=== PATIENT | female | born 1950 | race Caucasian/White ===

== ENCOUNTER 2021-02-01 15:56 | Emergency (ER) | payer BC, OTHER, MEDICARE ==
[~2021-02-01 15:56] MED LIST: ADVA1AER2 IN; ARTISOL10 OP; BACL1TAB9; BACL1TAB9 OR; BISA10SU2 PO; CALC500T49 OR; CALCCHW12; CHROMIUM; COMBI; COMBVENT; ESTRACE; FERR325T; FLECTOR1.3; FLON0.05; FLUC10TA; FLUC10TA AD; FURO80TA2 OR; HYDR25TA7 OR; HYDR25TA8 OR; HYDROXYZINE; HYPROMELLOSE OU; KADIAN; KEFL500C; KEFL500C OR; KEPPRA; KEPPRA PO; KLOR10TA OR; LASI80TA; LEVO112T3; LORTAB; MULTIVIT; Magnesium Oxide PO; OXCA1TAB OR; OXYC10TA12 OR; OXYC10TA12 PO; PEPC20TA2; PEPC20TA2 OR; POTA20TA2 OR; POTA20TA2 PO; PROP80CA OR; SIMV20TA2; SIMV20TA2 OR; SING10TA31; SING10TA31 OR; SLOWTAB OR; SLOWTAB PO; SONATA; SPIR100T OR; SPIR50TA2; SYNT112T OR; SYNT75TA; VITA100T; VITA25003 SL; VITAMIN B COMPLE1; VITAMIN B COMPLE1 OR; VITAMIN D50000 UNT; XOPE0.632 IN; ZANA2CAP OR; ZOLO100T; ZOLO100T OR; ZYVO100T; [UNRECOGNIZED DRUG - OTHER]; [UNRECOGNIZED DRUG - OTHER] OU; [UNRECOGNIZED DRUG - OTHER] PO; [UNRECOGNIZED DRUG - OTHER] PO; combivent PO; estrace PO; kadian PO; ocean spray; zertec PO
--- NOTE | 2021-02-01 18:41 | REP ---
INDICATION: PAIN IN LEFT HIP COMPARISON: 09/18/2010. TECHNIQUE: AP and lateral left femur. FINDINGS: There is no acute fracture or dislocation. There is total left knee arthroplasty. Metallic clips are seen in the distal thigh soft tissues. The majority of the fibula is surgically absent, with a smooth surgical margin seen proximally. There is moderate to severe central narrowing of the hip joint. IMPRESSION: No fracture or dislocation. Postsurgical changes left knee. Degenerative changes left hip. <Electronically signed by Kamlesh Chamorro > 02/01/21 3020
[2021-02-01] MEDS ORDERED: HYDR-3713 PO (20:49)
[2021-02-01] MEDS ORDERED: CYCLOBENZAPRINE 10MG TABLET PO ONE (20:50)
[2021-02-01] MEDS ORDERED: NORCO, ANEXSIA 5/325MG TABLET (HYDROcodone/ACETAMINOPHEN) PO ONE (20:50)
[2021-02-01] MEDS ORDERED: methocarbamoL 750 MG TAB PO ONE (20:50)
[2021-02-01] MEDS ORDERED: METH-1165 PO (20:53)
[2021-02-01] MEDS ORDERED: CYCL-707 PO (20:53)
[2021-02-01 21:37] VITALS: BP 145/62
== END 2021-02-01 21:39 | disposition home or self-care (01) ==
LOC: M ED 15:56
DX: S80.12XA Contusion of left lower leg, initial encounter (principal); X50.0XXA Overexertion from strenuous movement or load, initial encounter; Y92.9 Unspecified place or not applicable; Y93.9 Activity, unspecified; Y99.8 Other external cause status; Z96.652 Presence of left artificial knee joint; E66.9 Obesity, unspecified; G43.909 Migraine, unspecified, not intractable, without status migrainosus; J45.909 Unspecified asthma, uncomplicated; R56.9 Unspecified convulsions; E03.9 Hypothyroidism, unspecified; G89.29 Other chronic pain; Z88.0 Allergy status to penicillin; Z88.1 Allergy status to other antibiotic agents; Z88.6 Allergy status to analgesic agent; Z88.8 Allergy status to other drugs, medicaments and biological substances; Z79.899 Other long term (current) drug therapy; Z79.890 Hormone replacement therapy

== ENCOUNTER → 2021-02-09 | Outpatient (REF) | payer MEDICARE, BC, OTHER ==
[~2021-02-09] MED LIST changes: +CYCL-707 PO; +HYDR-3713 PO; +METH-1165 PO
== END ==
LOC: M LAB REF 20:06
PROVIDERS: ATTEND Physician Assistant
DX: R30.0 Dysuria (principal)

== ENCOUNTER 2021-04-11 14:50 | Emergency (ER) | payer MEDICARE, BC, OTHER ==
[~2021-04-11] VITALS: Ht 165.1 cm; Wt 124.5 kg
[2021-04-11] MEDS ORDERED: ADV500INH INH (15:55)
[2021-04-11] MEDS ORDERED: PROP120C PO (15:55)
[2021-04-11] MEDS ORDERED: KEPP1TAB2 PO (15:55)
[2021-04-11] MEDS ORDERED: oxyCODONE 5MG TAB PO ONE (17:10)
[2021-04-11 17:15] VITALS: BP 156/68
--- NOTE | 2021-04-12 05:00 | ECGEPIP ---
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
== END 2021-04-11 18:14 | disposition home or self-care (01) ==
LOC: M ED 14:50
DX: G89.29 Other chronic pain (principal); M25.552 Pain in left hip; R42 Dizziness and giddiness; E66.9 Obesity, unspecified; G43.909 Migraine, unspecified, not intractable, without status migrainosus; E03.9 Hypothyroidism, unspecified; Z88.1 Allergy status to other antibiotic agents; Z88.2 Allergy status to sulfonamides; Z88.6 Allergy status to analgesic agent; Z88.8 Allergy status to other drugs, medicaments and biological substances; Z79.899 Other long term (current) drug therapy; Z79.890 Hormone replacement therapy

== ENCOUNTER 2021-04-14 18:31 | Inpatient (IN) | payer MEDICARE, BC ==
[~2021-04-14] VITALS: Ht 165.1 cm; Wt 119.2 kg
[~2021-04-14 18:31] MED LIST changes: +ADV500INH INH; +KEPP1TAB2 PO; +PROP120C PO
[2021-04-14] MEDS ORDERED: HYDR12.55 PO (18:58)
[2021-04-14] MEDS ORDERED: ALPR0.5T3 PO (18:58)
[2021-04-14] MEDS ORDERED: KEPP1TAB2 PO ×2 (18:58)
[2021-04-14] MEDS ORDERED: ZYRTTAB8 PO (18:58)
[2021-04-14] MEDS ORDERED: HYDR200T3 PO (18:58)
[2021-04-14] MEDS ORDERED: ESZO1TAB6 PO (18:58)
[2021-04-14] MEDS ORDERED: LISI10TA22 PO (18:58)
[2021-04-14] MEDS ORDERED: VIMP200T PO (18:58)
[2021-04-14] MEDS ORDERED: LIPI20TA PO (18:58)
[2021-04-14] MEDS ORDERED: ADV500INH INH (18:58)
--- NOTE | 2021-04-14 20:08 | REP ---
INDICATION: Altered Mental Status. COMPARISON: 02/01/2021 TECHNIQUE: AP and frog-lateral with AP pelvis FINDINGS: Once again, there are advanced left hip degenerative changes with asymmetric hip joint space narrowing and prominent marginal osteophytosis. Subchondral sclerosis is also evident. 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 Significant by less severe degenerative changes are seen involving the right hip. There is asymmetric hip joint space narrowing and prominent femoral head marginal osteophytosis. No definite acute fracture is seen on either side. IMPRESSION: Advanced chronic changes as described above. 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 Consider CT for further evaluation. <Electronically signed by Jax Jeffery > 04/14/212004
--- NOTE | 2021-04-14 20:09 | REP ---
INDICATION: Altered Mental Status. COMPARISON: 08/05/2010 the latest prior also portable FINDINGS: The technique utilized in obtaining the radiograph has magnified the cardiac silhouette and accentuated the interstitial markings. There is cardiomegaly accentuated by technique. There is diffuse increase in the interstitial markings. There are no patchy opacities or pleural effusions. The osseous structures are within normal limits. IMPRESSION: Mild cardiomegaly and evidence of mild interstitial edema. <Electronically signed by Jax Jeffery > 04/14/212005
--- NOTE | 2021-04-14 20:11 | REPVR ---
PROCEDURE INFORMATION: Exam: CT Head Without Contrast Exam date and time: 04/14/2021 7:42 PM Age: 71 years old Clinical indication: Altered mental status/memory loss; Confusion or disorientation TECHNIQUE: Imaging protocol: Computed tomography of the head without contrast. Radiation optimization: All CT scans at this facility use at least one of these dose optimization techniques: automated exposure control; mA and/or kV adjustment per patient size (includes targeted exams where dose is matched to clinical indication); or iterative reconstruction. COMPARISON: No relevant prior studies available. FINDINGS: Brain: Mild parenchymal atrophy. No significant white matter disease. Mild cerebellar atrophy. Cerebral ventricles: No ventriculomegaly. Paranasal sinuses: Inflammatory changes left maxillary sinus. Left maxillary antrostomy. Mastoid air cells: Visualized mastoid air cells are well aerated. Bones/joints: Unremarkable. No acute fracture. Soft tissues: Unremarkable. IMPRESSION: 1. Mild parenchymal atrophy. No significant white matter disease. 2. Mild cerebellar atrophy. 3. No acute intracranial findings. Electronically signed by: James Reardon On 04/14/2021 20:11:26 PM
--- NOTE | 2021-04-14 21:36 | REPVR ---
PROCEDURE INFORMATION: Exam: CT Left Lower Extremity Without Contrast, Hip Exam date and time: 04/14/2021 9:17 PM Age: 71 years old Clinical indication: Pain; Hip; Left; Additional info: Pain, left hip TECHNIQUE: Imaging protocol: CT of the Left lower extremity without contrast was performed. Exam focused on the hip. Radiation optimization: All CT scans at this facility use at least one of these dose optimization techniques: automated exposure control; mA and/or kV adjustment per patient size (includes targeted exams where dose is matched to clinical indication); or iterative reconstruction. COMPARISON: CR Hip,AP,LAT to include Pelvis 04/14/2021 7:33 PM FINDINGS: Bones/joints: Severe degenerative arthropathy with narrowing of the superolateral joint compartment and subchondral cyst formation in the left hip. There is a vague oblique lucency demonstrated coursing through the anterior margin of the left femoral neck visualized on axial views only. Finding likely represents a vascular groove although the possibility of an incomplete fracture not absolutely excluded. Left hip joint effusion. Soft tissues: Normal. IMPRESSION: 1. Severe degenerative arthropathy with narrowing of the superolateral joint compartment and subchondral cyst formation in the left hip. 2. There is a vague oblique lucency demonstrated coursing through the anterior margin of the left femoral neck visualized on axial views only. Finding likely represents a vascular groove although the possibility of an incomplete fracture not absolutely excluded. 3. Left hip joint effusion. Electronically signed by: James Reardon On 04/14/2021 21:35:40 PM
--- NOTE | 2021-04-14 21:49 | ECGEPIP ---
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
[2021-04-14 22:52] LABS: BASO % 0.2 % (0.0-1.0); EOS # 0.2 10^3/uL (0.0-0.5); EOS % 3.9 % (0.0-3.0); HEMATOCRIT 31.4 % (36.0-47.0); HEMOGLOBIN 10.7 g/dl (12.0-15.5); LYMPH # 0.9 10^3/uL (1.5-5.0); LYMPH % 21.2 % (24.0-44.0); MEAN CORPUSCULAR HEMOGLOBIN 29.9 pg (27.0-33.0); MEAN CORPUSCULAR HGB CONC 34.1 g/dl (32.0-36.5); MEAN CORPUSCULAR VOLUME 87.7 fl (80.0-96.0); MONO # 0.5 10^3/uL (0.0-0.8); MONO % 11.8 % (2.0-8.0); NEUTROPHILS # 2.7 10^3/uL (1.5-8.5); NEUTROPHILS % 62.7 % (36.0-66.0); PLATELET COUNT, AUTOMATED 303 10^3/uL (150-450); RED BLOOD COUNT 3.58 10^6/uL (4.00-5.40); WHITE BLOOD COUNT 4.3 10^3/uL (4.0-10.0)
[2021-04-14 23:18] LABS: AMPHETAMINES LEVEL URINE NEGATIVE (NEGATIVE); BARBITURATES URINE NEGATIVE (NEGATIVE); BENZODIAZEPINES URINE POSITIVE (NEGATIVE); CANNABINOIDS URINE NEGATIVE (NEGATIVE); COCAINE METABOLITE URINE NEGATIVE (NEGATIVE); METHADONE URINE NEGATIVE (NEGATIVE); OPIATES URINE POSITIVE (NEGATIVE); PHENCYCLIDINE URINE NEGATIVE (NEGATIVE)
[2021-04-14] MEDS ORDERED: ACETAMINOPHEN TAB 650MG DOSE (2X325MG) PO PRN (23:35)
[2021-04-14 23:53] LABS: ALT/SGPT 22 U/L (12-78); BLOOD UREA NITROGEN 17 MG/DL (7-18); CALCIUM LEVEL 8.7 MG/DL (8.8-10.2); CARBON DIOXIDE LEVEL 25 MEQ/L (21-32); CHLORIDE LEVEL 101 MEQ/L (98-107); CREATININE FOR GFR 0.78 MG/DL (0.55-1.30); GLOMERULAR FILTRATION RATE > 60.0 (>45); GLUCOSE, FASTING 94 MG/DL (70-100); POTASSIUM SERUM 4.8 MEQ/L (3.5-5.1); SODIUM LEVEL 133 MEQ/L (136-145)
[2021-04-14 23:54] LABS: ALBUMIN 3.5 GM/DL (3.2-5.2); BILIRUBIN,DIRECT < 0.1 MG/DL (0.0-0.2); BILIRUBIN,TOTAL 0.3 MG/DL (0.2-1.0); ETHYL ALCOHOL (ETHANOL) < 0.003 % (0.000-0.010); TOTAL PROTEIN 6.7 GM/DL (6.4-8.2)
[2021-04-15 00:02] LABS: RSV AMPLIFICATION NEGATIVE (NEGATIVE)
[2021-04-15] MEDS ORDERED: HYDR-4517 PO (01:58)
[2021-04-15] MEDS ORDERED: EUTH112T PO (01:58)
[2021-04-15] MEDS ORDERED: NARC1SPR (01:58)
[2021-04-15] MEDS ORDERED: FAMO1TAB11 PO (01:58)
[2021-04-15] MEDS ORDERED: CYAN2500 SL (01:58)
[2021-04-15] MEDS ORDERED: FLON1SPR NARES (01:58)
[2021-04-15] MEDS ORDERED: METH-1165 PO (01:58)
[2021-04-15] MEDS ORDERED: COMBAER6 INH (01:58)
[2021-04-15] MEDS ORDERED: SUPETAB44 PO (01:58)
[2021-04-15] MEDS ORDERED: LEVA0.636 INH (01:58)
[2021-04-15] MEDS ORDERED: ZOLO100T PO (01:58)
[2021-04-15] MEDS ORDERED: MONT10TA10 PO (01:58)
[2021-04-15] MEDS ORDERED: HYDR-3363 PO (01:58)
[2021-04-15] MEDS ORDERED: ERGO500029 PO (01:58)
[2021-04-15] MEDS ORDERED: CETI10TA4 PO (01:58)
[2021-04-15] MEDS ORDERED: HOME MED LIST COMPLETE! XX SCH (02:00)
[2021-04-15] MEDS ORDERED: LEVALBUTEROL 1.25 MG/0.5 ML CONCENTRATE NEB INH PRN (02:30)
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
[2021-04-15] MEDS: ONDANSETRON 4MG/2ML VIAL IV PRN ×4 (04:20→20:27)
[2021-04-15] MEDS: MORPHINE 2 MG/ML 1ML VIAL (J2270) IV PRN ×4 (04:21→20:29)
[2021-04-15 06:05] VITALS: BP 186/83
[2021-04-15] MEDS: LEVOTHYROXINE 112MCG TABLET (0.112MG) PO SCH (07:03)
[2021-04-15 07:15] LABS: HEMATOCRIT 30.6 % (36.0-47.0); HEMOGLOBIN 10.6 g/dl (12.0-15.5); MEAN CORPUSCULAR HGB CONC 34.6 g/dl (32.0-36.5); MEAN CORPUSCULAR VOLUME 86.7 fl (80.0-96.0); PLATELET COUNT, AUTOMATED 296 10^3/uL (150-450); RED BLOOD COUNT 3.53 10^6/uL (4.00-5.40); WHITE BLOOD COUNT 3.9 10^3/uL (4.0-10.0)
[2021-04-15 07:31] LABS: INR 1.03; PROTHROMBIN TIME 13.9 SECONDS (12.7-14.5)
[2021-04-15 07:44] LABS: BLOOD UREA NITROGEN 14 MG/DL (7-18); CARBON DIOXIDE LEVEL 24 MEQ/L (21-32); CHLORIDE LEVEL 104 MEQ/L (98-107); CREATININE FOR GFR 0.77 MG/DL (0.55-1.30); GLOMERULAR FILTRATION RATE > 60.0 (>45); GLUCOSE, FASTING 108 MG/DL (70-100); POTASSIUM SERUM 4.7 MEQ/L (3.5-5.1); SODIUM LEVEL 135 MEQ/L (136-145)
[2021-04-15 07:45] LABS: CALCIUM LEVEL 9.2 MG/DL (8.8-10.2)
[2021-04-15] MEDS: FAMOTIDINE 20 MG TAB PO SCH ×2 (08:40→20:26)
[2021-04-15] MEDS: ALPRAZolam 0.5 MG TAB PO SCH (08:40)
[2021-04-15] MEDS: LACOSAMIDE 50 MG TAB (VIMPAT) PO SCH ×2 (08:40→20:26)
[2021-04-15] MEDS: levETIRAcetam 250MG TABLET (KEPPRA) PO SCH ×2 (08:41→20:27)
[2021-04-15] MEDS: SERTRALINE 100 MG TAB PO SCH ×2 (08:41→20:26)
[2021-04-15] MEDS: methocarbamoL 750 MG TAB PO SCH ×3 (08:41→20:26)
[2021-04-15] MEDS: ADVAIR HFA 230/21MCG INHALER INH SCH ×2 (09:01→20:08)
[2021-04-15 14:00] VITALS: BP 156/70
[2021-04-15] MEDS: hydroCHLOROthiazide 12.5 MG CAPSULE PO SCH (16:38)
[2021-04-15] MEDS: HYDROXYCHLOROQUINE 200 MG TAB PO SCH (16:38)
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
[2021-04-15] MEDS: COMBIVENT RESPIMAT 100-20MCG INHALER 4GM INH PRN (20:09)
[2021-04-15] MEDS ORDERED: diazePAM 2 MG TAB PO ONE (20:15)
[2021-04-15 20:25] LABS: C REACTIVE PROTEIN QUANTITATIV 0.86 MG/DL (0.00-0.30)
[2021-04-15] MEDS: ATORVASTATIN 20 MG TAB PO SCH (20:26)
[2021-04-15] MEDS: PROPRANOLOL 60 MG LA CAP PO SCH (20:26)
[2021-04-15] MEDS: MONTELUKAST 10 MG TAB PO SCH (20:26)
[2021-04-15] MEDS: CETIRIZINE (ZyrTEC) 10 MG TAB PO SCH (20:26)
[2021-04-15 20:46] LABS: ERYTHROCYTE SEDIMENTATION RATE 50 mm/hr (0-30)
[2021-04-15] MEDS: FLUTICASONE PROP 0.05% NASAL SPRAY 16 GM (FLONASE) NARES SCH (21:00)
[2021-04-15 22:00] VITALS: BP 150/70
[2021-04-16] MEDS: MORPHINE 2 MG/ML 1ML VIAL (J2270) IV PRN ×4 (00:08→16:20)
[2021-04-16] MEDS: RAMELTEON 8 MG TAB (ROZEREM) PO PRN ×2 (03:17→21:09)
[2021-04-16] MEDS: ANEXSIA, NORCO 7.5MG/325MG TABLET(HYDROCODONE/APAP) PO PRN ×3 (03:18→21:11)
--- NOTE | 2021-04-16 03:27 | REPVR ---
PROCEDURE INFORMATION: Exam: MR Pelvis Without Contrast, Musculoskeletal MR Left Lower Extremity Joint Without Contrast; Hip Exam date and time: 04/16/2021 1:30 AM Age: 71 years old Clinical indication: Pain; Hip; Left; Patient HX: Fall back in January; Additional info: Eval fracture TECHNIQUE: Imaging protocol: Magnetic resonance images of the pelvis without intravenous contrast. Exam focused on the musculoskeletal system. MR of the Left lower extremity joint without contrast. Exam focused on the hip. COMPARISON: CT-Hip WITHOUT CONTRAST 04/14/2021 8:49 PM Pelvic radiographs April 14, 2021. FINDINGS: PELVIS No free fluid is seen within the visualized pelvis. The uterus is not visualized. No dominant cystic adnexal mass is seen. Iliac chain lymph nodes are noted but nonspecific in appearance. No thickening of the urinary bladder is seen. No perirectal inflammatory changes are seen. SOFT TISSUES There is mild fluid sensitive signal hyperintensity within the proximal left gluteal muscles which could be secondary to mild sprain, myositis or acute denervation. There is mild fluid sensitive signal hyperintensity within visualized anterior compartment musculature of the left thigh extending below the level of imaging, with a similar differential. The hamstring tendon origins are unremarkable. The sciatic nerve is not edematous bilaterally. Ileofemoral arterial flow voids are maintained. No iliacus or iliopsoas bursitis is seen. Mild greater trochanteric bursitis bilaterally. OSSEOUS Degenerative change at the lumbosacral junction is noted but incompletely assessed. No edema is seen at the sacroiliac joints. The sacroiliac joints are symmetric. The pubic symphysis is anatomically aligned. RIGHT HIP The right hip is not subluxed or dislocated. Mild subchondral cystic changes consistent with mild osteoarthritis noted at the right hip joint. There is a small right hip joint effusion. Mild areas of cartilage loss are noted over the right femoral head. The right acetabular labrum is intact anteriorly and superiorly. Posteriorly there are cystic changes which are incompletely assessed on this exam, however these may represent paralabral cysts and could be related to nondisplaced posterior right labral tear. This could be correlated with any right-sided symptoms. LEFT HIP The left hip is not subluxed or dislocated. There is a moderately large left hip joint effusion containing some particulate debris. This debris may represent tiny cartilaginous particles. There is fluid sensitive signal hyperintensity within the left acetabulum, and patchy heterogeneous fluid sensitive signal hyperintensity within the left femoral head and neck minimally extending into the proximal left femoral shaft. A few subchondral cysts are noted. No fracture line is seen. There is severe left hip joint space loss with irregular areas of full-thickness cartilage loss. Mild marginal osteophyte formation noted around the femoral head. Appearance of the left hip joint may be secondary to recent injury with bone contusions superimposed upon advanced osteoarthritic change, however with this appearance, septic involvement of the left hip joint and osteomyelitis of adjacent bony structures cannot be excluded. Aspiration and culture is advised. Differential may also include rapidly progressive/destructive osteoarthritis of the hip, or early neuropathic hip. Less likely differential would include transient osteoporosis superimposed upon reactive changes from advanced osteoarthritis. No displaced tear of the left acetabular labrum is seen. IMPRESSION: There is asymmetric left hip joint space loss with a complex moderately large joint effusion and subchondral marrow edema on both sides of the joint. Septic involvement of the left hip joint and osteomyelitis to be excluded. Differential would include rapidly progressive osteoarthritis of the left hip, early neuropathic joint or transient osteoporosis. Posttraumatic bone contusions may have this appearance, however other conditions must be excluded. No fracture line is seen. Signal hyperintensity within the left gluteal musculature and left anterior thigh musculature extending below the level of imaging with differential discussed above. Electronically signed by: Mio Ramsey On 04/16/2021 03:26:27 AM
--- NOTE | 2021-04-16 03:47 | REPVR ---
PROCEDURE INFORMATION: Exam: MR Lumbar Spine Without Contrast Exam date and time: 04/16/2021 2:03 AM Age: 71 years old Clinical indication: Low back pain; Additional info: Lower back pain, urinary frequency/urgency TECHNIQUE: Imaging protocol: Multiplanar magnetic resonance images of the lumbar spine without intravenous contrast. COMPARISON: None Study limitations: Diagnostic evaluation is slightly compromised by motion artifact on some sequences. FINDINGS: OSSEOUS Lumbar vertebral body heights and posterior lumbar alignment are maintained. Lumbar lordosis is slightly accentuated. The facet joints do not appear subluxed or dislocated. There may be a unilateral right L5 spondylolysis with sclerosis. MARROW There is heterogeneous appearance of bone marrow but no discrete suspicious bone lesions seen. Hyperintense T1/T2 small lesions noted within the L4, L5 , S1 and S2 vertebral bodies, most likely represent hemangiomas. Subchondral endplate marrow changes noted at T12 and L3 are consistent with degenerative change. No evidence of an acute/occult fracture is seen. There is loss of anticipated yellow marrow signal throughout visualized osseous structures which may be secondary to red marrow reconversion and could be correlated with an underlying anemia, however may also be seen with obesity and smoking. SOFT TISSUES The visualized abdominal aorta is not aneurysmal. There is mild but symmetric fatty replacement of paraspinal muscles bilaterally. Appearance is suggestive of chronic denervation superimposed upon disuse. There is mild fluid sensitive signal hyperintensity within the lower lumbar paraspinal muscles which may be secondary to mild sprain or myositis. No edema to suggest acute injury within the anterior or posterior longitudinal ligaments or inter spinous ligaments. Incompletely imaged 2.8 cm right renal lesion noted consistent with a cyst. CORD The spinal cord terminates at the L1 level with an unremarkable appearance. Signal and caliber of the cord is maintained. No cord edema or syrinx is seen. Nerve roots within the cauda equina do not appear thickened or clumped to suggest arachnoiditis. No epidural fluid collection or hematoma is seen. DISCS Mild posterior disc displacements are noted at the lower thoracic levels, difficult to further characterize on this exam as these areas are not fully included. There is focal signal hyperintensity within the posterior annulus paracentral towards the left at the T11/T12 level suggesting a small annular tear. T12/L1: There is mild disc space loss. There is disc desiccation. There is mild concentric disc bulge slightly effacing the anterior thecal sac. There is mild facet arthropathy and moderate ligamentum flavum hypertrophy. Collectively no significant appearing central canal compromise or neural foraminal compromise is seen. L1/L2: There is mild disc space loss. There is disc desiccation. There is mild concentric disc bulging slightly effacing the anterior thecal sac. There is a punctate signal hyperintensity along the outer annulus at approximately the 7 o'clock position which may be a small annular tear. No protrusion is seen. There is mild facet arthropathy and moderate ligamentum flavum hypertrophy left slightly worse than right. This slightly effaces the thecal sac but no significant appearing central canal compromise. Mild neural foraminal narrowing is seen bilaterally. L2/L3: There is moderate disc space loss. There is disc desiccation. Moderate concentric disc bulging noted slightly greater paracentral towards the left extending into the foraminal zone. This slightly effaces the anterior thecal sac. There is mild facet arthropathy and mild ligamentum flavum hypertrophy. Collectively mild left subarticular zone narrowing is seen without obvious nerve root compression. [id number] neural foraminal narrowing bilaterally, left slightly worse than right. Concentric disc displacement appears to contact the extraforaminal left L2 nerve root L3/L4: There is mild disc space loss and disc desiccation. There is mild concentric disc bulge slightly effacing the anterior thecal sac. There is mild facet arthropathy. There is tiny right facet joint effusion. There is moderate ligamentum flavum hypertrophy slightly effacing the thecal sac. No significant appearing central canal compromise. Mild bilateral neural foraminal narrowing is seen. L4/L5: There is severe disc space loss and disc desiccation. There may be partial fusion across the disc space. There is fluid signal within the posterior half of the disc space. This is nonspecific but early discitis could have this appearance. No endplate bony destructive changes are seen. Clinical correlation is advised. No posterior disc displacement is seen. There is mild facet arthropathy and ligamentum flavum hypertrophy. No significant appearing central canal or neural foraminal compromise is seen. L5/S1: There is severe disc space loss. There is fluid signal throughout the disc space. This is nonspecific but early discitis cannot be excluded. No endplate bony destructive changes are seen. There is mild facet arthropathy and mild ligamentum flavum hypertrophy. No significant central canal or neural foraminal compromise is seen. IMPRESSION: There are degenerative changes throughout the spine, discussed above in detail. No severe appearing compromise to the central canal or neural foramina is seen. There is fluid within the L5/S1 disc space and partially the L4/L5 disc space. No endplate destruction is seen, however early discitis cannot be excluded with this appearance. Clinical correlation is advised. Other incidental findings discussed above. Electronically signed by: Mio Ramsey On 04/16/2021 03:47:16 AM
[2021-04-16 06:00] VITALS: BP 133/56
[2021-04-16] MEDS: LEVOTHYROXINE 112MCG TABLET (0.112MG) PO SCH (06:02)
--- NOTE | 2021-04-16 07:10 | REPVR ---
PROCEDURE INFORMATION: Exam: XR Left Knee Exam date and time: 04/16/2021 2:43 AM Age: 71 years old Clinical indication: Other: Left deacon pain prior tka; Additional info: Left knee pain, prior tka TECHNIQUE: Imaging protocol: XR Left knee. Views: 4 or more views. COMPARISON: Radiographs left femur February 01, 2021. FINDINGS: The knee joint itself is not well evaluated secondary to positioning and technique. Femorotibial spacing, patellofemoral alignment and the proximal tibiofibular joint are not well assessed on the views provided. The patient is status post a below the knee amputation of the left leg. There is a left knee replacement with cemented long-stemmed femoral and tibial components and patellar resurfacing. No evidence of component loosening is seen the bones appear demineralized. Clinical follow-up for osteoporosis. No acute displaced fracture or obvious articular malalignment seen. Vascular calcifications are seen throughout the visualized left leg. Multiple isa are seen overlying the soft tissues. If there is suspicion for infection in this patient, consider white blood cell scan. IMPRESSION: Findings and recommendations discussed above. Electronically signed by: Mio Ramsey On 04/16/2021 07:10:14 AM
[2021-04-16 07:18] LABS: BASO % 0.7 % (0.0-1.0); EOS # 0.1 10^3/uL (0.0-0.5); EOS % 1.9 % (0.0-3.0); HEMATOCRIT 30.5 % (36.0-47.0); HEMOGLOBIN 10.3 g/dl (12.0-15.5); LYMPH # 1.1 10^3/uL (1.5-5.0); LYMPH % 25.8 % (24.0-44.0); MEAN CORPUSCULAR HEMOGLOBIN 30.2 pg (27.0-33.0); MEAN CORPUSCULAR HGB CONC 33.8 g/dl (32.0-36.5); MEAN CORPUSCULAR VOLUME 89.4 fl (80.0-96.0); MONO # 0.7 10^3/uL (0.0-0.8); NEUTROPHILS # 2.4 10^3/uL (1.5-8.5); NEUTROPHILS % 55.1 % (36.0-66.0); PLATELET COUNT, AUTOMATED 279 10^3/uL (150-450); RED BLOOD COUNT 3.41 10^6/uL (4.00-5.40); WHITE BLOOD COUNT 4.3 10^3/uL (4.0-10.0)
[2021-04-16] MEDS: ADVAIR HFA 230/21MCG INHALER INH SCH ×2 (07:37→19:51)
[2021-04-16 07:42] LABS: CALCIUM LEVEL 8.8 MG/DL (8.8-10.2); CREATININE FOR GFR 1.21 MG/DL (0.55-1.30); POTASSIUM SERUM 4.3 MEQ/L (3.5-5.1)
[2021-04-16] MEDS: FAMOTIDINE 20 MG TAB PO SCH ×2 (08:35→21:10)
[2021-04-16] MEDS: LACOSAMIDE 50 MG TAB (VIMPAT) PO SCH ×2 (08:35→21:10)
[2021-04-16] MEDS: SERTRALINE 100 MG TAB PO SCH ×2 (08:36→21:10)
[2021-04-16] MEDS: ALPRAZolam 0.5 MG TAB PO SCH ×2 (08:36→21:10)
[2021-04-16] MEDS: ONDANSETRON 4MG/2ML VIAL IV PRN ×2 (08:36→16:17)
[2021-04-16] MEDS: methocarbamoL 750 MG TAB PO SCH ×3 (08:36→21:10)
[2021-04-16] MEDS: levETIRAcetam 250MG TABLET (KEPPRA) PO SCH ×2 (08:36→21:10)
[2021-04-16 08:40] LABS: C REACTIVE PROTEIN QUANTITATIV 0.73 MG/DL (0.00-0.30)
[2021-04-16] MEDS ORDERED: PREVNAR 13 VACCINE SYRINGE IM ONE (09:00)
[2021-04-16 09:52] LABS: ERYTHROCYTE SEDIMENTATION RATE 44 mm/hr (0-30)
--- NOTE | 2021-04-16 10:01 | IPNPDOC ---
Text Note Date of Service The patient was seen on 04/16/21. NOTE Subjective: Patient seen and examined at bedside. No acute overnight events reported. Patient voices no new medical complaints this morning. Objective: Vital Signs: reviewed General: NAD, lying comfortably in bed HEENT: NC/AT, EOMI Neck: supple, no masses Chest: lungs CTA B/L Heart: +S1S2, RRR Abd: soft, NT, ND, +BS Ext: left BKA, extremities warm to touch Skin: no rashes Neuro: no gross focal deficits Psych: AAOx3 A/P: 71F presents to ED with CC of progressively worsening left hip pain. Patient is noted to have a left BKA from complications from her knee replacements back in 2014 in [place], [place]. In the ER imaging shows findings suspicious for possible occult fracture, ortho recommending admission for MRI and further evaluation. #left hip pain - discussed with ortho - no concerns with MRI imaging findings - no left hip fracture - MRI completed - concern for left knee however - plan for arthrocentesis today #dysuria/polyuria - recently treated for UTI - will start abx after knee arthrocentesis #Chronic dependent edema continue home meds with spironolactone and Lasix #Chronic iron deficiency anemia Likely due to B12 deficiency status post gastric bypass continue home medications #Secondary hyperparathyroidism and hypothyroidism continue with home meds # asthma - continue home meds #History of partial seizures continue with home meds. vimpat and keppra #Fibromyalgia - continue with home meds # neuropathy - continue home meds DVT ppx: TEDS SCDs VS,Fishbone, I+O VS, Fishbone, I+O Laboratory Tests 04/16/21 06:04 Vital Signs Date Time Temp Pulse Resp B/P (MAP) Pulse Ox O2 Delivery O2 Flow Rate FiO2 04/16/21 08:37 18 130/57 04/16/21 06:00 96.9 70 97 Room Air I&O- Last 24 Hours up to 6 AM 04/16/21 06:00 Intake Total 60 ml Output Total 225 ml Balance -165 ml JANETTE ROSALES MD Apr 16, 2021 10:01
[2021-04-16 14:00] VITALS: BP 136/56
[2021-04-16] MEDS: hydroCHLOROthiazide 12.5 MG CAPSULE PO SCH (16:17)
[2021-04-16] MEDS: HYDROXYCHLOROQUINE 200 MG TAB PO SCH (16:17)
--- NOTE | 2021-04-16 17:13 | IPNPDOC ---
Text Note Date of Service The patient was seen on 04/16/21. NOTE Ortho Progress Note UPDATE: XR of left knee and MRI of left hip performed. No fracture line on left hip. The hip looks typical of severe OA. No fractures around the knee imp lants. ESR and CRP only slightly elevated. Recommend left knee aspiration to r/o infection. S: patient pain doing better today, no other complaints. O: left knee still slightly warm but not as bad as yesterday. Otherwise no change in exam. A: 71 yo F with left knee and hip pain. Low concern for occult hip fracture. Given the slightly elevated labs and left knee pain, which has been present since January, I discussed with the patient my concern for possible PJI. I discussed with the local arthroplasty surgeons as well and we all agree that left knee aspiration would be prudent to r/o infection. Plan: - left knee aspirated at bedside under sterile conditions (universal protocol fo llorafi, consent obtained, site marked and time out performed) - Low yield of fluid: 2.5 cc bloody tap - Fluid sent for cell count, GS, and culture - Left hip: most consistent with OA flare, no plan for stabilization at this time - Will follow up results of aspiration. Given small amount of fluid and it being bloody, I have lower suspicion of infection. Sheila Moura VS,Stefany, I+O VS, Stefany, I+O Laboratory Tests 04/16/21 06:04 Vital Signs Date Time Temp Pulse Resp B/P (MAP) Pulse Ox O2 Delivery O2 Flow Rate FiO2 04/16/21 16:20 62 18 144/60 04/16/21 14:00 97.9 98 Room Air I&O- Last 24 Hours up to 6 AM0 04/16/21 06:00 Intake Total 60 ml Output Total 225 ml Balance -165 ml MICHELLE MOURA MD Apr 16, 2021 17:13
[2021-04-16 18:11] LABS: SOURCE, BODY FLUID LFT KNEE; SYNOVIAL FLUID COLOR QNS (COLORLESS)
[2021-04-16] MEDS: COMBIVENT RESPIMAT 100-20MCG INHALER 4GM INH PRN (20:03)
[2021-04-16] MEDS: FLUTICASONE PROP 0.05% NASAL SPRAY 16 GM (FLONASE) NARES SCH (21:00)
[2021-04-16] MEDS: PHENAZOPYRIDINE 100 MG TAB PO SCH (21:08)
[2021-04-16] MEDS: MONTELUKAST 10 MG TAB PO SCH (21:08)
[2021-04-16] MEDS: ATORVASTATIN 20 MG TAB PO SCH (21:08)
[2021-04-16] MEDS: PROPRANOLOL 60 MG LA CAP PO SCH (21:09)
[2021-04-16] MEDS: CETIRIZINE (ZyrTEC) 10 MG TAB PO SCH (21:10)
[2021-04-16 21:20] VITALS: BP 147/59
[2021-04-17] MEDS: MORPHINE 2 MG/ML 1ML VIAL (J2270) IV PRN ×3 (00:13→14:08)
[2021-04-17] MEDS: ONDANSETRON 4MG/2ML VIAL IV PRN ×3 (00:13→14:04)
[2021-04-17] MEDS: ANEXSIA, NORCO 7.5MG/325MG TABLET(HYDROCODONE/APAP) PO PRN ×3 (03:38→21:17)
[2021-04-17] MEDS: LEVOTHYROXINE 112MCG TABLET (0.112MG) PO SCH (05:53)
[2021-04-17 06:00] VITALS: BP 114/58
[2021-04-17 06:18] LABS: BASO % 0.4 % (0.0-1.0); EOS # 0.1 10^3/uL (0.0-0.5); EOS % 2.5 % (0.0-3.0); HEMATOCRIT 29.8 % (36.0-47.0); HEMOGLOBIN 9.8 g/dl (12.0-15.5); LYMPH # 1.2 10^3/uL (1.5-5.0); LYMPH % 20.8 % (24.0-44.0); MEAN CORPUSCULAR HEMOGLOBIN 30.1 pg (27.0-33.0); MEAN CORPUSCULAR HGB CONC 32.9 g/dl (32.0-36.5); MEAN CORPUSCULAR VOLUME 91.4 fl (80.0-96.0); MONO # 0.8 10^3/uL (0.0-0.8); MONO % 13.8 % (2.0-8.0); NEUTROPHILS # 3.5 10^3/uL (1.5-8.5); PLATELET COUNT, AUTOMATED 249 10^3/uL (150-450); RED BLOOD COUNT 3.26 10^6/uL (4.00-5.40); WHITE BLOOD COUNT 5.6 10^3/uL (4.0-10.0)
[2021-04-17 06:33] LABS: INR 1.02; PROTHROMBIN TIME 13.8 SECONDS (12.7-14.5)
[2021-04-17 06:36] LABS: C REACTIVE PROTEIN QUANTITATIV 0.67 MG/DL (0.00-0.30); CREATININE FOR GFR 1.92 MG/DL (0.55-1.30); GLOMERULAR FILTRATION RATE 27.6 (>45); POTASSIUM SERUM 4.5 MEQ/L (3.5-5.1)
[2021-04-17 07:00] LABS: ERYTHROCYTE SEDIMENTATION RATE 48 mm/hr (0-30)
[2021-04-17] MEDS: ADVAIR HFA 230/21MCG INHALER INH SCH ×2 (07:39→21:03)
[2021-04-17] MEDS: NS 1,000 ML IV SCH ×2 (08:55→21:16)
[2021-04-17] MEDS: LACOSAMIDE 50 MG TAB (VIMPAT) PO SCH ×2 (08:56→21:13)
[2021-04-17] MEDS: CEPHALEXIN 500 MG CAP PO SCH ×3 (09:00→21:14)
[2021-04-17] MEDS: levETIRAcetam 250MG TABLET (KEPPRA) PO SCH ×2 (09:00→21:14)
[2021-04-17] MEDS: methocarbamoL 750 MG TAB PO SCH ×3 (09:01→21:14)
[2021-04-17] MEDS: SERTRALINE 100 MG TAB PO SCH ×2 (09:01→21:13)
[2021-04-17] MEDS: ALPRAZolam 0.5 MG TAB PO SCH ×2 (09:01→21:14)
[2021-04-17] MEDS: PHENAZOPYRIDINE 100 MG TAB PO SCH ×2 (09:01→21:14)
[2021-04-17] MEDS: FAMOTIDINE 20 MG TAB PO SCH ×2 (09:01→21:14)
--- NOTE | 2021-04-17 09:54 | REP ---
INDICATION: emily. Prior left nephrectomy. COMPARISON: Comparison sonography January 03, 2011. TECHNIQUE: Urinary tract sonography. FINDINGS: The urinary bladder is empty at the time of scanning. The left kidney is surgically absent. Renal cortical echogenicity pattern in the right kidney is somewhat increased consistent with chronic medical renal disease. There is no evidence of hydronephrosis. Right kidney measures 13.7 x 7.1 by 6.6 cm. There is a 2.8 cm cyst in the upper pole right kidney. In addition in the upper pole, there is a 1.4 cm cyst. Left upper quadrant scanning shows unremarkable spleen. No mass lesion is seen. IMPRESSION: Post left nephrectomy. Two small cysts upper pole right kidney. Increased renal cortical echogenicity pattern right kidney consistent with chronic disease. No hydronephrosis. <Electronically signed by Quinn Curtis > 04/17/21 0956
--- NOTE | 2021-04-17 10:41 | IPNPDOC ---
Text Note Date of Service The patient was seen on 04/17/21. NOTE Subjective: Patient seen and examined at bedside. No acute overnight events reported. Patient voices no new medical complaints this morning, states she is feeling better today. Still notes polyuria and dysuria, also somewhat improved as per patient. Objective: Vital Signs: reviewed General: NAD, lying comfortably in bed HEENT: NC/AT, EOMI Neck: supple, no masses Chest: lungs CTA B/L Heart: +S1S2, RRR Abd: soft, NT, ND, +BS Ext: left BKA, extremities warm to touch Skin: no rashes Neuro: no gross focal deficits Psych: AAOx3 A/P: 71F presents to ED with CC of progressively worsening left hip pain. 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 In the ER imaging shows findings suspicious for possible occult fracture, ortho recommending admission for MRI and further evaluation. #left hip pain - discussed with ortho - no concerns with MRI imaging findings - no left hip fracture - MRI completed - concern for left knee however - s/p arthrocentesis, fluid analysis pending - f/u with ortho #dysuria/polyuria - recently treated for UTI - will start abx after knee arthrocentesis - patient states she tolerates keflex - UCx from 04/14 however show no growth #CHASTITY - renal us unrevealing - as above, recent UCx unrevealing - hold ACEI and HCTZ - IV fluids - nephrology c/s #Hx renal cell carcinoma? - s/p left nephrectomy #Chronic dependent edema - continue home meds with spironolactone and Lasix #Chronic iron deficiency anemia Likely due to B12 deficiency status post gastric bypass continue home medications #Secondary hyperparathyroidism and hypothyroidism continue with home meds # asthma - continue home meds #History of partial seizures continue with home meds. vimpat and keppra #Fibromyalgia - continue with home meds # neuropathy - continue home meds DVT ppx: TEDS SCDs VS,Fishbone, I+O VS, Fishbone, I+O Laboratory Tests 04/17/21 05:13 Vital Signs Date Time Temp Pulse Resp B/P (MAP) Pulse Ox O2 Delivery O2 Flow Rate FiO2 04/17/21 06:04 16 Room Air 04/17/21 06:00 97.5 56 114/58 (69) 95 I&O- Last 24 Hours up to 6 AM 04/17/21 06:00 Intake Total 910 ml Output Total 475 ml Balance 435 ml JANETTE ROSALES MD Apr 17, 2021 10:41
[2021-04-17] MEDS: COMBIVENT RESPIMAT 100-20MCG INHALER 4GM INH PRN ×2 (11:05→21:03)
--- NOTE | 2021-04-17 13:25 | IPNPDOC ---
Text Note Date of Service The patient was seen on 04/17/21. NOTE Ortho Progress Note UPDATE 04/16/21: XR of left knee and MRI of left hip performed. No fracture line on left hip. The hip looks typical of severe OA. No fractures around the knee implants. ESR and CRP only slightly elevated. Recommend left knee aspiration to r/o infection. UPDATE 04/17/21: patient pain doing better today, no other complaints. Being treated for concurrent UTI, which may be source of elevated ESR/CRP. Minimal fl uid obtained from arthrocentesis yesterday, for lab it was insufficient quantity for cell count. Micro shows no growth to date and neg GS. O: No change in exam. Labs WBC: 5.6 ESR: 48(44(50 CRP: 0.67(0.73(0.86 Synovial Fluid - Cell count: QNS - GS: few WBC, no org - Culture: NGTD A: 71 yo F with left knee and hip pain. Low concern for occult hip fracture. Low concern for left hip fx or PJI of left knee Plan: - Pain seems to be improving. Recommend patient be protected WB to left side but able to progress as tolerated. She would like to continue with her current follow up plan to get the left hip evaluated for NATHANIEL. She had something scheduled for a week from now in [place], but would like to stay local if possible. I will follow up with one of our local arthroplasty surgeons to see if we can facilitate this. Sheila Moura VS,Blancobone, I+O VS, Fishbone, I+O Laboratory Tests 04/17/21 05:13 Vital Signs Date Time Temp Pulse Resp B/P (MAP) Pulse Ox O2 Delivery O2 Flow Rate FiO2 04/17/21 11:45 16 04/17/21 11:15 60 131/59 04/17/21 06:04 Room Air 04/17/21 06:00 97.5 95 I&O- Last 24 Hours up to 6 AM 04/17/21 06:00 Intake Total 910 ml Output Total 475 ml Balance 435 ml MICHELLE MOURA MD Apr 17, 2021 13:25
[2021-04-17 14:00] VITALS: BP 110/40
[2021-04-17 17:07] LABS: GLUCOSE, URINE (UA) MANUAL NEGATIVE (NEGATIVE); KETONE, URINE MANUAL NEGATIVE (NEGATIVE); UROBILINOGEN, URINE MANUAL OBSCURED mg/dl (NORMAL)
[2021-04-17 17:09] LABS: BILIRUBIN, URINE MANUAL OBSCURED (NEGATIVE)
[2021-04-17 17:10] LABS: BACTERIA, URINE SMALL AMOUNT; SQUAMOUS EPITHELIAL CELL URINE MOD AMOUNT /hpf (SMALL AMT)
[2021-04-17] MEDS: HYDROXYCHLOROQUINE 200 MG TAB PO SCH (18:04)
--- NOTE | 2021-04-17 20:24 | CR ---
NEPHROLOGY CONSULTATION DATE: 04/17/2021 REQUESTING PHYSICIAN: Brian So M.D. CONSULTING PHYSICIAN: Bunny Bro M.D. REASON FOR CONSULTATION: Acute kidney injury. HISTORY OF PRESENT ILLNESS: Mrs. Swanson is a 71-year-old female who was admitted so [facility] on April 14 due to left hip pain. She has a prior history of left leg below the knee amputation and also has chronic left hip problems. There is a question of septic arthritis in her hip or effusion. She did have an MRI. The patient has also a prior history of nephrectomy on the left side due to malignancy, however her kidney function has been stable prior to this admission. She has now developed acute kidney injury due to which a nephrology consultation was requested. The patient is seen at her bedside this morning. PAST MEDICAL AND SURGICAL HISTORY: The patient's past medical and surgical history is significant for: 1. History of left leg cellulitis in the past. 2. Migraine headaches. 3. History of TIA. 4. History of generalized seizures. 5. Hypertension. 6. Left flank hernia. 7. Polyneuropathy. 8. Asthma. 9. History of degenerative joint disease. 10. History of chronic back pain. 11. History of TMJ. 12. History of hypothyroidism. 13. History of renal cell carcinoma, status post left nephrectomy. PAST SURGICAL HISTORY: The patient's past surgical history is significant for: 1. Left below the knee amputation. 2. Left sided nephrectomy. 3. History of gastroplasty. 4. D&C. 5. Bilateral breast reduction. 6. Cholecystectomy. 7. Hysterectomy. 8. Knee surgery. 9. Shoulder surgery. 10. Bilateral carpal tunnel surgery. 11. Gastric bypass surgery. 12. Hernia repair causing mesh infection with the hernia mesh removal. 13. Right knee replacement. 14. Left ulnar nerve decompression. 15. Right ulnar nerve decompression. 16. Trigger finger release. 17. Abdominoplasty. FAMILY HISTORY: The patient's family history is not relevant for this admission. She does have family history for melanoma, diabetes, hypertension and multiple myeloma. PERSONAL AND SOCIAL HISTORY: The patient denies any smoking, alcohol or drug use. She lives with her daughter and her . MEDICATIONS: Her home medications include: 1. Alprazolam 0.5 mg twice daily. 2. Atorvastatin 20 mg daily. 3. Cetrizine 10 mg at bedtime. 4. Vitamin B-12 5,000 mcg daily. 5. Vitamin D 50,000 once a week. 6. Famotidine 20 mg twice daily. 7. Flonase Nasal [place] at bedtime. 8. Multivitamin with Folic Acid one tablet daily. 9. Hydrochlorothiazide 12.5 mg daily. 10. Hydrocodone with Acetaminophen 10/325 mg every 6 hours as needed for pain. 11. Hydroxychloroquine 200 mg at bedtime. 12. Keppra 750 mg in the morning. 13. Lacosamide 200 mg twice daily. 14. Keppra 1,500 mg at bedtime. 15. Levothyroxine 112 mcg daily. 16. Lisinopril 10 mg daily. 17. Propanolol 120 mg at bedtime. 18. Advair Diskus 500/50 twice daily. 19. Sertraline 100 mg twice daily. 20. Eszopiclone 3 mg at bedtime. 21. She also uses her Combivent and Albuterol nebulizers. ALLERGIES: She has multiple allergies with a long list in her records. REVIEW OF SYSTEMS: Constitutional: The patient denies any fevers or chills at present. She has severe pain in her left hip. Ears, Nose and Throat: Unremarkable. Cardiovascular System: Negative for dyspnea or chest pain. Respiratory System: Significant for a history of asthma, but denies any acute problems at present. Gastrointestinal System: Negative for vomiting or diarrhea. Genitourinary System: Negative for dysuria or hematuria. She has a remote history of left sided nephrectomy. She was recently treated for a urinary tract infection. Musculoskeletal: Significant for left hip pain. She has a prior left below the knee amputation. Endocrine System: Significant for hypothyroidism. Hematological System: Significant for B-12 deficiency anemia. PHYSICAL EXAMINATION: GENERAL APPEARANCE: Elderly female laying in the bed without any acute distress. VITAL SIGNS: Temperature 97 degrees Fahrenheit, heart rate 70 per minute, and respiratory rate 18 per minute, blood pressure 112/49 mm of mercury and oxygen saturation is 95% on room air. HEENT: Head is atraumatic. There is oral thrush or ulcers. Pupils equal and reactive to light and sclerae is anicteric. NECK: Supple and JVD not abnormally elevated. HEART: Sounds are regular. LUNGS: Clear to auscultation. ABDOMEN: Obese, soft and nontender and bowel sounds are present. EXTREMITIES: Without any cyanosis or clubbing. She has a left below the knee amputation and stump is healed. There is no edema on her right leg. NEUROLOGICAL: She is awake, alert and oriented x3. LABORATORY DATA: Today's labs show a WBC count of 5.6, hemoglobin 9.8 and hematocrit 29.8. Sodium 134, potassium 4.5, CO2 23, BUN 28 and creatinine 1.92, glucose 96 and calcium 8.0. C-reactive protein is 0.67. His BNP level is 517. Her urinalysis did show nitrites positive today and too numerous to count WBCs. Her initial urinalysis showed only 3 WBCs. Important to note that yesterday her BUN was 16 and creatinine 1.2 while on April 15 BUN was 14 and creatinine 0.77. IMAGING DATA: The patient had a renal ultrasound done today which showed right kidney 13.7 into 7 into 6.6 cm in size with a 2.8 cm cyst. No hydronephrosis. Left kidney is surgically absent. Hip MRI showed fluid and debris in her left hip with significant degenerative changes. PROBLEMS: 1. Acute kidney injury - The patient has a known history of left nephrectomy several years ago, however kidney function has been stable with serum creatinine 0.7 at baseline. Now acute kidney injury is most likely related to left hip infection. Her Lisinopril has already been stopped. She is being treated with Cephalexin which is non nephrotoxic. She has not received any NSAIDs. I agree with IV fluids as the patient reports that she had very little oral intake for 3 days. It is quite possible that she could be dehydrated. She is morbidly obese and has no peripheral edema at all. Renal profile will be checked again tomorrow. 2. Hyponatremia her sodium level is only minimally low at 134 which will not need any interventions. I would recommend to use normal saline for IV fluids. 3. Left hip pain she has effusion and her hip pain which is probably chronic. She does not seem to have septic arthritis as her C-reactive protein is only 0.67 today, and she does not have any leukocytosis on her CBC. 4. Anemia she does have anemia of probably chronic disease. She has a B-12 deficiency history. At present anemia is stable and there is no need for any urgent intervention. Thank you for involving me in the care of Mrs. Swanson. I will follow her along with you.
[2021-04-17] MEDS: FLUTICASONE PROP 0.05% NASAL SPRAY 16 GM (FLONASE) NARES SCH (21:00)
[2021-04-17] MEDS: ATORVASTATIN 20 MG TAB PO SCH (21:13)
[2021-04-17] MEDS: CETIRIZINE (ZyrTEC) 10 MG TAB PO SCH (21:14)
[2021-04-17] MEDS: RAMELTEON 8 MG TAB (ROZEREM) PO PRN (21:14)
[2021-04-17] MEDS: MONTELUKAST 10 MG TAB PO SCH (21:14)
[2021-04-17] MEDS: PROPRANOLOL 60 MG LA CAP PO SCH (21:15)
[2021-04-17 22:00] VITALS: BP 152/60
[2021-04-18] MEDS: ONDANSETRON 4MG/2ML VIAL IV PRN ×4 (01:32→22:54)
[2021-04-18] MEDS: MORPHINE 2 MG/ML 1ML VIAL (J2270) IV PRN ×5 (01:32→23:00)
[2021-04-18] MEDS: ANEXSIA, NORCO 7.5MG/325MG TABLET(HYDROCODONE/APAP) PO PRN ×3 (03:39→20:41)
[2021-04-18] MEDS: CEPHALEXIN 500 MG CAP PO SCH ×3 (05:19→22:54)
[2021-04-18] MEDS: LEVOTHYROXINE 112MCG TABLET (0.112MG) PO SCH (05:19)
[2021-04-18 06:00] VITALS: BP 137/63
[2021-04-18 06:14] LABS: BASO % 0.6 % (0.0-1.0); EOS # 0.1 10^3/uL (0.0-0.5); EOS % 2.9 % (0.0-3.0); HEMATOCRIT 30.3 % (36.0-47.0); HEMOGLOBIN 10.1 g/dl (12.0-15.5); LYMPH # 1.2 10^3/uL (1.5-5.0); LYMPH % 25.7 % (24.0-44.0); MEAN CORPUSCULAR HEMOGLOBIN 30.1 pg (27.0-33.0); MEAN CORPUSCULAR HGB CONC 33.3 g/dl (32.0-36.5); MEAN CORPUSCULAR VOLUME 90.2 fl (80.0-96.0); MONO # 0.4 10^3/uL (0.0-0.8); MONO % 8.6 % (2.0-8.0); NEUTROPHILS # 2.9 10^3/uL (1.5-8.5); NEUTROPHILS % 61.6 % (36.0-66.0); PLATELET COUNT, AUTOMATED 249 10^3/uL (150-450); RED BLOOD COUNT 3.36 10^6/uL (4.00-5.40); WHITE BLOOD COUNT 4.8 10^3/uL (4.0-10.0)
[2021-04-18 06:32] LABS: CALCIUM LEVEL 8.1 MG/DL (8.8-10.2); CREATININE FOR GFR 1.44 MG/DL (0.55-1.30); GLOMERULAR FILTRATION RATE 38.4 (>45); POTASSIUM SERUM 4.4 MEQ/L (3.5-5.1)
[2021-04-18] MEDS: ADVAIR HFA 230/21MCG INHALER INH SCH ×2 (07:42→20:00)
[2021-04-18] MEDS: COMBIVENT RESPIMAT 100-20MCG INHALER 4GM INH PRN (07:43)
[2021-04-18] MEDS: FAMOTIDINE 20 MG TAB PO SCH ×2 (08:50→20:44)
[2021-04-18] MEDS: SERTRALINE 100 MG TAB PO SCH ×2 (08:51→20:45)
[2021-04-18] MEDS: ALPRAZolam 0.5 MG TAB PO SCH ×2 (08:51→20:45)
[2021-04-18] MEDS: levETIRAcetam 250MG TABLET (KEPPRA) PO SCH ×2 (08:51→20:43)
[2021-04-18] MEDS: methocarbamoL 750 MG TAB PO SCH ×3 (08:51→20:44)
[2021-04-18] MEDS: PHENAZOPYRIDINE 100 MG TAB PO SCH ×2 (08:51→20:42)
[2021-04-18] MEDS: LACOSAMIDE 50 MG TAB (VIMPAT) PO SCH ×2 (08:51→20:44)
[2021-04-18] MEDS: NS 1,000 ML IV SCH ×2 (08:52→18:27)
--- NOTE | 2021-04-18 10:22 | IPNPDOC ---
Text Note Date of Service The patient was seen on 04/18/21. NOTE Subjective: Patient seen and examined at bedside. No acute overnight events reported. Patient voices no new medical complaints this morning. Many questions this morning regarding her care. All questions answered at bedside. Objective: Vital Signs: reviewed General: NAD, lying comfortably in bed HEENT: NC/AT, EOMI Neck: supple, no masses Chest: lungs CTA B/L Heart: +S1S2, RRR Abd: soft, NT, ND, +BS, obese Ext: left BKA, extremities warm to touch Skin: no rashes Neuro: no gross focal deficits Psych: AAOx3 A/P: 71F presents to ED with CC of progressively worsening left hip pain. 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 In the ER imaging shows findings suspicious for possible occult fracture, ortho recommending admission for MRI and further evaluation. #left hip pain - discussed with ortho - no concerns with MRI imaging findings - no left hip fracture - MRI completed - concern for left knee however - s/p arthrocentesis, fluid cultures pending - f/u with ortho - possible left hip arthroplasty - to be determined #dysuria/polyuria - recently treated for UTI - continue keflex for now, repeat UCx pending #CHASTITY - improving - renal us unrevealing - hold ACEI and HCTZ - IV fluids - nephrology c/s appreciated #Hx renal cell carcinoma? - s/p left nephrectomy #Chronic dependent edema - continue home meds with spironolactone and Lasix #Chronic iron deficiency anemia Likely due to B12 deficiency status post gastric bypass continue home medications #Secondary hyperparathyroidism and hypothyroidism continue with home meds # asthma - continue home meds #History of partial seizures continue with home meds. vimpat and keppra #Fibromyalgia - continue with home meds # neuropathy - continue home meds DVT ppx: TEDS SCDs Dispo: picc line today - poor venous access; continue IV fluids, monitor renal function; nephrology f/u; ortho f/u - possible left hip arthroplasty VS,Fishbone, I+O VS, Fishbone, I+O Laboratory Tests 04/18/21 05:52 Vital Signs Date Time Temp Pulse Resp B/P (MAP) Pulse Ox O2 Delivery O2 Flow Rate FiO2 04/18/21 08:52 20 04/18/21 06:00 97.4 56 137/63 (87) 99 Room Air I&O- Last 24 Hours up to 6 AM 04/18/21 06:00 Intake Total 1980 ml Output Total 2050 ml Balance -70 ml JANETTE ROSALES MD Apr 18, 2021 10:22
[2021-04-18 14:00] VITALS: BP 137/63
[2021-04-18] MEDS: HYDROXYCHLOROQUINE 200 MG TAB PO SCH (16:48)
[2021-04-18 20:30] VITALS: BP 160/72
--- NOTE | 2021-04-18 20:30 | IPN ---
PROGRESS NOTE DATE: 04/18/2021 SUBJECTIVE: Mrs. Swanson is seen this morning on her bedside. She is feeling about the same. Her left hip pain is not any different. She denies any nausea, vomiting, dyspnea or chest pain. She continues to receive I.V. fluids. PHYSICAL EXAMINATION: VITALS: Temperature 96.5 degrees Fahrenheit, heart rate 64 per minute, respiratory rate 16 per minute, blood pressure 136/63 mmHg and oxygen saturation 98% on room air. HEENT: Head is atraumatic. Neck is supple and JVD still not elevated. HEART: Heart sounds are regular. LUNGS: Slightly diminished breath sounds at bases. ABDOMEN: Soft and nontender, and bowel sounds are normal. EXTREMITIES: Without any cyanosis or clubbing. She has left leg below the knee amputation. NEUROLOGIC: She is at her baseline mentation without a focal deficit. LABORATORY DATA: Today's labs show WBC 4.8, hemoglobin 10.1, hematocrit 30.3. Sodium 131, potassium 4.4, CO2 25, BUN 24, creatinine 1.44, glucose 90 and calcium 8.1. PROBLEMS: 1. Acute kidney injury: Kidney function is improved compared to yesterday, is still not back to her baseline. She has only one kidney and did not have any hydronephrosis on the ultrasound. She does have too numerous to count wbc in her urine, which is suggestive of a UTI. She had decreased oral intake which most likely contributed to her acute kidney injury in addition to ongoing diuretic use. I think that continued I.V. fluid with normal saline for the next 24 hours is appropriate. 2. Hyponatremia: She has developed hyponatremia probably related to pain and only fluid should be used is normal saline. Electrolytes should be checked again tomorrow. 3. UTI: Patient has history of recurrent UTI and was recently treated with Keflex. Urine culture is likely to show multiple organisms because of the chronic nature. She is currently being treated with Keflex. It is quite likely that she has multiple organisms, which are not likely to respond to Keflex only. It remains to be seen how her urine clears. 4. Left hip pain: She has chronic issues with significant effusion and necrosis in her hip. Ortho has not decided about any intervention as yet. She does not seem to have septic arthritis as her C-reactive protein is less than 1.
[2021-04-18] MEDS: PROPRANOLOL 60 MG LA CAP PO SCH (20:42)
[2021-04-18] MEDS: ATORVASTATIN 20 MG TAB PO SCH (20:45)
[2021-04-18] MEDS: CETIRIZINE (ZyrTEC) 10 MG TAB PO SCH (20:45)
[2021-04-18] MEDS: MONTELUKAST 10 MG TAB PO SCH (20:45)
[2021-04-18] MEDS: FLUTICASONE PROP 0.05% NASAL SPRAY 16 GM (FLONASE) NARES SCH (20:49)
[2021-04-18] MEDS ORDERED: MIRALAX *UNIT DOSE* 17GM PACKET PO PRN (22:40)
[2021-04-18] MEDS ORDERED: DOCUSATE SODIUM 100MG CAPSULE PO PRN (22:40)
[2021-04-18] MEDS ORDERED: MOM 30ML SUSPENSION UDC PO PRN (22:40)
[2021-04-18] MEDS: RAMELTEON 8 MG TAB (ROZEREM) PO PRN (22:54)
[2021-04-19] MEDS: MORPHINE 2 MG/ML 1ML VIAL (J2270) IV PRN ×5 (02:08→20:59)
[2021-04-19 06:00] VITALS: BP 176/73
[2021-04-19] MEDS: CEPHALEXIN 500 MG CAP PO SCH ×3 (06:08→21:45)
[2021-04-19] MEDS: LEVOTHYROXINE 112MCG TABLET (0.112MG) PO SCH (06:08)
[2021-04-19] MEDS: BISACODYL 5 MG TAB PO PRN (06:08)
[2021-04-19] MEDS: ANEXSIA, NORCO 7.5MG/325MG TABLET(HYDROCODONE/APAP) PO PRN ×2 (06:09→17:21)
[2021-04-19] MEDS: NS 1,000 ML IV SCH ×2 (06:10→15:20)
[2021-04-19] MEDS: ADVAIR HFA 230/21MCG INHALER INH SCH ×2 (07:35→21:47)
[2021-04-19 07:56] VITALS: BP 144/60
[2021-04-19] MEDS: FAMOTIDINE 20 MG TAB PO SCH ×2 (08:40→21:44)
[2021-04-19] MEDS: ALPRAZolam 0.5 MG TAB PO SCH ×2 (08:40→21:44)
[2021-04-19] MEDS: methocarbamoL 750 MG TAB PO SCH ×3 (08:40→21:48)
[2021-04-19] MEDS: ONDANSETRON 4MG/2ML VIAL IV PRN ×3 (08:40→20:59)
[2021-04-19] MEDS: LACOSAMIDE 50 MG TAB (VIMPAT) PO SCH ×2 (08:40→21:52)
[2021-04-19] MEDS: PHENAZOPYRIDINE 100 MG TAB PO SCH ×2 (08:40→21:44)
[2021-04-19] MEDS: levETIRAcetam 250MG TABLET (KEPPRA) PO SCH ×2 (08:41→21:44)
[2021-04-19] MEDS: SERTRALINE 100 MG TAB PO SCH ×2 (08:41→21:47)
[2021-04-19 11:35] LABS: CALCIUM LEVEL 8.4 MG/DL (8.8-10.2); GLOMERULAR FILTRATION RATE 58.5 (>45); PHOSPHORUS LEVEL 3.8 MG/DL (2.5-4.9); POTASSIUM SERUM 4.6 MEQ/L (3.5-5.1)
--- NOTE | 2021-04-19 13:02 | IPN ---
PROGRESS NOTE DATE: 04/19/2021 SUBJECTIVE: Mrs. Swanson is seen this morning on her bedside. She is sitting on the edge of the bed eating her breakfast. She reports that her left hip pain remains between 8 and 10. She denies any dyspnea or chest pain and continues with IV fluid. OBJECTIVE: VITAL SIGNS: Temperature is 97 degrees Fahrenheit, heart rate is 64 per minute and respiratory rate is 16 per minute. Blood pressure is 144/60 mmHg and oxygen saturation is 97% on room air. HEENT: Head is atraumatic. NECK: Supple without JVD or thyroid enlargement. HEART: Heart sounds are regular. LUNGS: Clear to auscultation. ABDOMEN: Soft and nontender. Bowel sounds are present. EXTREMITIES: Without any cyanosis or clubbing. LABORATORY DATA: Today's labs shows BUN down to 17 and creatinine 1.0, sodium is 135, and potassium is 4.1. PROBLEMS: 1. Acute renal failure superimposed on chronic kidney disease. Patient has a solitary functioning kidney and developed acute renal failure due to dehydration. Kidney function has now improved with IV fluid hydration. 2. Hyponatremia, sodium level has also improved up to 135 today. She has been on IV Normal Saline. I think that if her oral intake is adequate then her IV fluid can probably be stopped due to history of congestive heart failure. 3. UTI. This is a chronic issue and the patient tells me that she is going to get a PICC line placed for IV antibiotics. 4. Left hip pain. She has a significant effusion and degenerative problems. She is waiting to be seen by orthopedic surgery as to what kind of intervention she is going to have. From a renal standpoint, the patient is doing well and kidney function has improved. I am signing off her case. Please do not hesitate to call me should you need any further assistance.
[2021-04-19 14:00] VITALS: BP 163/69
[2021-04-19] MEDS ORDERED: LIDOCAINE 1% MDV 20ML VIAL As Ordered ONE (14:53)
[2021-04-19] MEDS: HYDROXYCHLOROQUINE 200 MG TAB PO SCH (16:26)
--- NOTE | 2021-04-19 16:34 | REP ---
PROCEDURE NAME: PICC LINE INSERTION W/SITERITE CLINICAL INFORMATION: POOR IV ACCESS. COMPARISON: None. PROCEDURE DESCRIPTION: The procedure was performed by ALLISON Morfin, under the direct supervision of Dr. Curtis. The risks and benefits of the procedure were explained to the patient and an informed consent was obtained both verbally and written. Directly prior to the start of the procedure a formal time-out was completed in the procedure room. The right lateral brachial vein was localized using ultrasound guidance. The skin was prepped and draped in sterile fashion. Four mL of 1% lidocaine 10 mg/mL was used as a local anesthetic. Using ultrasound guidance the right lateral brachial vein was cannulated, and a 0.018 guidewire was inserted and advanced to the mid subclavian vein using fluoroscopic guidance. Multiple attempts were made to advance the guidewire to the SVC but there is a strong likelihood of an occlusion. Due to the patient's lengthy list of allergies, it was decided not to inject contrast, and to just place the PICC line in the mid subclavian vein. The needle was removed and a 5.5 Palauan dilator and peel-away sheath was inserted over the guidewire. A 5.5 [place]au[place] dual lumen catheter was cut to a length of 32 cm. The dilator was removed and the catheter was inserted over the guidewire with the tip ending at the level of the mid subclavian vein. The peel-away sheath was removed and the catheter was flushed with heparinized saline as per hospital protocol. The catheter was affixed to the skin and a sterile dressing was applied. The patient tolerated the procedure well and there were no immediate complications. CONCLUSION: PICC line insertion into the right lateral brachial vein. 3.5 minutes of fluoroscopy time was utilized for this procedure. Some fluoroscopic images are performed with last image hold technology. These images require no additional radiation. <Electronically signed by Rhonda Cox > 04/19/21 [id number] <Electronically signed by Quinn Curtis > 04/19/21 [id number]
[2021-04-19] MEDS: SODIUM CHLORIDE 0.9% INJ 10 ML SYR IV SCH (18:19)
[2021-04-19] MEDS ORDERED: **hydrALAZINE HCL** 25 MG TAB PO PRN (20:40)
--- NOTE | 2021-04-19 20:40 | IPNPDOC ---
Subjective Date Seen The patient was seen on 04/19/21. Subjective Chief Complaint/HPI Mrs. Swanson is a 71 year old female with hypothyroidism, hypertension, and left BKA who is here for left hip pain and CHASTITY. This morning, patient still has persistent left hip pain. She tells me orthopedic surgery was supposed to come back to see her to discuss plan moving forward. Otherwise she denies any chest pain or dyspnea. Objective Physical Examination General Exam: Positive: Alert, Cooperative Eye Exam: Negative: Sclera icteric ENT Exam: Positive: Atraumatic Neck Exam: Positive: Supple Chest Exam: Positive: Clear to auscultation Heart Exam: Positive: Rate Normal, Regular Rhythm Abdomen Exam: Positive: Normal bowel sounds, Soft; Negative: Tenderness Extremity Exam: Positive: Other (Left BKA) Psych Exam: Positive: Mental status NL, Mood NL Assessment /Plan Assessment Mrs. Swanson is a 71 year old female with hypothyroidism, hypertension, and left BKA who is here for left hip pain and CHATSITY. Orthopedic surgery was consulted. Possible left hip arthroplasty. Otherwise patient had CHASTITY that now has resolved. Patient's UA was suggestive of infection. Urine culture demonstrated no growth of clinical significance, 2 or more organisms. Patient continues on Keflex as she has allergies to many antibiotics. Plan/VTE VTE Prophylaxis Ordered?: Yes Plan 1. Severe left hip osteoarthritis Orthopedic surgery consulted, recommendations appreciated Pending decision on left hip arthroplasty 2. CHASTITY During hospitalization, creatinine increased to 1.92 Nephrology was consulted Probably suspect CHASTITY secondary to infection Lisinopril was held Patient is on Keflex for UTI 3. UTI No leukocytosis or fever UA suggestive of infection but urine culture grew no growth of clinical significance, 2 or more organisms Continue Keflex day 2 4. History of renal cell carcinoma Status post left nephrectomy 5. Hypertension HCTZ and lisinopril held due to CHASTITY Added as needed hydralazine 6. Hypothyroidism Continue levothyroxine 7. Asthma Continue Combivent Respimat and Singulair Continue fluticasone/salmeterol 8. History of partial seizures Continue Vimpat and Keppra 9. DVT prophylaxis SCDs and teds Disposition: Pending orthopedic recommendations VS, I&O, 24H, Fishbone Vital Signs/I&O Vital Signs Date Time Temp Pulse Resp B/P (MAP) Pulse Ox O2 Delivery O2 Flow Rate FiO2 04/19/21 18:09 18 04/19/21 14:15 98.0 64 98 Room Air 04/19/21 14:00 163/69 (100) I&O- Last 24 Hours up to 6 AM 04/19/21 06:00 Intake Total 4460 ml Output Total 3825 ml Balance 635 ml Laboratory Data 24H LABS Laboratory Tests 2 04/19/21 10:52: Anion Gap 6L, Glomerular Filtration Rate 58.5, Calcium Level 8.4L, Phosphorus Level 3.8, Albumin 3.0L CBC/BMP Laboratory Tests 04/19/21 10:52 Microbiology Microbiology 04/17/21 Urine Culture - Final, Complete 04/16/21 Gram Stain - Final, Complete 04/16/21 Body Fluid Culture - Final, Complete 04/16/21 Anaerobic Culture - Final, Complete 04/14/21 Urine Culture - Final, Complete MARGARET GLASGOW DO Apr 19, 2021 20:40
[2021-04-19] MEDS: RAMELTEON 8 MG TAB (ROZEREM) PO PRN (21:44)
[2021-04-19] MEDS: MONTELUKAST 10 MG TAB PO SCH (21:44)
[2021-04-19] MEDS: PROPRANOLOL 60 MG LA CAP PO SCH (21:45)
[2021-04-19] MEDS: CETIRIZINE (ZyrTEC) 10 MG TAB PO SCH (21:45)
[2021-04-19] MEDS: ATORVASTATIN 20 MG TAB PO SCH (21:45)
[2021-04-19] MEDS: FLUTICASONE PROP 0.05% NASAL SPRAY 16 GM (FLONASE) NARES SCH (21:52)
[2021-04-19 22:00] VITALS: BP 182/77
[2021-04-20] MEDS: ANEXSIA, NORCO 7.5MG/325MG TABLET(HYDROCODONE/APAP) PO PRN ×4 (00:31→20:02)
[2021-04-20] MEDS: MORPHINE 2 MG/ML 1ML VIAL (J2270) IV PRN ×4 (02:29→22:43)
[2021-04-20] MEDS: NS 1,000 ML IV SCH (04:05)
[2021-04-20 06:00] VITALS: BP 144/60
[2021-04-20] MEDS: CEPHALEXIN 500 MG CAP PO SCH ×3 (06:40→22:43)
[2021-04-20] MEDS: LEVOTHYROXINE 112MCG TABLET (0.112MG) PO SCH (06:41)
[2021-04-20] MEDS: SODIUM CHLORIDE 0.9% INJ 10 ML SYR IV SCH ×2 (06:41→16:45)
[2021-04-20] MEDS: ADVAIR HFA 230/21MCG INHALER INH SCH ×2 (07:15→20:00)
[2021-04-20 08:36] LABS: HEMATOCRIT 27.7 % (36.0-47.0); HEMOGLOBIN 9.2 g/dl (12.0-15.5); MEAN CORPUSCULAR HEMOGLOBIN 30.2 pg (27.0-33.0); MEAN CORPUSCULAR HGB CONC 33.2 g/dl (32.0-36.5); MEAN CORPUSCULAR VOLUME 90.8 fl (80.0-96.0); PLATELET COUNT, AUTOMATED 241 10^3/uL (150-450); RED BLOOD COUNT 3.05 10^6/uL (4.00-5.40); WHITE BLOOD COUNT 6.2 10^3/uL (4.0-10.0)
[2021-04-20 08:56] LABS: BLOOD UREA NITROGEN 13 MG/DL (7-18); CALCIUM LEVEL 8.4 MG/DL (8.8-10.2); CARBON DIOXIDE LEVEL 24 MEQ/L (21-32); CHLORIDE LEVEL 106 MEQ/L (98-107); CREATININE FOR GFR 0.83 MG/DL (0.55-1.30); GLOMERULAR FILTRATION RATE > 60.0 (>45); GLUCOSE, FASTING 104 MG/DL (70-100); POTASSIUM SERUM 4.8 MEQ/L (3.5-5.1); SODIUM LEVEL 135 MEQ/L (136-145)
[2021-04-20] MEDS: ALPRAZolam 0.5 MG TAB PO SCH ×2 (09:30→20:01)
[2021-04-20] MEDS: LACOSAMIDE 50 MG TAB (VIMPAT) PO SCH ×2 (09:30→20:01)
[2021-04-20] MEDS: PHENAZOPYRIDINE 100 MG TAB PO SCH ×2 (09:30→20:02)
[2021-04-20] MEDS: levETIRAcetam 250MG TABLET (KEPPRA) PO SCH ×2 (09:30→20:00)
[2021-04-20] MEDS: methocarbamoL 750 MG TAB PO SCH ×3 (09:30→20:01)
[2021-04-20] MEDS: SODIUM CHLORIDE 0.9% INJ 10 ML SYR IV PRN (09:31)
[2021-04-20] MEDS: FAMOTIDINE 20 MG TAB PO SCH ×2 (09:31→20:01)
[2021-04-20] MEDS: SERTRALINE 100 MG TAB PO SCH ×2 (09:31→20:01)
[2021-04-20] MEDS: BISACODYL 5 MG TAB PO PRN (09:40)
[2021-04-20] MEDS: SENNA 8.6 MG TAB (SENOKOT) PO SCH ×2 (09:46→20:00)
[2021-04-20] MEDS: DOCUSATE SODIUM 100MG CAPSULE PO SCH ×2 (09:46→20:00)
[2021-04-20 14:00] VITALS: BP 126/53
[2021-04-20] MEDS: HYDROXYCHLOROQUINE 200 MG TAB PO SCH (16:45)
[2021-04-20] MEDS: ONDANSETRON 4MG/2ML VIAL IV PRN ×2 (16:50→22:43)
--- NOTE | 2021-04-20 17:12 | IPNPDOC ---
Text Note Date of Service The patient was seen on 04/20/21. NOTE Ortho Progress Note UPDATE 04/16/21: XR of left knee and MRI of left hip performed. No fracture line on left hip. The hip looks typical of severe OA. No fractures around the knee implants. ESR and CRP only slightly elevated. Recommend left knee aspiration to r/o infection. UPDATE 04/17/21: patient pain doing better today, no other complaints. Being treated for concurrent UTI, which may be source of elevated ESR/CRP. Minimal fluid obtained from arthrocentesis yesterday, for lab it was insufficient quantity for cell count. Micro shows no growth to date and neg GS. UPDATE 04/20/21: no new events. Patients sitting in chair and feeling better. Per Dr. Dumont UTI is under control and patient okay for discharge from medical perspective. Patient's pain is still there, but not much change. O: No change in exam. Labs WBC: 6.2(5.6 ESR: (48(44(50 CRP: (0.67(0.73(0.86 Synovial Fluid - Cell count: QNS - GS: few WBC, no org - Culture: complete, no growth A: 71 yo F with left knee and hip pain. Low concern for occult hip fracture. Low concern for left hip fx or PJI of left knee Plan: - Recommend patient be protected WB to left side but able to progress as tolerated. I discussed her case with one of the local arthroplasty surgeons who believes her case is quite complex and recommends she follow up with the art hroplasty surgeons in [place]. She is willing to do this. Ortho to sign off at this point. Please call with any questions or concerns. Sheila Moura VS,Stefany, I+O VS, Stefany, I+O Laboratory Tests 04/20/21 07:46 Vital Signs Date Time Temp Pulse Resp B/P (MAP) Pulse Ox O2 Delivery O2 Flow Rate FiO2 04/20/21 16:54 20 04/20/21 14:00 98.2 64 126/53 (77) 96 Room Air I&O- Last 24 Hours up to 6 AM 04/20/21 06:00 Intake Total 2160 ml Output Total 5525 ml Balance -3365 ml MICHELLE MOURA MD Apr 20, 2021 17:12
--- NOTE | 2021-04-20 17:39 | IPNPDOC ---
Subjective Date Seen The patient was seen on 04/20/21. Subjective Chief Complaint/HPI Mrs. Swanson is a 71 year old female with hypothyroidism, hypertension, and left BKA who is here for left hip pain and CHASTITY. Patient was seen in the morning. She denies any chest pain or dyspnea. We returned to orthopedic surgery, who recommended that she should follow-up with her surgeon in [place] to discuss her hip due to the complexity of the case. Objective Physical Examination General Exam: Positive: Alert, Cooperative Eye Exam: Negative: Sclera icteric ENT Exam: Positive: Atraumatic Neck Exam: Positive: Supple Chest Exam: Positive: Clear to auscultation Heart Exam: Positive: Rate Normal, Regular Rhythm Abdomen Exam: Positive: Normal bowel sounds, Soft; Negative: Tenderness Extremity Exam: Positive: Other (Left BKA) Psych Exam: Positive: Mental status NL, Mood NL Assessment /Plan Assessment Mrs. Swanson is a 71 year old female with hypothyroidism, hypertension, and left BKA who is here for left hip pain and CHASTITY. Orthopedic surgery was consulted. Patient to have left hip arthroplasty by her surgeon in [place] due to complexity of the case. Otherwise patient had CHASTITY suspected to be secondary to UTI. UTI was treated and CHASTITY improved. Plan/VTE VTE Prophylaxis Ordered?: Yes Plan 1. Severe left hip osteoarthritis Orthopedic surgery consulted, recommendations appreciated Left hip arthroplasty to be done by patient's orthopedic surgeon in [place] due to complexity of the case Continue PT OT 2. CHASTITY During hospitalization, creatinine increased to 1.92 Nephrology was consulted Probably suspect CHASTITY secondary to infection Lisinopril was held Patient is on Keflex for UTI CHASTITY resolved and nephrology signed off 3. UTI No leukocytosis or fever UA suggestive of infection but urine culture grew no growth of clinical significance, 2 or more organisms Continue Keflex day 3 4. History of renal cell carcinoma Status post left nephrectomy 5. Hypertension HCTZ and lisinopril held due to CHASTITY Added as needed hydralazine 6. Hypothyroidism Continue levothyroxine 7. Asthma Continue Combivent Respimat and Singulair Continue fluticasone/salmeterol 8. History of partial seizures Continue Vimpat and Keppra 9. DVT prophylaxis SCDs and teds Disposition: We will have PT and OT work with patient tomorrow. She does well, patient will be discharged so she may follow-up with her orthopedic surgeon [place] to discuss left hip arthroplasty. We will consider giving her a single dose of fosfomycin before discharge. VS, I&O, 24H, Fishbone Vital Signs/I&O Vital Signs Date Time Temp Pulse Resp B/P (MAP) Pulse Ox O2 Delivery O2 Flow Rate FiO2 04/20/21 16:54 20 04/20/21 14:00 98.2 64 126/53 (77) 96 Room Air I&O- Last 24 Hours up to 6 AM 04/20/21 06:00 Intake Total 2160 ml Output Total 5525 ml Balance -3365 ml Laboratory Data 24H LABS Laboratory Tests 2 04/20/21 07:46: Nucleated Red Blood Cells % (auto) 0.0, Anion Gap 5L, Glomerular Filtration Rate > 60.0, Calcium Level 8.4L CBC/BMP Laboratory Tests 04/20/21 07:46 Microbiology Microbiology 04/17/21 Urine Culture - Final, Complete 04/16/21 Gram Stain - Final, Complete 04/16/21 Body Fluid Culture - Final, Complete 04/16/21 Anaerobic Culture - Final, Complete 04/14/21 Urine Culture - Final, Complete MARGARET GLASGOW DO Apr 20, 2021 17:39
[2021-04-20] MEDS: MONTELUKAST 10 MG TAB PO SCH (20:01)
[2021-04-20] MEDS: ATORVASTATIN 20 MG TAB PO SCH (20:01)
[2021-04-20] MEDS: CETIRIZINE (ZyrTEC) 10 MG TAB PO SCH (20:01)
[2021-04-20] MEDS: PROPRANOLOL 60 MG LA CAP PO SCH (20:02)
[2021-04-20] MEDS: FLUTICASONE PROP 0.05% NASAL SPRAY 16 GM (FLONASE) NARES SCH (20:03)
[2021-04-20 21:00] VITALS: BP 128/53
[2021-04-20] MEDS: RAMELTEON 8 MG TAB (ROZEREM) PO PRN (22:43)
[2021-04-21] MEDS: MORPHINE 2 MG/ML 1ML VIAL (J2270) IV PRN ×3 (03:54→20:29)
[2021-04-21] MEDS: SODIUM CHLORIDE 0.9% INJ 10 ML SYR IV PRN ×3 (03:54→09:38)
[2021-04-21] MEDS: LEVOTHYROXINE 112MCG TABLET (0.112MG) PO SCH (05:37)
[2021-04-21] MEDS: CEPHALEXIN 500 MG CAP PO SCH ×3 (05:37→21:56)
[2021-04-21] MEDS: SODIUM CHLORIDE 0.9% INJ 10 ML SYR IV SCH ×2 (05:38→17:39)
[2021-04-21] MEDS: ANEXSIA, NORCO 7.5MG/325MG TABLET(HYDROCODONE/APAP) PO PRN ×3 (05:38→21:57)
[2021-04-21 07:08] LABS: HEMOGLOBIN 8.8 g/dl (12.0-15.5); MEAN CORPUSCULAR HEMOGLOBIN 29.5 pg (27.0-33.0); MEAN CORPUSCULAR HGB CONC 32.6 g/dl (32.0-36.5); MEAN CORPUSCULAR VOLUME 90.6 fl (80.0-96.0); PLATELET COUNT, AUTOMATED 231 10^3/uL (150-450); RED BLOOD COUNT 2.98 10^6/uL (4.00-5.40); WHITE BLOOD COUNT 4.2 10^3/uL (4.0-10.0)
[2021-04-21 07:39] LABS: BLOOD UREA NITROGEN 12 MG/DL (7-18); CALCIUM LEVEL 8.4 MG/DL (8.8-10.2); CARBON DIOXIDE LEVEL 24 MEQ/L (21-32); CHLORIDE LEVEL 107 MEQ/L (98-107); CREATININE FOR GFR 0.82 MG/DL (0.55-1.30); GLOMERULAR FILTRATION RATE > 60.0 (>45); GLUCOSE, FASTING 97 MG/DL (70-100); POTASSIUM SERUM 4.7 MEQ/L (3.5-5.1); SODIUM LEVEL 136 MEQ/L (136-145)
[2021-04-21] MEDS: ADVAIR HFA 230/21MCG INHALER INH SCH ×2 (08:10→20:04)
[2021-04-21] MEDS: levETIRAcetam 250MG TABLET (KEPPRA) PO SCH ×2 (09:36→21:56)
[2021-04-21] MEDS: LACOSAMIDE 50 MG TAB (VIMPAT) PO SCH ×2 (09:36→21:55)
[2021-04-21] MEDS: PHENAZOPYRIDINE 100 MG TAB PO SCH ×2 (09:37→21:56)
[2021-04-21] MEDS: SERTRALINE 100 MG TAB PO SCH ×2 (09:37→21:56)
[2021-04-21] MEDS: FAMOTIDINE 20 MG TAB PO SCH ×2 (09:37→21:56)
[2021-04-21] MEDS: ALPRAZolam 0.5 MG TAB PO SCH ×2 (09:37→21:55)
[2021-04-21] MEDS: SENNA 8.6 MG TAB (SENOKOT) PO SCH ×2 (09:37→21:55)
[2021-04-21] MEDS: methocarbamoL 750 MG TAB PO SCH ×3 (09:37→21:56)
[2021-04-21] MEDS: DOCUSATE SODIUM 100MG CAPSULE PO SCH ×2 (09:38→21:56)
[2021-04-21] MEDS ORDERED: ALPRAZolam 0.5 MG TAB PO PRN (09:50)
[2021-04-21 14:00] VITALS: BP 160/90
--- NOTE | 2021-04-21 16:03 | IPNPDOC ---
Subjective Date Seen The patient was seen on 04/21/21. Subjective Chief Complaint/HPI Mrs. Swanson is a 71 year old female with hypothyroidism, hypertension, and left BKA who is here for left hip pain and CHASTITY. Patient was seen in the morning, and she denies any chest pain or dyspnea. We discussed orthopedic surgeons recommendations. Patient to follow-up with [place] orthopedic surgery outpatient. Objective Physical Examination General Exam: Positive: Alert, Cooperative Eye Exam: Negative: Sclera icteric ENT Exam: Positive: Atraumatic Neck Exam: Positive: Supple Chest Exam: Positive: Clear to auscultation Heart Exam: Positive: Rate Normal, Regular Rhythm Abdomen Exam: Positive: Normal bowel sounds, Soft; Negative: Tenderness Extremity Exam: Positive: Other (Left BKA) Psych Exam: Positive: Mental status NL, Mood NL Assessment /Plan Assessment Mrs. Swanson is a 71 year old female with hypothyroidism, hypertension, and left BKA who is here for left hip pain and CHASTITY. Orthopedic surgery was consulted. Patient to have left hip arthroplasty by her surgeon in [place] due to complexity of the case. Otherwise patient had CHASTITY suspected to be secondary to UTI. UTI was treated and CHASTITY resolved. On 04/21/2021, patient will complete 5 days (15 doses) of Keflex around 2200 hrs. We will give a dose of fosfomycin tomorrow morning, and then she will be done with her antibiotics. Plan/VTE VTE Prophylaxis Ordered?: Yes Plan 1. Severe left hip osteoarthritis Orthopedic surgery consulted, recommendations appreciated Left hip arthroplasty to be done by patient's orthopedic surgeon in [place] due to complexity of the case Continue PT OT 2. CHASTITY During hospitalization, creatinine increased to 1.92 Nephrology was consulted Probably suspect CHASTITY secondary to infection Lisinopril was held Patient is on Keflex for UTI CHASTITY resolved and nephrology signed off 3. UTI No leukocytosis or fever UA suggestive of infection but urine culture grew no growth of clinical significance, 2 or more organisms Patient will complete 15 doses of Keflex on 04/21/2021 around 2000 hrs. We will switch to single dose fosfomycin tomorrow morning and she will be done with her antibiotics. 4. History of renal cell carcinoma Status post left nephrectomy 5. Hypertension HCTZ and lisinopril held due to CHASTITY Added as needed hydralazine 6. Hypothyroidism Continue levothyroxine 7. Asthma Continue Combivent Respimat and Singulair Continue fluticasone/salmeterol 8. History of partial seizures Continue Vimpat and Keppra 9. DVT prophylaxis SCDs and teds Disposition: Patient will complete antibiotics tomorrow morning with a single dose of fosfomycin. Rehab versus home with home services. VS, I&O, 24H, Fishbone Vital Signs/I&O Vital Signs Date Time Temp Pulse Resp B/P (MAP) Pulse Ox O2 Delivery O2 Flow Rate FiO2 04/21/21 15:45 20 160/90 04/21/21 09:38 63 04/21/21 06:00 97.5 95 Room Air I&O- Last 24 Hours up to 6 AM 04/21/21 06:00 Intake Total 1438 ml Output Total 3600 ml Balance -2162 ml Laboratory Data 24H LABS Laboratory Tests 2 04/21/21 06:40: Nucleated Red Blood Cells % (auto) 0.0, Anion Gap 5L, Glomerular Filtration Rate > 60.0, Calcium Level 8.4L CBC/BMP Laboratory Tests 04/21/21 06:40 Microbiology Microbiology 04/17/21 Urine Culture - Final, Complete 04/16/21 Gram Stain - Final, Complete 04/16/21 Body Fluid Culture - Final, Complete 04/16/21 Anaerobic Culture - Final, Complete 04/14/21 Urine Culture - Final, Complete MARGARET GLASGOW DO Apr 21, 2021 16:03
[2021-04-21] MEDS: HYDROXYCHLOROQUINE 200 MG TAB PO SCH (17:39)
[2021-04-21] MEDS: ONDANSETRON 4MG/2ML VIAL IV PRN (20:29)
[2021-04-21] MEDS: FLUTICASONE PROP 0.05% NASAL SPRAY 16 GM (FLONASE) NARES SCH (21:00)
[2021-04-21] MEDS: ATORVASTATIN 20 MG TAB PO SCH (21:55)
[2021-04-21] MEDS: CETIRIZINE (ZyrTEC) 10 MG TAB PO SCH (21:55)
[2021-04-21] MEDS: MONTELUKAST 10 MG TAB PO SCH (21:56)
[2021-04-21] MEDS: PROPRANOLOL 60 MG LA CAP PO SCH (21:56)
[2021-04-21 22:00] VITALS: BP 164/81
[2021-04-22] MEDS: MORPHINE 2 MG/ML 1ML VIAL (J2270) IV PRN ×3 (02:32→20:43)
[2021-04-22] MEDS: ONDANSETRON 4MG/2ML VIAL IV PRN (02:32)
[2021-04-22] MEDS: LEVOTHYROXINE 112MCG TABLET (0.112MG) PO SCH (06:22)
[2021-04-22] MEDS: SODIUM CHLORIDE 0.9% INJ 10 ML SYR IV SCH ×2 (06:22→18:00)
[2021-04-22 06:50] LABS: HEMATOCRIT 26.7 % (36.0-47.0); HEMOGLOBIN 8.8 g/dl (12.0-15.5); MEAN CORPUSCULAR HEMOGLOBIN 30.2 pg (27.0-33.0); MEAN CORPUSCULAR VOLUME 91.8 fl (80.0-96.0); PLATELET COUNT, AUTOMATED 257 10^3/uL (150-450); RED BLOOD COUNT 2.91 10^6/uL (4.00-5.40); WHITE BLOOD COUNT 4.5 10^3/uL (4.0-10.0)
[2021-04-22 07:32] LABS: BLOOD UREA NITROGEN 11 MG/DL (7-18); CALCIUM LEVEL 8.6 MG/DL (8.8-10.2); CARBON DIOXIDE LEVEL 24 MEQ/L (21-32); CHLORIDE LEVEL 107 MEQ/L (98-107); CREATININE FOR GFR 0.84 MG/DL (0.55-1.30); GLOMERULAR FILTRATION RATE > 60.0 (>45); GLUCOSE, FASTING 95 MG/DL (70-100); POTASSIUM SERUM 4.7 MEQ/L (3.5-5.1); SODIUM LEVEL 137 MEQ/L (136-145)
[2021-04-22] MEDS: ADVAIR HFA 230/21MCG INHALER INH SCH ×2 (08:05→18:34)
[2021-04-22] MEDS ORDERED: FOSFOMYCIN TROMETHAMINE 3 GM POWDER PACKET (MONUROL) PO ONE (09:00)
[2021-04-22] MEDS: methocarbamoL 750 MG TAB PO SCH ×3 (10:01→20:41)
[2021-04-22] MEDS: PHENAZOPYRIDINE 100 MG TAB PO SCH ×2 (10:01→20:41)
[2021-04-22] MEDS: ALPRAZolam 0.5 MG TAB PO SCH ×2 (10:01→20:41)
[2021-04-22] MEDS: SENNA 8.6 MG TAB (SENOKOT) PO SCH ×2 (10:01→20:41)
[2021-04-22] MEDS: LACOSAMIDE 50 MG TAB (VIMPAT) PO SCH ×2 (10:01→20:54)
[2021-04-22] MEDS: SERTRALINE 100 MG TAB PO SCH ×2 (10:02→20:42)
[2021-04-22] MEDS: levETIRAcetam 250MG TABLET (KEPPRA) PO SCH ×2 (10:02→20:40)
[2021-04-22] MEDS: FAMOTIDINE 20 MG TAB PO SCH ×2 (10:02→20:41)
[2021-04-22] MEDS: DOCUSATE SODIUM 100MG CAPSULE PO SCH ×2 (10:02→20:39)
[2021-04-22] MEDS: ANEXSIA, NORCO 7.5MG/325MG TABLET(HYDROCODONE/APAP) PO PRN ×3 (10:06→23:32)
[2021-04-22] MEDS: SODIUM CHLORIDE 0.9% INJ 10 ML SYR IV PRN ×2 (13:35→20:42)
[2021-04-22 14:00] VITALS: BP 165/79
--- NOTE | 2021-04-22 14:54 | IPNPDOC ---
Subjective Date Seen The patient was seen on 04/22/21. Subjective Chief Complaint/HPI Mrs. Swanson is a 71 year old female with hypothyroidism, hypertension, and left BKA who is here for left hip pain and CHASTITY. Patient was seen this morning. We had a long discussion about disposition. Patient has an appointment with orthopedic surgery in [place] on Sunday. Patient is hoping to have daughter take her on Sunday to the appointment. The problem is that she is inpatient. I spoke with the daughter, and she tells me she is not physically able to care for her mother or manage her medications. Patient will need placement. Otherwise, patient started on a new antibiotic this morning, fosfomycin. Will monitor her to see if she has any adverse reactions. Objective Physical Examination General Exam: Positive: Alert, Cooperative Eye Exam: Negative: Sclera icteric ENT Exam: Positive: Atraumatic Neck Exam: Positive: Supple Chest Exam: Positive: Clear to auscultation Heart Exam: Positive: Rate Normal, Regular Rhythm Abdomen Exam: Positive: Normal bowel sounds, Soft; Negative: Tenderness Extremity Exam: Positive: Other (Left BKA) Psych Exam: Positive: Mental status NL, Mood NL Assessment /Plan Assessment Mrs. Swanson is a 71 year old female with hypothyroidism, hypertension, and left BKA who is here for left hip pain and CHASTITY. Orthopedic surgery was cons ulted. Patient to have left hip arthroplasty by her surgeon in [place] due to complexity of the case. Otherwise patient had CHASTITY suspected to be secondary to UTI. UTI was treated and CHASTITY resolved. On 04/21/2021, patient completed 5 days (15 doses) of Keflex around 2200 hrs. Patient was given a dose of fosfomycin today. Due to her multiple allergies with antibiotics, will monitor her for adverse reactions. Plan/VTE VTE Prophylaxis Ordered?: Yes Plan 1. Severe left hip osteoarthritis Orthopedic surgery consulted, recommendations appreciated Left hip arthroplasty to be done by patient's orthopedic surgeon in [place] due to complexity of the case Continue PT OT 2. CHASTITY During hospitalization, creatinine increased to 1.92 Nephrology was consulted Probably suspect CHASTITY secondary to infection Lisinopril was held Patient is on Keflex for UTI CHASTITY resolved and nephrology signed off 3. UTI No leukocytosis or fever UA suggestive of infection but urine culture grew no growth of clinical significance, 2 or more organisms Patient will complete 15 doses of Keflex on 04/21/2021 around 2000 hrs. patient received single dose fosfomycin on 04/22/2021. Will monitor for adverse reactions. 4. History of renal cell carcinoma Status post left nephrectomy 5. Hypertension HCTZ and lisinopril held due to CHASTITY Added as needed hydralazine 6. Hypothyroidism Continue levothyroxine 7. Asthma Continue Combivent Respimat and Singulair Continue fluticasone/salmeterol 8. History of partial seizures Continue Vimpat and Keppra 9. DVT prophylaxis SCDs and teds Disposition: Monitor patient for adverse reactions to fosfomycin. Tomorrow can start to consider reintroducing lisinopril. Patient unable to go home, she will need placement. VS, I&O, 24H, Fishbone Vital Signs/I&O Vital Signs Date Time Temp Pulse Resp B/P (MAP) Pulse Ox O2 Delivery O2 Flow Rate FiO2 04/22/21 13:35 74 18 149/61 04/21/21 22:00 97.9 96 Room Air I&O- Last 24 Hours up to 6 AM 04/22/21 05:59 Intake Total 2338 ml Output Total 4425 ml Balance -2087 ml Laboratory Data 24H LABS Laboratory Tests 2 04/22/21 06:21: Nucleated Red Blood Cells % (auto) 0.0, Anion Gap 6L, Glomerular Filtration Rate > 60.0, Calcium Level 8.6L CBC/BMP Laboratory Tests 04/22/21 06:21 Microbiology Microbiology 04/17/21 Urine Culture - Final, Complete 04/16/21 Gram Stain - Final, Complete 04/16/21 Body Fluid Culture - Final, Complete 04/16/21 Anaerobic Culture - Final, Complete 04/14/21 Urine Culture - Final, Complete MARGARET GLASGOW DO Apr 22, 2021 14:54
[2021-04-22] MEDS: HYDROXYCHLOROQUINE 200 MG TAB PO SCH (16:56)
[2021-04-22 20:29] VITALS: BP 148/66
[2021-04-22] MEDS: PROPRANOLOL 60 MG LA CAP PO SCH (20:40)
[2021-04-22] MEDS: CETIRIZINE (ZyrTEC) 10 MG TAB PO SCH (20:41)
[2021-04-22] MEDS: ATORVASTATIN 20 MG TAB PO SCH (20:41)
[2021-04-22] MEDS: MONTELUKAST 10 MG TAB PO SCH (20:41)
[2021-04-22] MEDS: FLUTICASONE PROP 0.05% NASAL SPRAY 16 GM (FLONASE) NARES SCH (20:42)
[2021-04-22] MEDS: RAMELTEON 8 MG TAB (ROZEREM) PO PRN (23:31)
[2021-04-23] MEDS: MORPHINE 2 MG/ML 1ML VIAL (J2270) IV PRN ×4 (03:41→17:32)
[2021-04-23] MEDS: SODIUM CHLORIDE 0.9% INJ 10 ML SYR IV PRN ×2 (03:41→06:31)
[2021-04-23 06:00] VITALS: BP 127/52
[2021-04-23] MEDS: SODIUM CHLORIDE 0.9% INJ 10 ML SYR IV SCH ×2 (06:31→17:32)
[2021-04-23] MEDS: LEVOTHYROXINE 112MCG TABLET (0.112MG) PO SCH (06:31)
[2021-04-23 07:08] LABS: HEMATOCRIT 25.5 % (36.0-47.0); HEMOGLOBIN 8.3 g/dl (12.0-15.5); MEAN CORPUSCULAR HEMOGLOBIN 29.4 pg (27.0-33.0); MEAN CORPUSCULAR HGB CONC 32.5 g/dl (32.0-36.5); MEAN CORPUSCULAR VOLUME 90.4 fl (80.0-96.0); PLATELET COUNT, AUTOMATED 274 10^3/uL (150-450); RED BLOOD COUNT 2.82 10^6/uL (4.00-5.40); WHITE BLOOD COUNT 3.6 10^3/uL (4.0-10.0)
[2021-04-23 07:31] LABS: BLOOD UREA NITROGEN 12 MG/DL (7-18); CALCIUM LEVEL 8.3 MG/DL (8.8-10.2); CARBON DIOXIDE LEVEL 24 MEQ/L (21-32); CHLORIDE LEVEL 105 MEQ/L (98-107); CREATININE FOR GFR 0.79 MG/DL (0.55-1.30); GLOMERULAR FILTRATION RATE > 60.0 (>45); GLUCOSE, FASTING 91 MG/DL (70-100); POTASSIUM SERUM 4.7 MEQ/L (3.5-5.1); SODIUM LEVEL 135 MEQ/L (136-145)
[2021-04-23] MEDS: ADVAIR HFA 230/21MCG INHALER INH SCH ×2 (08:51→20:17)
[2021-04-23] MEDS: methocarbamoL 750 MG TAB PO SCH ×3 (09:37→22:06)
[2021-04-23] MEDS: SENNA 8.6 MG TAB (SENOKOT) PO SCH ×2 (09:37→22:07)
[2021-04-23] MEDS: FAMOTIDINE 20 MG TAB PO SCH ×2 (09:37→22:06)
[2021-04-23] MEDS: LACOSAMIDE 50 MG TAB (VIMPAT) PO SCH ×2 (09:37→22:07)
[2021-04-23] MEDS: ONDANSETRON 4MG/2ML VIAL IV PRN ×2 (09:37→17:31)
[2021-04-23] MEDS: SERTRALINE 100 MG TAB PO SCH ×2 (09:38→22:07)
[2021-04-23] MEDS: DOCUSATE SODIUM 100MG CAPSULE PO SCH ×2 (09:38→22:05)
[2021-04-23] MEDS: levETIRAcetam 250MG TABLET (KEPPRA) PO SCH ×2 (09:38→22:05)
[2021-04-23] MEDS: ALPRAZolam 0.5 MG TAB PO SCH ×2 (09:38→22:07)
[2021-04-23] MEDS: PHENAZOPYRIDINE 100 MG TAB PO SCH ×2 (09:38→22:06)
[2021-04-23] MEDS: ANEXSIA, NORCO 7.5MG/325MG TABLET(HYDROCODONE/APAP) PO PRN ×2 (13:06→22:11)
[2021-04-23 14:00] VITALS: BP 137/62
--- NOTE | 2021-04-23 17:14 | IPNPDOC ---
Subjective Date Seen The patient was seen on 04/23/21. Subjective Chief Complaint/HPI Mrs. Swanson is a 71 year old female with hypothyroidism, hypertension, and left BKA who is here for left hip pain and CHASTITY. Yesterday, patient worked hard with physical therapy and worn herself out. Today she is having a lot of hip pain. Denies chest pain or dyspnea. Objective Physical Examination General Exam: Positive: Alert, Cooperative Eye Exam: Negative: Sclera icteric ENT Exam: Positive: Atraumatic Neck Exam: Positive: Supple Chest Exam: Positive: Clear to auscultation Heart Exam: Positive: Rate Normal, Regular Rhythm Abdomen Exam: Positive: Normal bowel sounds, Soft; Negative: Tenderness Extremity Exam: Positive: Other (Left BKA) Psych Exam: Positive: Mental status NL, Mood NL Assessment /Plan Assessment Mrs. Swanson is a 71 year old female with hypothyroidism, hypertension, and left BKA who is here for left hip pain and CHASTITY. Orthopedic surgery was consulted. Patient to have left hip arthroplasty by her surgeon in [place] due to complexity of the case. Otherwise patient had CHASTITY suspected to be secondary to UTI. UTI was treated and CHASTITY resolved. On 04/21/2021, patient completed 5 days (15 doses) of Keflex around 2200 hrs. Patient was given a dose of fosfomycin today. Due to her multiple allergies with antibiotics, will monitor her for adverse reactions. Plan/VTE VTE Prophylaxis Ordered?: Yes Plan 1. Severe left hip osteoarthritis Orthopedic surgery consulted, recommendations appreciated Left hip arthroplasty to be done by patient's orthopedic surgeon in [place] due to complexity of the case Continue PT OT 2. CHASTITY During hospitalization, creatinine increased to 1.92 Nephrology was consulted Probably suspect CHASTITY secondary to infection Lisinopril was held Patient is on Keflex for UTI CHASTITY resolved and nephrology signed off 3. UTI No leukocytosis or fever UA suggestive of infection but urine culture grew no growth of clinical significance, 2 or more organisms Patient will complete 15 doses of Keflex on 04/21/2021 around 2000 hrs. Patient received single dose fosfomycin on 04/22/2021. Will monitor for adverse reactions. 4. History of renal cell carcinoma Status post left nephrectomy 5. Hypertension HCTZ and lisinopril held due to CHASTITY Added as needed hydralazine. Blood pressure is under control and has not needed hydralazine or antihypertensives 6. Hypothyroidism Continue levothyroxine 7. Asthma Continue Combivent Respimat and Singulair Continue fluticasone/salmeterol 8. History of partial seizures Continue Vimpat and Keppra 9. DVT prophylaxis SCDs and teds Disposition: Patient unable to go home, she will need placement. VS, I&O, 24H, Fishbone Vital Signs/I&O Vital Signs Date Time Temp Pulse Resp B/P (MAP) Pulse Ox O2 Delivery O2 Flow Rate FiO2 04/23/21 15:34 20 04/23/21 14:00 96.6 61 93 Room Air 04/23/21 06:00 127/52 (77) I&O- Last 24 Hours up to 6 AM 04/23/21 06:00 Intake Total 1860 ml Output Total 4250 ml Balance -2390 ml Laboratory Data 24H LABS Laboratory Tests 2 04/23/21 06:07: Nucleated Red Blood Cells % (auto) 0.0, Anion Gap 6L, Glomerular Filtration Rate > 60.0, Calcium Level 8.3L CBC/BMP Laboratory Tests 04/23/21 06:07 Microbiology Microbiology 04/17/21 Urine Culture - Final, Complete 04/16/21 Gram Stain - Final, Complete 04/16/21 Body Fluid Culture - Final, Complete 04/16/21 Anaerobic Culture - Final, Complete 04/14/21 Urine Culture - Final, Complete MARGARET GLASGOW DO Apr 23, 2021 17:14
[2021-04-23] MEDS: HYDROXYCHLOROQUINE 200 MG TAB PO SCH (17:32)
[2021-04-23 22:00] VITALS: BP 138/61
[2021-04-23] MEDS: PROPRANOLOL 60 MG LA CAP PO SCH (22:05)
[2021-04-23] MEDS: ATORVASTATIN 20 MG TAB PO SCH (22:06)
[2021-04-23] MEDS: RAMELTEON 8 MG TAB (ROZEREM) PO PRN (22:07)
[2021-04-23] MEDS: MONTELUKAST 10 MG TAB PO SCH (22:07)
[2021-04-23] MEDS: BISACODYL 5 MG TAB PO PRN (22:07)
[2021-04-23] MEDS: CETIRIZINE (ZyrTEC) 10 MG TAB PO SCH (22:07)
[2021-04-23] MEDS: FLUTICASONE PROP 0.05% NASAL SPRAY 16 GM (FLONASE) NARES SCH (22:08)
[2021-04-24] MEDS: SODIUM CHLORIDE 0.9% INJ 10 ML SYR IV PRN ×5 (01:25→20:14)
[2021-04-24] MEDS: MORPHINE 2 MG/ML 1ML VIAL (J2270) IV PRN ×5 (01:26→20:14)
[2021-04-24] MEDS: ONDANSETRON 4MG/2ML VIAL IV PRN ×4 (01:49→20:13)
[2021-04-24] MEDS: LEVOTHYROXINE 112MCG TABLET (0.112MG) PO SCH (05:07)
[2021-04-24] MEDS: SODIUM CHLORIDE 0.9% INJ 10 ML SYR IV SCH ×2 (05:07→17:32)
[2021-04-24] MEDS: ANEXSIA, NORCO 7.5MG/325MG TABLET(HYDROCODONE/APAP) PO PRN ×2 (05:08→16:08)
[2021-04-24 06:00] VITALS: BP 127/66
[2021-04-24 06:24] LABS: HEMOGLOBIN 8.5 g/dl (12.0-15.5); MEAN CORPUSCULAR HGB CONC 32.7 g/dl (32.0-36.5); MEAN CORPUSCULAR VOLUME 91.9 fl (80.0-96.0); PLATELET COUNT, AUTOMATED 301 10^3/uL (150-450); RED BLOOD COUNT 2.83 10^6/uL (4.00-5.40)
[2021-04-24 06:54] LABS: BLOOD UREA NITROGEN 10 MG/DL (7-18); CALCIUM LEVEL 8.1 MG/DL (8.8-10.2); CARBON DIOXIDE LEVEL 23 MEQ/L (21-32); CHLORIDE LEVEL 105 MEQ/L (98-107); CREATININE FOR GFR 0.84 MG/DL (0.55-1.30); GLOMERULAR FILTRATION RATE > 60.0 (>45); GLUCOSE, FASTING 96 MG/DL (70-100); POTASSIUM SERUM 4.7 MEQ/L (3.5-5.1); SODIUM LEVEL 135 MEQ/L (136-145)
[2021-04-24] MEDS: ADVAIR HFA 230/21MCG INHALER INH SCH ×2 (07:53→19:54)
[2021-04-24] MEDS: ALPRAZolam 0.5 MG TAB PO SCH ×2 (09:10→20:12)
[2021-04-24] MEDS: LACOSAMIDE 50 MG TAB (VIMPAT) PO SCH ×2 (09:10→20:12)
[2021-04-24] MEDS: levETIRAcetam 250MG TABLET (KEPPRA) PO SCH ×2 (09:10→20:12)
[2021-04-24] MEDS: BISACODYL 5 MG TAB PO PRN (09:10)
[2021-04-24] MEDS: DOCUSATE SODIUM 100MG CAPSULE PO SCH ×2 (09:10→20:12)
[2021-04-24] MEDS: FAMOTIDINE 20 MG TAB PO SCH ×2 (09:10→20:12)
[2021-04-24] MEDS: SENNA 8.6 MG TAB (SENOKOT) PO SCH ×2 (09:10→20:13)
[2021-04-24] MEDS: PHENAZOPYRIDINE 100 MG TAB PO SCH ×2 (09:10→20:12)
[2021-04-24] MEDS: methocarbamoL 750 MG TAB PO SCH ×3 (09:10→20:12)
[2021-04-24] MEDS: SERTRALINE 100 MG TAB PO SCH ×2 (09:11→20:12)
[2021-04-24 14:00] VITALS: BP 152/70
--- NOTE | 2021-04-24 16:41 | IPNPDOC ---
Subjective Date Seen The patient was seen on 04/24/21. Subjective Chief Complaint/HPI Mrs. Swanson is a 71 year old female with hypothyroidism, hypertension, and left BKA who is here for left hip pain and CHASTITY. Today, she still feels very achy from worked hard with physical therapy a few days back. Denied chest pain or dyspnea. Objective Physical Examination General Exam: Positive: Alert, Cooperative Eye Exam: Negative: Sclera icteric ENT Exam: Positive: Atraumatic Neck Exam: Positive: Supple Chest Exam: Positive: Clear to auscultation Heart Exam: Positive: Rate Normal, Regular Rhythm Abdomen Exam: Positive: Normal bowel sounds, Soft; Negative: Tenderness Extremity Exam: Positive: Other (Left BKA) Psych Exam: Positive: Mental status NL, Mood NL Assessment /Plan Assessment Mrs. Swanson is a 71 year old female with hypothyroidism, hypertension, and left BKA who is here for left hip pain and CHASTITY. Orthopedic surgery was consulted. Patient to have left hip arthroplasty by her surgeon in [place] due to complexity of the case. Otherwise patient had CHASTITY suspected to be secondary to UTI. UTI was treated and CHASTITY resolved. On 04/21/2021, patient completed 5 days (15 doses) of Keflex around 2200 hrs. Patient was given a dose of fosfomycin today. She has not had a reaction to fosfomycin. Plan/VTE VTE Prophylaxis Ordered?: Yes Plan 1. Severe left hip osteoarthritis Orthopedic surgery consulted, recommendations appreciated Left hip arthroplasty to be done by patient's orthopedic surgeon in [place] due to complexity of the case Continue PT OT 2. CHASTITY During hospitalization, creatinine increased to 1.92 Nephrology was consulted Probably suspect CHASTITY secondary to infection Lisinopril was held CHASTITY resolved and nephrology signed off 3. UTI No leukocytosis or fever UA suggestive of infection but urine culture grew no growth of clinical significance, 2 or more organisms Patient will complete 15 doses of Keflex on 04/21/2021 around 2000 hrs. Patient received single dose fosfomycin on 04/22/2021. No adverse reaction to fosfomycin 4. History of renal cell carcinoma Status post left nephrectomy 5. Hypertension HCTZ and lisinopril held due to CHASTITY Added as needed hydralazine. Blood pressure is under control and has not needed hydralazine or other antihypertensives 6. Hypothyroidism Continue levothyroxine 7. Asthma Continue Combivent Respimat and Singulair Continue fluticasone/salmeterol 8. History of partial seizures Continue Vimpat and Keppra 9. DVT prophylaxis SCDs and teds Disposition: Patient unable to go home, she will need placement. VS, I&O, 24H, Fishbone Vital Signs/I&O Vital Signs Date Time Temp Pulse Resp B/P (MAP) Pulse Ox O2 Delivery O2 Flow Rate FiO2 04/24/21 16:09 20 04/24/21 14:00 98.0 60 152/70 (97) 94 Room Air I&O- Last 24 Hours up to 6 AM 04/24/21 06:00 Intake Total 1055 ml Output Total 3750 ml Balance -2695 ml Laboratory Data 24H LABS Laboratory Tests 2 04/24/21 06:02: Nucleated Red Blood Cells % (auto) 0.0, Anion Gap 7L, Glomerular Filtration Rate > 60.0, Calcium Level 8.1L CBC/BMP Laboratory Tests 04/24/21 06:02 Microbiology Microbiology 04/17/21 Urine Culture - Final, Complete 04/16/21 Gram Stain - Final, Complete 04/16/21 Body Fluid Culture - Final, Complete 04/16/21 Anaerobic Culture - Final, Complete 04/14/21 Urine Culture - Final, Complete MARGARET GLASGOW DO Apr 24, 2021 16:41
[2021-04-24] MEDS: HYDROXYCHLOROQUINE 200 MG TAB PO SCH (17:31)
[2021-04-24 20:00] VITALS: BP 147/58
[2021-04-24] MEDS: ATORVASTATIN 20 MG TAB PO SCH (20:11)
[2021-04-24] MEDS: MONTELUKAST 10 MG TAB PO SCH (20:12)
[2021-04-24] MEDS: CETIRIZINE (ZyrTEC) 10 MG TAB PO SCH (20:12)
[2021-04-24] MEDS: PROPRANOLOL 60 MG LA CAP PO SCH (20:13)
[2021-04-24] MEDS: FLUTICASONE PROP 0.05% NASAL SPRAY 16 GM (FLONASE) NARES SCH (20:14)
[2021-04-25] MEDS: RAMELTEON 8 MG TAB (ROZEREM) PO PRN (02:10)
[2021-04-25] MEDS: ANEXSIA, NORCO 7.5MG/325MG TABLET(HYDROCODONE/APAP) PO PRN ×3 (02:11→17:17)
[2021-04-25 05:31] VITALS: BP 154/60
[2021-04-25] MEDS: SODIUM CHLORIDE 0.9% INJ 10 ML SYR IV SCH ×2 (05:34→17:17)
[2021-04-25] MEDS: LEVOTHYROXINE 112MCG TABLET (0.112MG) PO SCH (05:34)
[2021-04-25] MEDS: SODIUM CHLORIDE 0.9% INJ 10 ML SYR IV PRN ×3 (05:35→21:18)
[2021-04-25] MEDS: ONDANSETRON 4MG/2ML VIAL IV PRN ×3 (07:46→21:01)
[2021-04-25] MEDS: MORPHINE 2 MG/ML 1ML VIAL (J2270) IV PRN ×4 (07:46→21:04)
[2021-04-25 08:04] LABS: HEMATOCRIT 27.4 % (36.0-47.0); HEMOGLOBIN 8.9 g/dl (12.0-15.5); MEAN CORPUSCULAR HEMOGLOBIN 30.4 pg (27.0-33.0); MEAN CORPUSCULAR HGB CONC 32.5 g/dl (32.0-36.5); MEAN CORPUSCULAR VOLUME 93.5 fl (80.0-96.0); PLATELET COUNT, AUTOMATED 350 10^3/uL (150-450); RED BLOOD COUNT 2.93 10^6/uL (4.00-5.40); WHITE BLOOD COUNT 4.4 10^3/uL (4.0-10.0)
[2021-04-25] MEDS: levETIRAcetam 250MG TABLET (KEPPRA) PO SCH ×2 (08:12→20:59)
[2021-04-25] MEDS: DOCUSATE SODIUM 100MG CAPSULE PO SCH ×2 (08:12→21:00)
[2021-04-25] MEDS: ALPRAZolam 0.5 MG TAB PO SCH ×2 (08:12→20:59)
[2021-04-25] MEDS: FAMOTIDINE 20 MG TAB PO SCH ×2 (08:12→20:59)
[2021-04-25] MEDS: LACOSAMIDE 50 MG TAB (VIMPAT) PO SCH ×2 (08:12→20:59)
[2021-04-25] MEDS: SENNA 8.6 MG TAB (SENOKOT) PO SCH ×2 (08:12→21:00)
[2021-04-25] MEDS: methocarbamoL 750 MG TAB PO SCH ×3 (08:12→20:59)
[2021-04-25] MEDS: SERTRALINE 100 MG TAB PO SCH ×2 (08:12→21:00)
[2021-04-25] MEDS: PHENAZOPYRIDINE 100 MG TAB PO SCH ×2 (08:12→20:59)
[2021-04-25 08:37] LABS: BLOOD UREA NITROGEN 11 MG/DL (7-18); CALCIUM LEVEL 8.5 MG/DL (8.8-10.2); CARBON DIOXIDE LEVEL 23 MEQ/L (21-32); CHLORIDE LEVEL 105 MEQ/L (98-107); CREATININE FOR GFR 0.88 MG/DL (0.55-1.30); GLOMERULAR FILTRATION RATE > 60.0 (>45); GLUCOSE, FASTING 91 MG/DL (70-100); POTASSIUM SERUM 4.8 MEQ/L (3.5-5.1); SODIUM LEVEL 136 MEQ/L (136-145)
[2021-04-25] MEDS: ADVAIR HFA 230/21MCG INHALER INH SCH ×2 (08:54→19:51)
[2021-04-25] MEDS: COMBIVENT RESPIMAT 100-20MCG INHALER 4GM INH PRN (09:43)
--- NOTE | 2021-04-25 11:25 | REP ---
INDICATION: Dyspnea COMPARISON: 04/14/2021 TECHNIQUE: Portable AP view of the chest FINDINGS: The mediastinum and cardiac silhouette are stable and within normal limits for portable technique. The lung red are clear without acute consolidation, effusion, or pneumothorax. Skeletal structures are intact. A right-sided PICC line is identified which terminates in the subclavian vein just below the mid clavicle. IMPRESSION: No acute cardiopulmonary process appreciated. Right-sided PICC line as described above. <Electronically signed by Jaylen Orellana > 04/25/21 1120
[2021-04-25 14:00] VITALS: BP 123/50
[2021-04-25] MEDS: HYDROXYCHLOROQUINE 200 MG TAB PO SCH (17:17)
--- NOTE | 2021-04-25 18:22 | IPNPDOC ---
Subjective Date Seen The patient was seen on 04/25/21. Subjective Chief Complaint/HPI Mrs. Swanson is a 71 year old female with hypothyroidism, hypertension, and left BKA who is here for left hip pain and CHASTITY. This morning, she complained of some dyspnea and cough. Chest x-ray was obtained and it was negative for any acute process. Objective Physical Examination General Exam: Positive: Alert, Cooperative Eye Exam: Negative: Sclera icteric ENT Exam: Positive: Atraumatic Neck Exam: Positive: Supple Chest Exam: Positive: Clear to auscultation Heart Exam: Positive: Rate Normal, Regular Rhythm Abdomen Exam: Positive: Normal bowel sounds, Soft; Negative: Tenderness Extremity Exam: Positive: Other (Left BKA) Psych Exam: Positive: Mental status NL, Mood NL Assessment /Plan Assessment Mrs. Swanson is a 71 year old female with hypothyroidism, hypertension, and l eft BKA who is here for left hip pain and CHASTITY. Orthopedic surgery was consulted. Patient to have left hip arthroplasty by her surgeon in [place] due to complexity of the case. Otherwise patient had CHASTITY suspected to be secondary to UTI. UTI was treated and CHASTITY resolved. On 04/21/2021, patient completed 5 days (15 doses) of Keflex around 2200 hrs. Patient was given a dose of fosfomycin today. She has not had a reaction to fosfomycin. Plan/VTE VTE Prophylaxis Ordered?: Yes Plan 1. Severe left hip osteoarthritis Orthopedic surgery consulted, recommendations appreciated Left hip arthroplasty to be done by patient's orthopedic surgeon in [place] due to complexity of the case Continue PT and OT 2. CHASTITY During hospitalization, creatinine increased to 1.92 Nephrology was consulted Probably suspect CHASTITY secondary to infection Lisinopril was held CHASTITY resolved and nephrology signed off 3. UTI No leukocytosis or fever UA suggestive of infection but urine culture grew no growth of clinical significance, 2 or more organisms Patient will complete 15 doses of Keflex on 04/21/2021 around 2000 hrs. Patient received single dose fosfomycin on 04/22/2021. No adverse reaction to fosfomycin 4. History of renal cell carcinoma Status post left nephrectomy 5. Hypertension HCTZ and lisinopril held due to CHASTITY Added as needed hydralazine. Blood pressure is under control and has not needed hydralazine or other antihypertensives 6. Hypothyroidism Continue levothyroxine 7. Asthma Continue Combivent Respimat and Singulair Continue fluticasone/salmeterol 8. History of partial seizures Continue Vimpat and Keppra 9. DVT prophylaxis SCDs and teds Disposition: Patient unable to go home, she will need placement VS, I&O, 24H, Fishbone Vital Signs/I&O Vital Signs Date Time Temp Pulse Resp B/P (MAP) Pulse Ox O2 Delivery O2 Flow Rate FiO2 04/25/21 17:53 17 04/25/21 14:00 97.4 56 123/50 (74) 100 Room Air I&O- Last 24 Hours up to 6 AM 04/25/21 06:00 Intake Total 2230 ml Output Total 2450 ml Balance -220 ml Laboratory Data 24H LABS Laboratory Tests 2 04/25/21 06:13: Nucleated Red Blood Cells % (auto) 0.0, Anion Gap 8, Glomerular Filtration Rate > 60.0, Calcium Level 8.5L CBC/BMP Laboratory Tests 04/25/21 06:13 Microbiology Microbiology 04/17/21 Urine Culture - Final, Complete 04/16/21 Gram Stain - Final, Complete 04/16/21 Body Fluid Culture - Final, Complete 04/16/21 Anaerobic Culture - Final, Complete MARGARET GLASGOW DO Apr 25, 2021 18:22
[2021-04-25 20:39] VITALS: BP 166/80
[2021-04-25] MEDS: PROPRANOLOL 60 MG LA CAP PO SCH (20:58)
[2021-04-25] MEDS: MONTELUKAST 10 MG TAB PO SCH (20:59)
[2021-04-25] MEDS: ATORVASTATIN 20 MG TAB PO SCH (20:59)
[2021-04-25] MEDS: CETIRIZINE (ZyrTEC) 10 MG TAB PO SCH (21:00)
[2021-04-25] MEDS: FLUTICASONE PROP 0.05% NASAL SPRAY 16 GM (FLONASE) NARES SCH (21:00)
[2021-04-26] MEDS: RAMELTEON 8 MG TAB (ROZEREM) PO PRN (01:26)
[2021-04-26] MEDS: ANEXSIA, NORCO 7.5MG/325MG TABLET(HYDROCODONE/APAP) PO PRN ×2 (01:27→09:08)
[2021-04-26] MEDS: SODIUM CHLORIDE 0.9% INJ 10 ML SYR IV PRN (04:35)
[2021-04-26] MEDS: ONDANSETRON 4MG/2ML VIAL IV PRN (04:35)
[2021-04-26] MEDS: SODIUM CHLORIDE 0.9% INJ 10 ML SYR IV SCH ×2 (04:35→17:44)
[2021-04-26] MEDS: MORPHINE 2 MG/ML 1ML VIAL (J2270) IV PRN (04:36)
[2021-04-26] MEDS: LEVOTHYROXINE 112MCG TABLET (0.112MG) PO SCH (05:35)
[2021-04-26 06:00] VITALS: BP 124/47
[2021-04-26] MEDS: ADVAIR HFA 230/21MCG INHALER INH SCH ×2 (07:55→19:42)
[2021-04-26] MEDS: ALPRAZolam 0.5 MG TAB PO SCH ×2 (09:07→21:06)
[2021-04-26] MEDS: methocarbamoL 750 MG TAB PO SCH ×3 (09:07→21:04)
[2021-04-26] MEDS: PHENAZOPYRIDINE 100 MG TAB PO SCH ×2 (09:07→21:05)
[2021-04-26] MEDS: SENNA 8.6 MG TAB (SENOKOT) PO SCH ×2 (09:07→21:05)
[2021-04-26] MEDS: DOCUSATE SODIUM 100MG CAPSULE PO SCH ×2 (09:07→21:04)
[2021-04-26] MEDS: LACOSAMIDE 50 MG TAB (VIMPAT) PO SCH ×2 (09:07→21:04)
[2021-04-26] MEDS: FAMOTIDINE 20 MG TAB PO SCH ×2 (09:08→21:06)
[2021-04-26] MEDS: levETIRAcetam 250MG TABLET (KEPPRA) PO SCH ×2 (09:08→21:05)
[2021-04-26] MEDS: SERTRALINE 100 MG TAB PO SCH ×2 (09:08→21:05)
[2021-04-26] MEDS ORDERED: NALOXONE INJ 0.4MG/1ML VIAL (J2310 PER 1MG) IV PRN (09:40)
[2021-04-26] MEDS: ACETAMINOPHEN 500 MG TAB PO SCH ×3 (10:00→21:06)
[2021-04-26] MEDS: MORPHINE 15 MG SA TAB PO SCH ×2 (10:00→21:05)
[2021-04-26] MEDS ORDERED: MORP15TASA PO (11:12)
[2021-04-26] MEDS ORDERED: MSIR30TA PO (11:12)
[2021-04-26 12:10] LABS: HEMATOCRIT 28.7 % (36.0-47.0); HEMOGLOBIN 9.2 g/dl (12.0-15.5); MEAN CORPUSCULAR HEMOGLOBIN 30.1 pg (27.0-33.0); MEAN CORPUSCULAR HGB CONC 32.1 g/dl (32.0-36.5); MEAN CORPUSCULAR VOLUME 93.8 fl (80.0-96.0); PLATELET COUNT, AUTOMATED 344 10^3/uL (150-450); RED BLOOD COUNT 3.06 10^6/uL (4.00-5.40); WHITE BLOOD COUNT 6.2 10^3/uL (4.0-10.0)
[2021-04-26 12:58] LABS: CALCIUM LEVEL 8.7 MG/DL (8.8-10.2); GLOMERULAR FILTRATION RATE 58.5 (>45); POTASSIUM SERUM 4.9 MEQ/L (3.5-5.1)
[2021-04-26 14:00] VITALS: BP 160/68
[2021-04-26] MEDS: MORPHINE 30 MG TAB **MSIR PO PRN (14:47)
--- NOTE | 2021-04-26 16:41 | IPN ---
PROGRESS NOTE DATE: 04/26/2021 SUBJECTIVE: The patient complains of 10/10 pain decreasing down to 7 or 8/10 with pain medications, no fever, chills, dysuria, urgency, frequency, abdominal pain or back pain. OBJECTIVE: Vitals: Temperature 97.2, pulse 57, respiratory rate 18, blood pressure 124/47, 93% on room air. General: The patient is awake, alert and oriented to person, place and time, answering questions appropriately. No JVD, thyromegaly, moist mucous membranes. Lungs: Clear to auscultation, no wheezing, rales or rhonchi. Heart: S1, S2, sinus rhythm. Abdomen: Obese, soft, nontender, nondistended. Positive bowel sounds. Extremities: Left lower extremity BKA, left hip tenderness. Right lower extremity has no pitting edema. Laboratory data, imaging studies, microbiology have been reviewed. ASSESSMENT AND PLAN: This is a 71-year-old female with past BKA, complained of left hip pain with history of hypothyroidism, hypertension, found to have acute kidney injury. The patient was seen by orthopedic surgery but recommended referral to orthopedic surgeon in [place] due to complexity of the case. The patient was found to have a urinary tract infection, acute kidney injury, both of which have resolved. The patient was treated with Keflex and fosfomycin. IMPRESSION: 1. Severe left hip osteoarthritis. 2. Acute kidney injury, resolved. 3. Urinary tract infection. 4. History of renal cell carcinoma. 5. Hypertension. 6. Hypothyroidism. 7. Asthma. 8. History of partial seizures. 9. Obesity, BMI of 43.7. 10. Poor IV access, status post PICC line placement. PLAN: Patient's pain is now controlled on current dose of hydrocodone. Therefore, she will be switched to morphine controlled release and immediate release, Narcan as needed if patient develops altered mental status, respiratory distress, or respiratory acidosis. The patient received one dose of fosfomycin on 04/22 and completed 15 doses of Keflex for her UTI. Her kidney function is back to baseline, a prior history of left renal cell CA, status post left nephrectomy. Her hydrochlorothiazide and lisinopril were held due to her kidney injury. She is currently on Isosorbide and blood pressure is stable at 124/47 and creatinine is back to baseline of 1.0 from peak of 1.92. The patient is medically stable for hospital discharge on 04/27/2021. [facility]
[2021-04-26] MEDS: HYDROXYCHLOROQUINE 200 MG TAB PO SCH (17:43)
[2021-04-26] MEDS: MONTELUKAST 10 MG TAB PO SCH (21:04)
[2021-04-26] MEDS: CETIRIZINE (ZyrTEC) 10 MG TAB PO SCH (21:06)
[2021-04-26] MEDS: ATORVASTATIN 20 MG TAB PO SCH (21:06)
[2021-04-26] MEDS: FLUTICASONE PROP 0.05% NASAL SPRAY 16 GM (FLONASE) NARES SCH (21:07)
[2021-04-26 21:30] VITALS: BP 131/57
[2021-04-26] MEDS: PROPRANOLOL 60 MG LA CAP PO SCH (21:30)
[2021-04-26 22:00] VITALS: BP 131/57
[2021-04-27] MEDS: RAMELTEON 8 MG TAB (ROZEREM) PO PRN (00:18)
[2021-04-27] MEDS: MORPHINE 30 MG TAB **MSIR PO PRN (02:43)
[2021-04-27 06:00] VITALS: BP 146/67
[2021-04-27] MEDS: ADVAIR HFA 230/21MCG INHALER INH SCH (06:22)
[2021-04-27 06:31] LABS: HEMATOCRIT 28.5 % (36.0-47.0); HEMOGLOBIN 9.2 g/dl (12.0-15.5); MEAN CORPUSCULAR HEMOGLOBIN 30.5 pg (27.0-33.0); MEAN CORPUSCULAR HGB CONC 32.3 g/dl (32.0-36.5); MEAN CORPUSCULAR VOLUME 94.4 fl (80.0-96.0); PLATELET COUNT, AUTOMATED 333 10^3/uL (150-450); RED BLOOD COUNT 3.02 10^6/uL (4.00-5.40); WHITE BLOOD COUNT 5.5 10^3/uL (4.0-10.0)
[2021-04-27 06:53] LABS: BLOOD UREA NITROGEN 12 MG/DL (7-18); CALCIUM LEVEL 8.4 MG/DL (8.8-10.2); CARBON DIOXIDE LEVEL 26 MEQ/L (21-32); CHLORIDE LEVEL 103 MEQ/L (98-107); CREATININE FOR GFR 0.89 MG/DL (0.55-1.30); GLOMERULAR FILTRATION RATE > 60.0 (>45); GLUCOSE, FASTING 99 MG/DL (70-100); POTASSIUM SERUM 5.1 MEQ/L (3.5-5.1); SODIUM LEVEL 136 MEQ/L (136-145)
[2021-04-27] MEDS: LEVOTHYROXINE 112MCG TABLET (0.112MG) PO SCH (07:10)
[2021-04-27] MEDS: SODIUM CHLORIDE 0.9% INJ 10 ML SYR IV SCH (07:11)
[2021-04-27] MEDS: methocarbamoL 750 MG TAB PO SCH (09:26)
[2021-04-27] MEDS: SENNA 8.6 MG TAB (SENOKOT) PO SCH (09:26)
[2021-04-27] MEDS: PHENAZOPYRIDINE 100 MG TAB PO SCH (09:26)
[2021-04-27] MEDS: DOCUSATE SODIUM 100MG CAPSULE PO SCH (09:26)
[2021-04-27] MEDS: ALPRAZolam 0.5 MG TAB PO SCH (09:27)
[2021-04-27] MEDS: FAMOTIDINE 20 MG TAB PO SCH (09:27)
[2021-04-27] MEDS: ACETAMINOPHEN 500 MG TAB PO SCH (09:27)
[2021-04-27] MEDS: levETIRAcetam 250MG TABLET (KEPPRA) PO SCH (09:27)
[2021-04-27] MEDS: LACOSAMIDE 50 MG TAB (VIMPAT) PO SCH (09:28)
[2021-04-27] MEDS: SERTRALINE 100 MG TAB PO SCH (09:28)
[2021-04-27] MEDS: MORPHINE 15 MG SA TAB PO SCH (09:28)
--- NOTE | 2021-04-27 12:12 | DSES ---
DISCHARGE SUMMARY DATE OF ADMISSION: 04/15/2021 DATE OF DISCHARGE: 04/27/2021 CONSULTING PHYSICIAN: 1. Orthopedic Surgeon, Dr. Davin Monte. 2. Economics Analyst, Dr. Bunny Bro PRIMARY DISCHARGE DIAGNOSIS: 1. Severe left hip osteoarthritis. 2. Acute kidney injury. 3. Urinary tract infection. 4. Renal cell carcinoma history. 5. Chronic kidney disease Stage III. 6. Hypertension. 7. Hypothyroidism. 8. Asthma. 9. History of partial seizures. DISCHARGE MEDICATIONS: 1. Morphine Sulfate 15 p.o. q. 4 as needed for pain. 2. Morphine Sulfate controlled release 15 mg b.i.d. 3. Alprazolam 0.5 mg b.i.d. 4. Cetirizine 10 q.h.s. 5. Atorvastatin 20 daily. 6. Vitamin B12 5000 mcg sublingually daily. 7. Vitamin D 50,000 units weekly. 8. Eszopiclone 3 mg q.h.s. 9. Famotidine 20 mg b.i.d. 10.Flonase two sprays q.h.s. 11.Folic acid one tablet daily. 12.Hydrochlorothiazide 12.5 daily. 13.Hydroxychloroquine 200 daily. 14.Hydroxyzine 25 q.i.d. as needed. 15.Combivent two puffs q.i.d. 16.Vimpat 200 b.i.d. 17.Xopenex 0.63 b.i.d. as needed. 18.Keppra 750 q.a.m., 1500 mg q.h.s. 19.Synthroid 112 mcg daily. 20.Lisinopril 10 daily. 21.Methocarbamol 750 t.i.d. 22.Montelukast 10 daily. 23.Narcan 4 mg as needed. 24.Propanolol 120 q.h.s. 25.Advair Discus 500-50 one puff b.i.d. 26.Sertraline 100 b.i.d. DISCHARGE INSTRUCTIONS: Patient is to follow-up with Orthopedic Surgery in [place] for hip replacement due to complicated case. Follow-up with primary care within five days of discharge. HOSPITAL COURSE: This is a 71-year-old female admitted on 04/15/21 with complaints of hip pain on the left. Patient was due to see a specialist for orthopedic surgery in [place] but presented to the Emergency Room and missed her appointment. CT shows severe arthropathy of the left hip with subchondral cyst formation likely vascular groove or incomplete fracture with left hip joint effusion. Patient was seen by Orthopedic Surgeon, Dr. Monte, who ordered a hip MRI showing asymmetric left hip joint space loss with moderately large joint effusion and marrow edema with rapidly progressive osteoarthritis of the left hip and early neuropathic joint or transient osteoporosis with posttraumatic bone contusions. Dr. Monte recommended the patient to be protected with weightbearing to the left side but able to progress as tolerated. Patient's case is quite complex, recommend she follow-up with arthroplasty surgeons in [place], patient was willing to do this and orthopedic surgery has signed off. On admission, the patient also developed acute kidney injury with known history of left nephrectomy years ago, baseline creatinine 0.7 due to infection in the urine. The patient may have developed this acute kidney injury. Her Lisinopril has been stopped and NSAIDs have been discontinued. Patient has been given IV fluids, the patient reports decreased oral intake for the past three days. Her hyponatremia has improved with IV fluid hydration and kidney function returned back to her baseline on discharge of 0.89. Patient continued to have pain despite pain medication. She was transitioned to Morphine Sulfate with better control. She is discharged to rehab with outpatient follow-up with Orthopedic Surgery in [place]. PHYSICAL EXAMINATION ON DISCHARGE: VITAL SIGNS: Temperature 97.2, pulse 54, respiratory rate 18, blood pressure 146/67, 97% on room air. GENERAL: Awake, alert and oriented to person, place and time answering questions appropriately. LUNGS: Clear to auscultation. No wheezing, rales or rhonchi. HEART: S1 and S2, sinus rhythm. ABDOMEN: Obese, soft, nontender and nondistended. EXTREMITIES: Left BKA tenderness over the left hip. LABORATORY DATA/IMAGING STUDIES/MICROBIOLOGY: Please see the chart. TIME SPENT ON DISCHARGE: 30 minutes MTDD
== END 2021-04-27 10:06 | DRG 554 ==
LOC: EDBD 18:31 → M ED 18:31 → M ED INP 04-15 01:31 → ENRESERV 04-15 04:42 → M MSPAV 04-15 06:13
PROVIDERS: ADMIT Family Medicine; ATTEND General Practice
PROC: 0S9D3ZX Drainage of Left Knee Joint, Percutaneous Approach, Diagnostic (ICD-10-PCS; principal; 2021-04-16)
PROC: 02HV33Z Insertion of Infusion Device into Superior Vena Cava, Percutaneous Approach (ICD-10-PCS; 2021-04-19)
DX: M16.12 Unilateral primary osteoarthritis, left hip (principal); Z68.41 Body mass index [BMI] 40.0-44.9, adult; N17.9 Acute kidney failure, unspecified; N39.0 Urinary tract infection, site not specified; E87.1 Hypo-osmolality and hyponatremia; M24.7 Protrusio acetabuli; M25.552 Pain in left hip; E21.1 Secondary hyperparathyroidism, not elsewhere classified; M79.7 Fibromyalgia; G40.909 Epilepsy, unspecified, not intractable, without status epilepticus; G62.9 Polyneuropathy, unspecified; E66.01 Morbid (severe) obesity due to excess calories; J45.909 Unspecified asthma, uncomplicated; I10 Essential (primary) hypertension; E03.9 Hypothyroidism, unspecified; Z89.512 Acquired absence of left leg below knee; Z96.651 Presence of right artificial knee joint; Z79.899 Other long term (current) drug therapy; Z88.0 Allergy status to penicillin; Z88.2 Allergy status to sulfonamides; Z88.6 Allergy status to analgesic agent; Z88.8 Allergy status to other drugs, medicaments and biological substances; Z85.828 Personal history of other malignant neoplasm of skin; E53.8 Deficiency of other specified B group vitamins

== ENCOUNTER 2021-07-13 12:47 | Emergency (ER) | payer MEDICARE, BC, OTHER ==
[~2021-07-13] VITALS: Ht 162.6 cm; Wt 118.2 kg
[~2021-07-13 12:47] MED LIST changes: +ALPR0.5T3 PO; +CETI10TA4 PO; +COMBAER6 INH; +CYAN2500 SL; +ERGO500029 PO; +ESZO1TAB6 PO; +EUTH112T PO; +FAMO1TAB11 PO; +FLON1SPR NARES; +HYDR-3363 PO; +HYDR-4517 PO; +HYDR12.55 PO; +HYDR200T3 PO; +LEVA0.636 INH; +LIPI20TA PO; +LISI10TA22 PO; +MONT10TA10 PO; +MORP15TASA PO; +MSIR30TA PO; +NARC1SPR; +SUPETAB44 PO; +VIMP200T PO; +ZOLO100T PO; +ZYRTTAB8 PO
[2021-07-13] MEDS ORDERED: HYDR-3713 PO (13:04)
[2021-07-13] MEDS ORDERED: CEPHALEXIN 500 MG CAP PO ONE (18:45)
[2021-07-13] MEDS ORDERED: COMBIVENT RESPIMAT 100-20MCG INHALER 4GM INH ONE (19:15)
[2021-07-13] MEDS ORDERED: ANEXSIA, NORCO 7.5MG/325MG TABLET(HYDROCODONE/APAP) PO ONE (19:15)
--- NOTE | 2021-07-13 19:19 | REP ---
INDICATION: increased hip pain. COMPARISON: 04/14/2021. TECHNIQUE: AP pelvis, AP and frogleg left hip. FINDINGS: There is again severe left hip joint space narrowing with subchondral sclerosis and cystic change. There is no radiographic evidence of acute fracture or dislocation. Mild degenerative changes are seen at the right hip joint. Vascular calcifications and phleboliths are seen in the pelvis. Surgical clips are seen in the left lower quadrant. IMPRESSION: Severe degenerative joint disease left hip again noted. No radiographic evidence of acute fracture or dislocation. <Electronically signed by Kamlesh Chamorro > 07/13/211914
[2021-07-13] MEDS ORDERED: COMBAER6 INH (19:37)
[2021-07-13] MEDS ORDERED: CEPH500T PO (19:37)
[2021-07-13] MEDS ORDERED: HYDR-3715 PO (19:37)
[2021-07-13 20:03] VITALS: BP 140/65
== END 2021-07-13 20:06 | disposition home or self-care (01) ==
LOC: M ED 12:47
DX: N39.0 Urinary tract infection, site not specified (principal); M16.12 Unilateral primary osteoarthritis, left hip; I10 Essential (primary) hypertension; E78.5 Hyperlipidemia, unspecified; K21.9 Gastro-esophageal reflux disease without esophagitis; J44.9 Chronic obstructive pulmonary disease, unspecified; Z88.0 Allergy status to penicillin; Z88.1 Allergy status to other antibiotic agents; Z88.2 Allergy status to sulfonamides; Z88.6 Allergy status to analgesic agent; Z88.8 Allergy status to other drugs, medicaments and biological substances

== ENCOUNTER → 2021-07-18 | Outpatient (REF) | payer MEDICARE, OTHER, BC ==
[~2021-07-18] MED LIST changes: +CEPH500T PO; +HYDR-3715 PO
[2021-07-18 17:58] LABS: FERRITIN 160 NG/ML (8-252); IRON (FE) 35 UG/DL (50-170); PERCENT SATURATION 10.3 % (13.2-45.0); TOTAL IRON BINDING CAPACITY 339 UG/DL (250-450)
[2021-07-18 18:28] LABS: VITAMIN B12 LEVEL > 2000 PG/ML (247-911)
== END ==
LOC: M LAB REF 16:23
PROVIDERS: ATTEND Internal Medicine
DX: G40.89 Other seizures (principal); D64.9 Anemia, unspecified

== ENCOUNTER → 2021-07-20 | Outpatient (REF) | payer MEDICARE, OTHER, BC ==
[2021-07-20 19:02] LABS: BACTERIA, URINE AUTO NEGATIVE (NEGATIVE); MUCUS, URINE SMALL (NEGATIVE); RBC, URINE AUTO 18 /HPF (0-3); SQUAMOUS EPITHELIAL CELL UR AU 10 /HPF (0-6); WBC, URINE AUTO TNTC /HPF (0-3)
== END ==
LOC: M LAB REF 17:00
PROVIDERS: ATTEND Internal Medicine
DX: N39.0 Urinary tract infection, site not specified (principal)

== ENCOUNTER 2021-08-06 12:10 | Inpatient (IN) | payer MEDICARE, OTHER, BC ==
[~2021-08-06] VITALS: Ht 165.1 cm; Wt 109.2 kg
[~2021-08-06 12:10] MED LIST changes: -MONT10TA10 PO; +MONT10TA97 PO
[2021-08-06 13:03] LABS: BASO % 0.1 % (0.0-1.0); HEMATOCRIT 31.4 % (36.0-47.0); HEMOGLOBIN 10.1 g/dl (12.0-15.5); LYMPH # 1.1 10^3/uL (1.5-5.0); LYMPH % 15.4 % (24.0-44.0); MEAN CORPUSCULAR HEMOGLOBIN 28.6 pg (27.0-33.0); MEAN CORPUSCULAR HGB CONC 32.2 g/dl (32.0-36.5); MONO # 0.8 10^3/uL (0.0-0.8); MONO % 11.7 % (2.0-8.0); NEUTROPHILS % 72.4 % (36.0-66.0); PLATELET COUNT, AUTOMATED 262 10^3/uL (150-450); RED BLOOD COUNT 3.53 10^6/uL (4.00-5.40); WHITE BLOOD COUNT 6.9 10^3/uL (4.0-10.0)
[2021-08-06 13:28] LABS: ERYTHROCYTE SEDIMENTATION RATE 65 mm/hr (0-30)
[2021-08-06 13:31] LABS: CK-MB VALUE MASS < 1.0 NG/ML (<3.6); CPK CREATINE PHOSPHOKINASE 26 U/L (26-192); MB/CK RELATIVE INDEX 3.85 (< OR =4)
[2021-08-06 13:40] LABS: ALBUMIN 3.2 GM/DL (3.2-5.2); ALT/SGPT 15 U/L (12-78); BILIRUBIN,TOTAL 0.3 MG/DL (0.2-1.0); BLOOD UREA NITROGEN 15 MG/DL (7-18); C REACTIVE PROTEIN QUANTITATIV 5.53 MG/DL (0.00-0.30); CALCIUM LEVEL 8.3 MG/DL (8.8-10.2); CARBON DIOXIDE LEVEL 18 MEQ/L (21-32); CHLORIDE LEVEL 110 MEQ/L (98-107); FREE T4 1.63 NG/DL (0.76-1.46); GLOMERULAR FILTRATION RATE > 60.0 (>45); GLUCOSE, FASTING 91 MG/DL (70-100); POTASSIUM SERUM 4.3 MEQ/L (3.5-5.1); SODIUM LEVEL 136 MEQ/L (136-145); THYROID STIMULATING HORMONE 0.692 uIU/ML (0.358-3.740); TOTAL PROTEIN 6.6 GM/DL (6.4-8.2)
[2021-08-06] MEDS ORDERED: ENOXAPARIN 30MG/0.3ML SYRINGE (J1650 PER 10MG) SC ONE (14:45)
[2021-08-06] MEDS ORDERED: FOSFOMYCIN TROMETHAMINE 3 GM POWDER PACKET (MONUROL) PO ONE (14:45)
[2021-08-06] MEDS ORDERED: MELA1TAB9 PO (15:11)
[2021-08-06] MEDS ORDERED: COMBAER6 INH (15:11)
[2021-08-06] MEDS ORDERED: HYDR-3713 PO (15:11)
[2021-08-06] MEDS ORDERED: BENZ-18 PO (15:11)
[2021-08-06] MEDS ORDERED: ATOR40TA75 PO (15:11)
[2021-08-06] MEDS ORDERED: HOME MED LIST COMPLETE! XX SCH (15:15)
[2021-08-06 15:16] LABS: INR 0.97; PARTIAL THROMBOPLASTIN TIME 33.7 SECONDS (25.9-37.0); PROTHROMBIN TIME 13.3 SECONDS (12.7-14.5)
[2021-08-06 15:19] LABS: D-DIMER QUANT 1112.58 ng/ml (<500)
[2021-08-06 15:34] LABS: FERRITIN 146 NG/ML (8-252); LDH LACTATE DEHYDROGENASE 79 U/L (84-246)
[2021-08-06 16:17] VITALS: BP 171/72
[2021-08-06] MEDS ORDERED: COMBIVENT RESPIMAT 100-20MCG INHALER 4GM INH PRN (16:55)
[2021-08-06] MEDS: dexameTHASONE 20MG/5ML VIAL (J1100 PER 1MG) IV SCH (17:41)
[2021-08-06] MEDS: BARICITINIB 2MG TABLET (OLUMIANT) FOR EUA PO SCH (17:41)
[2021-08-06] MEDS: hydroCHLOROthiazide 12.5 MG CAPSULE PO SCH (17:42)
[2021-08-06] MEDS ORDERED: REMDESIVIR 200 MG in NS 250 ML IV ONE (18:00)
[2021-08-06] MEDS ORDERED: NORCO, ANEXSIA 5/325MG TABLET (HYDROcodone/ACETAMINOPHEN) PO ONE (19:15)
[2021-08-06] MEDS ORDERED: PROPRANOLOL 60 MG LA CAP PO ONE (19:30)
[2021-08-06] MEDS: levETIRAcetam 250MG TABLET (KEPPRA) PO SCH (19:57)
[2021-08-06] MEDS: SERTRALINE 100 MG TAB PO SCH (19:57)
[2021-08-06] MEDS: FAMOTIDINE 20 MG TAB PO SCH (19:59)
[2021-08-06] MEDS: MONTELUKAST 10 MG TAB PO SCH (19:59)
[2021-08-06] MEDS: ATORVASTATIN 20 MG TAB PO SCH (19:59)
[2021-08-06 20:00] VITALS: BP 160/72
[2021-08-06] MEDS: CETIRIZINE (ZyrTEC) 10 MG TAB PO SCH (20:00)
[2021-08-06] MEDS ORDERED: SODIUM CHLORIDE 0.9% INJ 10 ML SYR IV ONE (20:00)
[2021-08-06] MEDS: FLUTICASONE PROP 0.05% NASAL SPRAY 16 GM (FLONASE) NARES SCH (20:00)
[2021-08-06] MEDS: LACOSAMIDE 50 MG TAB (VIMPAT) PO PRN (20:10)
[2021-08-06] MEDS: ALPRAZolam 0.5 MG TAB PO PRN (20:12)
[2021-08-07] MEDS: NORCO, ANEXSIA 5/325MG TABLET (HYDROcodone/ACETAMINOPHEN) PO PRN ×3 (03:22→17:07)
[2021-08-07 04:00] VITALS: BP 140/65
[2021-08-07] MEDS: LEVOTHYROXINE 112MCG TABLET (0.112MG) PO SCH (05:31)
[2021-08-07] MEDS: BENZONATATE 100MG CAPSULE PO PRN (05:32)
[2021-08-07] MEDS: LACOSAMIDE 50 MG TAB (VIMPAT) PO PRN ×2 (08:23→21:04)
[2021-08-07] MEDS: ENOXAPARIN 30MG/0.3ML SYRINGE (J1650 PER 10MG) SC SCH (08:24)
[2021-08-07] MEDS: BARICITINIB 2MG TABLET (OLUMIANT) FOR EUA PO SCH (08:24)
[2021-08-07] MEDS: levETIRAcetam 250MG TABLET (KEPPRA) PO SCH ×2 (08:24→21:02)
[2021-08-07] MEDS: FAMOTIDINE 20 MG TAB PO SCH ×2 (08:25→21:02)
[2021-08-07] MEDS: SERTRALINE 100 MG TAB PO SCH ×2 (08:25→21:02)
[2021-08-07] MEDS: dexameTHASONE 20MG/5ML VIAL (J1100 PER 1MG) IV SCH (08:25)
[2021-08-07] MEDS ORDERED: ASPIRIN 81MG ENTERIC TABLET PO SCH (09:00)
[2021-08-07 14:00] VITALS: BP 169/72
[2021-08-07] MEDS: methocarbamoL 750 MG TAB PO PRN ×2 (15:19→21:03)
[2021-08-07] MEDS: hydroCHLOROthiazide 12.5 MG CAPSULE PO SCH (17:06)
[2021-08-07] MEDS: REMDESIVIR 100 MG in NS 250 ML IV SCH (17:06)
[2021-08-07] MEDS: SODIUM CHLORIDE 0.9% INJ 10 ML SYR IV SCH (19:47)
[2021-08-07] MEDS: MONTELUKAST 10 MG TAB PO SCH (21:02)
[2021-08-07] MEDS: CETIRIZINE (ZyrTEC) 10 MG TAB PO SCH (21:02)
[2021-08-07] MEDS: PROPRANOLOL 60 MG LA CAP PO SCH (21:02)
[2021-08-07] MEDS: ATORVASTATIN 20 MG TAB PO SCH (21:02)
[2021-08-07] MEDS: ALPRAZolam 0.5 MG TAB PO PRN (21:04)
[2021-08-07] MEDS: FLUTICASONE PROP 0.05% NASAL SPRAY 16 GM (FLONASE) NARES SCH (21:04)
[2021-08-08] MEDS: NORCO, ANEXSIA 5/325MG TABLET (HYDROcodone/ACETAMINOPHEN) PO PRN ×3 (00:14→17:57)
[2021-08-08] MEDS: BENZONATATE 100MG CAPSULE PO PRN (02:31)
[2021-08-08 05:08] VITALS: BP 163/71
[2021-08-08] MEDS: LEVOTHYROXINE 112MCG TABLET (0.112MG) PO SCH (05:40)
[2021-08-08 06:51] LABS: HEMATOCRIT 30.1 % (36.0-47.0); HEMOGLOBIN 9.8 g/dl (12.0-15.5); MEAN CORPUSCULAR HEMOGLOBIN 28.4 pg (27.0-33.0); MEAN CORPUSCULAR HGB CONC 32.6 g/dl (32.0-36.5); MEAN CORPUSCULAR VOLUME 87.2 fl (80.0-96.0); PLATELET COUNT, AUTOMATED 291 10^3/uL (150-450); RED BLOOD COUNT 3.45 10^6/uL (4.00-5.40); WHITE BLOOD COUNT 3.1 10^3/uL (4.0-10.0)
[2021-08-08 07:13] LABS: CREATININE FOR GFR 0.98 MG/DL (0.55-1.30); GLOMERULAR FILTRATION RATE 59.9 (>45); MAGNESIUM LEVEL 1.7 MG/DL (1.8-2.4); POTASSIUM SERUM 4.1 MEQ/L (3.5-5.1)
[2021-08-08] MEDS: FAMOTIDINE 20 MG TAB PO SCH ×2 (08:27→20:30)
[2021-08-08] MEDS: levETIRAcetam 250MG TABLET (KEPPRA) PO SCH ×2 (08:28→20:30)
[2021-08-08] MEDS: ENOXAPARIN 30MG/0.3ML SYRINGE (J1650 PER 10MG) SC SCH (08:28)
[2021-08-08] MEDS: ALPRAZolam 0.5 MG TAB PO PRN ×2 (08:28→20:29)
[2021-08-08] MEDS: BARICITINIB 2MG TABLET (OLUMIANT) FOR EUA PO SCH (08:28)
[2021-08-08] MEDS: SERTRALINE 100 MG TAB PO SCH ×2 (08:28→20:31)
[2021-08-08] MEDS: dexameTHASONE 20MG/5ML VIAL (J1100 PER 1MG) IV SCH (08:29)
[2021-08-08] MEDS: ADVAIR HFA 230/21MCG INHALER INH SCH ×2 (10:52→19:27)
[2021-08-08 14:00] VITALS: BP 165/72
[2021-08-08] MEDS: hydroCHLOROthiazide 12.5 MG CAPSULE PO SCH (17:55)
[2021-08-08] MEDS: REMDESIVIR 100 MG in NS 250 ML IV SCH (17:55)
[2021-08-08] MEDS: SODIUM CHLORIDE 0.9% INJ 10 ML SYR IV SCH (17:57)
[2021-08-08 20:00] VITALS: BP 156/77
[2021-08-08] MEDS: methocarbamoL 750 MG TAB PO PRN (20:29)
[2021-08-08] MEDS: CETIRIZINE (ZyrTEC) 10 MG TAB PO SCH (20:30)
[2021-08-08] MEDS: MONTELUKAST 10 MG TAB PO SCH (20:30)
[2021-08-08] MEDS: PROPRANOLOL 60 MG LA CAP PO SCH (20:33)
[2021-08-08] MEDS: ATORVASTATIN 20 MG TAB PO SCH (20:34)
[2021-08-08] MEDS: FLUTICASONE PROP 0.05% NASAL SPRAY 16 GM (FLONASE) NARES SCH (20:35)
[2021-08-09 04:00] VITALS: BP 180/78
[2021-08-09] MEDS: NORCO, ANEXSIA 5/325MG TABLET (HYDROcodone/ACETAMINOPHEN) PO PRN ×3 (05:15→21:43)
[2021-08-09] MEDS: **hydrALAZINE HCL** 25 MG TAB PO SCH ×3 (05:55→21:44)
[2021-08-09] MEDS: LEVOTHYROXINE 112MCG TABLET (0.112MG) PO SCH (05:55)
[2021-08-09 06:22] LABS: HEMATOCRIT 32.4 % (36.0-47.0); HEMOGLOBIN 10.4 g/dl (12.0-15.5); MEAN CORPUSCULAR HEMOGLOBIN 28.1 pg (27.0-33.0); MEAN CORPUSCULAR HGB CONC 32.1 g/dl (32.0-36.5); MEAN CORPUSCULAR VOLUME 87.6 fl (80.0-96.0); PLATELET COUNT, AUTOMATED 318 10^3/uL (150-450); WHITE BLOOD COUNT 2.3 10^3/uL (4.0-10.0)
[2021-08-09 06:35] LABS: CREATININE FOR GFR 0.99 MG/DL (0.55-1.30); GLOMERULAR FILTRATION RATE 59.2 (>45); MAGNESIUM LEVEL 1.7 MG/DL (1.8-2.4); POTASSIUM SERUM 4.9 MEQ/L (3.5-5.1)
[2021-08-09] MEDS: ADVAIR HFA 230/21MCG INHALER INH SCH (07:58)
[2021-08-09] MEDS ORDERED: atenoloL 25 MG TAB PO SCH (09:00)
[2021-08-09] MEDS: BARICITINIB 2MG TABLET (OLUMIANT) FOR EUA PO SCH (09:06)
[2021-08-09] MEDS: ENOXAPARIN 30MG/0.3ML SYRINGE (J1650 PER 10MG) SC SCH (09:07)
[2021-08-09] MEDS: FAMOTIDINE 20 MG TAB PO SCH ×2 (09:08→21:45)
[2021-08-09] MEDS: SERTRALINE 100 MG TAB PO SCH ×2 (09:08→21:44)
[2021-08-09] MEDS: levETIRAcetam 250MG TABLET (KEPPRA) PO SCH ×2 (09:08→21:54)
[2021-08-09] MEDS: dexameTHASONE 20MG/5ML VIAL (J1100 PER 1MG) IV SCH (09:10)
[2021-08-09] MEDS: amLODIPine 5 MG TAB PO SCH (09:10)
[2021-08-09] MEDS: LACOSAMIDE 50 MG TAB (VIMPAT) PO PRN (09:12)
[2021-08-09] MEDS: ALPRAZolam 0.5 MG TAB PO PRN ×2 (09:13→21:43)
[2021-08-09] MEDS: hydroCHLOROthiazide 12.5 MG CAPSULE PO SCH (17:51)
[2021-08-09] MEDS: PROPRANOLOL 60 MG LA CAP PO SCH (21:42)
[2021-08-09] MEDS: ATORVASTATIN 20 MG TAB PO SCH (21:42)
[2021-08-09] MEDS: methocarbamoL 750 MG TAB PO PRN (21:43)
[2021-08-09] MEDS: MONTELUKAST 10 MG TAB PO SCH (21:44)
[2021-08-09] MEDS: CETIRIZINE (ZyrTEC) 10 MG TAB PO SCH (21:45)
[2021-08-09] MEDS: FLUTICASONE PROP 0.05% NASAL SPRAY 16 GM (FLONASE) NARES SCH (21:46)
[2021-08-10 04:00] VITALS: BP 167/74
[2021-08-10] MEDS: NORCO, ANEXSIA 5/325MG TABLET (HYDROcodone/ACETAMINOPHEN) PO PRN ×3 (04:37→20:35)
[2021-08-10 06:15] LABS: HEMATOCRIT 30.6 % (36.0-47.0); MEAN CORPUSCULAR HEMOGLOBIN 28.6 pg (27.0-33.0); MEAN CORPUSCULAR HGB CONC 32.7 g/dl (32.0-36.5); MEAN CORPUSCULAR VOLUME 87.4 fl (80.0-96.0); PLATELET COUNT, AUTOMATED 319 10^3/uL (150-450); WHITE BLOOD COUNT 4.7 10^3/uL (4.0-10.0)
[2021-08-10] MEDS: LEVOTHYROXINE 112MCG TABLET (0.112MG) PO SCH (06:20)
[2021-08-10] MEDS: **hydrALAZINE HCL** 25 MG TAB PO SCH ×3 (06:21→20:20)
[2021-08-10 06:49] LABS: CALCIUM LEVEL 8.4 MG/DL (8.8-10.2); CREATININE FOR GFR 1.03 MG/DL (0.55-1.30); GLOMERULAR FILTRATION RATE 56.6 (>45); MAGNESIUM LEVEL 1.8 MG/DL (1.8-2.4); POTASSIUM SERUM 4.1 MEQ/L (3.5-5.1)
[2021-08-10] MEDS: ADVAIR HFA 230/21MCG INHALER INH SCH ×2 (07:21→20:14)
[2021-08-10] MEDS: SERTRALINE 100 MG TAB PO SCH ×2 (09:25→20:20)
[2021-08-10] MEDS: ENOXAPARIN 30MG/0.3ML SYRINGE (J1650 PER 10MG) SC SCH (09:25)
[2021-08-10] MEDS: levETIRAcetam 250MG TABLET (KEPPRA) PO SCH ×2 (09:25→20:15)
[2021-08-10] MEDS: ALPRAZolam 0.5 MG TAB PO PRN ×2 (09:25→20:34)
[2021-08-10] MEDS: FAMOTIDINE 20 MG TAB PO SCH ×2 (09:25→20:20)
[2021-08-10] MEDS: LACOSAMIDE 50 MG TAB (VIMPAT) PO PRN (09:26)
[2021-08-10] MEDS: amLODIPine 5 MG TAB PO SCH (09:26)
[2021-08-10] MEDS: methocarbamoL 750 MG TAB PO PRN (16:23)
[2021-08-10] MEDS: hydroCHLOROthiazide 12.5 MG CAPSULE PO SCH (16:23)
[2021-08-10] MEDS: MONTELUKAST 10 MG TAB PO SCH (20:14)
[2021-08-10] MEDS: ATORVASTATIN 20 MG TAB PO SCH (20:15)
[2021-08-10] MEDS: CETIRIZINE (ZyrTEC) 10 MG TAB PO SCH (20:19)
[2021-08-10] MEDS: PROPRANOLOL 60 MG LA CAP PO SCH (20:19)
[2021-08-10] MEDS: FLUTICASONE PROP 0.05% NASAL SPRAY 16 GM (FLONASE) NARES SCH (20:20)
[2021-08-11] MEDS: methocarbamoL 750 MG TAB PO PRN ×2 (04:09→12:45)
[2021-08-11] MEDS: NORCO, ANEXSIA 5/325MG TABLET (HYDROcodone/ACETAMINOPHEN) PO PRN ×3 (04:10→21:33)
[2021-08-11] MEDS: LEVOTHYROXINE 112MCG TABLET (0.112MG) PO SCH (05:57)
[2021-08-11] MEDS: **hydrALAZINE HCL** 25 MG TAB PO SCH ×4 (05:57→21:32)
[2021-08-11] MEDS: ADVAIR HFA 230/21MCG INHALER INH SCH ×2 (07:34→17:21)
[2021-08-11 07:41] LABS: HEMATOCRIT 32.8 % (36.0-47.0); HEMOGLOBIN 10.6 g/dl (12.0-15.5); MEAN CORPUSCULAR HEMOGLOBIN 28.3 pg (27.0-33.0); MEAN CORPUSCULAR HGB CONC 32.3 g/dl (32.0-36.5); MEAN CORPUSCULAR VOLUME 87.5 fl (80.0-96.0); PLATELET COUNT, AUTOMATED 331 10^3/uL (150-450); RED BLOOD COUNT 3.75 10^6/uL (4.00-5.40); WHITE BLOOD COUNT 4.6 10^3/uL (4.0-10.0)
[2021-08-11 08:01] LABS: CALCIUM LEVEL 8.5 MG/DL (8.8-10.2); CREATININE FOR GFR 1.24 MG/DL (0.55-1.30); GLOMERULAR FILTRATION RATE 45.7 (>45); MAGNESIUM LEVEL 1.9 MG/DL (1.8-2.4); POTASSIUM SERUM 4.4 MEQ/L (3.5-5.1)
[2021-08-11] MEDS: ENOXAPARIN 30MG/0.3ML SYRINGE (J1650 PER 10MG) SC SCH (08:10)
[2021-08-11] MEDS: levETIRAcetam 250MG TABLET (KEPPRA) PO SCH ×2 (08:11→21:45)
[2021-08-11] MEDS: amLODIPine 5 MG TAB PO SCH (08:11)
[2021-08-11] MEDS: FAMOTIDINE 20 MG TAB PO SCH ×2 (08:11→21:32)
[2021-08-11] MEDS: SERTRALINE 100 MG TAB PO SCH ×2 (08:12→21:34)
[2021-08-11] MEDS: LACOSAMIDE 50 MG TAB (VIMPAT) PO PRN ×2 (08:18→21:46)
[2021-08-11] MEDS: ALPRAZolam 0.5 MG TAB PO PRN ×2 (08:18→21:45)
[2021-08-11] MEDS: hydroCHLOROthiazide 12.5 MG CAPSULE PO SCH (16:34)
[2021-08-11 20:00] VITALS: BP 122/56
[2021-08-11] MEDS: MONTELUKAST 10 MG TAB PO SCH (21:31)
[2021-08-11] MEDS: ATORVASTATIN 20 MG TAB PO SCH (21:32)
[2021-08-11] MEDS: PROPRANOLOL 60 MG LA CAP PO SCH (21:33)
[2021-08-11] MEDS: CETIRIZINE (ZyrTEC) 10 MG TAB PO SCH (21:34)
[2021-08-11] MEDS: FLUTICASONE PROP 0.05% NASAL SPRAY 16 GM (FLONASE) NARES SCH (21:35)
[2021-08-12] MEDS: NORCO, ANEXSIA 5/325MG TABLET (HYDROcodone/ACETAMINOPHEN) PO PRN ×3 (04:15→21:58)
[2021-08-12 04:16] VITALS: BP 133/62
[2021-08-12] MEDS: LEVOTHYROXINE 112MCG TABLET (0.112MG) PO SCH (05:25)
[2021-08-12] MEDS: **hydrALAZINE HCL** 25 MG TAB PO SCH ×3 (05:26→21:56)
[2021-08-12] MEDS: ADVAIR HFA 230/21MCG INHALER INH SCH ×2 (07:54→17:08)
[2021-08-12 08:07] LABS: HEMATOCRIT 30.2 % (36.0-47.0); HEMOGLOBIN 9.9 g/dl (12.0-15.5); MEAN CORPUSCULAR HEMOGLOBIN 28.4 pg (27.0-33.0); MEAN CORPUSCULAR HGB CONC 32.8 g/dl (32.0-36.5); MEAN CORPUSCULAR VOLUME 86.5 fl (80.0-96.0); PLATELET COUNT, AUTOMATED 310 10^3/uL (150-450); RED BLOOD COUNT 3.49 10^6/uL (4.00-5.40); WHITE BLOOD COUNT 4.5 10^3/uL (4.0-10.0)
[2021-08-12] MEDS: ENOXAPARIN 30MG/0.3ML SYRINGE (J1650 PER 10MG) SC SCH (08:20)
[2021-08-12] MEDS: LACOSAMIDE 50 MG TAB (VIMPAT) PO PRN ×2 (08:20→21:52)
[2021-08-12] MEDS: FAMOTIDINE 20 MG TAB PO SCH ×2 (08:21→21:53)
[2021-08-12] MEDS: levETIRAcetam 250MG TABLET (KEPPRA) PO SCH ×2 (08:21→21:53)
[2021-08-12] MEDS: amLODIPine 5 MG TAB PO SCH (08:22)
[2021-08-12] MEDS: SERTRALINE 100 MG TAB PO SCH ×2 (08:22→21:53)
[2021-08-12] MEDS: ALPRAZolam 0.5 MG TAB PO PRN ×2 (08:22→21:53)
[2021-08-12 08:52] LABS: CALCIUM LEVEL 8.4 MG/DL (8.8-10.2); CREATININE FOR GFR 1.04 MG/DL (0.55-1.30); GLOMERULAR FILTRATION RATE 55.9 (>45); MAGNESIUM LEVEL 1.9 MG/DL (1.8-2.4); POTASSIUM SERUM 4.3 MEQ/L (3.5-5.1)
[2021-08-12] MEDS: hydroCHLOROthiazide 12.5 MG CAPSULE PO SCH (16:28)
[2021-08-12] MEDS: methocarbamoL 750 MG TAB PO PRN (16:44)
[2021-08-12] MEDS: FLUTICASONE PROP 0.05% NASAL SPRAY 16 GM (FLONASE) NARES SCH (21:00)
[2021-08-12] MEDS: ATORVASTATIN 20 MG TAB PO SCH (21:57)
[2021-08-12] MEDS: MONTELUKAST 10 MG TAB PO SCH (21:59)
[2021-08-12] MEDS: CETIRIZINE (ZyrTEC) 10 MG TAB PO SCH (21:59)
[2021-08-12] MEDS: PROPRANOLOL 60 MG LA CAP PO SCH (21:59)
[2021-08-13] MEDS: methocarbamoL 750 MG TAB PO PRN ×2 (02:58→22:16)
[2021-08-13] MEDS: NORCO, ANEXSIA 5/325MG TABLET (HYDROcodone/ACETAMINOPHEN) PO PRN ×3 (04:33→18:59)
[2021-08-13 04:36] VITALS: BP 153/68
[2021-08-13] MEDS: **hydrALAZINE HCL** 25 MG TAB PO SCH ×3 (05:35→22:13)
[2021-08-13] MEDS: LEVOTHYROXINE 112MCG TABLET (0.112MG) PO SCH (05:35)
[2021-08-13 06:55] LABS: HEMATOCRIT 30.2 % (36.0-47.0); HEMOGLOBIN 9.9 g/dl (12.0-15.5); MEAN CORPUSCULAR HEMOGLOBIN 28.5 pg (27.0-33.0); MEAN CORPUSCULAR HGB CONC 32.8 g/dl (32.0-36.5); PLATELET COUNT, AUTOMATED 310 10^3/uL (150-450); RED BLOOD COUNT 3.47 10^6/uL (4.00-5.40); WHITE BLOOD COUNT 5.2 10^3/uL (4.0-10.0)
[2021-08-13 07:12] LABS: BLOOD UREA NITROGEN 28 MG/DL (7-18); CALCIUM LEVEL 8.4 MG/DL (8.8-10.2); CARBON DIOXIDE LEVEL 24 MEQ/L (21-32); CHLORIDE LEVEL 103 MEQ/L (98-107); CREATININE FOR GFR 0.89 MG/DL (0.55-1.30); GLOMERULAR FILTRATION RATE > 60.0 (>45); GLUCOSE, FASTING 95 MG/DL (70-100); POTASSIUM SERUM 4.2 MEQ/L (3.5-5.1); SODIUM LEVEL 132 MEQ/L (136-145)
[2021-08-13] MEDS: ADVAIR HFA 230/21MCG INHALER INH SCH ×2 (07:50→20:13)
[2021-08-13] MEDS: ENOXAPARIN 30MG/0.3ML SYRINGE (J1650 PER 10MG) SC SCH (09:47)
[2021-08-13] MEDS: FAMOTIDINE 20 MG TAB PO SCH ×2 (09:49→22:09)
[2021-08-13] MEDS: levETIRAcetam 250MG TABLET (KEPPRA) PO SCH ×2 (09:49→22:06)
[2021-08-13] MEDS: LACOSAMIDE 50 MG TAB (VIMPAT) PO PRN ×2 (09:50→22:22)
[2021-08-13] MEDS: ALPRAZolam 0.5 MG TAB PO PRN ×2 (09:50→22:17)
[2021-08-13] MEDS: SERTRALINE 100 MG TAB PO SCH ×2 (09:50→22:09)
[2021-08-13] MEDS: amLODIPine 5 MG TAB PO SCH (09:53)
[2021-08-13] MEDS: hydroCHLOROthiazide 12.5 MG CAPSULE PO SCH (17:31)
[2021-08-13 20:00] VITALS: BP 109/50
[2021-08-13] MEDS: ATORVASTATIN 20 MG TAB PO SCH (22:09)
[2021-08-13] MEDS: MONTELUKAST 10 MG TAB PO SCH (22:09)
[2021-08-13 22:12] VITALS: BP 137/64
[2021-08-13] MEDS: CETIRIZINE (ZyrTEC) 10 MG TAB PO SCH (22:13)
[2021-08-13] MEDS: FLUTICASONE PROP 0.05% NASAL SPRAY 16 GM (FLONASE) NARES SCH (22:14)
[2021-08-13] MEDS: PROPRANOLOL 60 MG LA CAP PO SCH (22:14)
[2021-08-14] MEDS: NORCO, ANEXSIA 5/325MG TABLET (HYDROcodone/ACETAMINOPHEN) PO PRN ×4 (02:00→22:42)
[2021-08-14 04:34] VITALS: BP 134/62
[2021-08-14] MEDS: **hydrALAZINE HCL** 25 MG TAB PO SCH ×3 (06:53→22:42)
[2021-08-14] MEDS: LEVOTHYROXINE 112MCG TABLET (0.112MG) PO SCH (06:53)
[2021-08-14] MEDS: ADVAIR HFA 230/21MCG INHALER INH SCH ×2 (07:54→18:06)
[2021-08-14 08:00] LABS: HEMATOCRIT 30.4 % (36.0-47.0); HEMOGLOBIN 9.9 g/dl (12.0-15.5); MEAN CORPUSCULAR HEMOGLOBIN 28.5 pg (27.0-33.0); MEAN CORPUSCULAR HGB CONC 32.6 g/dl (32.0-36.5); MEAN CORPUSCULAR VOLUME 87.6 fl (80.0-96.0); PLATELET COUNT, AUTOMATED 324 10^3/uL (150-450); RED BLOOD COUNT 3.47 10^6/uL (4.00-5.40); WHITE BLOOD COUNT 4.3 10^3/uL (4.0-10.0)
[2021-08-14 08:18] LABS: BLOOD UREA NITROGEN 25 MG/DL (7-18); CALCIUM LEVEL 8.5 MG/DL (8.8-10.2); CARBON DIOXIDE LEVEL 26 MEQ/L (21-32); CHLORIDE LEVEL 101 MEQ/L (98-107); GLOMERULAR FILTRATION RATE > 60.0 (>45); GLUCOSE, FASTING 95 MG/DL (70-100); POTASSIUM SERUM 4.2 MEQ/L (3.5-5.1); SODIUM LEVEL 133 MEQ/L (136-145)
[2021-08-14] MEDS: ENOXAPARIN 30MG/0.3ML SYRINGE (J1650 PER 10MG) SC SCH (08:37)
[2021-08-14] MEDS: ALPRAZolam 0.5 MG TAB PO PRN ×2 (08:37→20:18)
[2021-08-14] MEDS: levETIRAcetam 250MG TABLET (KEPPRA) PO SCH ×2 (08:37→20:19)
[2021-08-14] MEDS: LACOSAMIDE 50 MG TAB (VIMPAT) PO PRN ×2 (08:37→20:21)
[2021-08-14] MEDS: FAMOTIDINE 20 MG TAB PO SCH ×2 (08:38→20:20)
[2021-08-14] MEDS: SERTRALINE 100 MG TAB PO SCH ×2 (08:38→20:19)
[2021-08-14] MEDS: amLODIPine 5 MG TAB PO SCH (08:40)
[2021-08-14] MEDS: hydroCHLOROthiazide 12.5 MG CAPSULE PO SCH (16:35)
[2021-08-14] MEDS: methocarbamoL 750 MG TAB PO PRN (20:18)
[2021-08-14] MEDS: ATORVASTATIN 20 MG TAB PO SCH (20:19)
[2021-08-14 20:21] VITALS: BP 130/63
[2021-08-14] MEDS: CETIRIZINE (ZyrTEC) 10 MG TAB PO SCH (20:21)
[2021-08-14] MEDS: PROPRANOLOL 60 MG LA CAP PO SCH (20:21)
[2021-08-14] MEDS: MONTELUKAST 10 MG TAB PO SCH (20:21)
[2021-08-14] MEDS: FLUTICASONE PROP 0.05% NASAL SPRAY 16 GM (FLONASE) NARES SCH (20:23)
[2021-08-15 04:00] VITALS: BP 131/60
[2021-08-15] MEDS: LEVOTHYROXINE 112MCG TABLET (0.112MG) PO SCH (05:46)
[2021-08-15] MEDS: NORCO, ANEXSIA 5/325MG TABLET (HYDROcodone/ACETAMINOPHEN) PO PRN ×3 (05:47→23:26)
[2021-08-15] MEDS: **hydrALAZINE HCL** 25 MG TAB PO SCH ×3 (05:51→21:32)
[2021-08-15] MEDS: ADVAIR HFA 230/21MCG INHALER INH SCH ×2 (08:21→19:19)
[2021-08-15] MEDS: amLODIPine 5 MG TAB PO SCH (08:40)
[2021-08-15] MEDS: ALPRAZolam 0.5 MG TAB PO PRN ×2 (08:40→21:31)
[2021-08-15] MEDS: FAMOTIDINE 20 MG TAB PO SCH ×2 (08:40→21:30)
[2021-08-15] MEDS: ENOXAPARIN 30MG/0.3ML SYRINGE (J1650 PER 10MG) SC SCH (08:40)
[2021-08-15] MEDS: levETIRAcetam 250MG TABLET (KEPPRA) PO SCH ×2 (08:40→21:30)
[2021-08-15] MEDS: SERTRALINE 100 MG TAB PO SCH ×2 (08:40→21:31)
[2021-08-15] MEDS: LACOSAMIDE 50 MG TAB (VIMPAT) PO PRN ×2 (08:41→21:31)
[2021-08-15 09:22] LABS: HEMATOCRIT 29.2 % (36.0-47.0); HEMOGLOBIN 9.6 g/dl (12.0-15.5); MEAN CORPUSCULAR HEMOGLOBIN 29.2 pg (27.0-33.0); MEAN CORPUSCULAR HGB CONC 32.9 g/dl (32.0-36.5); MEAN CORPUSCULAR VOLUME 88.8 fl (80.0-96.0); PLATELET COUNT, AUTOMATED 329 10^3/uL (150-450); RED BLOOD COUNT 3.29 10^6/uL (4.00-5.40); WHITE BLOOD COUNT 3.8 10^3/uL (4.0-10.0)
[2021-08-15 09:52] LABS: BLOOD UREA NITROGEN 23 MG/DL (7-18); CARBON DIOXIDE LEVEL 25 MEQ/L (21-32); CHLORIDE LEVEL 100 MEQ/L (98-107); CREATININE FOR GFR 0.86 MG/DL (0.55-1.30); GLOMERULAR FILTRATION RATE > 60.0 (>45); GLUCOSE, FASTING 93 MG/DL (70-100); POTASSIUM SERUM 4.2 MEQ/L (3.5-5.1); SODIUM LEVEL 133 MEQ/L (136-145)
[2021-08-15] MEDS: hydrOXYzine 25 MG TAB PO PRN (14:17)
[2021-08-15] MEDS: hydroCHLOROthiazide 12.5 MG CAPSULE PO SCH (16:28)
[2021-08-15 20:00] VITALS: BP 124/56
[2021-08-15] MEDS: PROPRANOLOL 60 MG LA CAP PO SCH (21:29)
[2021-08-15] MEDS: ATORVASTATIN 20 MG TAB PO SCH (21:30)
[2021-08-15] MEDS: MONTELUKAST 10 MG TAB PO SCH (21:30)
[2021-08-15] MEDS: CETIRIZINE (ZyrTEC) 10 MG TAB PO SCH (21:31)
[2021-08-15] MEDS: FLUTICASONE PROP 0.05% NASAL SPRAY 16 GM (FLONASE) NARES SCH (21:31)
[2021-08-15] MEDS: methocarbamoL 750 MG TAB PO PRN (21:31)
[2021-08-16 04:33] VITALS: BP 140/64
[2021-08-16 06:45] VITALS: BP 136/63
[2021-08-16] MEDS: LEVOTHYROXINE 112MCG TABLET (0.112MG) PO SCH (06:49)
[2021-08-16] MEDS: **hydrALAZINE HCL** 25 MG TAB PO SCH ×3 (06:49→21:30)
[2021-08-16] MEDS: NORCO, ANEXSIA 5/325MG TABLET (HYDROcodone/ACETAMINOPHEN) PO PRN ×3 (06:53→17:59)
[2021-08-16 08:11] LABS: HEMATOCRIT 28.4 % (36.0-47.0); HEMOGLOBIN 9.2 g/dl (12.0-15.5); MEAN CORPUSCULAR HEMOGLOBIN 28.2 pg (27.0-33.0); MEAN CORPUSCULAR HGB CONC 32.4 g/dl (32.0-36.5); MEAN CORPUSCULAR VOLUME 87.1 fl (80.0-96.0); PLATELET COUNT, AUTOMATED 310 10^3/uL (150-450); RED BLOOD COUNT 3.26 10^6/uL (4.00-5.40); WHITE BLOOD COUNT 3.3 10^3/uL (4.0-10.0)
[2021-08-16] MEDS: ADVAIR HFA 230/21MCG INHALER INH SCH ×2 (08:12→19:51)
[2021-08-16 08:31] LABS: BLOOD UREA NITROGEN 19 MG/DL (7-18); CALCIUM LEVEL 8.6 MG/DL (8.8-10.2); CARBON DIOXIDE LEVEL 24 MEQ/L (21-32); CHLORIDE LEVEL 99 MEQ/L (98-107); CREATININE FOR GFR 0.82 MG/DL (0.55-1.30); GLOMERULAR FILTRATION RATE > 60.0 (>45); GLUCOSE, FASTING 96 MG/DL (70-100); POTASSIUM SERUM 4.2 MEQ/L (3.5-5.1); SODIUM LEVEL 130 MEQ/L (136-145)
[2021-08-16] MEDS: ALPRAZolam 0.5 MG TAB PO PRN ×2 (10:12→21:30)
[2021-08-16] MEDS: methocarbamoL 750 MG TAB PO PRN ×2 (10:12→21:29)
[2021-08-16] MEDS: ENOXAPARIN 30MG/0.3ML SYRINGE (J1650 PER 10MG) SC SCH (10:13)
[2021-08-16] MEDS: levETIRAcetam 250MG TABLET (KEPPRA) PO SCH ×2 (10:13→21:31)
[2021-08-16] MEDS: amLODIPine 5 MG TAB PO SCH (10:13)
[2021-08-16] MEDS: LACOSAMIDE 50 MG TAB (VIMPAT) PO PRN ×2 (10:14→21:30)
[2021-08-16] MEDS: FAMOTIDINE 20 MG TAB PO SCH ×2 (10:14→21:30)
[2021-08-16] MEDS: SERTRALINE 100 MG TAB PO SCH ×2 (10:14→21:31)
[2021-08-16 12:55] VITALS: BP 150/70
[2021-08-16 17:57] VITALS: BP 165/72
[2021-08-16] MEDS: hydroCHLOROthiazide 12.5 MG CAPSULE PO SCH (17:58)
[2021-08-16 21:27] VITALS: BP 125/61
[2021-08-16] MEDS: ATORVASTATIN 20 MG TAB PO SCH (21:29)
[2021-08-16] MEDS: FLUTICASONE PROP 0.05% NASAL SPRAY 16 GM (FLONASE) NARES SCH (21:29)
[2021-08-16] MEDS: PROPRANOLOL 60 MG LA CAP PO SCH (21:30)
[2021-08-16] MEDS: MONTELUKAST 10 MG TAB PO SCH (21:30)
[2021-08-16] MEDS: CETIRIZINE (ZyrTEC) 10 MG TAB PO SCH (21:31)
[2021-08-17] MEDS: NORCO, ANEXSIA 5/325MG TABLET (HYDROcodone/ACETAMINOPHEN) PO PRN ×3 (03:09→21:35)
[2021-08-17] MEDS: LEVOTHYROXINE 112MCG TABLET (0.112MG) PO SCH (05:36)
[2021-08-17] MEDS: **hydrALAZINE HCL** 25 MG TAB PO SCH ×3 (05:36→21:35)
[2021-08-17 06:00] VITALS: BP 157/70
[2021-08-17 06:17] LABS: HEMATOCRIT 28.6 % (36.0-47.0); HEMOGLOBIN 9.5 g/dl (12.0-15.5); MEAN CORPUSCULAR HGB CONC 33.2 g/dl (32.0-36.5); MEAN CORPUSCULAR VOLUME 87.2 fl (80.0-96.0); PLATELET COUNT, AUTOMATED 327 10^3/uL (150-450); RED BLOOD COUNT 3.28 10^6/uL (4.00-5.40); WHITE BLOOD COUNT 3.4 10^3/uL (4.0-10.0)
[2021-08-17 06:47] LABS: BLOOD UREA NITROGEN 18 MG/DL (7-18); CALCIUM LEVEL 8.6 MG/DL (8.8-10.2); CARBON DIOXIDE LEVEL 25 MEQ/L (21-32); CHLORIDE LEVEL 98 MEQ/L (98-107); CREATININE FOR GFR 0.82 MG/DL (0.55-1.30); GLOMERULAR FILTRATION RATE > 60.0 (>45); GLUCOSE, FASTING 91 MG/DL (70-100); POTASSIUM SERUM 4.1 MEQ/L (3.5-5.1); SODIUM LEVEL 128 MEQ/L (136-145)
[2021-08-17] MEDS: ADVAIR HFA 230/21MCG INHALER INH SCH ×2 (07:51→20:23)
[2021-08-17] MEDS: ENOXAPARIN 30MG/0.3ML SYRINGE (J1650 PER 10MG) SC SCH (08:46)
[2021-08-17] MEDS: LACOSAMIDE 50 MG TAB (VIMPAT) PO PRN ×2 (08:46→21:34)
[2021-08-17] MEDS: SERTRALINE 100 MG TAB PO SCH ×2 (08:46→21:35)
[2021-08-17] MEDS: ALPRAZolam 0.5 MG TAB PO PRN ×2 (08:46→21:34)
[2021-08-17] MEDS: levETIRAcetam 250MG TABLET (KEPPRA) PO SCH ×2 (08:47→21:33)
[2021-08-17] MEDS: FAMOTIDINE 20 MG TAB PO SCH ×2 (08:47→21:34)
[2021-08-17] MEDS: amLODIPine 5 MG TAB PO SCH (08:49)
[2021-08-17] MEDS: methocarbamoL 750 MG TAB PO PRN ×2 (14:40→21:33)
[2021-08-17] MEDS: hydroCHLOROthiazide 12.5 MG CAPSULE PO SCH (17:47)
[2021-08-17 20:00] VITALS: BP 141/64
[2021-08-17] MEDS: FLUTICASONE PROP 0.05% NASAL SPRAY 16 GM (FLONASE) NARES SCH (21:33)
[2021-08-17] MEDS: ATORVASTATIN 20 MG TAB PO SCH (21:33)
[2021-08-17] MEDS: CETIRIZINE (ZyrTEC) 10 MG TAB PO SCH (21:34)
[2021-08-17] MEDS: PROPRANOLOL 60 MG LA CAP PO SCH (21:34)
[2021-08-17] MEDS: MONTELUKAST 10 MG TAB PO SCH (21:35)
[2021-08-18 04:00] VITALS: BP 126/64
[2021-08-18] MEDS: **hydrALAZINE HCL** 25 MG TAB PO SCH ×3 (05:03→20:53)
[2021-08-18] MEDS: LEVOTHYROXINE 112MCG TABLET (0.112MG) PO SCH (05:03)
[2021-08-18] MEDS: NORCO, ANEXSIA 5/325MG TABLET (HYDROcodone/ACETAMINOPHEN) PO PRN ×3 (05:04→20:53)
[2021-08-18 07:28] LABS: HEMATOCRIT 27.8 % (36.0-47.0); HEMOGLOBIN 9.1 g/dl (12.0-15.5); MEAN CORPUSCULAR HEMOGLOBIN 28.7 pg (27.0-33.0); MEAN CORPUSCULAR HGB CONC 32.7 g/dl (32.0-36.5); MEAN CORPUSCULAR VOLUME 87.7 fl (80.0-96.0); PLATELET COUNT, AUTOMATED 316 10^3/uL (150-450); RED BLOOD COUNT 3.17 10^6/uL (4.00-5.40); WHITE BLOOD COUNT 2.9 10^3/uL (4.0-10.0)
[2021-08-18 07:46] LABS: BLOOD UREA NITROGEN 17 MG/DL (7-18); CALCIUM LEVEL 8.4 MG/DL (8.8-10.2); CARBON DIOXIDE LEVEL 24 MEQ/L (21-32); CHLORIDE LEVEL 99 MEQ/L (98-107); CREATININE FOR GFR 0.78 MG/DL (0.55-1.30); GLOMERULAR FILTRATION RATE > 60.0 (>45); GLUCOSE, FASTING 94 MG/DL (70-100); SODIUM LEVEL 130 MEQ/L (136-145)
[2021-08-18] MEDS: ADVAIR HFA 230/21MCG INHALER INH SCH ×2 (08:16→20:00)
[2021-08-18] MEDS: ALPRAZolam 0.5 MG TAB PO PRN (09:12)
[2021-08-18] MEDS: FAMOTIDINE 20 MG TAB PO SCH ×2 (09:12→20:52)
[2021-08-18] MEDS: methocarbamoL 750 MG TAB PO PRN (09:12)
[2021-08-18] MEDS: SERTRALINE 100 MG TAB PO SCH ×2 (09:13→20:52)
[2021-08-18] MEDS: levETIRAcetam 250MG TABLET (KEPPRA) PO SCH ×2 (09:13→20:52)
[2021-08-18] MEDS: LACOSAMIDE 50 MG TAB (VIMPAT) PO PRN (09:13)
[2021-08-18] MEDS: amLODIPine 5 MG TAB PO SCH (09:13)
[2021-08-18] MEDS: ENOXAPARIN 30MG/0.3ML SYRINGE (J1650 PER 10MG) SC SCH (09:14)
[2021-08-18] MEDS: hydroCHLOROthiazide 12.5 MG CAPSULE PO SCH (16:49)
[2021-08-18] MEDS: methocarbamoL 750 MG TAB PO SCH ×2 (16:49→20:52)
[2021-08-18] MEDS: LACOSAMIDE 50 MG TAB (VIMPAT) PO SCH (20:50)
[2021-08-18] MEDS: PROPRANOLOL 60 MG LA CAP PO SCH (20:51)
[2021-08-18] MEDS: ALPRAZolam 0.5 MG TAB PO SCH (20:52)
[2021-08-18] MEDS: ATORVASTATIN 20 MG TAB PO SCH (20:53)
[2021-08-18] MEDS: MONTELUKAST 10 MG TAB PO SCH (20:53)
[2021-08-18] MEDS: CETIRIZINE (ZyrTEC) 10 MG TAB PO SCH (20:53)
[2021-08-18] MEDS: FLUTICASONE PROP 0.05% NASAL SPRAY 16 GM (FLONASE) NARES SCH (20:54)
[2021-08-19] MEDS: NORCO, ANEXSIA 5/325MG TABLET (HYDROcodone/ACETAMINOPHEN) PO PRN ×3 (03:11→16:31)
[2021-08-19 05:24] VITALS: BP 135/63
[2021-08-19] MEDS: LEVOTHYROXINE 112MCG TABLET (0.112MG) PO SCH (05:25)
[2021-08-19] MEDS: **hydrALAZINE HCL** 25 MG TAB PO SCH ×3 (05:25→20:59)
[2021-08-19] MEDS: ADVAIR HFA 230/21MCG INHALER INH SCH ×2 (08:28→19:57)
[2021-08-19 10:00] VITALS: BP 144/65
[2021-08-19] MEDS: methocarbamoL 750 MG TAB PO SCH ×3 (10:20→20:59)
[2021-08-19] MEDS: LACOSAMIDE 50 MG TAB (VIMPAT) PO SCH ×2 (10:20→20:59)
[2021-08-19] MEDS: FAMOTIDINE 20 MG TAB PO SCH ×2 (10:20→20:59)
[2021-08-19] MEDS: ALPRAZolam 0.5 MG TAB PO SCH ×2 (10:20→20:59)
[2021-08-19] MEDS: SERTRALINE 100 MG TAB PO SCH ×2 (10:22→20:59)
[2021-08-19] MEDS: levETIRAcetam 250MG TABLET (KEPPRA) PO SCH ×2 (10:22→20:56)
[2021-08-19] MEDS: amLODIPine 5 MG TAB PO SCH (10:22)
[2021-08-19] MEDS: ENOXAPARIN 30MG/0.3ML SYRINGE (J1650 PER 10MG) SC SCH (10:23)
[2021-08-19 13:44] VITALS: BP 119/57
[2021-08-19 16:29] VITALS: BP 133/60
[2021-08-19] MEDS: hydroCHLOROthiazide 12.5 MG CAPSULE PO SCH (16:30)
[2021-08-19] MEDS: LEVALBUTEROL 1.25 MG/0.5 ML CONCENTRATE NEB INH PRN (19:56)
[2021-08-19] MEDS: CETIRIZINE (ZyrTEC) 10 MG TAB PO SCH (20:57)
[2021-08-19] MEDS: MONTELUKAST 10 MG TAB PO SCH (20:57)
[2021-08-19] MEDS: PROPRANOLOL 60 MG LA CAP PO SCH (20:58)
[2021-08-19] MEDS: ATORVASTATIN 20 MG TAB PO SCH (20:59)
[2021-08-19] MEDS: hydrOXYzine 25 MG TAB PO PRN (20:59)
[2021-08-19] MEDS: FLUTICASONE PROP 0.05% NASAL SPRAY 16 GM (FLONASE) NARES SCH (21:00)
[2021-08-20] MEDS: NORCO, ANEXSIA 5/325MG TABLET (HYDROcodone/ACETAMINOPHEN) PO PRN ×3 (03:55→20:47)
[2021-08-20 04:30] VITALS: BP 139/65
[2021-08-20] MEDS: LEVOTHYROXINE 112MCG TABLET (0.112MG) PO SCH (06:16)
[2021-08-20] MEDS: **hydrALAZINE HCL** 25 MG TAB PO SCH ×3 (06:17→22:00)
[2021-08-20] MEDS: ADVAIR HFA 230/21MCG INHALER INH SCH ×2 (07:13→20:46)
[2021-08-20] MEDS: ALPRAZolam 0.5 MG TAB PO SCH ×2 (08:47→20:47)
[2021-08-20] MEDS: levETIRAcetam 250MG TABLET (KEPPRA) PO SCH ×2 (08:47→22:32)
[2021-08-20] MEDS: LACOSAMIDE 50 MG TAB (VIMPAT) PO SCH ×2 (08:47→20:47)
[2021-08-20] MEDS: ENOXAPARIN 30MG/0.3ML SYRINGE (J1650 PER 10MG) SC SCH (08:47)
[2021-08-20] MEDS: FAMOTIDINE 20 MG TAB PO SCH ×2 (08:47→20:47)
[2021-08-20] MEDS: methocarbamoL 750 MG TAB PO SCH ×3 (08:48→20:46)
[2021-08-20] MEDS: amLODIPine 5 MG TAB PO SCH (08:48)
[2021-08-20] MEDS: SERTRALINE 100 MG TAB PO SCH ×2 (08:48→20:48)
[2021-08-20 14:00] VITALS: BP 140/54
[2021-08-20] MEDS: hydroCHLOROthiazide 12.5 MG CAPSULE PO SCH (17:06)
[2021-08-20] MEDS: MONTELUKAST 10 MG TAB PO SCH (20:46)
[2021-08-20] MEDS: CETIRIZINE (ZyrTEC) 10 MG TAB PO SCH (20:46)
[2021-08-20] MEDS: ATORVASTATIN 20 MG TAB PO SCH (20:46)
[2021-08-20] MEDS: FLUTICASONE PROP 0.05% NASAL SPRAY 16 GM (FLONASE) NARES SCH (21:00)
[2021-08-20] MEDS: PROPRANOLOL 60 MG LA CAP PO SCH (22:33)
[2021-08-21] MEDS: NORCO, ANEXSIA 5/325MG TABLET (HYDROcodone/ACETAMINOPHEN) PO PRN ×3 (02:48→15:50)
[2021-08-21] MEDS: LEVOTHYROXINE 112MCG TABLET (0.112MG) PO SCH (05:21)
[2021-08-21] MEDS: **hydrALAZINE HCL** 25 MG TAB PO SCH ×3 (05:25→21:33)
[2021-08-21 06:00] VITALS: BP 127/52
[2021-08-21] MEDS: ADVAIR HFA 230/21MCG INHALER INH SCH ×2 (07:17→21:13)
[2021-08-21] MEDS: LEVALBUTEROL 1.25 MG/0.5 ML CONCENTRATE NEB INH PRN (08:15)
[2021-08-21] MEDS: levETIRAcetam 250MG TABLET (KEPPRA) PO SCH ×2 (09:06→21:32)
[2021-08-21] MEDS: ENOXAPARIN 30MG/0.3ML SYRINGE (J1650 PER 10MG) SC SCH (09:06)
[2021-08-21] MEDS: LACOSAMIDE 50 MG TAB (VIMPAT) PO SCH ×2 (09:06→21:31)
[2021-08-21] MEDS: SERTRALINE 100 MG TAB PO SCH ×2 (09:07→21:32)
[2021-08-21] MEDS: FAMOTIDINE 20 MG TAB PO SCH ×2 (09:08→21:34)
[2021-08-21] MEDS: ALPRAZolam 0.5 MG TAB PO SCH ×2 (09:08→21:33)
[2021-08-21] MEDS: methocarbamoL 750 MG TAB PO SCH ×3 (09:08→21:33)
[2021-08-21] MEDS: amLODIPine 5 MG TAB PO SCH (09:08)
[2021-08-21] MEDS: hydroCHLOROthiazide 12.5 MG CAPSULE PO SCH (15:51)
[2021-08-21] MEDS: FLUTICASONE PROP 0.05% NASAL SPRAY 16 GM (FLONASE) NARES SCH (21:00)
[2021-08-21] MEDS: ATORVASTATIN 20 MG TAB PO SCH (21:32)
[2021-08-21] MEDS: MONTELUKAST 10 MG TAB PO SCH (21:33)
[2021-08-21] MEDS: PROPRANOLOL 60 MG LA CAP PO SCH (21:34)
[2021-08-21] MEDS: CETIRIZINE (ZyrTEC) 10 MG TAB PO SCH (21:34)
[2021-08-22] MEDS: NORCO, ANEXSIA 5/325MG TABLET (HYDROcodone/ACETAMINOPHEN) PO PRN ×4 (02:54→21:02)
[2021-08-22 06:00] VITALS: BP 151/64
[2021-08-22] MEDS: LEVOTHYROXINE 112MCG TABLET (0.112MG) PO SCH (06:53)
[2021-08-22] MEDS: **hydrALAZINE HCL** 25 MG TAB PO SCH ×3 (06:53→22:50)
[2021-08-22] MEDS: ADVAIR HFA 230/21MCG INHALER INH SCH ×2 (07:28→20:46)
[2021-08-22] MEDS: amLODIPine 5 MG TAB PO SCH (08:56)
[2021-08-22] MEDS: levETIRAcetam 250MG TABLET (KEPPRA) PO SCH ×2 (08:57→20:42)
[2021-08-22] MEDS: methocarbamoL 750 MG TAB PO SCH ×3 (08:57→20:43)
[2021-08-22] MEDS: ALPRAZolam 0.5 MG TAB PO SCH ×2 (08:57→20:43)
[2021-08-22] MEDS: SERTRALINE 100 MG TAB PO SCH ×2 (08:57→20:43)
[2021-08-22] MEDS: FAMOTIDINE 20 MG TAB PO SCH ×2 (08:57→20:43)
[2021-08-22] MEDS: ENOXAPARIN 30MG/0.3ML SYRINGE (J1650 PER 10MG) SC SCH (08:58)
[2021-08-22] MEDS: LACOSAMIDE 50 MG TAB (VIMPAT) PO SCH ×2 (09:06→20:42)
[2021-08-22] MEDS ORDERED: NORCO, ANEXSIA 5/325MG TABLET (HYDROcodone/ACETAMINOPHEN) PO ONE (09:30)
[2021-08-22] MEDS: hydroCHLOROthiazide 12.5 MG CAPSULE PO SCH (17:18)
[2021-08-22] MEDS: CETIRIZINE (ZyrTEC) 10 MG TAB PO SCH (20:43)
[2021-08-22] MEDS: PROPRANOLOL 60 MG LA CAP PO SCH (20:43)
[2021-08-22] MEDS: MONTELUKAST 10 MG TAB PO SCH (20:43)
[2021-08-22] MEDS: ATORVASTATIN 20 MG TAB PO SCH (20:43)
[2021-08-22] MEDS: FLUTICASONE PROP 0.05% NASAL SPRAY 16 GM (FLONASE) NARES SCH ×2 (20:44→21:02)
[2021-08-23] MEDS: NORCO, ANEXSIA 5/325MG TABLET (HYDROcodone/ACETAMINOPHEN) PO PRN ×3 (03:07→16:07)
[2021-08-23] MEDS: **hydrALAZINE HCL** 25 MG TAB PO SCH ×3 (05:37→21:34)
[2021-08-23] MEDS: LEVOTHYROXINE 112MCG TABLET (0.112MG) PO SCH (05:37)
[2021-08-23 06:00] VITALS: BP 128/59
[2021-08-23] MEDS: ADVAIR HFA 230/21MCG INHALER INH SCH ×2 (07:42→23:00)
[2021-08-23] MEDS: ENOXAPARIN 30MG/0.3ML SYRINGE (J1650 PER 10MG) SC SCH (09:21)
[2021-08-23] MEDS: FAMOTIDINE 20 MG TAB PO SCH ×2 (09:22→21:29)
[2021-08-23] MEDS: LACOSAMIDE 50 MG TAB (VIMPAT) PO SCH ×2 (09:22→21:28)
[2021-08-23] MEDS: methocarbamoL 750 MG TAB PO SCH ×3 (09:22→21:34)
[2021-08-23] MEDS: SERTRALINE 100 MG TAB PO SCH ×2 (09:22→21:34)
[2021-08-23] MEDS: amLODIPine 5 MG TAB PO SCH (09:22)
[2021-08-23] MEDS: ALPRAZolam 0.5 MG TAB PO SCH ×2 (09:22→21:29)
[2021-08-23] MEDS: levETIRAcetam 250MG TABLET (KEPPRA) PO SCH ×2 (09:23→21:28)
[2021-08-23] MEDS: hydroCHLOROthiazide 12.5 MG CAPSULE PO SCH (16:08)
[2021-08-23] MEDS: ATORVASTATIN 20 MG TAB PO SCH (21:29)
[2021-08-23] MEDS: MONTELUKAST 10 MG TAB PO SCH (21:29)
[2021-08-23] MEDS: CETIRIZINE (ZyrTEC) 10 MG TAB PO SCH (21:29)
[2021-08-23] MEDS: PROPRANOLOL 60 MG LA CAP PO SCH (21:34)
[2021-08-23] MEDS: FLUTICASONE PROP 0.05% NASAL SPRAY 16 GM (FLONASE) NARES SCH (21:35)
[2021-08-24] MEDS: NORCO, ANEXSIA 5/325MG TABLET (HYDROcodone/ACETAMINOPHEN) PO PRN ×3 (00:07→17:39)
[2021-08-24] MEDS ORDERED: MORPHINE 2 MG/ML 1ML VIAL (J2270) IV ONE (03:00)
[2021-08-24] MEDS ORDERED: NORCO, ANEXSIA 5/325MG TABLET (HYDROcodone/ACETAMINOPHEN) PO ONE (04:00)
[2021-08-24 06:00] VITALS: BP 130/70
[2021-08-24] MEDS: LEVOTHYROXINE 112MCG TABLET (0.112MG) PO SCH (06:50)
[2021-08-24] MEDS: **hydrALAZINE HCL** 25 MG TAB PO SCH ×3 (06:50→20:40)
[2021-08-24] MEDS: ADVAIR HFA 230/21MCG INHALER INH SCH ×2 (07:06→17:58)
[2021-08-24] MEDS: ENOXAPARIN 30MG/0.3ML SYRINGE (J1650 PER 10MG) SC SCH (09:54)
[2021-08-24] MEDS: levETIRAcetam 250MG TABLET (KEPPRA) PO SCH ×2 (09:55→20:41)
[2021-08-24] MEDS: SERTRALINE 100 MG TAB PO SCH ×2 (09:55→20:40)
[2021-08-24] MEDS: methocarbamoL 750 MG TAB PO SCH ×3 (09:55→20:40)
[2021-08-24] MEDS: ALPRAZolam 0.5 MG TAB PO SCH ×2 (09:55→20:45)
[2021-08-24] MEDS: FAMOTIDINE 20 MG TAB PO SCH ×2 (09:55→20:40)
[2021-08-24] MEDS: amLODIPine 5 MG TAB PO SCH (09:56)
[2021-08-24] MEDS: LACOSAMIDE 50 MG TAB (VIMPAT) PO SCH ×2 (11:48→20:41)
[2021-08-24] MEDS: hydroCHLOROthiazide 12.5 MG CAPSULE PO SCH (17:38)
[2021-08-24] MEDS: hydrOXYzine 25 MG TAB PO PRN ×2 (20:37→20:41)
[2021-08-24] MEDS: MONTELUKAST 10 MG TAB PO SCH (20:40)
[2021-08-24] MEDS: CETIRIZINE (ZyrTEC) 10 MG TAB PO SCH (20:40)
[2021-08-24] MEDS: ATORVASTATIN 20 MG TAB PO SCH (20:41)
[2021-08-24] MEDS: PROPRANOLOL 60 MG LA CAP PO SCH (20:46)
[2021-08-24] MEDS: FLUTICASONE PROP 0.05% NASAL SPRAY 16 GM (FLONASE) NARES SCH (20:50)
[2021-08-24 21:00] VITALS: BP 152/78
[2021-08-25] MEDS: NORCO, ANEXSIA 5/325MG TABLET (HYDROcodone/ACETAMINOPHEN) PO PRN ×4 (00:54→21:31)
[2021-08-25] MEDS: LEVOTHYROXINE 112MCG TABLET (0.112MG) PO SCH (05:53)
[2021-08-25] MEDS: **hydrALAZINE HCL** 25 MG TAB PO SCH ×3 (05:57→21:32)
[2021-08-25 05:58] VITALS: BP 158/74
[2021-08-25] MEDS: ADVAIR HFA 230/21MCG INHALER INH SCH ×2 (08:38→17:28)
[2021-08-25] MEDS: levETIRAcetam 250MG TABLET (KEPPRA) PO SCH ×2 (08:39→21:31)
[2021-08-25] MEDS: amLODIPine 5 MG TAB PO SCH (08:39)
[2021-08-25] MEDS: SERTRALINE 100 MG TAB PO SCH ×2 (08:39→21:32)
[2021-08-25] MEDS: ENOXAPARIN 30MG/0.3ML SYRINGE (J1650 PER 10MG) SC SCH (08:39)
[2021-08-25] MEDS: methocarbamoL 750 MG TAB PO SCH ×3 (08:40→21:31)
[2021-08-25] MEDS: ALPRAZolam 0.5 MG TAB PO SCH ×2 (08:40→21:31)
[2021-08-25] MEDS: FAMOTIDINE 20 MG TAB PO SCH ×2 (08:40→21:32)
[2021-08-25] MEDS: LACOSAMIDE 50 MG TAB (VIMPAT) PO SCH ×2 (08:40→21:32)
[2021-08-25] MEDS: hydroCHLOROthiazide 12.5 MG CAPSULE PO SCH (16:16)
[2021-08-25] MEDS: FLUTICASONE PROP 0.05% NASAL SPRAY 16 GM (FLONASE) NARES SCH (21:30)
[2021-08-25] MEDS: ATORVASTATIN 20 MG TAB PO SCH (21:31)
[2021-08-25] MEDS: hydrOXYzine 25 MG TAB PO PRN (21:31)
[2021-08-25] MEDS: MONTELUKAST 10 MG TAB PO SCH (21:32)
[2021-08-25] MEDS: CETIRIZINE (ZyrTEC) 10 MG TAB PO SCH (21:32)
[2021-08-25] MEDS: PROPRANOLOL 60 MG LA CAP PO SCH (21:33)
[2021-08-26 04:44] VITALS: BP 172/83
[2021-08-26 04:47] VITALS: BP 168/84
[2021-08-26] MEDS: NORCO, ANEXSIA 5/325MG TABLET (HYDROcodone/ACETAMINOPHEN) PO PRN ×3 (04:51→16:32)
[2021-08-26] MEDS: hydrOXYzine 25 MG TAB PO PRN ×2 (04:51→20:56)
[2021-08-26] MEDS: LEVOTHYROXINE 112MCG TABLET (0.112MG) PO SCH (04:51)
[2021-08-26] MEDS: **hydrALAZINE HCL** 25 MG TAB PO SCH ×3 (04:51→21:00)
[2021-08-26] MEDS: ADVAIR HFA 230/21MCG INHALER INH SCH ×2 (08:00→19:39)
[2021-08-26] MEDS: ALPRAZolam 0.5 MG TAB PO SCH ×2 (10:25→20:57)
[2021-08-26] MEDS: SERTRALINE 100 MG TAB PO SCH ×2 (10:25→20:57)
[2021-08-26] MEDS: levETIRAcetam 250MG TABLET (KEPPRA) PO SCH ×2 (10:26→20:56)
[2021-08-26] MEDS: amLODIPine 5 MG TAB PO SCH (10:26)
[2021-08-26] MEDS: FAMOTIDINE 20 MG TAB PO SCH ×2 (10:26→20:57)
[2021-08-26] MEDS: LACOSAMIDE 50 MG TAB (VIMPAT) PO SCH ×2 (10:27→20:56)
[2021-08-26] MEDS: ENOXAPARIN 30MG/0.3ML SYRINGE (J1650 PER 10MG) SC SCH (10:27)
[2021-08-26] MEDS: methocarbamoL 750 MG TAB PO SCH ×3 (10:27→20:57)
[2021-08-26] MEDS: hydroCHLOROthiazide 12.5 MG CAPSULE PO SCH (16:31)
[2021-08-26] MEDS: BENZONATATE 100MG CAPSULE PO PRN (20:56)
[2021-08-26] MEDS: CETIRIZINE (ZyrTEC) 10 MG TAB PO SCH (20:56)
[2021-08-26] MEDS: MONTELUKAST 10 MG TAB PO SCH (20:56)
[2021-08-26] MEDS: ATORVASTATIN 20 MG TAB PO SCH (20:57)
[2021-08-26] MEDS: PROPRANOLOL 60 MG LA CAP PO SCH (20:57)
[2021-08-26] MEDS: FLUTICASONE PROP 0.05% NASAL SPRAY 16 GM (FLONASE) NARES SCH (20:58)
[2021-08-27] MEDS: NORCO, ANEXSIA 5/325MG TABLET (HYDROcodone/ACETAMINOPHEN) PO PRN ×4 (01:12→22:56)
[2021-08-27 05:07] VITALS: BP 154/82
[2021-08-27] MEDS: **hydrALAZINE HCL** 25 MG TAB PO SCH ×3 (05:07→22:07)
[2021-08-27] MEDS: LEVOTHYROXINE 112MCG TABLET (0.112MG) PO SCH (05:07)
[2021-08-27] MEDS: ADVAIR HFA 230/21MCG INHALER INH SCH ×2 (07:39→20:16)
[2021-08-27] MEDS: levETIRAcetam 250MG TABLET (KEPPRA) PO SCH ×2 (10:19→22:06)
[2021-08-27] MEDS: SERTRALINE 100 MG TAB PO SCH ×2 (10:19→22:05)
[2021-08-27] MEDS: ALPRAZolam 0.5 MG TAB PO SCH ×2 (10:20→22:06)
[2021-08-27] MEDS: amLODIPine 5 MG TAB PO SCH (10:20)
[2021-08-27] MEDS: FAMOTIDINE 20 MG TAB PO SCH ×2 (10:20→22:06)
[2021-08-27] MEDS: methocarbamoL 750 MG TAB PO SCH ×3 (10:20→22:06)
[2021-08-27] MEDS: LACOSAMIDE 50 MG TAB (VIMPAT) PO SCH ×2 (10:20→22:06)
[2021-08-27] MEDS: ENOXAPARIN 30MG/0.3ML SYRINGE (J1650 PER 10MG) SC SCH (10:21)
[2021-08-27 15:23] VITALS: BP 158/70
[2021-08-27] MEDS: hydroCHLOROthiazide 12.5 MG CAPSULE PO SCH (16:44)
[2021-08-27] MEDS: ATORVASTATIN 20 MG TAB PO SCH (22:05)
[2021-08-27] MEDS: MONTELUKAST 10 MG TAB PO SCH (22:05)
[2021-08-27] MEDS: CETIRIZINE (ZyrTEC) 10 MG TAB PO SCH (22:06)
[2021-08-27] MEDS: FLUTICASONE PROP 0.05% NASAL SPRAY 16 GM (FLONASE) NARES SCH (22:07)
[2021-08-27] MEDS: PROPRANOLOL 60 MG LA CAP PO SCH (22:07)
[2021-08-27 22:57] VITALS: BP 145/70
[2021-08-28] MEDS: **hydrALAZINE HCL** 25 MG TAB PO SCH ×3 (05:20→22:15)
[2021-08-28] MEDS: LEVOTHYROXINE 112MCG TABLET (0.112MG) PO SCH (05:20)
[2021-08-28] MEDS: NORCO, ANEXSIA 5/325MG TABLET (HYDROcodone/ACETAMINOPHEN) PO PRN ×3 (05:22→22:16)
[2021-08-28 06:00] VITALS: BP 163/71
[2021-08-28] MEDS: ADVAIR HFA 230/21MCG INHALER INH SCH ×2 (08:13→20:26)
[2021-08-28] MEDS: levETIRAcetam 250MG TABLET (KEPPRA) PO SCH ×2 (10:00→22:14)
[2021-08-28] MEDS: LACOSAMIDE 50 MG TAB (VIMPAT) PO SCH ×2 (10:00→22:13)
[2021-08-28] MEDS: ALPRAZolam 0.5 MG TAB PO SCH ×2 (10:00→22:13)
[2021-08-28] MEDS: FAMOTIDINE 20 MG TAB PO SCH ×2 (10:00→22:13)
[2021-08-28] MEDS: ENOXAPARIN 30MG/0.3ML SYRINGE (J1650 PER 10MG) SC SCH (10:00)
[2021-08-28] MEDS: SERTRALINE 100 MG TAB PO SCH ×2 (10:00→22:13)
[2021-08-28] MEDS: amLODIPine 5 MG TAB PO SCH (10:00)
[2021-08-28] MEDS: methocarbamoL 750 MG TAB PO SCH ×3 (10:03→22:13)
[2021-08-28] MEDS: hydrOXYzine 25 MG TAB PO PRN (12:58)
[2021-08-28] MEDS: BENZONATATE 100MG CAPSULE PO PRN (15:13)
[2021-08-28] MEDS: hydroCHLOROthiazide 12.5 MG CAPSULE PO SCH (16:55)
[2021-08-28 22:00] VITALS: BP 125/58
[2021-08-28] MEDS: CETIRIZINE (ZyrTEC) 10 MG TAB PO SCH (22:13)
[2021-08-28] MEDS: ATORVASTATIN 20 MG TAB PO SCH (22:13)
[2021-08-28] MEDS: MONTELUKAST 10 MG TAB PO SCH (22:13)
[2021-08-28] MEDS: PROPRANOLOL 60 MG LA CAP PO SCH (22:14)
[2021-08-28] MEDS: FLUTICASONE PROP 0.05% NASAL SPRAY 16 GM (FLONASE) NARES SCH (22:18)
[2021-08-29] MEDS ORDERED: MORPHINE 4 MG/ML 1ML VIAL/SYRINGE (J2270) IV ONE (01:00)
[2021-08-29] MEDS: NORCO, ANEXSIA 5/325MG TABLET (HYDROcodone/ACETAMINOPHEN) PO PRN ×3 (05:58→21:02)
[2021-08-29] MEDS: LEVOTHYROXINE 112MCG TABLET (0.112MG) PO SCH (05:58)
[2021-08-29] MEDS: **hydrALAZINE HCL** 25 MG TAB PO SCH ×3 (05:59→21:11)
[2021-08-29 06:00] VITALS: BP 159/74
[2021-08-29] MEDS: ADVAIR HFA 230/21MCG INHALER INH SCH ×2 (07:51→20:00)
[2021-08-29] MEDS: amLODIPine 5 MG TAB PO SCH (09:42)
[2021-08-29] MEDS: levETIRAcetam 250MG TABLET (KEPPRA) PO SCH ×2 (09:42→20:57)
[2021-08-29] MEDS: FAMOTIDINE 20 MG TAB PO SCH ×2 (09:42→21:00)
[2021-08-29] MEDS: methocarbamoL 750 MG TAB PO SCH ×3 (09:43→21:00)
[2021-08-29] MEDS: SERTRALINE 100 MG TAB PO SCH ×2 (09:43→20:59)
[2021-08-29] MEDS: ENOXAPARIN 30MG/0.3ML SYRINGE (J1650 PER 10MG) SC SCH (09:43)
[2021-08-29] MEDS: ALPRAZolam 0.5 MG TAB PO SCH ×2 (09:43→21:02)
[2021-08-29] MEDS: LACOSAMIDE 50 MG TAB (VIMPAT) PO SCH ×2 (09:43→20:57)
[2021-08-29 16:37] VITALS: BP 157/64
[2021-08-29] MEDS: hydroCHLOROthiazide 12.5 MG CAPSULE PO SCH (16:37)
[2021-08-29] MEDS: MONTELUKAST 10 MG TAB PO SCH (20:59)
[2021-08-29] MEDS: ATORVASTATIN 20 MG TAB PO SCH (21:00)
[2021-08-29] MEDS: PROPRANOLOL 60 MG LA CAP PO SCH (21:00)
[2021-08-29] MEDS: CETIRIZINE (ZyrTEC) 10 MG TAB PO SCH (21:01)
[2021-08-29] MEDS: FLUTICASONE PROP 0.05% NASAL SPRAY 16 GM (FLONASE) NARES SCH (21:05)
[2021-08-30 05:45] VITALS: BP 185/77
[2021-08-30] MEDS: LEVOTHYROXINE 112MCG TABLET (0.112MG) PO SCH (05:45)
[2021-08-30] MEDS: **hydrALAZINE HCL** 25 MG TAB PO SCH ×3 (05:45→21:35)
[2021-08-30] MEDS: NORCO, ANEXSIA 5/325MG TABLET (HYDROcodone/ACETAMINOPHEN) PO PRN ×3 (05:45→21:35)
[2021-08-30] MEDS: ALPRAZolam 0.5 MG TAB PO SCH ×2 (08:00→21:34)
[2021-08-30] MEDS: methocarbamoL 750 MG TAB PO SCH ×3 (08:00→21:34)
[2021-08-30] MEDS: levETIRAcetam 250MG TABLET (KEPPRA) PO SCH ×2 (08:00→21:33)
[2021-08-30] MEDS: ENOXAPARIN 30MG/0.3ML SYRINGE (J1650 PER 10MG) SC SCH (08:00)
[2021-08-30] MEDS: LACOSAMIDE 50 MG TAB (VIMPAT) PO SCH ×2 (08:01→21:33)
[2021-08-30] MEDS: SERTRALINE 100 MG TAB PO SCH ×2 (08:01→21:34)
[2021-08-30] MEDS: amLODIPine 5 MG TAB PO SCH (08:01)
[2021-08-30] MEDS: FAMOTIDINE 20 MG TAB PO SCH ×2 (08:01→21:34)
[2021-08-30] MEDS: ADVAIR HFA 230/21MCG INHALER INH SCH ×2 (08:56→20:00)
[2021-08-30] MEDS: BENZONATATE 100MG CAPSULE PO PRN (13:03)
[2021-08-30] MEDS: hydroCHLOROthiazide 12.5 MG CAPSULE PO SCH (16:27)
[2021-08-30] MEDS: FLUTICASONE PROP 0.05% NASAL SPRAY 16 GM (FLONASE) NARES SCH (21:33)
[2021-08-30] MEDS: ATORVASTATIN 20 MG TAB PO SCH (21:34)
[2021-08-30] MEDS: MONTELUKAST 10 MG TAB PO SCH (21:34)
[2021-08-30] MEDS: PROPRANOLOL 60 MG LA CAP PO SCH (21:34)
[2021-08-30] MEDS: CETIRIZINE (ZyrTEC) 10 MG TAB PO SCH (21:34)
[2021-08-30] MEDS: hydrOXYzine 25 MG TAB PO PRN (21:35)
[2021-08-31] MEDS: NORCO, ANEXSIA 5/325MG TABLET (HYDROcodone/ACETAMINOPHEN) PO PRN ×4 (03:54→22:04)
[2021-08-31 06:00] VITALS: BP 158/70
[2021-08-31] MEDS: LEVOTHYROXINE 112MCG TABLET (0.112MG) PO SCH (06:39)
[2021-08-31] MEDS: hydrOXYzine 25 MG TAB PO PRN (06:39)
[2021-08-31] MEDS: **hydrALAZINE HCL** 25 MG TAB PO SCH ×3 (06:39→21:54)
[2021-08-31] MEDS: ADVAIR HFA 230/21MCG INHALER INH SCH ×2 (08:10→20:43)
[2021-08-31] MEDS: methocarbamoL 750 MG TAB PO SCH ×3 (08:56→20:46)
[2021-08-31] MEDS: FAMOTIDINE 20 MG TAB PO SCH ×2 (08:56→20:46)
[2021-08-31] MEDS: levETIRAcetam 250MG TABLET (KEPPRA) PO SCH ×2 (08:56→20:46)
[2021-08-31] MEDS: ENOXAPARIN 30MG/0.3ML SYRINGE (J1650 PER 10MG) SC SCH (08:56)
[2021-08-31] MEDS: LACOSAMIDE 50 MG TAB (VIMPAT) PO SCH ×2 (08:57→20:47)
[2021-08-31] MEDS: SERTRALINE 100 MG TAB PO SCH ×2 (08:57→20:46)
[2021-08-31] MEDS: amLODIPine 5 MG TAB PO SCH (08:57)
[2021-08-31] MEDS: ALPRAZolam 0.5 MG TAB PO SCH ×2 (08:57→20:46)
[2021-08-31] MEDS ORDERED: MIRALAX *UNIT DOSE* 17GM PACKET PO PRN (11:30)
[2021-08-31] MEDS ORDERED: SENOKOT S TAB PO PRN (11:30)
[2021-08-31] MEDS: hydroCHLOROthiazide 12.5 MG CAPSULE PO SCH (16:04)
[2021-08-31] MEDS: ATORVASTATIN 20 MG TAB PO SCH (20:46)
[2021-08-31] MEDS: MONTELUKAST 10 MG TAB PO SCH (20:46)
[2021-08-31] MEDS: FLUTICASONE PROP 0.05% NASAL SPRAY 16 GM (FLONASE) NARES SCH (20:47)
[2021-08-31] MEDS: CETIRIZINE (ZyrTEC) 10 MG TAB PO SCH (20:47)
[2021-08-31] MEDS: PROPRANOLOL 60 MG LA CAP PO SCH (20:48)
[2021-09-01] MEDS: BENZONATATE 100MG CAPSULE PO PRN (01:29)
[2021-09-01] MEDS: NORCO, ANEXSIA 5/325MG TABLET (HYDROcodone/ACETAMINOPHEN) PO PRN ×4 (04:02→22:46)
[2021-09-01 06:00] VITALS: BP 146/88
[2021-09-01] MEDS: LEVOTHYROXINE 112MCG TABLET (0.112MG) PO SCH (06:05)
[2021-09-01] MEDS: **hydrALAZINE HCL** 25 MG TAB PO SCH ×3 (06:07→20:31)
[2021-09-01] MEDS: ADVAIR HFA 230/21MCG INHALER INH SCH ×2 (07:50→20:31)
[2021-09-01] MEDS: ENOXAPARIN 30MG/0.3ML SYRINGE (J1650 PER 10MG) SC SCH (08:17)
[2021-09-01] MEDS: SERTRALINE 100 MG TAB PO SCH ×2 (08:18→20:29)
[2021-09-01] MEDS: ALPRAZolam 0.5 MG TAB PO SCH ×2 (08:18→20:28)
[2021-09-01] MEDS: LACOSAMIDE 50 MG TAB (VIMPAT) PO SCH ×2 (08:18→20:29)
[2021-09-01] MEDS: levETIRAcetam 250MG TABLET (KEPPRA) PO SCH ×2 (08:18→20:29)
[2021-09-01] MEDS: amLODIPine 5 MG TAB PO SCH (08:18)
[2021-09-01] MEDS: FAMOTIDINE 20 MG TAB PO SCH ×2 (08:18→20:30)
[2021-09-01] MEDS: methocarbamoL 750 MG TAB PO SCH ×3 (08:18→20:29)
[2021-09-01] MEDS: hydroCHLOROthiazide 12.5 MG CAPSULE PO SCH (16:43)
[2021-09-01] MEDS: FLUTICASONE PROP 0.05% NASAL SPRAY 16 GM (FLONASE) NARES SCH (20:28)
[2021-09-01] MEDS: ATORVASTATIN 20 MG TAB PO SCH (20:29)
[2021-09-01] MEDS: CETIRIZINE (ZyrTEC) 10 MG TAB PO SCH (20:30)
[2021-09-01] MEDS: PROPRANOLOL 60 MG LA CAP PO SCH (20:30)
[2021-09-01] MEDS: MONTELUKAST 10 MG TAB PO SCH (20:30)
[2021-09-02] MEDS: NORCO, ANEXSIA 5/325MG TABLET (HYDROcodone/ACETAMINOPHEN) PO PRN ×3 (05:16→17:39)
[2021-09-02] MEDS: LEVOTHYROXINE 112MCG TABLET (0.112MG) PO SCH (05:16)
[2021-09-02 05:19] VITALS: BP 161/70
[2021-09-02] MEDS: **hydrALAZINE HCL** 25 MG TAB PO SCH ×3 (05:19→21:44)
[2021-09-02] MEDS: ADVAIR HFA 230/21MCG INHALER INH SCH ×2 (07:44→20:47)
[2021-09-02] MEDS: SERTRALINE 100 MG TAB PO SCH ×2 (09:24→21:43)
[2021-09-02] MEDS: ALPRAZolam 0.5 MG TAB PO SCH ×2 (09:24→21:42)
[2021-09-02] MEDS: methocarbamoL 750 MG TAB PO SCH ×3 (09:24→21:43)
[2021-09-02] MEDS: FAMOTIDINE 20 MG TAB PO SCH ×2 (09:26→21:42)
[2021-09-02] MEDS: levETIRAcetam 250MG TABLET (KEPPRA) PO SCH ×2 (09:26→21:43)
[2021-09-02] MEDS: amLODIPine 5 MG TAB PO SCH (09:27)
[2021-09-02] MEDS: LACOSAMIDE 50 MG TAB (VIMPAT) PO SCH ×2 (09:28→21:42)
[2021-09-02] MEDS: ENOXAPARIN 30MG/0.3ML SYRINGE (J1650 PER 10MG) SC SCH (09:28)
[2021-09-02 09:57] LABS: BASO % 0.3 % (0.0-1.0); EOS # 0.1 10^3/uL (0.0-0.5); EOS % 1.8 % (0.0-3.0); HEMATOCRIT 28.6 % (36.0-47.0); HEMOGLOBIN 9.6 g/dl (12.0-15.5); MEAN CORPUSCULAR HEMOGLOBIN 29.2 pg (27.0-33.0); MEAN CORPUSCULAR HGB CONC 33.6 g/dl (32.0-36.5); MEAN CORPUSCULAR VOLUME 86.9 fl (80.0-96.0); MONO # 0.3 10^3/uL (0.0-0.8); MONO % 9.2 % (2.0-8.0); NEUTROPHILS % 59.4 % (36.0-66.0); PLATELET COUNT, AUTOMATED 249 10^3/uL (150-450); RED BLOOD COUNT 3.29 10^6/uL (4.00-5.40); WHITE BLOOD COUNT 3.4 10^3/uL (4.0-10.0)
[2021-09-02 10:27] LABS: BLOOD UREA NITROGEN 12 MG/DL (7-18); CALCIUM LEVEL 8.6 MG/DL (8.8-10.2); CARBON DIOXIDE LEVEL 24 MEQ/L (21-32); CHLORIDE LEVEL 91 MEQ/L (98-107); CREATININE FOR GFR 0.87 MG/DL (0.55-1.30); GLOMERULAR FILTRATION RATE > 60.0 (>45); GLUCOSE, FASTING 122 MG/DL (70-100); MAGNESIUM LEVEL 1.5 MG/DL (1.8-2.4); POTASSIUM SERUM 4.1 MEQ/L (3.5-5.1); SODIUM LEVEL 125 MEQ/L (136-145)
[2021-09-02] MEDS ORDERED: AMLO1TAB24 PO (10:38)
[2021-09-02] MEDS ORDERED: HYDR25TA PO (10:38)
[2021-09-02] MEDS ORDERED: NS 500 ML IV ONE (10:40)
[2021-09-02] MEDS ORDERED: MAGNESIUM OXIDE 400MG TAB (MAG-OX) PO ONE (11:00)
[2021-09-02] MEDS: SODIUM CHLORIDE 1 GM TAB PO SCH ×2 (16:12→21:43)
[2021-09-02] MEDS: ATORVASTATIN 20 MG TAB PO SCH (21:42)
[2021-09-02] MEDS: MONTELUKAST 10 MG TAB PO SCH (21:42)
[2021-09-02] MEDS: CETIRIZINE (ZyrTEC) 10 MG TAB PO SCH (21:43)
[2021-09-02] MEDS: PROPRANOLOL 60 MG LA CAP PO SCH (21:43)
[2021-09-02] MEDS: FLUTICASONE PROP 0.05% NASAL SPRAY 16 GM (FLONASE) NARES SCH (21:44)
[2021-09-03] MEDS: NORCO, ANEXSIA 5/325MG TABLET (HYDROcodone/ACETAMINOPHEN) PO PRN ×4 (00:07→20:33)
[2021-09-03 06:00] VITALS: BP 136/65
[2021-09-03] MEDS: LEVOTHYROXINE 112MCG TABLET (0.112MG) PO SCH (06:12)
[2021-09-03] MEDS: **hydrALAZINE HCL** 25 MG TAB PO SCH ×3 (06:13→20:33)
[2021-09-03] MEDS: ADVAIR HFA 230/21MCG INHALER INH SCH ×2 (06:34→20:07)
[2021-09-03 08:23] LABS: BLOOD UREA NITROGEN 15 MG/DL (7-18); CALCIUM LEVEL 8.6 MG/DL (8.8-10.2); CARBON DIOXIDE LEVEL 26 MEQ/L (21-32); CHLORIDE LEVEL 96 MEQ/L (98-107); CREATININE FOR GFR 0.76 MG/DL (0.55-1.30); GLOMERULAR FILTRATION RATE > 60.0 (>45); GLUCOSE, FASTING 89 MG/DL (70-100); POTASSIUM SERUM 4.2 MEQ/L (3.5-5.1); SODIUM LEVEL 129 MEQ/L (136-145)
[2021-09-03] MEDS: ENOXAPARIN 30MG/0.3ML SYRINGE (J1650 PER 10MG) SC SCH (08:40)
[2021-09-03] MEDS: LACOSAMIDE 50 MG TAB (VIMPAT) PO SCH ×2 (08:40→20:31)
[2021-09-03] MEDS: methocarbamoL 750 MG TAB PO SCH ×3 (08:40→20:33)
[2021-09-03] MEDS: SODIUM CHLORIDE 1 GM TAB PO SCH ×3 (08:40→20:35)
[2021-09-03] MEDS: ALPRAZolam 0.5 MG TAB PO SCH ×2 (08:40→20:31)
[2021-09-03] MEDS: SERTRALINE 100 MG TAB PO SCH ×2 (08:41→20:32)
[2021-09-03] MEDS: levETIRAcetam 250MG TABLET (KEPPRA) PO SCH ×2 (08:41→20:31)
[2021-09-03] MEDS: FAMOTIDINE 20 MG TAB PO SCH ×2 (08:41→20:33)
[2021-09-03] MEDS: amLODIPine 5 MG TAB PO SCH (08:43)
[2021-09-03] MEDS ORDERED: FOSFOMYCIN TROMETHAMINE 3 GM POWDER PACKET (MONUROL) PO ONE (18:55)
[2021-09-03] MEDS: FLUTICASONE PROP 0.05% NASAL SPRAY 16 GM (FLONASE) NARES SCH (20:31)
[2021-09-03] MEDS: PROPRANOLOL 60 MG LA CAP PO SCH (20:32)
[2021-09-03] MEDS: ATORVASTATIN 20 MG TAB PO SCH (20:32)
[2021-09-03] MEDS: MONTELUKAST 10 MG TAB PO SCH (20:32)
[2021-09-03] MEDS: CETIRIZINE (ZyrTEC) 10 MG TAB PO SCH (20:33)
[2021-09-04] MEDS: **hydrALAZINE HCL** 25 MG TAB PO SCH ×3 (04:43→22:58)
[2021-09-04] MEDS: LEVOTHYROXINE 112MCG TABLET (0.112MG) PO SCH (04:44)
[2021-09-04] MEDS: NORCO, ANEXSIA 5/325MG TABLET (HYDROcodone/ACETAMINOPHEN) PO PRN ×3 (04:44→23:04)
[2021-09-04 06:00] VITALS: BP 187/78
[2021-09-04 06:27] LABS: BLOOD UREA NITROGEN 13 MG/DL (7-18); CALCIUM LEVEL 8.4 MG/DL (8.8-10.2); CARBON DIOXIDE LEVEL 24 MEQ/L (21-32); CHLORIDE LEVEL 99 MEQ/L (98-107); GLOMERULAR FILTRATION RATE > 60.0 (>45); GLUCOSE, FASTING 91 MG/DL (70-100); POTASSIUM SERUM 4.5 MEQ/L (3.5-5.1); SODIUM LEVEL 132 MEQ/L (136-145)
[2021-09-04] MEDS: ADVAIR HFA 230/21MCG INHALER INH SCH ×2 (07:59→19:35)
[2021-09-04] MEDS: FAMOTIDINE 20 MG TAB PO SCH ×2 (09:45→19:55)
[2021-09-04] MEDS: methocarbamoL 750 MG TAB PO SCH ×3 (09:45→19:56)
[2021-09-04] MEDS: levETIRAcetam 250MG TABLET (KEPPRA) PO SCH ×2 (09:45→19:54)
[2021-09-04] MEDS: ALPRAZolam 0.5 MG TAB PO SCH ×2 (09:46→19:55)
[2021-09-04] MEDS: SERTRALINE 100 MG TAB PO SCH ×2 (09:46→19:56)
[2021-09-04] MEDS: SODIUM CHLORIDE 1 GM TAB PO SCH ×2 (09:46→19:53)
[2021-09-04] MEDS: LACOSAMIDE 50 MG TAB (VIMPAT) PO SCH ×2 (09:46→19:55)
[2021-09-04] MEDS: ENOXAPARIN 30MG/0.3ML SYRINGE (J1650 PER 10MG) SC SCH (09:46)
[2021-09-04] MEDS: amLODIPine 5 MG TAB PO SCH (09:48)
[2021-09-04 13:39] LABS: MAGNESIUM LEVEL 1.5 MG/DL (1.8-2.4)
[2021-09-04] MEDS ORDERED: MAGN400C2 PO (16:15)
[2021-09-04] MEDS ORDERED: MAGNESIUM OXIDE 400MG TAB (MAG-OX) PO ONE (17:00)
[2021-09-04] MEDS ORDERED: FIORICET TAB PO ONE (19:00)
[2021-09-04] MEDS: ATORVASTATIN 20 MG TAB PO SCH (19:54)
[2021-09-04] MEDS: PROPRANOLOL 60 MG LA CAP PO SCH (19:55)
[2021-09-04] MEDS: CETIRIZINE (ZyrTEC) 10 MG TAB PO SCH (19:55)
[2021-09-04] MEDS: MONTELUKAST 10 MG TAB PO SCH (19:56)
[2021-09-04] MEDS: FLUTICASONE PROP 0.05% NASAL SPRAY 16 GM (FLONASE) NARES SCH (19:56)
[2021-09-04] MEDS ORDERED: MAG SULF 1GM/100ML (MAG RUN) 1 GM in IV 1 EA IV ONE (20:00)
[2021-09-04 20:02] VITALS: BP 180/76
[2021-09-04 23:00] VITALS: BP 144/80
[2021-09-05 05:48] VITALS: BP 177/88
[2021-09-05 06:02] VITALS: BP 177/88
[2021-09-05] MEDS: **hydrALAZINE HCL** 25 MG TAB PO SCH (06:02)
[2021-09-05] MEDS: LEVOTHYROXINE 112MCG TABLET (0.112MG) PO SCH (06:02)
[2021-09-05] MEDS: NORCO, ANEXSIA 5/325MG TABLET (HYDROcodone/ACETAMINOPHEN) PO PRN (06:03)
[2021-09-05] MEDS: ADVAIR HFA 230/21MCG INHALER INH SCH (07:25)
[2021-09-05] MEDS ORDERED: AMLO1TAB24 PO (09:11)
[2021-09-05] MEDS ORDERED: HYDR25TA PO (09:11)
[2021-09-05 10:38] LABS: BLOOD UREA NITROGEN 11 MG/DL (7-18); CALCIUM LEVEL 8.6 MG/DL (8.8-10.2); CARBON DIOXIDE LEVEL 23 MEQ/L (21-32); CHLORIDE LEVEL 99 MEQ/L (98-107); CREATININE FOR GFR 0.91 MG/DL (0.55-1.30); GLOMERULAR FILTRATION RATE > 60.0 (>45); GLUCOSE, FASTING 166 MG/DL (70-100); MAGNESIUM LEVEL 1.7 MG/DL (1.8-2.4); POTASSIUM SERUM 4.4 MEQ/L (3.5-5.1); SODIUM LEVEL 130 MEQ/L (136-145)
[2021-09-05] MEDS: LACOSAMIDE 50 MG TAB (VIMPAT) PO SCH (10:40)
[2021-09-05] MEDS: methocarbamoL 750 MG TAB PO SCH (10:40)
[2021-09-05] MEDS: levETIRAcetam 250MG TABLET (KEPPRA) PO SCH (10:40)
[2021-09-05] MEDS: ALPRAZolam 0.5 MG TAB PO SCH (10:40)
[2021-09-05] MEDS: SODIUM CHLORIDE 1 GM TAB PO SCH (10:40)
[2021-09-05] MEDS: SERTRALINE 100 MG TAB PO SCH (10:40)
[2021-09-05] MEDS: FAMOTIDINE 20 MG TAB PO SCH (10:41)
[2021-09-05] MEDS: ENOXAPARIN 30MG/0.3ML SYRINGE (J1650 PER 10MG) SC SCH (10:41)
[2021-09-05] MEDS ORDERED: MAGNESIUM OXIDE 400MG TAB (MAG-OX) PO ONE (11:00)
== END 2021-09-05 12:50 | DRG 178 ==
LOC: M ED 12:10 → EDBD 12:10 → M ED INP 14:32 → ENRESERV 16:00 → M 4MAIN 16:28 → M MS5PR 08-20 10:20
PROVIDERS: ADMIT General Practice; ATTEND Family Medicine
DX: U07.1 COVID-19 (principal); N39.0 Urinary tract infection, site not specified; Z68.41 Body mass index [BMI] 40.0-44.9, adult; E87.1 Hypo-osmolality and hyponatremia; L03.116 Cellulitis of left lower limb; I16.0 Hypertensive urgency; R53.1 Weakness; E66.01 Morbid (severe) obesity due to excess calories; B96.29 Other Escherichia coli [E. coli] as the cause of diseases classified elsewhere; E03.9 Hypothyroidism, unspecified; Z86.73 Personal history of transient ischemic attack (TIA), and cerebral infarction without residual deficits; G43.909 Migraine, unspecified, not intractable, without status migrainosus; E83.42 Hypomagnesemia; I10 Essential (primary) hypertension; E78.5 Hyperlipidemia, unspecified; G40.909 Epilepsy, unspecified, not intractable, without status epilepticus; J45.909 Unspecified asthma, uncomplicated; F32.A Depression, unspecified; F41.9 Anxiety disorder, unspecified; Z79.899 Other long term (current) drug therapy; Z88.0 Allergy status to penicillin; Z88.6 Allergy status to analgesic agent; Z88.2 Allergy status to sulfonamides; Z88.8 Allergy status to other drugs, medicaments and biological substances; Z96.651 Presence of right artificial knee joint; Z90.5 Acquired absence of kidney; M16.12 Unilateral primary osteoarthritis, left hip

== ENCOUNTER → 2021-09-19 | Outpatient (REF) | payer MEDICARE, OTHER, BC ==
[~2021-09-19] MED LIST changes: +AMLO1TAB24 PO; +ATOR40TA75 PO; +BENZ-18 PO; +HYDR25TA PO; +MAGN400C2 PO; +MELA1TAB9 PO
[2021-09-19 18:06] LABS: OSMOLALITY URINE 211 MOSM/KG (50-1400)
[2021-09-19 18:10] LABS: SODIUM,RANDOM URINE 31 MEQ/L
== END ==
LOC: M LAB REF 17:31
PROVIDERS: ATTEND Internal Medicine
DX: E87.1 Hypo-osmolality and hyponatremia (principal); N39.0 Urinary tract infection, site not specified

== ENCOUNTER → 2021-10-03 | Outpatient (REF) | payer MEDICARE, OTHER, BC | LOC: M LAB REF 16:10 | PROVIDERS: ATTEND Internal Medicine | DX: R30.0 Dysuria (principal) ==

== ENCOUNTER → 2021-10-11 | Outpatient (REF) | payer MEDICARE, OTHER, BC ==
[2021-10-12 14:11] LABS: PERCENT SATURATION 17.8 % (13.2-45.0)
== END ==
LOC: M LAB REF 12:18
PROVIDERS: ATTEND Internal Medicine
DX: N18.31 Chronic kidney disease, stage 3a (principal)

== ENCOUNTER → 2021-10-18 | Outpatient (CLI) | payer MEDICARE, OTHER | LOC: M CARPUL 10:54 | PROVIDERS: ATTEND Internal Medicine | DX: R06.00 Dyspnea, unspecified (principal) ==

== ENCOUNTER → 2021-12-19 | Outpatient (REF) | payer MEDICARE, OTHER | LOC: M LAB REF 15:45 | PROVIDERS: ATTEND Physician Assistant | DX: R30.0 Dysuria (principal) ==

== ENCOUNTER 2021-12-24 14:41 | Emergency (ER) | payer MEDICARE, OTHER ==
[~2021-12-24] VITALS: Ht 162.6 cm; Wt 126.8 kg
[2021-12-24] MEDS ORDERED: valACYclovir HCL 500 MG TAB PO ONE (15:55)
[2021-12-24 16:11] LABS: BASO % 0.4 % (0.0-1.0); EOS % 0.8 % (0.0-3.0); HEMATOCRIT 30.4 % (36.0-47.0); HEMOGLOBIN 10.4 g/dl (12.0-15.5); LYMPH # 1.1 10^3/uL (1.5-5.0); LYMPH % 23.3 % (24.0-44.0); MEAN CORPUSCULAR HEMOGLOBIN 28.6 pg (27.0-33.0); MEAN CORPUSCULAR HGB CONC 34.2 g/dl (32.0-36.5); MEAN CORPUSCULAR VOLUME 83.5 fl (80.0-96.0); MONO # 0.6 10^3/uL (0.0-0.8); MONO % 12.6 % (2.0-8.0); NEUTROPHILS % 62.3 % (36.0-66.0); PLATELET COUNT, AUTOMATED 365 10^3/uL (150-450); RED BLOOD COUNT 3.64 10^6/uL (4.00-5.40); WHITE BLOOD COUNT 4.8 10^3/uL (4.0-10.0)
[2021-12-24 16:40] LABS: ALBUMIN 3.6 GM/DL (3.2-5.2); ALT/SGPT 13 U/L (12-78); BILIRUBIN,TOTAL 0.4 MG/DL (0.2-1.0); BLOOD UREA NITROGEN 11 MG/DL (7-18); CALCIUM LEVEL 8.7 MG/DL (8.8-10.2); CARBON DIOXIDE LEVEL 28 MEQ/L (21-32); CHLORIDE LEVEL 97 MEQ/L (98-107); CREATININE FOR GFR 0.84 MG/DL (0.55-1.30); GLOMERULAR FILTRATION RATE > 60.0 (>45); GLUCOSE, FASTING 99 MG/DL (70-100); POTASSIUM SERUM 3.8 MEQ/L (3.5-5.1); SODIUM LEVEL 133 MEQ/L (136-145); TOTAL PROTEIN 7.3 GM/DL (6.4-8.2)
[2021-12-24 17:49] VITALS: BP 154/74
[2021-12-24] MEDS ORDERED: HYDR-4517 PO (17:55)
[2021-12-24] MEDS ORDERED: VALT1TAB PO (17:55)
[2021-12-24] MEDS ORDERED: NORCO 5/325MG TABLET (HOME DOSE PACK) PO ONE (18:00)
== END 2021-12-24 18:37 | disposition home or self-care (01) ==
LOC: M ED 14:41
DX: G89.29 Other chronic pain (principal); J45.909 Unspecified asthma, uncomplicated; E03.9 Hypothyroidism, unspecified; Z79.890 Hormone replacement therapy; Z79.899 Other long term (current) drug therapy; Z88.1 Allergy status to other antibiotic agents; Z88.8 Allergy status to other drugs, medicaments and biological substances; Z88.0 Allergy status to penicillin; Z88.2 Allergy status to sulfonamides; Z85.528 Personal history of other malignant neoplasm of kidney; Z86.69 Personal history of other diseases of the nervous system and sense organs; Z90.49 Acquired absence of other specified parts of digestive tract; Z86.73 Personal history of transient ischemic attack (TIA), and cerebral infarction without residual deficits; Z98.84 Bariatric surgery status; Z83.3 Family history of diabetes mellitus

== ENCOUNTER → 2022-01-30 | Outpatient (REF) | payer MEDICARE, OTHER ==
[~2022-01-30] MED LIST changes: +VALT1TAB PO
== END ==
LOC: M LAB REF 16:11
PROVIDERS: ATTEND Internal Medicine
DX: G40.89 Other seizures (principal); M79.7 Fibromyalgia; M15.9 Polyosteoarthritis, unspecified

== ENCOUNTER 2022-03-06 06:21 | Observation (INO) | payer MEDICARE, OTHER ==
[~2022-03-06] VITALS: Ht 162.6 cm; Wt 118.2 kg
[2022-03-06 07:00] LABS: BASO % 0.5 % (0.0-1.0); EOS # 0.2 10^3/uL (0.0-0.5); EOS % 5.9 % (0.0-3.0); HEMATOCRIT 31.5 % (36.0-47.0); HEMOGLOBIN 10.2 g/dl (12.0-15.5); LYMPH # 1.2 10^3/uL (1.5-5.0); LYMPH % 30.6 % (24.0-44.0); MEAN CORPUSCULAR HEMOGLOBIN 27.8 pg (27.0-33.0); MEAN CORPUSCULAR HGB CONC 32.4 g/dl (32.0-36.5); MEAN CORPUSCULAR VOLUME 85.8 fl (80.0-96.0); MONO # 0.7 10^3/uL (0.0-0.8); MONO % 18.4 % (2.0-8.0); NEUTROPHILS # 1.7 10^3/uL (1.5-8.5); NEUTROPHILS % 44.1 % (36.0-66.0); PLATELET COUNT, AUTOMATED 307 10^3/uL (150-450); RED BLOOD COUNT 3.67 10^6/uL (4.00-5.40); WHITE BLOOD COUNT 3.8 10^3/uL (4.0-10.0)
[2022-03-06] MEDS ORDERED: ONDANSETRON 4MG 2ML VIAL IV ONE (07:05)
[2022-03-06] MEDS ORDERED: NS 1,000 ML IV SCH (07:05)
[2022-03-06 07:10] LABS: INR 1.01; PROTHROMBIN TIME 13.7 SECONDS (12.7-14.5)
[2022-03-06 07:32] LABS: CK-MB VALUE MASS < 1.0 NG/ML (<3.6); CPK CREATINE PHOSPHOKINASE 41 U/L (26-192); MB/CK RELATIVE INDEX 2.44 (< OR =4)
[2022-03-06 07:36] LABS: RSV AMPLIFICATION NEGATIVE (NEGATIVE)
[2022-03-06] MEDS: MORPHINE 4 MG/ML 1ML VIAL/SYRINGE IV PRN ×2 (07:38→10:41)
[2022-03-06 07:41] LABS: BLOOD UREA NITROGEN 29 MG/DL (7-18); CALCIUM LEVEL 8.8 MG/DL (8.8-10.2); CARBON DIOXIDE LEVEL 26 MEQ/L (21-32); CHLORIDE LEVEL 97 MEQ/L (98-107); CREATININE FOR GFR 0.99 MG/DL (0.55-1.30); ETHYL ALCOHOL (ETHANOL) < 0.003 % (0.000-0.010); FREE T4 1.18 NG/DL (0.76-1.46); GLUCOSE, FASTING 107 MG/DL (70-100); MAGNESIUM LEVEL 1.9 MG/DL (1.8-2.4); POTASSIUM SERUM 3.3 MEQ/L (3.5-5.1); SODIUM LEVEL 132 MEQ/L (136-145)
[2022-03-06] MEDS ORDERED: SPIRONOLACTONE 25 MG TAB PO SCH (09:00)
[2022-03-06] MEDS: SPIRONOLACTONE 50 MG TAB PO SCH (09:00)
[2022-03-06] MEDS: ATORVASTATIN 20 MG TAB PO SCH (09:00)
[2022-03-06] MEDS: SERTRALINE 100 MG TAB PO SCH ×2 (09:00→20:40)
[2022-03-06] MEDS: FAMOTIDINE 20 MG TAB PO SCH ×2 (09:00→20:40)
[2022-03-06] MEDS: LACOSAMIDE 50 MG TAB (VIMPAT) PO SCH ×2 (09:00→20:40)
[2022-03-06] MEDS: levETIRAcetam 250MG TABLET (KEPPRA) PO SCH ×2 (09:00→20:40)
[2022-03-06] MEDS ORDERED: ACETAMINOPHEN 500 MG TAB PO PRN (10:40)
[2022-03-06] MEDS ORDERED: SPIR-10 PO (11:01)
[2022-03-06] MEDS ORDERED: PATIENT COMMENT (11:01)
[2022-03-06] MEDS ORDERED: PROP60TA18 PO (11:01)
[2022-03-06] MEDS ORDERED: HYDR-4517 PO (11:01)
[2022-03-06] MEDS ORDERED: AMLO1TAB25 PO (11:01)
[2022-03-06] MEDS ORDERED: VIMP100T PO (11:01)
[2022-03-06] MEDS ORDERED: ATOR1TAB21 PO (11:01)
[2022-03-06] MEDS ORDERED: HOME MED LIST COMPLETE! XX SCH (11:05)
[2022-03-06] MEDS ORDERED: COMBIVENT RESPIMAT 100-20MCG INHALER 4GM INH PRN (11:20)
[2022-03-06] MEDS ORDERED: KCL 20MEQ IN D5/0.45NS 1000ML 1,000 ML IV SCH (12:00)
[2022-03-06] MEDS: HEPARIN SOD (PORCINE) 5000UNITS/ML 1ML VIAL/SYRINGE SC SCH ×2 (14:00→20:41)
[2022-03-06] MEDS: ANEXSIA, NORCO 7.5MG/325MG TABLET(HYDROCODONE/APAP) PO PRN ×2 (16:39→22:52)
[2022-03-06] MEDS ORDERED: hydroCHLOROthiazide 12.5 MG CAPSULE PO SCH (17:00)
[2022-03-06] MEDS ORDERED: HYDROXYCHLOROQUINE 200 MG TAB PO SCH (17:00)
[2022-03-06 17:30] VITALS: BP 146/69
[2022-03-06 19:39] VITALS: BP 146/61
[2022-03-06] MEDS ORDERED: CETIRIZINE (ZyrTEC) 10 MG TAB PO SCH (21:00)
[2022-03-06] MEDS ORDERED: MONTELUKAST 10 MG TAB PO SCH (21:00)
[2022-03-06 21:42] LABS: RBC, URINE NONE SEEN /hpf (0-3); SQUAMOUS EPITHELIAL CELL URINE SMALL AMOUNT /hpf (SMALL AMT)
[2022-03-06 21:43] LABS: BACTERIA, URINE MOD AMOUNT; HYALINE CAST, URINE NONE SEEN /lpf (0-1)
[2022-03-06] MEDS ORDERED: ANEXSIA, NORCO 7.5MG/325MG TABLET(HYDROCODONE/APAP) PO ONE (23:05)
[2022-03-07] MEDS ORDERED: LEVOTHYROXINE 112MCG TABLET (0.112MG) PO SCH (06:00)
[2022-03-07 06:04] VITALS: BP 144/62
[2022-03-07] MEDS: HEPARIN SOD (PORCINE) 5000UNITS/ML 1ML VIAL/SYRINGE SC SCH ×2 (06:10→14:39)
[2022-03-07] MEDS: ANEXSIA, NORCO 7.5MG/325MG TABLET(HYDROCODONE/APAP) PO PRN ×2 (06:10→12:09)
[2022-03-07] MEDS ORDERED: LevoFLOXacin 500 MG TABLET PO SCH (07:50)
[2022-03-07 08:25] LABS: BASO % 0.5 % (0.0-1.0); EOS # 0.2 10^3/uL (0.0-0.5); EOS % 6.3 % (0.0-3.0); HEMATOCRIT 31.3 % (36.0-47.0); HEMOGLOBIN 10.1 g/dl (12.0-15.5); LYMPH % 27.3 % (24.0-44.0); MEAN CORPUSCULAR HEMOGLOBIN 27.8 pg (27.0-33.0); MEAN CORPUSCULAR HGB CONC 32.3 g/dl (32.0-36.5); MEAN CORPUSCULAR VOLUME 86.2 fl (80.0-96.0); MONO # 0.7 10^3/uL (0.0-0.8); MONO % 18.3 % (2.0-8.0); NEUTROPHILS # 1.7 10^3/uL (1.5-8.5); NEUTROPHILS % 47.6 % (36.0-66.0); PLATELET COUNT, AUTOMATED 307 10^3/uL (150-450); RED BLOOD COUNT 3.63 10^6/uL (4.00-5.40); WHITE BLOOD COUNT 3.7 10^3/uL (4.0-10.0)
[2022-03-07] MEDS ORDERED: CEPHALEXIN 500 MG CAP PO SCH (09:00)
[2022-03-07 09:07] LABS: BLOOD UREA NITROGEN 16 MG/DL (7-18); CALCIUM LEVEL 8.7 MG/DL (8.8-10.2); CARBON DIOXIDE LEVEL 24 MEQ/L (21-32); CHLORIDE LEVEL 102 MEQ/L (98-107); CREATININE FOR GFR 0.78 MG/DL (0.55-1.30); GLOMERULAR FILTRATION RATE > 60.0 (>39); GLUCOSE, FASTING 99 MG/DL (70-100); POTASSIUM SERUM 3.5 MEQ/L (3.5-5.1); SODIUM LEVEL 134 MEQ/L (136-145)
[2022-03-07] MEDS: FAMOTIDINE 20 MG TAB PO SCH (09:28)
[2022-03-07] MEDS: SPIRONOLACTONE 50 MG TAB PO SCH (09:28)
[2022-03-07] MEDS: LACOSAMIDE 50 MG TAB (VIMPAT) PO SCH (09:28)
[2022-03-07] MEDS: levETIRAcetam 250MG TABLET (KEPPRA) PO SCH (09:28)
[2022-03-07 09:29] VITALS: BP 143/68
[2022-03-07] MEDS: SERTRALINE 100 MG TAB PO SCH (09:29)
[2022-03-07] MEDS: ATORVASTATIN 20 MG TAB PO SCH (09:29)
[2022-03-07] MEDS ORDERED: CEPH500C PO (09:35)
[2022-03-07 14:00] VITALS: BP 108/50
[2022-03-07] MEDS ORDERED: FOSFOMYCIN TROMETHAMINE 3 GM POWDER PACKET (MONUROL) PO ONE ×2 (14:00)
== END 2022-03-07 17:10 | disposition home or self-care (01) ==
LOC: M ED 06:21 → EDBD 06:21 → M ED INP 13:40 → ENRESERV 14:34 → M MS5PR 17:38
PROVIDERS: ADMIT Internal Medicine; ATTEND Internal Medicine
DX: R42 Dizziness and giddiness (principal); N39.0 Urinary tract infection, site not specified; W19.XXXA Unspecified fall, initial encounter; Y92.002 Bathroom of unspecified non-institutional (private) residence as the place of occurrence of the external cause; E03.9 Hypothyroidism, unspecified; I10 Essential (primary) hypertension; E87.6 Hypokalemia; E87.1 Hypo-osmolality and hyponatremia; M35.00 Sjogren syndrome, unspecified; E66.9 Obesity, unspecified; M79.7 Fibromyalgia; M25.552 Pain in left hip; I44.0 Atrioventricular block, first degree; Z79.899 Other long term (current) drug therapy; Z86.73 Personal history of transient ischemic attack (TIA), and cerebral infarction without residual deficits; Z88.0 Allergy status to penicillin; Z88.1 Allergy status to other antibiotic agents; Z88.8 Allergy status to other drugs, medicaments and biological substances; Z89.512 Acquired absence of left leg below knee; Z98.84 Bariatric surgery status; J45.909 Unspecified asthma, uncomplicated
CPT/HCPCS: 36415; 70450; 72125; 73521; 80048; 81000; 81015; 82077; 82550; 82553; 83605; 83735; 84439; 84443; 84484; 85025; 85610; 87088; 87186; 87631; 93005; 93041; 94760; 96361; 96372; 96374; 96375; 96376; 97162; 97165; 97530; 99285; G0378; J1644; J2270; J2405

== ENCOUNTER → 2022-03-28 | Outpatient (CLI) | payer MEDICARE, OTHER ==
[~2022-03-28] MED LIST changes: +AMLO1TAB25 PO; +ATOR1TAB21 PO; +CEPH500C PO; +PATIENT COMMENT; +PROP60TA18 PO; +SPIR-10 PO; +VIMP100T PO
== END ==
LOC: M WHC 10:41
PROVIDERS: ATTEND Internal Medicine
DX: Z12.31 Encounter for screening mammogram for malignant neoplasm of breast (principal); M85.89 Other specified disorders of bone density and structure, multiple sites

== ENCOUNTER → 2022-03-28 | Outpatient (CLI) | payer MEDICARE, OTHER ==
[~2022-03-28] MED LIST changes: +CEFD300CAP PO; +DIOV40TA PO; +NEOM10OI TD
== END ==
LOC: M PAIN 13:00
PROVIDERS: ATTEND Nurse Practitioner Family
DX: M25.552 Pain in left hip (principal); G89.29 Other chronic pain; M79.7 Fibromyalgia; E03.9 Hypothyroidism, unspecified; I10 Essential (primary) hypertension; G40.909 Epilepsy, unspecified, not intractable, without status epilepticus; J45.909 Unspecified asthma, uncomplicated; Z96.653 Presence of artificial knee joint, bilateral; Z88.0 Allergy status to penicillin; Z88.1 Allergy status to other antibiotic agents; Z88.2 Allergy status to sulfonamides; Z88.6 Allergy status to analgesic agent; Z88.8 Allergy status to other drugs, medicaments and biological substances; Z91.012 Allergy to eggs; E66.01 Morbid (severe) obesity due to excess calories; Z68.43 Body mass index [BMI] 50.0-59.9, adult; Z79.899 Other long term (current) drug therapy

== ENCOUNTER 2022-04-03 16:55 | Inpatient (IN) | payer MEDICARE, OTHER ==
[~2022-04-03] VITALS: Ht 165.1 cm; Wt 116.9 kg
[~2022-04-03 16:55] MED LIST changes: -CEFD300CAP PO; -DIOV40TA PO; -NEOM10OI TD
[2022-04-03] MEDS ORDERED: MORPHINE 2 MG/ML 1ML VIAL IV ONE (20:20)
[2022-04-03 20:58] LABS: BASO % 0.5 % (0.0-1.0); EOS # 0.2 10^3/uL (0.0-0.5); EOS % 3.8 % (0.0-3.0); HEMATOCRIT 33.3 % (36.0-47.0); LYMPH # 1.1 10^3/uL (1.5-5.0); LYMPH % 26.7 % (24.0-44.0); MEAN CORPUSCULAR HEMOGLOBIN 28.4 pg (27.0-33.0); MONO # 0.5 10^3/uL (0.0-0.8); MONO % 11.9 % (2.0-8.0); NEUTROPHILS # 2.4 10^3/uL (1.5-8.5); NEUTROPHILS % 56.9 % (36.0-66.0); PLATELET COUNT, AUTOMATED 313 10^3/uL (150-450); RED BLOOD COUNT 3.87 10^6/uL (4.00-5.40); WHITE BLOOD COUNT 4.2 10^3/uL (4.0-10.0)
[2022-04-03] MEDS: FLUTICASONE PROP 0.05% NASAL SPRAY 16 GM (FLONASE) NARES SCH (21:00)
[2022-04-03] MEDS: LIDOCAINE 5% (LIDODERM) PATCH TD SCH (21:00)
[2022-04-03 21:21] LABS: ALBUMIN 3.7 GM/DL (3.2-5.2); ALT/SGPT 15 U/L (12-78); BILIRUBIN,TOTAL 0.4 MG/DL (0.2-1.0); BLOOD UREA NITROGEN 12 MG/DL (7-18); CARBON DIOXIDE LEVEL 29 MEQ/L (21-32); CHLORIDE LEVEL 102 MEQ/L (98-107); CREATININE FOR GFR 0.77 MG/DL (0.55-1.30); GLOMERULAR FILTRATION RATE > 60.0 (>39); GLUCOSE, FASTING 101 MG/DL (70-100); MAGNESIUM LEVEL 1.9 MG/DL (1.8-2.4); POTASSIUM SERUM 3.4 MEQ/L (3.5-5.1); SODIUM LEVEL 138 MEQ/L (136-145)
[2022-04-03] MEDS ORDERED: ACETAMINOPHEN TAB 650MG DOSE (2X325MG) PO PRN (22:15)
[2022-04-03] MEDS ORDERED: ONDANSETRON 4MG 2ML VIAL IV PRN (22:15)
[2022-04-03] MEDS ORDERED: HOME MED LIST COMPLETE! XX SCH (22:45)
[2022-04-03] MEDS ORDERED: NEOM10OI TD (22:45)
[2022-04-03] MEDS ORDERED: POTASSIUM CHLORIDE 10MEQ SR TABLET PO ONE (23:00)
[2022-04-03 23:43] LABS: RSV AMPLIFICATION NEGATIVE (NEGATIVE)
[2022-04-03] MEDS ORDERED: COMBIVENT RESPIMAT 100-20MCG INHALER 4GM INH PRN (23:50)
[2022-04-04 01:15] VITALS: BP 152/74
[2022-04-04] MEDS: SERTRALINE 100 MG TAB PO SCH ×3 (01:50→21:11)
[2022-04-04] MEDS: LACOSAMIDE 50 MG TAB (VIMPAT) PO SCH ×3 (01:50→21:10)
[2022-04-04] MEDS: NORCO, ANEXSIA 5/325MG TABLET (HYDROcodone/ACETAMINOPHEN) PO PRN ×2 (01:50→12:11)
[2022-04-04] MEDS: levETIRAcetam 250MG TABLET (KEPPRA) PO SCH ×3 (01:50→21:10)
[2022-04-04] MEDS: methocarbamoL 750 MG TAB PO PRN ×3 (02:59→23:09)
[2022-04-04] MEDS: ALPRAZolam 0.5 MG TAB PO PRN ×3 (02:59→23:09)
[2022-04-04] MEDS ORDERED: MORPHINE 2 MG/ML 1ML VIAL IV PRN ×2 (04:35)
[2022-04-04] MEDS: LEVOTHYROXINE 112MCG TABLET (0.112MG) PO SCH (05:08)
[2022-04-04 06:00] VITALS: BP 167/64
[2022-04-04] MEDS: FAMOTIDINE 20 MG TAB PO SCH ×2 (09:23→21:11)
[2022-04-04] MEDS: SPIRONOLACTONE 12.5MG PER 1/2 TABLET PO SCH (09:23)
[2022-04-04] MEDS: **NOTE PATIENT COMMENT** MISC XX SCH (09:24)
[2022-04-04] MEDS: MAXITROL OPHTH OINT 3.5 GM OU SCH ×4 (09:24→21:12)
[2022-04-04] MEDS: CEFDINIR 300 MG CAP (OMNICEF) PO SCH ×2 (11:35→21:10)
[2022-04-04] MEDS ORDERED: IPRATROPIUM 0.5MG/ALBUTEROL 2.5MG INH SOL UD 3ML (DUONEB) NEB PRN (13:55)
[2022-04-04] MEDS: HEPARIN SOD (PORCINE) 5000UNITS/ML 1ML VIAL/SYRINGE SQ SCH ×2 (14:20→21:09)
[2022-04-04] MEDS ORDERED: PROP120C PO (14:28)
[2022-04-04 14:48] VITALS: BP_SYST 147; BP_SYST 159; BP_SYST 187; BP_DIAS 110; BP_DIAS 82; BP_DIAS 86
[2022-04-04 15:25] VITALS: BP 156/74
[2022-04-04] MEDS: PERCOCET 5MG/325MG TAB PO PRN ×2 (15:25→23:09)
[2022-04-04] MEDS ORDERED: diazePAM 2 MG TAB PO ONE (18:20)
[2022-04-04 20:00] VITALS: BP 156/68
[2022-04-04] MEDS: LIDOCAINE 5% (LIDODERM) PATCH TD SCH ×2 (21:00→21:10)
[2022-04-04] MEDS: FLUTICASONE PROP 0.05% NASAL SPRAY 16 GM (FLONASE) NARES SCH (21:09)
[2022-04-04] MEDS: HYDROXYCHLOROQUINE 200 MG TAB PO SCH (21:11)
[2022-04-04] MEDS: PROPRANOLOL 60 MG LA CAP PO SCH (21:11)
[2022-04-04] MEDS: hydroCHLOROthiazide 12.5 MG CAPSULE PO SCH (21:11)
[2022-04-04] MEDS: ATORVASTATIN 20 MG TAB PO SCH (21:11)
[2022-04-04] MEDS: MONTELUKAST 10 MG TAB PO SCH (21:11)
[2022-04-05 05:16] VITALS: BP 161/69
[2022-04-05] MEDS: PERCOCET 5MG/325MG TAB PO PRN ×3 (06:02→18:30)
[2022-04-05] MEDS: HEPARIN SOD (PORCINE) 5000UNITS/ML 1ML VIAL/SYRINGE SQ SCH ×3 (06:02→21:40)
[2022-04-05] MEDS: LEVOTHYROXINE 112MCG TABLET (0.112MG) PO SCH (06:02)
[2022-04-05 06:09] LABS: HEMATOCRIT 32.3 % (36.0-47.0); HEMOGLOBIN 10.7 g/dl (12.0-15.5); MEAN CORPUSCULAR HEMOGLOBIN 28.5 pg (27.0-33.0); MEAN CORPUSCULAR HGB CONC 33.1 g/dl (32.0-36.5); MEAN CORPUSCULAR VOLUME 85.9 fl (80.0-96.0); PLATELET COUNT, AUTOMATED 322 10^3/uL (150-450); RED BLOOD COUNT 3.76 10^6/uL (4.00-5.40); WHITE BLOOD COUNT 4.1 10^3/uL (4.0-10.0)
[2022-04-05 06:36] LABS: BLOOD UREA NITROGEN 12 MG/DL (7-18); CALCIUM LEVEL 9.1 MG/DL (8.8-10.2); CARBON DIOXIDE LEVEL 26 MEQ/L (21-32); CHLORIDE LEVEL 100 MEQ/L (98-107); GLOMERULAR FILTRATION RATE > 60.0 (>39); GLUCOSE, FASTING 98 MG/DL (70-100); MAGNESIUM LEVEL 1.6 MG/DL (1.8-2.4); PHOSPHORUS LEVEL 5.1 MG/DL (2.5-4.9); POTASSIUM SERUM 3.9 MEQ/L (3.5-5.1); SODIUM LEVEL 133 MEQ/L (136-145)
[2022-04-05] MEDS ORDERED: MAGNESIUM OXIDE 400MG TAB (MAG-OX) PO ONE (07:30)
[2022-04-05] MEDS: **NOTE PATIENT COMMENT** MISC XX SCH (09:00)
[2022-04-05] MEDS: MAXITROL OPHTH OINT 3.5 GM OU SCH ×4 (09:24→21:40)
[2022-04-05] MEDS: FAMOTIDINE 20 MG TAB PO SCH ×2 (09:25→21:36)
[2022-04-05] MEDS: CEFDINIR 300 MG CAP (OMNICEF) PO SCH ×2 (09:25→21:38)
[2022-04-05] MEDS: SPIRONOLACTONE 12.5MG PER 1/2 TABLET PO SCH (09:25)
[2022-04-05] MEDS: SERTRALINE 100 MG TAB PO SCH ×2 (09:25→21:38)
[2022-04-05] MEDS: levETIRAcetam 250MG TABLET (KEPPRA) PO SCH ×2 (09:26→21:38)
[2022-04-05] MEDS: LACOSAMIDE 50 MG TAB (VIMPAT) PO SCH ×2 (09:26→21:35)
[2022-04-05] MEDS: methocarbamoL 750 MG TAB PO PRN ×2 (09:27→18:29)
[2022-04-05 09:38] VITALS: BP 176/56
[2022-04-05] MEDS ORDERED: MAG SULF 1GM/100ML (MAG RUN) 1 GM in IV 1 EA IV SCH (10:00)
[2022-04-05] MEDS: ALPRAZolam 0.5 MG TAB PO PRN ×2 (11:53→22:56)
[2022-04-05] MEDS ORDERED: VALSARTAN 40MG TABLET (DIOVAN) PO ONE (12:00)
[2022-04-05 14:00] VITALS: BP 151/67
[2022-04-05] MEDS: LIDOCAINE 5% (LIDODERM) PATCH TD SCH (21:00)
[2022-04-05] MEDS: ATORVASTATIN 20 MG TAB PO SCH (21:35)
[2022-04-05] MEDS: hydroCHLOROthiazide 12.5 MG CAPSULE PO SCH (21:36)
[2022-04-05] MEDS: PROPRANOLOL 60 MG LA CAP PO SCH (21:37)
[2022-04-05] MEDS: HYDROXYCHLOROQUINE 200 MG TAB PO SCH (21:39)
[2022-04-05] MEDS: MONTELUKAST 10 MG TAB PO SCH (21:39)
[2022-04-05 21:43] VITALS: BP 134/66
[2022-04-05 22:30] VITALS: BP 150/75
[2022-04-05] MEDS: FLUTICASONE PROP 0.05% NASAL SPRAY 16 GM (FLONASE) NARES SCH (22:55)
[2022-04-06] MEDS: PERCOCET 5MG/325MG TAB PO PRN ×2 (00:40→08:22)
[2022-04-06 06:00] VITALS: BP 143/60
[2022-04-06] MEDS: HEPARIN SOD (PORCINE) 5000UNITS/ML 1ML VIAL/SYRINGE SQ SCH ×2 (06:02→13:51)
[2022-04-06] MEDS: LEVOTHYROXINE 112MCG TABLET (0.112MG) PO SCH (06:02)
[2022-04-06 06:36] LABS: HEMATOCRIT 31.1 % (36.0-47.0); HEMOGLOBIN 10.2 g/dl (12.0-15.5); MEAN CORPUSCULAR HEMOGLOBIN 28.5 pg (27.0-33.0); MEAN CORPUSCULAR HGB CONC 32.8 g/dl (32.0-36.5); MEAN CORPUSCULAR VOLUME 86.9 fl (80.0-96.0); PLATELET COUNT, AUTOMATED 310 10^3/uL (150-450); RED BLOOD COUNT 3.58 10^6/uL (4.00-5.40); WHITE BLOOD COUNT 4.7 10^3/uL (4.0-10.0)
[2022-04-06 07:31] LABS: CALCIUM LEVEL 8.6 MG/DL (8.8-10.2); GLOMERULAR FILTRATION RATE 58.4 (>39); MAGNESIUM LEVEL 1.7 MG/DL (1.8-2.4); PHOSPHORUS LEVEL 5.3 MG/DL (2.5-4.9); POTASSIUM SERUM 4.2 MEQ/L (3.5-5.1)
[2022-04-06] MEDS: SERTRALINE 100 MG TAB PO SCH (08:20)
[2022-04-06] MEDS: SPIRONOLACTONE 12.5MG PER 1/2 TABLET PO SCH (08:20)
[2022-04-06] MEDS: levETIRAcetam 250MG TABLET (KEPPRA) PO SCH (08:20)
[2022-04-06] MEDS: CEFDINIR 300 MG CAP (OMNICEF) PO SCH (08:21)
[2022-04-06] MEDS: FAMOTIDINE 20 MG TAB PO SCH (08:21)
[2022-04-06] MEDS: MAXITROL OPHTH OINT 3.5 GM OU SCH ×2 (08:23→13:50)
[2022-04-06] MEDS: LACOSAMIDE 50 MG TAB (VIMPAT) PO SCH (08:23)
[2022-04-06 08:24] VITALS: BP 137/89
[2022-04-06] MEDS: **NOTE PATIENT COMMENT** MISC XX SCH (08:24)
[2022-04-06] MEDS ORDERED: VALSARTAN 40MG TABLET (DIOVAN) PO SCH (09:00)
[2022-04-06] MEDS ORDERED: MAGNESIUM OXIDE 400MG TAB (MAG-OX) PO ONE (09:30)
[2022-04-06] MEDS: ALPRAZolam 0.5 MG TAB PO PRN (11:31)
[2022-04-06] MEDS ORDERED: CEFD300CAP PO (13:28)
[2022-04-06] MEDS ORDERED: DIOV40TA PO (13:28)
== END 2022-04-06 17:30 | disposition home health service (06) | DRG 690 ==
LOC: M ED 16:55 → M ED INP 16:56 → UNDOADMOB 22:12 → ENRESERV 04-04 00:02 → M MS5PR 04-04 01:15 → M ED INP 04-04 01:15 → OBSVTOIN 04-04 13:53
PROVIDERS: ADMIT Family Medicine; ATTEND Internal Medicine
DX: N39.0 Urinary tract infection, site not specified (principal); I44.0 Atrioventricular block, first degree; J45.909 Unspecified asthma, uncomplicated; D50.9 Iron deficiency anemia, unspecified; I10 Essential (primary) hypertension; E21.1 Secondary hyperparathyroidism, not elsewhere classified; E78.5 Hyperlipidemia, unspecified; E03.9 Hypothyroidism, unspecified; G43.909 Migraine, unspecified, not intractable, without status migrainosus; M35.00 Sjogren syndrome, unspecified; M75.102 Unspecified rotator cuff tear or rupture of left shoulder, not specified as traumatic; M79.7 Fibromyalgia; F41.9 Anxiety disorder, unspecified; M19.90 Unspecified osteoarthritis, unspecified site; Z89.512 Acquired absence of left leg below knee; R29.6 Repeated falls; Z79.899 Other long term (current) drug therapy; Z88.0 Allergy status to penicillin; Z88.2 Allergy status to sulfonamides; Z88.6 Allergy status to analgesic agent; Z88.8 Allergy status to other drugs, medicaments and biological substances; E66.9 Obesity, unspecified; E87.6 Hypokalemia

== ENCOUNTER → 2022-05-10 | Outpatient (REF) | payer MEDICARE, OTHER ==
[~2022-05-10] MED LIST changes: +CEFD300CAP PO; +DIOV40TA PO; +NEOM10OI TD
[2022-05-10 17:41] LABS: PERCENT SATURATION 15.1 % (13.2-45.0)
== END ==
LOC: M LAB REF 16:00
PROVIDERS: ATTEND Internal Medicine
DX: G40.89 Other seizures (principal); D64.9 Anemia, unspecified

== ENCOUNTER → 2022-05-12 | Outpatient (CLI) | payer MEDICARE, OTHER | LOC: M PAIN 11:00 | PROVIDERS: ATTEND Anesthesiology | DX: M25.552 Pain in left hip (principal); M25.512 Pain in left shoulder; M79.7 Fibromyalgia; E03.9 Hypothyroidism, unspecified; I10 Essential (primary) hypertension; G40.909 Epilepsy, unspecified, not intractable, without status epilepticus; J45.909 Unspecified asthma, uncomplicated; Z96.653 Presence of artificial knee joint, bilateral; Z88.0 Allergy status to penicillin; Z88.1 Allergy status to other antibiotic agents; Z88.2 Allergy status to sulfonamides; Z88.6 Allergy status to analgesic agent; Z88.8 Allergy status to other drugs, medicaments and biological substances; Z91.012 Allergy to eggs; E66.01 Morbid (severe) obesity due to excess calories; Z68.44 Body mass index [BMI] 60.0-69.9, adult; Z79.890 Hormone replacement therapy; Z79.899 Other long term (current) drug therapy ==

== ENCOUNTER 2022-07-31 12:17 | Emergency (ER) | payer MEDICARE, OTHER ==
[~2022-07-31] VITALS: Ht 165.1 cm; Wt 118.2 kg
[2022-07-31] MEDS ORDERED: NORCO, ANEXSIA 5/325MG TABLET (HYDROcodone/ACETAMINOPHEN) PO ONE (12:40)
[2022-07-31 14:21] VITALS: O2SAT 96
[2022-07-31 15:44] VITALS: BP 184/90
[2022-08-01] MEDS ORDERED: VENTAER INH (13:48)
[2022-08-01] MEDS ORDERED: OXYC10TA3 PO (13:48)
[2022-08-01] MEDS ORDERED: AMLO1TAB24 PO (13:48)
[2022-08-01] MEDS ORDERED: ZOLP10TA2 PO (13:48)
[2022-08-01] MEDS ORDERED: FERR325T19 PO (13:48)
[2022-08-01] MEDS ORDERED: CETI-24 PO (13:48)
[2022-08-01] MEDS ORDERED: B-12100010 PO (13:51)
[2022-08-01] MEDS ORDERED: ACET500T15 PO (13:51)
[2022-08-01] MEDS ORDERED: LEVE500T5 PO (14:27)
== END 2022-07-31 15:45 | disposition home or self-care (01) ==
LOC: M ED 12:17
DX: S70.02XA Contusion of left hip, initial encounter (principal); S40.012A Contusion of left shoulder, initial encounter; W01.0XXA Fall on same level from slipping, tripping and stumbling without subsequent striking against object, initial encounter; I10 Essential (primary) hypertension; G40.89 Other seizures; J45.909 Unspecified asthma, uncomplicated; E78.5 Hyperlipidemia, unspecified; Z86.73 Personal history of transient ischemic attack (TIA), and cerebral infarction without residual deficits; Z88.0 Allergy status to penicillin; Z88.1 Allergy status to other antibiotic agents; Z88.6 Allergy status to analgesic agent; Z88.8 Allergy status to other drugs, medicaments and biological substances; Z79.51 Long term (current) use of inhaled steroids; Z79.52 Long term (current) use of systemic steroids; Z79.02 Long term (current) use of antithrombotics/antiplatelets; Z79.899 Other long term (current) drug therapy

== ENCOUNTER 2022-08-01 00:12 | Inpatient (IN) | payer MEDICARE, OTHER ==
[~2022-08-01] VITALS: Ht 165.1 cm; Wt 121.3 kg
[2022-08-01 08:15] LABS: BASO % 0.4 % (0.0-1.0); EOS # 0.1 10^3/uL (0.0-0.5); EOS % 2.3 % (0.0-3.0); HEMOGLOBIN 10.9 g/dl (12.0-15.5); LYMPH # 0.9 10^3/uL (1.5-5.0); LYMPH % 17.9 % (24.0-44.0); MEAN CORPUSCULAR HEMOGLOBIN 29.7 pg (27.0-33.0); MEAN CORPUSCULAR VOLUME 89.9 fl (80.0-96.0); MONO # 0.6 10^3/uL (0.0-0.8); MONO % 11.9 % (2.0-8.0); NEUTROPHILS # 3.2 10^3/uL (1.5-8.5); NEUTROPHILS % 67.3 % (36.0-66.0); PLATELET COUNT, AUTOMATED 304 10^3/uL (150-450); RED BLOOD COUNT 3.67 10^6/uL (4.00-5.40); WHITE BLOOD COUNT 4.8 10^3/uL (4.0-10.0)
[2022-08-01 08:41] LABS: ALBUMIN 3.6 G/DL (3.2-5.2); ALKALINE PHOSPHATASE 144 U/L (46-116); ALT/SGPT 14 U/L (7.0-40); AST/SGOT 28 U/L (<34); BILIRUBIN,DIRECT 0.1 MG/DL (<0.4); BILIRUBIN,TOTAL 0.3 MG/DL (0.3-1.2); TOTAL PROTEIN 6.9 G/DL (5.7-8.2)
[2022-08-01 08:43] LABS: THYROID STIMULATING HORMONE 2.251 uIU/ML (0.55-4.78)
[2022-08-01 08:51] LABS: RSV AMPLIFICATION NEGATIVE (NEGATIVE)
[2022-08-01] MEDS ORDERED: ISOVUE-370 76% 100ML VIAL As Ordered ONE (09:18)
[2022-08-01] MEDS ORDERED: NS 500 ML IV ONE (09:20)
[2022-08-01 10:05] LABS: CPK CREATINE PHOSPHOKINASE 75 U/L (34-145)
[2022-08-01 11:59] LABS: CK-MB VALUE MASS < 1.0 NG/ML (<3.6)
[2022-08-01 12:09] LABS: CPK CREATINE PHOSPHOKINASE 72 U/L (34-145); MB/CK RELATIVE INDEX 1.38 (< OR =4)
[2022-08-01 12:42] LABS: CK-MB VALUE MASS < 1.0 NG/ML (<3.6); MB/CK RELATIVE INDEX 1.33 (< OR =4)
[2022-08-01] MEDS ORDERED: FERR325T19 PO (13:48)
[2022-08-01] MEDS ORDERED: CETI-24 PO (13:48)
[2022-08-01] MEDS ORDERED: VENTAER INH (13:48)
[2022-08-01] MEDS ORDERED: ZOLP10TA2 PO (13:48)
[2022-08-01] MEDS ORDERED: AMLO1TAB24 PO (13:48)
[2022-08-01] MEDS ORDERED: OXYC10TA3 PO (13:48)
[2022-08-01] MEDS ORDERED: ACET500T15 PO (13:51)
[2022-08-01] MEDS ORDERED: B-12100010 PO (13:51)
[2022-08-01] MEDS: cefTRIAXone SOD 2 GM in D5W MINI-BAG PLUS 50 ML IV SCH (14:17)
[2022-08-01] MEDS ORDERED: LEVE500T5 PO (14:27)
[2022-08-01] MEDS ORDERED: HOME MED LIST COMPLETE! XX SCH (14:35)
[2022-08-01] MEDS ORDERED: ALBUTEROL 90 MCG/ACT 8GM HFA INHALER INH PRN (17:15)
[2022-08-01] MEDS ORDERED: ACETAMINOPHEN 500 MG TAB PO PRN (17:15)
[2022-08-01] MEDS ORDERED: MIRALAX *UNIT DOSE* 17GM PACKET PO PRN (17:20)
[2022-08-01] MEDS ORDERED: SENNA 8.6 MG TAB (SENOKOT) PO PRN (17:20)
[2022-08-01] MEDS: NORCO, ANEXSIA 5/325MG TABLET (HYDROcodone/ACETAMINOPHEN) PO PRN (18:37)
[2022-08-01] MEDS: HYDROXYCHLOROQUINE 200 MG TAB PO SCH (20:21)
[2022-08-01] MEDS: RIVAROXABAN 10MG TAB (XARELTO) PO SCH (20:21)
[2022-08-01 21:08] VITALS: BP 145/71
[2022-08-01] MEDS: FAMOTIDINE 20 MG TAB PO SCH (21:25)
[2022-08-01] MEDS: LACOSAMIDE 50 MG TAB (VIMPAT) PO SCH (21:25)
[2022-08-01] MEDS: CETIRIZINE (ZyrTEC) 10 MG TAB PO SCH (21:25)
[2022-08-01] MEDS: SERTRALINE 100 MG TAB PO SCH (21:25)
[2022-08-01] MEDS: levETIRAcetam 250MG TABLET (KEPPRA) PO SCH (21:25)
[2022-08-01] MEDS: ATORVASTATIN 20 MG TAB PO SCH (21:26)
[2022-08-01] MEDS: MONTELUKAST 10 MG TAB PO SCH (21:26)
[2022-08-01] MEDS: ALPRAZolam 0.5 MG TAB PO PRN (21:30)
[2022-08-01] MEDS: methocarbamoL 750 MG TAB PO PRN (23:36)
[2022-08-01] MEDS: PROPRANOLOL 60MG LA CAP PO SCH (23:37)
[2022-08-02] VITALS (8 sets, daily range): BP systolic 140–173; BP diastolic 66–88
[2022-08-02] MEDS: NORCO, ANEXSIA 5/325MG TABLET (HYDROcodone/ACETAMINOPHEN) PO PRN ×4 (00:43→21:39)
[2022-08-02] MEDS: LEVOTHYROXINE 112MCG TABLET (0.112MG) PO SCH (05:18)
[2022-08-02] MEDS: amLODIPine 5 MG TAB PO SCH (05:19)
[2022-08-02 05:39] LABS: HEMATOCRIT 31.5 % (36.0-47.0); HEMOGLOBIN 10.3 g/dl (12.0-15.5); MEAN CORPUSCULAR HEMOGLOBIN 29.7 pg (27.0-33.0); MEAN CORPUSCULAR HGB CONC 32.7 g/dl (32.0-36.5); MEAN CORPUSCULAR VOLUME 90.8 fl (80.0-96.0); PLATELET COUNT, AUTOMATED 277 10^3/uL (150-450); RED BLOOD COUNT 3.47 10^6/uL (4.00-5.40); WHITE BLOOD COUNT 3.8 10^3/uL (4.0-10.0)
[2022-08-02 06:05] LABS: BLOOD UREA NITROGEN 13 MG/DL (9-23); CALCIUM LEVEL 8.7 MG/DL (8.3-10.6); CARBON DIOXIDE LEVEL 23 MMOL/L (20-31); CHLORIDE LEVEL 107 MMOL/L (98-107); CREATININE FOR GFR 0.86 MG/DL (0.55-1.30); GLOMERULAR FILTRATION RATE > 60.0 (>39); GLUCOSE, FASTING 96 MG/DL (74-106); POTASSIUM SERUM 3.6 MMOL/L (3.5-5.1); SODIUM LEVEL 141 MMOL/L (136-145)
[2022-08-02] MEDS: LACOSAMIDE 50 MG TAB (VIMPAT) PO SCH ×2 (08:19→21:36)
[2022-08-02] MEDS: SERTRALINE 100 MG TAB PO SCH ×2 (08:19→21:36)
[2022-08-02] MEDS: CYANOCOBALAMIN 500 MCG TAB PO SCH (08:20)
[2022-08-02] MEDS: FERROUS SULFATE 325MG TAB PO SCH (08:20)
[2022-08-02] MEDS: hydroCHLOROthiazide 12.5 MG CAPSULE PO SCH (08:20)
[2022-08-02] MEDS: FAMOTIDINE 20 MG TAB PO SCH ×2 (08:21→21:38)
[2022-08-02] MEDS: levETIRAcetam 250MG TABLET (KEPPRA) PO SCH ×2 (08:21→21:36)
[2022-08-02] MEDS: methocarbamoL 750 MG TAB PO PRN ×2 (08:28→18:28)
[2022-08-02] MEDS: LIDOCAINE 5% (LIDODERM) PATCH TD SCH (14:56)
[2022-08-02] MEDS: cefTRIAXone SOD 2 GM in D5W MINI-BAG PLUS 50 ML IV SCH (14:56)
[2022-08-02] MEDS: RIVAROXABAN 10MG TAB (XARELTO) PO SCH (18:28)
[2022-08-02] MEDS: HYDROXYCHLOROQUINE 200 MG TAB PO SCH (18:28)
[2022-08-02] MEDS ORDERED: zolPIDEM TARTRATE 5 MG TAB PO SCH (21:00)
[2022-08-02] MEDS: ATORVASTATIN 20 MG TAB PO SCH (21:36)
[2022-08-02] MEDS: CETIRIZINE (ZyrTEC) 10 MG TAB PO SCH (21:36)
[2022-08-02] MEDS: MONTELUKAST 10 MG TAB PO SCH (21:37)
[2022-08-02] MEDS: PROPRANOLOL 60MG LA CAP PO SCH (21:37)
[2022-08-03 00:24] VITALS: BP 155/69
[2022-08-03] MEDS: methocarbamoL 750 MG TAB PO PRN (01:39)
[2022-08-03] MEDS: NORCO, ANEXSIA 5/325MG TABLET (HYDROcodone/ACETAMINOPHEN) PO PRN ×2 (02:42→10:31)
[2022-08-03 04:51] VITALS: BP 152/67
[2022-08-03] MEDS: LEVOTHYROXINE 112MCG TABLET (0.112MG) PO SCH (05:19)
[2022-08-03 07:46] LABS: BASO % 0.5 % (0.0-1.0); EOS # 0.1 10^3/uL (0.0-0.5); EOS % 2.5 % (0.0-3.0); HEMATOCRIT 32.8 % (36.0-47.0); HEMOGLOBIN 10.6 g/dl (12.0-15.5); LYMPH # 1.3 10^3/uL (1.5-5.0); MEAN CORPUSCULAR HEMOGLOBIN 29.3 pg (27.0-33.0); MEAN CORPUSCULAR HGB CONC 32.3 g/dl (32.0-36.5); MEAN CORPUSCULAR VOLUME 90.6 fl (80.0-96.0); MONO # 0.5 10^3/uL (0.0-0.8); NEUTROPHILS # 2.5 10^3/uL (1.5-8.5); NEUTROPHILS % 55.5 % (36.0-66.0); PLATELET COUNT, AUTOMATED 300 10^3/uL (150-450); RED BLOOD COUNT 3.62 10^6/uL (4.00-5.40); WHITE BLOOD COUNT 4.4 10^3/uL (4.0-10.0)
[2022-08-03 07:53] VITALS: BP 159/70
[2022-08-03 08:19] LABS: BLOOD UREA NITROGEN 14 MG/DL (9-23); CALCIUM LEVEL 8.3 MG/DL (8.3-10.6); CARBON DIOXIDE LEVEL 22 MMOL/L (20-31); CHLORIDE LEVEL 102 MMOL/L (98-107); CREATININE FOR GFR 0.91 MG/DL (0.55-1.30); GLOMERULAR FILTRATION RATE > 60.0 (>39); GLUCOSE, FASTING 99 MG/DL (74-106); POTASSIUM SERUM 3.9 MMOL/L (3.5-5.1); SODIUM LEVEL 135 MMOL/L (136-145)
[2022-08-03] MEDS: LACOSAMIDE 50 MG TAB (VIMPAT) PO SCH (08:19)
[2022-08-03] MEDS: LIDOCAINE 5% (LIDODERM) PATCH TD SCH (08:19)
[2022-08-03] MEDS: amLODIPine 5 MG TAB PO SCH (08:19)
[2022-08-03] MEDS: FERROUS SULFATE 325MG TAB PO SCH (08:19)
[2022-08-03] MEDS: levETIRAcetam 250MG TABLET (KEPPRA) PO SCH (08:19)
[2022-08-03] MEDS: SERTRALINE 100 MG TAB PO SCH (08:19)
[2022-08-03] MEDS: CYANOCOBALAMIN 500 MCG TAB PO SCH (08:19)
[2022-08-03] MEDS: hydroCHLOROthiazide 12.5 MG CAPSULE PO SCH (08:20)
[2022-08-03] MEDS: FAMOTIDINE 20 MG TAB PO SCH (08:20)
[2022-08-03] MEDS ORDERED: hydrALAZINE 20MG/ML 1ML VIAL IV ONE (09:40)
[2022-08-03 10:31] VITALS: BP 159/70
[2022-08-03] MEDS: ALPRAZolam 0.5 MG TAB PO PRN (10:32)
[2022-08-03 11:48] VITALS: BP 157/82
[2022-08-03 12:36] VITALS: BP 141/70
[2022-08-03] MEDS ORDERED: CEFD300CAP PO (13:09)
[2022-08-03] MEDS: cefTRIAXone SOD 2 GM in D5W MINI-BAG PLUS 50 ML IV SCH (15:26)
[2022-08-04 04:07] LABS: LACOSAMIDE LEVEL 5.8 ug/mL (5.0-10.0); LEVETIRACETAM (KEPPRA) 14.2 ug/mL (10.0-40.0)
== END 2022-08-03 16:06 | disposition home health service (06) | DRG 689 ==
LOC: M ED 00:12 → M ED INP 11:46 → M PCU 21:07
PROVIDERS: ADMIT Internal Medicine; ATTEND Internal Medicine
DX: N39.0 Urinary tract infection, site not specified (principal); G93.41 Metabolic encephalopathy; D50.9 Iron deficiency anemia, unspecified; I10 Essential (primary) hypertension; E78.5 Hyperlipidemia, unspecified; G40.909 Epilepsy, unspecified, not intractable, without status epilepticus; Z89.512 Acquired absence of left leg below knee; K21.9 Gastro-esophageal reflux disease without esophagitis; M25.552 Pain in left hip; R29.6 Repeated falls; Z79.891 Long term (current) use of opiate analgesic; F41.9 Anxiety disorder, unspecified; F32.A Depression, unspecified; E03.9 Hypothyroidism, unspecified; Z86.718 Personal history of other venous thrombosis and embolism; Z79.899 Other long term (current) drug therapy; Z88.8 Allergy status to other drugs, medicaments and biological substances; Z88.0 Allergy status to penicillin; Z88.2 Allergy status to sulfonamides; Z88.6 Allergy status to analgesic agent; G89.29 Other chronic pain

== ENCOUNTER → 2022-08-09 | Outpatient (REF) | payer MEDICARE, OTHER ==
[~2022-08-09] MED LIST changes: +ACET500T15 PO; +B-12100010 PO; +CETI-24 PO; +FERR325T19 PO; +LEVE500T5 PO; +OXYC10TA3 PO; +VENTAER INH; +ZOLP10TA2 PO
[2022-08-09 17:21] LABS: PERCENT SATURATION 18.7 % (13.2-45.0)
[2022-08-09 17:26] LABS: FERRITIN 40.2 NG/ML (7.3-270.7)
== END ==
LOC: M LAB REF 16:13
PROVIDERS: ATTEND Internal Medicine
DX: D50.9 Iron deficiency anemia, unspecified (principal)

== ENCOUNTER → 2022-10-09 | Outpatient (CLI) | payer MEDICARE, OTHER ==
[~2022-10-09] MED LIST changes: +ACET32TAB PO; +ALBU8.5H INH; +COLA100C5 PO; +DITR5TAB PO; +LACO100T PO; +LEVA0.636 NEB; +LEVA12INH NEB; +LIDO5TD TD; +META1POW PO; +MIRA1POW3 PO; +MORP4INJ2 IV; +NYST1POW9 TOP; +OXYC-517 PO; +SENN18TA PO
== END ==
LOC: M LABSMTC 11:34
PROVIDERS: ATTEND Anesthesiology
DX: Z01.812 Encounter for preprocedural laboratory examination (principal); Z20.822 Contact with and (suspected) exposure to COVID-19

== ENCOUNTER 2022-10-10 06:07 | Observation (INO) | payer MEDICARE, OTHER ==
[2022-10-10] VITALS (7 sets, daily range): BP systolic 144–171; BP diastolic 61–72
[~2022-10-10] VITALS: Ht 165.1 cm; Wt 117.9 kg
[~2022-10-10 06:07] MED LIST changes: -ACET32TAB PO; -COLA100C5 PO; -DITR5TAB PO; -LEVA0.636 NEB; -LEVA12INH NEB; -LIDO5TD TD; -META1POW PO; -MIRA1POW3 PO; -MORP4INJ2 IV; -NYST1POW9 TOP; -OXYC-517 PO; -SENN18TA PO
[2022-10-10] MEDS ORDERED: MIDAZOLAM INJ 2MG/2ML VIAL IV PRN (06:55)
[2022-10-10] MEDS ORDERED: fentaNYL 100 MCG/2 ML INJECTION IV PRN ×2 (06:55→10:10)
[2022-10-10] MEDS ORDERED: LIDOCAINE 1% SDV 5ML VIAL PN ONE (06:55)
[2022-10-10] MEDS ORDERED: ROPIvacaine 0.5% 30ML VIAL PN ONE (06:55)
[2022-10-10] MEDS ORDERED: ACETAMINOPHEN 1000MG 100ML IV BAG As Ordered ONE (07:08)
[2022-10-10] MEDS ORDERED: LIDOCAINE 2% 100MG/5ML SDV (FOR ANES.) As Ordered ONE (07:09)
[2022-10-10] MEDS ORDERED: SUGAMMADEX SODIUM 500 MG/5 ML VIAL (BRIDION) As Ordered ONE (07:09)
[2022-10-10] MEDS ORDERED: ROCURONIUM BROMIDE 50MG/5ML VIAL As Ordered ONE ×2 (07:09→08:33)
[2022-10-10] MEDS ORDERED: ONDANSETRON 4MG 2ML VIAL As Ordered ONE (07:09)
[2022-10-10] MEDS ORDERED: propofoL 200 MG/20 ML VIAL As Ordered ONE (07:09)
[2022-10-10] MEDS ORDERED: MIDAZOLAM INJ 2MG/2ML VIAL As Ordered ONE (07:10)
[2022-10-10] MEDS ORDERED: fentaNYL 100 MCG/2 ML INJECTION As Ordered ONE (07:10)
[2022-10-10] MEDS ORDERED: LIDOCAINE 1% MDV 20ML VIAL As Ordered ONE (07:15)
[2022-10-10] MEDS ORDERED: EPINEPHrine 1MG/ML INJ 30ML MD-VIAL As Ordered ONE (07:16)
[2022-10-10] MEDS ORDERED: LEVA12INH NEB (07:38)
[2022-10-10] MEDS ORDERED: NYST1POW9 TOP (07:38)
[2022-10-10] MEDS ORDERED: oxyCODONE 5MG TAB PO ONE (07:40)
[2022-10-10] MEDS ORDERED: ceFAZolin SOD 2 GM in IV 1 EA IV ONE (07:40)
[2022-10-10] MEDS ORDERED: LEVA0.636 NEB (07:55)
[2022-10-10] MEDS ORDERED: HOME MED LIST COMPLETE! XX SCH (08:00)
[2022-10-10] MEDS ORDERED: ceFAZolin 2 GM/D5W 50 ML IV BAG As Ordered ONE (08:24)
[2022-10-10] MEDS ORDERED: VASOPRESSIN INJ 20UNITS/ML 1ML VIAL As Ordered ONE (08:37)
[2022-10-10] MEDS ORDERED: HYDROmorphone HCL 2MG/ML 1ML VIAL As Ordered ONE (08:58)
[2022-10-10] MEDS ORDERED: LR 1,000 ML IV SCH (10:10)
[2022-10-10] MEDS ORDERED: ONDANSETRON 4MG 2ML VIAL IV PRN ×2 (10:10→10:25)
[2022-10-10] MEDS ORDERED: diphenhydrAMINE 50MG/ML VIAL IV PRN (10:25)
[2022-10-10] MEDS ORDERED: ACETAMINOPHEN TAB 650MG DOSE (2X325MG) PO PRN (10:25)
[2022-10-10] MEDS ORDERED: SENNA 8.6 MG TAB (SENOKOT) PO PRN (10:25)
[2022-10-10] MEDS: LABETALOL 100MG/20ML VIAL IV PRN ×4 (11:13→12:03)
[2022-10-10] MEDS: oxyCODONE 5MG TAB PO PRN ×3 (11:34→18:29)
[2022-10-10] MEDS: MORPHINE 2 MG/ML 1ML VIAL IV PRN ×3 (11:34→12:02)
[2022-10-10] MEDS: DOCUSATE SODIUM 100MG CAPSULE PO SCH ×2 (16:09→22:28)
[2022-10-10] MEDS ORDERED: ALBUTEROL 90 MCG/ACT 8GM HFA INHALER INH PRN (16:50)
[2022-10-10] MEDS ORDERED: NYSTATIN 100,000 UNITS/GM TOPICAL PWD 15GM TOP PRN (16:50)
[2022-10-10 18:23] LABS: HEMATOCRIT 32.5 % (36.0-47.0); MEAN CORPUSCULAR HEMOGLOBIN 30.7 pg (27.0-33.0); MEAN CORPUSCULAR HGB CONC 33.8 g/dl (32.0-36.5); MEAN CORPUSCULAR VOLUME 90.8 fl (80.0-96.0); PLATELET COUNT, AUTOMATED 271 10^3/uL (150-450); RED BLOOD COUNT 3.58 10^6/uL (4.00-5.40); WHITE BLOOD COUNT 7.2 10^3/uL (4.0-10.0)
[2022-10-10] MEDS: HYDROXYCHLOROQUINE 200 MG TAB PO SCH (18:35)
[2022-10-10 18:37] LABS: BLOOD UREA NITROGEN 13 MG/DL (9-23); CALCIUM LEVEL 9.4 MG/DL (8.3-10.6); CARBON DIOXIDE LEVEL 23 MMOL/L (20-31); CHLORIDE LEVEL 105 MMOL/L (98-107); CREATININE FOR GFR 0.76 MG/DL (0.55-1.30); GLOMERULAR FILTRATION RATE > 60.0 (>39); GLUCOSE, FASTING 132 MG/DL (74-106); POTASSIUM SERUM 4.8 MMOL/L (3.5-5.1); SODIUM LEVEL 138 MMOL/L (136-145)
[2022-10-10] MEDS: ALPRAZolam 0.5 MG TAB PO PRN (20:02)
[2022-10-10] MEDS: MORPHINE 4 MG/ML 1ML VIAL IV PRN (20:03)
[2022-10-10] MEDS: LACOSAMIDE 50 MG TAB (VIMPAT) PO SCH (22:27)
[2022-10-10] MEDS: MONTELUKAST 10 MG TAB PO SCH (22:27)
[2022-10-10] MEDS: methocarbamoL 750 MG TAB PO SCH (22:27)
[2022-10-10] MEDS: HEPARIN SOD (PORCINE) 5000UNITS/ML 1ML VIAL/SYRINGE SQ SCH (22:27)
[2022-10-10] MEDS: levETIRAcetam 250MG TABLET (KEPPRA) PO SCH (22:28)
[2022-10-10] MEDS: FAMOTIDINE 20 MG TAB PO SCH (22:28)
[2022-10-10] MEDS: ATORVASTATIN 20 MG TAB PO SCH (22:28)
[2022-10-10] MEDS: PROPRANOLOL 60MG LA CAP PO SCH (22:29)
[2022-10-10] MEDS: amLODIPine 5 MG TAB PO SCH (22:29)
[2022-10-10] MEDS: SERTRALINE 100 MG TAB PO SCH (22:29)
[2022-10-10] MEDS: CETIRIZINE (ZyrTEC) 10 MG TAB PO SCH (22:30)
[2022-10-10] MEDS: zolPIDEM TARTRATE 5 MG TAB PO PRN (23:11)
[2022-10-11 02:00] VITALS: BP 148/77
[2022-10-11] MEDS: LEVOTHYROXINE 112MCG TABLET (0.112MG) PO SCH (06:05)
[2022-10-11] MEDS: HEPARIN SOD (PORCINE) 5000UNITS/ML 1ML VIAL/SYRINGE SQ SCH ×3 (06:05→21:34)
[2022-10-11] MEDS: MORPHINE 4 MG/ML 1ML VIAL IV PRN ×4 (06:06→21:34)
[2022-10-11 06:39] VITALS: BP 154/67
[2022-10-11 07:23] LABS: HEMATOCRIT 30.8 % (36.0-47.0); HEMOGLOBIN 9.8 g/dl (12.0-15.5); MEAN CORPUSCULAR HEMOGLOBIN 29.5 pg (27.0-33.0); MEAN CORPUSCULAR HGB CONC 31.8 g/dl (32.0-36.5); MEAN CORPUSCULAR VOLUME 92.8 fl (80.0-96.0); PLATELET COUNT, AUTOMATED 271 10^3/uL (150-450); RED BLOOD COUNT 3.32 10^6/uL (4.00-5.40); WHITE BLOOD COUNT 5.8 10^3/uL (4.0-10.0)
[2022-10-11 07:48] LABS: BLOOD UREA NITROGEN 15 MG/DL (9-23); CALCIUM LEVEL 8.9 MG/DL (8.3-10.6); CARBON DIOXIDE LEVEL 24 MMOL/L (20-31); CHLORIDE LEVEL 106 MMOL/L (98-107); CREATININE FOR GFR 0.91 MG/DL (0.55-1.30); GLOMERULAR FILTRATION RATE > 60.0 (>39); GLUCOSE, FASTING 96 MG/DL (74-106); POTASSIUM SERUM 4.1 MMOL/L (3.5-5.1); SODIUM LEVEL 138 MMOL/L (136-145)
[2022-10-11] MEDS: DOCUSATE SODIUM 100MG CAPSULE PO SCH ×3 (09:00→21:33)
[2022-10-11] MEDS ORDERED: FERROUS SULFATE 325MG TAB PO SCH (09:00)
[2022-10-11] MEDS ORDERED: MORPHINE 4 MG/ML 1ML VIAL IV PRN (09:10)
[2022-10-11] MEDS: oxyCODONE 5MG TAB PO PRN ×2 (09:25→14:35)
[2022-10-11] MEDS: LACOSAMIDE 50 MG TAB (VIMPAT) PO SCH ×2 (09:26→21:31)
[2022-10-11] MEDS: hydroCHLOROthiazide 12.5 MG CAPSULE PO SCH (09:26)
[2022-10-11] MEDS: CYANOCOBALAMIN 500 MCG TAB PO SCH (09:26)
[2022-10-11] MEDS: levETIRAcetam 250MG TABLET (KEPPRA) PO SCH ×2 (09:27→21:32)
[2022-10-11] MEDS: MAGNESIUM OXIDE 400MG TAB (MAG-OX) PO SCH (09:27)
[2022-10-11] MEDS: SPIRONOLACTONE 25 MG TAB PO SCH (09:27)
[2022-10-11] MEDS: FAMOTIDINE 20 MG TAB PO SCH ×2 (09:27→21:32)
[2022-10-11] MEDS: SERTRALINE 100 MG TAB PO SCH ×2 (09:27→21:33)
[2022-10-11] MEDS: methocarbamoL 750 MG TAB PO SCH ×3 (09:27→21:32)
[2022-10-11 09:35] VITALS: BP 153/65
[2022-10-11] MEDS: ALPRAZolam 0.5 MG TAB PO PRN ×2 (11:05→21:32)
[2022-10-11 11:07] LABS: IRON (FE) 51 UG/DL (50-170); PERCENT SATURATION 16.2 % (13.2-45.0); TOTAL IRON BINDING CAPACITY 314 UG/DL (250-425)
[2022-10-11 11:09] LABS: FERRITIN 33.4 NG/ML (7.3-270.7)
[2022-10-11 11:10] LABS: FOLATE 23.8 NG/ML (>5.4)
[2022-10-11 11:14] LABS: VITAMIN B12 LEVEL 673 PG/ML (211-911)
[2022-10-11 13:49] VITALS: BP 140/62
[2022-10-11] MEDS: HYDROXYCHLOROQUINE 200 MG TAB PO SCH (17:31)
[2022-10-11 21:14] VITALS: BP 152/67
[2022-10-11] MEDS: PROPRANOLOL 60MG LA CAP PO SCH (21:32)
[2022-10-11 21:33] VITALS: BP 152/67
[2022-10-11] MEDS: MONTELUKAST 10 MG TAB PO SCH (21:33)
[2022-10-11] MEDS: ATORVASTATIN 20 MG TAB PO SCH (21:33)
[2022-10-11] MEDS: amLODIPine 5 MG TAB PO SCH (21:33)
[2022-10-11] MEDS: CETIRIZINE (ZyrTEC) 10 MG TAB PO SCH (21:33)
[2022-10-11] MEDS: zolPIDEM TARTRATE 5 MG TAB PO PRN (23:10)
[2022-10-12] MEDS: HEPARIN SOD (PORCINE) 5000UNITS/ML 1ML VIAL/SYRINGE SQ SCH ×2 (05:58→14:54)
[2022-10-12] MEDS: LEVOTHYROXINE 112MCG TABLET (0.112MG) PO SCH (05:58)
[2022-10-12] MEDS: oxyCODONE 5MG TAB PO PRN (05:59)
[2022-10-12 06:17] VITALS: BP 152/64
[2022-10-12 06:23] LABS: HEMATOCRIT 31.4 % (36.0-47.0); MEAN CORPUSCULAR HEMOGLOBIN 29.9 pg (27.0-33.0); MEAN CORPUSCULAR HGB CONC 31.8 g/dl (32.0-36.5); MEAN CORPUSCULAR VOLUME 93.7 fl (80.0-96.0); PLATELET COUNT, AUTOMATED 243 10^3/uL (150-450); RED BLOOD COUNT 3.35 10^6/uL (4.00-5.40); WHITE BLOOD COUNT 5.5 10^3/uL (4.0-10.0)
[2022-10-12 06:50] LABS: CALCIUM LEVEL 8.3 MG/DL (8.3-10.6); GLOMERULAR FILTRATION RATE 58.4 (>39); POTASSIUM SERUM 4.1 MMOL/L (3.5-5.1)
[2022-10-12] MEDS ORDERED: MORPHINE 4 MG/ML 1ML VIAL IV PRN ×2 (07:45→10:15)
[2022-10-12] MEDS ORDERED: oxyCODONE 5MG TAB PO PRN ×2 (07:45)
[2022-10-12] MEDS: MAGNESIUM OXIDE 400MG TAB (MAG-OX) PO SCH (08:48)
[2022-10-12] MEDS: methocarbamoL 750 MG TAB PO SCH ×2 (08:48→14:54)
[2022-10-12] MEDS: SPIRONOLACTONE 25 MG TAB PO SCH (08:49)
[2022-10-12] MEDS: SERTRALINE 100 MG TAB PO SCH (08:49)
[2022-10-12] MEDS: CYANOCOBALAMIN 500 MCG TAB PO SCH (08:49)
[2022-10-12] MEDS: levETIRAcetam 250MG TABLET (KEPPRA) PO SCH (08:49)
[2022-10-12] MEDS: DOCUSATE SODIUM 100MG CAPSULE PO SCH (08:49)
[2022-10-12] MEDS: LACOSAMIDE 50 MG TAB (VIMPAT) PO SCH (08:49)
[2022-10-12] MEDS: hydroCHLOROthiazide 12.5 MG CAPSULE PO SCH (08:50)
[2022-10-12] MEDS: FAMOTIDINE 20 MG TAB PO SCH (08:50)
[2022-10-12] MEDS ORDERED: LIDOCAINE 5% (LIDODERM) PATCH TD SCH (09:00)
[2022-10-12] MEDS ORDERED: METAMUCIL (PSYLLIUM) PACKET PO SCH (09:00)
[2022-10-12] MEDS ORDERED: MIRALAX *UNIT DOSE* 17GM PACKET PO SCH (09:00)
[2022-10-12] MEDS ORDERED: MIRA1POW3 PO (11:45)
[2022-10-12] MEDS ORDERED: SENN18TA PO (11:45)
[2022-10-12] MEDS ORDERED: COLA100C5 PO (11:45)
[2022-10-12] MEDS ORDERED: MORP4INJ2 IV (11:45)
[2022-10-12] MEDS ORDERED: OXYC-517 PO (11:45)
[2022-10-12] MEDS ORDERED: LIDO5TD TD (11:45)
[2022-10-12] MEDS ORDERED: ACET32TAB PO (11:45)
[2022-10-12] MEDS ORDERED: META1POW PO (11:45)
[2022-10-12] MEDS ORDERED: FERRIC CARBOXYMALTOSE INJ 750 MG, VIAL MATE ADAPTER 1 EACH in NS 250 ML IV ONE (12:00)
[2022-10-12] MEDS ORDERED: ACETAMINOPHEN 325 MG TAB PO SCH (12:00)
[2022-10-12] MEDS: ALPRAZolam 0.5 MG TAB PO PRN (14:54)
[2022-10-15] MEDS ORDERED: VITAMIN D 50,000 UNITS CAPSULE (ERGOCALCIFEROL 1.25MG) PO SCH (09:00)
== END 2022-10-12 15:10 ==
LOC: M SDC 06:07 → EDSTATUS 07:30 → INTOOBSV 13:53 → M MS5PR 13:53
PROVIDERS: ADMIT Student in an Organized Health Care Education/Training Program; ATTEND Student in an Organized Health Care Education/Training Program
DX: M25.512 Pain in left shoulder (principal); I10 Essential (primary) hypertension; D64.9 Anemia, unspecified; I73.9 Peripheral vascular disease, unspecified; E03.9 Hypothyroidism, unspecified; Z86.718 Personal history of other venous thrombosis and embolism; M79.7 Fibromyalgia; Z89.512 Acquired absence of left leg below knee; M81.0 Age-related osteoporosis without current pathological fracture; F41.0 Panic disorder [episodic paroxysmal anxiety]; F32.A Depression, unspecified; G40.909 Epilepsy, unspecified, not intractable, without status epilepticus; Z92.3 Personal history of irradiation; J45.909 Unspecified asthma, uncomplicated; Z79.51 Long term (current) use of inhaled steroids; Z79.899 Other long term (current) drug therapy; Z88.8 Allergy status to other drugs, medicaments and biological substances; Z88.0 Allergy status to penicillin; Z88.2 Allergy status to sulfonamides; Z88.1 Allergy status to other antibiotic agents; K21.9 Gastro-esophageal reflux disease without esophagitis; E78.5 Hyperlipidemia, unspecified; Z20.822 Contact with and (suspected) exposure to COVID-19
CPT/HCPCS: 29823; 29826; 29827; 36415; 64415; 80048; 85027; 96372; C1713; J0131; J0171; J0690; J1100; J1170; J2250; J2405; J3010

== ENCOUNTER 2022-10-12 15:25 | Inpatient (IN) | payer MEDICARE, OTHER ==
[~2022-10-12] VITALS: Ht 165.1 cm; Wt 123.5 kg
[~2022-10-12 15:25] MED LIST changes: +ACET32TAB PO; +COLA100C5 PO; +LEVA0.636 NEB; +LEVA12INH NEB; +LIDO5TD TD; +META1POW PO; +MIRA1POW3 PO; +MORP4INJ2 IV; +NYST1POW9 TOP; +OXYC-517 PO; +SENN18TA PO
[2022-10-12 15:30] VITALS: BP 125/59
[2022-10-12] MEDS ORDERED: BISACODYL 10MG SUPP PR PRN (16:00)
[2022-10-12] MEDS: REMEDY PHYTOPLEX Z-GUARD PASTE 113GM TUBE (FROM STOREROOM PRODUCT) TOP SCH ×2 (16:00→21:48)
[2022-10-12] MEDS ORDERED: ONDANSETRON 4MG TAB PO PRN (16:00)
[2022-10-12] MEDS: ACETAMINOPHEN 500 MG TAB PO SCH ×3 (16:00→21:46)
[2022-10-12 20:00] VITALS: BP 144/65
[2022-10-12] MEDS ORDERED: DOCUSATE SODIUM 100MG CAPSULE PO SCH (21:00)
[2022-10-12] MEDS ORDERED: SENNA 8.6 MG TAB (SENOKOT) PO SCH (21:00)
[2022-10-12] MEDS: METAMUCIL (PSYLLIUM) PACKET PO SCH (21:00)
[2022-10-12] MEDS: COMBIVENT RESPIMAT 100-20MCG INHALER 4GM INH SCH (21:29)
[2022-10-12] MEDS: HEPARIN SOD (PORCINE) 5000UNITS/ML 1ML VIAL/SYRINGE SC SCH (21:42)
[2022-10-12] MEDS: ALPRAZolam 0.5 MG TAB PO PRN (21:43)
[2022-10-12] MEDS: CETIRIZINE (ZyrTEC) 10 MG TAB PO SCH (21:44)
[2022-10-12] MEDS: LACOSAMIDE 50 MG TAB (VIMPAT) PO SCH (21:44)
[2022-10-12] MEDS: levETIRAcetam 250MG TABLET (KEPPRA) PO SCH (21:44)
[2022-10-12] MEDS: HYDROXYCHLOROQUINE 200 MG TAB PO SCH (21:44)
[2022-10-12] MEDS: MONTELUKAST 10 MG TAB PO SCH (21:45)
[2022-10-12] MEDS: amLODIPine 5 MG TAB PO SCH (21:45)
[2022-10-12] MEDS: ATORVASTATIN 20 MG TAB PO SCH (21:45)
[2022-10-12] MEDS: FAMOTIDINE 20 MG TAB PO SCH (21:45)
[2022-10-12] MEDS: SERTRALINE 100 MG TAB PO SCH (21:49)
[2022-10-12] MEDS: PROPRANOLOL 60MG LA CAP PO SCH (21:55)
[2022-10-12] MEDS: methocarbamoL 750 MG TAB PO PRN (22:12)
[2022-10-12] MEDS ORDERED: oxyCODONE 5MG TAB PO PRN (22:15)
[2022-10-12] MEDS: zolPIDEM TARTRATE 5 MG TAB PO PRN (23:16)
[2022-10-12] MEDS: oxyCODONE 5MG TAB PO PRN (23:16)
[2022-10-13] MEDS: HEPARIN SOD (PORCINE) 5000UNITS/ML 1ML VIAL/SYRINGE SC SCH ×3 (05:13→21:36)
[2022-10-13] MEDS: LEVOTHYROXINE 112MCG TABLET (0.112MG) PO SCH (05:15)
[2022-10-13] MEDS: oxyCODONE 5MG TAB PO PRN ×3 (05:16→21:39)
[2022-10-13 06:00] VITALS: BP 141/63
[2022-10-13 06:57] LABS: BASO % 0.5 % (0.0-1.0); EOS # 0.2 10^3/uL (0.0-0.5); EOS % 4.6 % (0.0-3.0); HEMATOCRIT 31.2 % (36.0-47.0); HEMOGLOBIN 9.8 g/dl (12.0-15.5); LYMPH # 1.4 10^3/uL (1.5-5.0); LYMPH % 38.8 % (24.0-44.0); MEAN CORPUSCULAR HEMOGLOBIN 29.6 pg (27.0-33.0); MEAN CORPUSCULAR HGB CONC 31.4 g/dl (32.0-36.5); MEAN CORPUSCULAR VOLUME 94.3 fl (80.0-96.0); MONO # 0.6 10^3/uL (0.0-0.8); MONO % 17.1 % (2.0-8.0); NEUTROPHILS # 1.4 10^3/uL (1.5-8.5); NEUTROPHILS % 38.5 % (36.0-66.0); PLATELET COUNT, AUTOMATED 233 10^3/uL (150-450); RED BLOOD COUNT 3.31 10^6/uL (4.00-5.40); WHITE BLOOD COUNT 3.7 10^3/uL (4.0-10.0)
[2022-10-13] MEDS: COMBIVENT RESPIMAT 100-20MCG INHALER 4GM INH SCH ×3 (07:13→20:00)
[2022-10-13 07:25] LABS: BILIRUBIN,TOTAL 0.4 MG/DL (0.3-1.2); CALCIUM LEVEL 8.3 MG/DL (8.3-10.6); CREATININE FOR GFR 0.98 MG/DL (0.55-1.30); GLOMERULAR FILTRATION RATE 59.7 (>39); POTASSIUM SERUM 3.9 MMOL/L (3.5-5.1); TOTAL PROTEIN 5.6 G/DL (5.7-8.2)
[2022-10-13] MEDS: METAMUCIL (PSYLLIUM) PACKET PO SCH ×2 (08:52→21:00)
[2022-10-13] MEDS: MIRALAX *UNIT DOSE* 17GM PACKET PO SCH (08:52)
[2022-10-13] MEDS: LIDOCAINE 5% (LIDODERM) PATCH TD SCH (08:53)
[2022-10-13] MEDS: levETIRAcetam 250MG TABLET (KEPPRA) PO SCH ×2 (08:54→21:36)
[2022-10-13] MEDS: MAGNESIUM OXIDE 400MG TAB (MAG-OX) PO SCH (08:55)
[2022-10-13] MEDS: hydroCHLOROthiazide 12.5 MG CAPSULE PO SCH (08:56)
[2022-10-13] MEDS: CYANOCOBALAMIN 500 MCG TAB PO SCH (08:56)
[2022-10-13] MEDS: ACETAMINOPHEN 500 MG TAB PO SCH ×3 (08:56→21:39)
[2022-10-13] MEDS: LACOSAMIDE 50 MG TAB (VIMPAT) PO SCH ×2 (08:56→21:35)
[2022-10-13] MEDS: SERTRALINE 100 MG TAB PO SCH ×2 (08:57→21:35)
[2022-10-13] MEDS: FERROUS SULFATE 325MG TAB PO SCH (08:57)
[2022-10-13] MEDS: FAMOTIDINE 20 MG TAB PO SCH ×2 (08:57→21:35)
[2022-10-13] MEDS: SPIRONOLACTONE 25 MG TAB PO SCH (08:57)
[2022-10-13] MEDS: REMEDY PHYTOPLEX Z-GUARD PASTE 113GM TUBE (FROM STOREROOM PRODUCT) TOP SCH ×3 (09:00→21:40)
[2022-10-13] MEDS: methocarbamoL 750 MG TAB PO PRN ×2 (09:03→21:35)
[2022-10-13] MEDS: ALPRAZolam 0.5 MG TAB PO PRN ×2 (10:34→21:35)
[2022-10-13 14:00] VITALS: BP 136/61
[2022-10-13] MEDS: oxyCODONE 5MG TAB PO SCH (16:05)
[2022-10-13] MEDS: HYDROXYCHLOROQUINE 200 MG TAB PO SCH (17:29)
[2022-10-13 20:00] VITALS: BP 102/46
[2022-10-13] MEDS: amLODIPine 5 MG TAB PO SCH (20:40)
[2022-10-13] MEDS: PROPRANOLOL 60MG LA CAP PO SCH (20:40)
[2022-10-13] MEDS: CETIRIZINE (ZyrTEC) 10 MG TAB PO SCH (21:35)
[2022-10-13] MEDS: ATORVASTATIN 20 MG TAB PO SCH (21:35)
[2022-10-13] MEDS: MONTELUKAST 10 MG TAB PO SCH (21:35)
[2022-10-13] MEDS: zolPIDEM TARTRATE 5 MG TAB PO PRN (22:41)
[2022-10-14 06:00] VITALS: BP 143/63
[2022-10-14] MEDS: HEPARIN SOD (PORCINE) 5000UNITS/ML 1ML VIAL/SYRINGE SC SCH ×3 (06:14→21:18)
[2022-10-14] MEDS: oxyCODONE 5MG TAB PO SCH ×3 (06:15→17:07)
[2022-10-14] MEDS: LEVOTHYROXINE 112MCG TABLET (0.112MG) PO SCH (06:15)
[2022-10-14] MEDS: COMBIVENT RESPIMAT 100-20MCG INHALER 4GM INH SCH ×3 (07:06→19:57)
[2022-10-14] MEDS: MIRALAX *UNIT DOSE* 17GM PACKET PO SCH (09:00)
[2022-10-14] MEDS: SPIRONOLACTONE 25 MG TAB PO SCH (09:18)
[2022-10-14] MEDS: hydroCHLOROthiazide 12.5 MG CAPSULE PO SCH (09:19)
[2022-10-14] MEDS: MAGNESIUM OXIDE 400MG TAB (MAG-OX) PO SCH (09:19)
[2022-10-14] MEDS: levETIRAcetam 250MG TABLET (KEPPRA) PO SCH ×2 (09:19→21:18)
[2022-10-14] MEDS: METAMUCIL (PSYLLIUM) PACKET PO SCH ×2 (09:19→21:00)
[2022-10-14] MEDS: ACETAMINOPHEN 500 MG TAB PO SCH ×3 (09:20→21:20)
[2022-10-14] MEDS: FAMOTIDINE 20 MG TAB PO SCH ×2 (09:20→21:18)
[2022-10-14] MEDS: LACOSAMIDE 50 MG TAB (VIMPAT) PO SCH ×2 (09:21→21:18)
[2022-10-14] MEDS: LIDOCAINE 5% (LIDODERM) PATCH TD SCH (09:21)
[2022-10-14] MEDS: SERTRALINE 100 MG TAB PO SCH ×2 (09:21→21:19)
[2022-10-14] MEDS: CYANOCOBALAMIN 500 MCG TAB PO SCH (09:21)
[2022-10-14] MEDS: REMEDY PHYTOPLEX Z-GUARD PASTE 113GM TUBE (FROM STOREROOM PRODUCT) TOP SCH ×3 (09:22→21:21)
[2022-10-14] MEDS: ALPRAZolam 0.5 MG TAB PO PRN ×2 (09:34→21:19)
[2022-10-14] MEDS: methocarbamoL 750 MG TAB PO PRN (09:34)
[2022-10-14 14:00] VITALS: BP 138/63
[2022-10-14] MEDS: HYDROXYCHLOROQUINE 200 MG TAB PO SCH (17:07)
[2022-10-14 20:00] VITALS: BP 152/72
[2022-10-14] MEDS: CETIRIZINE (ZyrTEC) 10 MG TAB PO SCH (21:18)
[2022-10-14] MEDS: PROPRANOLOL 60MG LA CAP PO SCH (21:18)
[2022-10-14] MEDS: MONTELUKAST 10 MG TAB PO SCH (21:18)
[2022-10-14] MEDS: ATORVASTATIN 20 MG TAB PO SCH (21:19)
[2022-10-14] MEDS: amLODIPine 5 MG TAB PO SCH (21:20)
[2022-10-14] MEDS: zolPIDEM TARTRATE 5 MG TAB PO PRN (22:42)
[2022-10-15] MEDS: oxyCODONE 5MG TAB PO PRN ×2 (01:55→23:04)
[2022-10-15 06:00] VITALS: BP 150/64
[2022-10-15] MEDS: LEVOTHYROXINE 112MCG TABLET (0.112MG) PO SCH (06:20)
[2022-10-15] MEDS: HEPARIN SOD (PORCINE) 5000UNITS/ML 1ML VIAL/SYRINGE SC SCH ×3 (06:20→21:24)
[2022-10-15] MEDS: oxyCODONE 5MG TAB PO SCH ×3 (06:38→17:09)
[2022-10-15] MEDS: COMBIVENT RESPIMAT 100-20MCG INHALER 4GM INH SCH ×3 (07:01→20:50)
[2022-10-15] MEDS: LIDOCAINE 5% (LIDODERM) PATCH TD SCH (08:06)
[2022-10-15] MEDS: MAGNESIUM OXIDE 400MG TAB (MAG-OX) PO SCH (08:06)
[2022-10-15] MEDS: levETIRAcetam 250MG TABLET (KEPPRA) PO SCH ×2 (08:06→21:24)
[2022-10-15] MEDS: METAMUCIL (PSYLLIUM) PACKET PO SCH ×2 (08:07→21:00)
[2022-10-15] MEDS: LACOSAMIDE 50 MG TAB (VIMPAT) PO SCH ×2 (08:07→21:23)
[2022-10-15] MEDS: CYANOCOBALAMIN 500 MCG TAB PO SCH (08:07)
[2022-10-15] MEDS: ACETAMINOPHEN 500 MG TAB PO SCH ×3 (08:07→21:25)
[2022-10-15] MEDS: ALPRAZolam 0.5 MG TAB PO PRN ×2 (08:08→21:23)
[2022-10-15] MEDS: hydroCHLOROthiazide 12.5 MG CAPSULE PO SCH (08:08)
[2022-10-15] MEDS: SPIRONOLACTONE 25 MG TAB PO SCH (08:08)
[2022-10-15] MEDS: FERROUS SULFATE 325MG TAB PO SCH (08:08)
[2022-10-15] MEDS: VITAMIN D 50,000 UNITS CAPSULE (ERGOCALCIFEROL 1.25MG) PO SCH (08:08)
[2022-10-15] MEDS: REMEDY PHYTOPLEX Z-GUARD PASTE 113GM TUBE (FROM STOREROOM PRODUCT) TOP SCH ×3 (08:09→21:26)
[2022-10-15] MEDS: FAMOTIDINE 20 MG TAB PO SCH ×2 (08:09→21:25)
[2022-10-15] MEDS: MIRALAX *UNIT DOSE* 17GM PACKET PO SCH (08:09)
[2022-10-15] MEDS: SERTRALINE 100 MG TAB PO SCH ×2 (08:09→21:23)
[2022-10-15] MEDS: methocarbamoL 750 MG TAB PO PRN ×2 (11:50→21:23)
[2022-10-15] MEDS: HYDROXYCHLOROQUINE 200 MG TAB PO SCH (17:09)
[2022-10-15 20:00] VITALS: BP 122/58
[2022-10-15] MEDS: PROPRANOLOL 60MG LA CAP PO SCH (21:24)
[2022-10-15] MEDS: ATORVASTATIN 20 MG TAB PO SCH (21:25)
[2022-10-15] MEDS: amLODIPine 5 MG TAB PO SCH (21:25)
[2022-10-15] MEDS: MONTELUKAST 10 MG TAB PO SCH (21:25)
[2022-10-15] MEDS: CETIRIZINE (ZyrTEC) 10 MG TAB PO SCH (21:25)
[2022-10-15] MEDS: DOCUSATE SODIUM 100MG CAPSULE PO PRN (23:03)
[2022-10-15] MEDS: zolPIDEM TARTRATE 5 MG TAB PO PRN (23:03)
[2022-10-16] MEDS: methocarbamoL 750 MG TAB PO PRN ×3 (05:25→21:17)
[2022-10-16] MEDS: HEPARIN SOD (PORCINE) 5000UNITS/ML 1ML VIAL/SYRINGE SC SCH ×3 (05:26→21:16)
[2022-10-16] MEDS: LEVOTHYROXINE 112MCG TABLET (0.112MG) PO SCH (05:26)
[2022-10-16 06:00] VITALS: BP 150/61
[2022-10-16] MEDS: oxyCODONE 5MG TAB PO SCH ×3 (06:03→17:20)
[2022-10-16 06:52] LABS: BASO % 0.7 % (0.0-1.0); EOS # 0.2 10^3/uL (0.0-0.5); EOS % 5.1 % (0.0-3.0); HEMATOCRIT 31.1 % (36.0-47.0); HEMOGLOBIN 9.8 g/dl (12.0-15.5); LYMPH # 1.5 10^3/uL (1.5-5.0); LYMPH % 35.5 % (24.0-44.0); MEAN CORPUSCULAR HEMOGLOBIN 29.3 pg (27.0-33.0); MEAN CORPUSCULAR HGB CONC 31.5 g/dl (32.0-36.5); MEAN CORPUSCULAR VOLUME 92.8 fl (80.0-96.0); MONO # 0.7 10^3/uL (0.0-0.8); MONO % 16.3 % (2.0-8.0); NEUTROPHILS # 1.7 10^3/uL (1.5-8.5); NEUTROPHILS % 41.9 % (36.0-66.0); PLATELET COUNT, AUTOMATED 275 10^3/uL (150-450); RED BLOOD COUNT 3.35 10^6/uL (4.00-5.40); WHITE BLOOD COUNT 4.1 10^3/uL (4.0-10.0)
[2022-10-16 07:18] LABS: BLOOD UREA NITROGEN 17 MG/DL (9-23); CALCIUM LEVEL 8.5 MG/DL (8.3-10.6); CARBON DIOXIDE LEVEL 24 MMOL/L (20-31); CHLORIDE LEVEL 102 MMOL/L (98-107); CREATININE FOR GFR 0.85 MG/DL (0.55-1.30); GLOMERULAR FILTRATION RATE > 60.0 (>39); GLUCOSE, FASTING 89 MG/DL (74-106); POTASSIUM SERUM 4.4 MMOL/L (3.5-5.1); SODIUM LEVEL 134 MMOL/L (136-145)
[2022-10-16] MEDS: COMBIVENT RESPIMAT 100-20MCG INHALER 4GM INH SCH ×3 (07:27→21:43)
[2022-10-16] MEDS: MIRALAX *UNIT DOSE* 17GM PACKET PO SCH (08:29)
[2022-10-16] MEDS: LIDOCAINE 5% (LIDODERM) PATCH TD SCH (08:29)
[2022-10-16] MEDS: CYANOCOBALAMIN 500 MCG TAB PO SCH (08:30)
[2022-10-16] MEDS: FAMOTIDINE 20 MG TAB PO SCH ×2 (08:30→21:17)
[2022-10-16] MEDS: SPIRONOLACTONE 25 MG TAB PO SCH (08:30)
[2022-10-16] MEDS: hydroCHLOROthiazide 12.5 MG CAPSULE PO SCH (08:30)
[2022-10-16] MEDS: SERTRALINE 100 MG TAB PO SCH ×2 (08:30→21:17)
[2022-10-16] MEDS: METAMUCIL (PSYLLIUM) PACKET PO SCH ×2 (08:30→21:00)
[2022-10-16] MEDS: LACOSAMIDE 50 MG TAB (VIMPAT) PO SCH ×2 (08:30→21:16)
[2022-10-16] MEDS: ACETAMINOPHEN 500 MG TAB PO SCH ×3 (08:31→21:18)
[2022-10-16] MEDS: levETIRAcetam 250MG TABLET (KEPPRA) PO SCH ×2 (08:31→21:17)
[2022-10-16] MEDS: REMEDY PHYTOPLEX Z-GUARD PASTE 113GM TUBE (FROM STOREROOM PRODUCT) TOP SCH ×3 (08:32→21:20)
[2022-10-16] MEDS: MAGNESIUM OXIDE 400MG TAB (MAG-OX) PO SCH (08:32)
[2022-10-16 14:00] VITALS: BP 128/59
[2022-10-16] MEDS: HYDROXYCHLOROQUINE 200 MG TAB PO SCH (17:20)
[2022-10-16 20:00] VITALS: BP 121/58
[2022-10-16] MEDS: DOCUSATE SODIUM 100MG CAPSULE PO PRN (21:17)
[2022-10-16] MEDS: PROPRANOLOL 60MG LA CAP PO SCH (21:17)
[2022-10-16] MEDS: amLODIPine 5 MG TAB PO SCH (21:17)
[2022-10-16] MEDS: CETIRIZINE (ZyrTEC) 10 MG TAB PO SCH (21:17)
[2022-10-16] MEDS: oxyBUTYnin *DITROPAN XL* 5 MG TABCR PO SCH (21:17)
[2022-10-16] MEDS: ATORVASTATIN 20 MG TAB PO SCH (21:18)
[2022-10-16] MEDS: ALPRAZolam 0.5 MG TAB PO PRN (21:18)
[2022-10-16] MEDS: MONTELUKAST 10 MG TAB PO SCH (21:18)
[2022-10-16] MEDS: zolPIDEM TARTRATE 5 MG TAB PO PRN (23:05)
[2022-10-16] MEDS: oxyCODONE 5MG TAB PO PRN (23:05)
[2022-10-17 06:00] VITALS: BP 133/60
[2022-10-17] MEDS: LEVOTHYROXINE 112MCG TABLET (0.112MG) PO SCH (06:11)
[2022-10-17] MEDS: HEPARIN SOD (PORCINE) 5000UNITS/ML 1ML VIAL/SYRINGE SC SCH ×3 (06:12→21:11)
[2022-10-17] MEDS: oxyCODONE 5MG TAB PO SCH ×3 (06:12→17:30)
[2022-10-17] MEDS: LACOSAMIDE 50 MG TAB (VIMPAT) PO SCH ×2 (07:23→21:12)
[2022-10-17] MEDS: MAGNESIUM OXIDE 400MG TAB (MAG-OX) PO SCH (07:23)
[2022-10-17] MEDS: FAMOTIDINE 20 MG TAB PO SCH ×2 (07:24→21:12)
[2022-10-17] MEDS: hydroCHLOROthiazide 12.5 MG CAPSULE PO SCH (07:24)
[2022-10-17] MEDS: CYANOCOBALAMIN 500 MCG TAB PO SCH (07:24)
[2022-10-17] MEDS: levETIRAcetam 250MG TABLET (KEPPRA) PO SCH ×2 (07:24→21:12)
[2022-10-17] MEDS: LIDOCAINE 5% (LIDODERM) PATCH TD SCH (07:24)
[2022-10-17] MEDS: ACETAMINOPHEN 500 MG TAB PO SCH ×3 (07:24→21:11)
[2022-10-17] MEDS: FERROUS SULFATE 325MG TAB PO SCH (07:24)
[2022-10-17] MEDS: SPIRONOLACTONE 25 MG TAB PO SCH (07:24)
[2022-10-17] MEDS: MIRALAX *UNIT DOSE* 17GM PACKET PO SCH (07:24)
[2022-10-17] MEDS: SERTRALINE 100 MG TAB PO SCH ×2 (07:25→21:11)
[2022-10-17] MEDS: REMEDY PHYTOPLEX Z-GUARD PASTE 113GM TUBE (FROM STOREROOM PRODUCT) TOP SCH ×3 (07:25→21:13)
[2022-10-17] MEDS: COMBIVENT RESPIMAT 100-20MCG INHALER 4GM INH SCH ×3 (08:06→21:37)
[2022-10-17] MEDS: METAMUCIL (PSYLLIUM) PACKET PO SCH ×2 (08:34→21:00)
[2022-10-17 14:00] VITALS: BP 141/65
[2022-10-17] MEDS: methocarbamoL 750 MG TAB PO PRN ×2 (17:29→21:12)
[2022-10-17] MEDS: HYDROXYCHLOROQUINE 200 MG TAB PO SCH (17:32)
[2022-10-17 19:37] VITALS: BP 148/70
[2022-10-17] MEDS: MONTELUKAST 10 MG TAB PO SCH (21:11)
[2022-10-17] MEDS: amLODIPine 5 MG TAB PO SCH (21:11)
[2022-10-17] MEDS: ATORVASTATIN 20 MG TAB PO SCH (21:12)
[2022-10-17] MEDS: oxyBUTYnin *DITROPAN XL* 5 MG TABCR PO SCH (21:12)
[2022-10-17] MEDS: CETIRIZINE (ZyrTEC) 10 MG TAB PO SCH (21:12)
[2022-10-17] MEDS: ALPRAZolam 0.5 MG TAB PO PRN (21:12)
[2022-10-17] MEDS: DOCUSATE SODIUM 100MG CAPSULE PO PRN (21:13)
[2022-10-17] MEDS: zolPIDEM TARTRATE 5 MG TAB PO PRN (23:05)
[2022-10-17] MEDS: oxyCODONE 5MG TAB PO PRN (23:05)
[2022-10-17] MEDS: PROPRANOLOL 60MG LA CAP PO SCH (23:05)
[2022-10-18 05:57] VITALS: BP 162/72
[2022-10-18] MEDS: oxyCODONE 5MG TAB PO SCH ×3 (06:06→17:13)
[2022-10-18] MEDS: HEPARIN SOD (PORCINE) 5000UNITS/ML 1ML VIAL/SYRINGE SC SCH ×3 (06:06→23:06)
[2022-10-18] MEDS: LEVOTHYROXINE 112MCG TABLET (0.112MG) PO SCH (06:07)
[2022-10-18 06:28] VITALS: BP 144/78
[2022-10-18 06:40] LABS: BASO % 0.6 % (0.0-1.0); EOS # 0.2 10^3/uL (0.0-0.5); EOS % 4.6 % (0.0-3.0); HEMATOCRIT 30.6 % (36.0-47.0); HEMOGLOBIN 9.8 g/dl (12.0-15.5); LYMPH # 1.1 10^3/uL (1.5-5.0); LYMPH % 31.8 % (24.0-44.0); MEAN CORPUSCULAR HEMOGLOBIN 29.7 pg (27.0-33.0); MEAN CORPUSCULAR VOLUME 92.7 fl (80.0-96.0); MONO # 0.6 10^3/uL (0.0-0.8); MONO % 15.9 % (2.0-8.0); NEUTROPHILS # 1.6 10^3/uL (1.5-8.5); NEUTROPHILS % 46.5 % (36.0-66.0); PLATELET COUNT, AUTOMATED 292 10^3/uL (150-450); WHITE BLOOD COUNT 3.5 10^3/uL (4.0-10.0)
[2022-10-18 07:01] LABS: BLOOD UREA NITROGEN 19 MG/DL (9-23); CALCIUM LEVEL 8.5 MG/DL (8.3-10.6); CARBON DIOXIDE LEVEL 24 MMOL/L (20-31); CHLORIDE LEVEL 102 MMOL/L (98-107); CREATININE FOR GFR 0.84 MG/DL (0.55-1.30); GLOMERULAR FILTRATION RATE > 60.0 (>39); GLUCOSE, FASTING 101 MG/DL (74-106); POTASSIUM SERUM 4.5 MMOL/L (3.5-5.1); SODIUM LEVEL 134 MMOL/L (136-145)
[2022-10-18] MEDS: COMBIVENT RESPIMAT 100-20MCG INHALER 4GM INH SCH ×3 (07:36→21:01)
[2022-10-18] MEDS: REMEDY PHYTOPLEX Z-GUARD PASTE 113GM TUBE (FROM STOREROOM PRODUCT) TOP SCH ×3 (09:00→21:00)
[2022-10-18] MEDS: MIRALAX *UNIT DOSE* 17GM PACKET PO SCH (09:21)
[2022-10-18] MEDS: METAMUCIL (PSYLLIUM) PACKET PO SCH ×2 (09:21→21:00)
[2022-10-18] MEDS: SPIRONOLACTONE 25 MG TAB PO SCH (09:22)
[2022-10-18] MEDS: MAGNESIUM OXIDE 400MG TAB (MAG-OX) PO SCH (09:22)
[2022-10-18] MEDS: hydroCHLOROthiazide 12.5 MG CAPSULE PO SCH (09:22)
[2022-10-18] MEDS: ACETAMINOPHEN 500 MG TAB PO SCH ×3 (09:22→20:59)
[2022-10-18] MEDS: levETIRAcetam 250MG TABLET (KEPPRA) PO SCH ×2 (09:22→20:59)
[2022-10-18] MEDS: LIDOCAINE 5% (LIDODERM) PATCH TD SCH (09:23)
[2022-10-18] MEDS: SERTRALINE 100 MG TAB PO SCH ×2 (09:23→20:57)
[2022-10-18] MEDS: FAMOTIDINE 20 MG TAB PO SCH ×2 (09:23→20:59)
[2022-10-18] MEDS: LACOSAMIDE 50 MG TAB (VIMPAT) PO SCH ×2 (09:23→20:57)
[2022-10-18] MEDS: CYANOCOBALAMIN 500 MCG TAB PO SCH (09:23)
[2022-10-18 14:00] VITALS: BP 154/67
[2022-10-18] MEDS: HYDROXYCHLOROQUINE 200 MG TAB PO SCH (17:12)
[2022-10-18 20:54] VITALS: BP 152/62
[2022-10-18] MEDS: ATORVASTATIN 20 MG TAB PO SCH (20:57)
[2022-10-18] MEDS: methocarbamoL 750 MG TAB PO PRN (20:57)
[2022-10-18] MEDS: amLODIPine 5 MG TAB PO SCH (20:58)
[2022-10-18] MEDS: ALPRAZolam 0.5 MG TAB PO PRN (20:58)
[2022-10-18] MEDS: MONTELUKAST 10 MG TAB PO SCH (20:58)
[2022-10-18] MEDS: PROPRANOLOL 60MG LA CAP PO SCH (20:59)
[2022-10-18] MEDS: CETIRIZINE (ZyrTEC) 10 MG TAB PO SCH (20:59)
[2022-10-18] MEDS: oxyBUTYnin *DITROPAN XL* 5 MG TABCR PO SCH (20:59)
[2022-10-18] MEDS: oxyCODONE 5MG TAB PO PRN (23:08)
[2022-10-18] MEDS: zolPIDEM TARTRATE 5 MG TAB PO PRN (23:08)
[2022-10-19] MEDS: LEVOTHYROXINE 112MCG TABLET (0.112MG) PO SCH (06:27)
[2022-10-19] MEDS: HEPARIN SOD (PORCINE) 5000UNITS/ML 1ML VIAL/SYRINGE SC SCH ×3 (06:27→21:54)
[2022-10-19] MEDS: oxyCODONE 5MG TAB PO SCH ×3 (06:28→16:43)
[2022-10-19 06:37] VITALS: BP 122/52
[2022-10-19] MEDS: COMBIVENT RESPIMAT 100-20MCG INHALER 4GM INH SCH ×3 (07:09→19:59)
[2022-10-19] MEDS: REMEDY PHYTOPLEX Z-GUARD PASTE 113GM TUBE (FROM STOREROOM PRODUCT) TOP SCH ×3 (09:00→22:00)
[2022-10-19] MEDS ORDERED: ANALGESIC BALM CRM 3OZ TOP SCH (09:00)
[2022-10-19] MEDS: METAMUCIL (PSYLLIUM) PACKET PO SCH ×2 (09:36→22:00)
[2022-10-19] MEDS: LIDOCAINE 5% (LIDODERM) PATCH TD SCH ×2 (09:36→12:46)
[2022-10-19] MEDS: MIRALAX *UNIT DOSE* 17GM PACKET PO SCH (09:36)
[2022-10-19] MEDS: LACOSAMIDE 50 MG TAB (VIMPAT) PO SCH ×2 (09:37→21:55)
[2022-10-19] MEDS: methocarbamoL 750 MG TAB PO PRN ×3 (09:37→21:56)
[2022-10-19] MEDS: SERTRALINE 100 MG TAB PO SCH ×2 (09:37→21:55)
[2022-10-19] MEDS: ALPRAZolam 0.5 MG TAB PO PRN ×2 (09:37→21:56)
[2022-10-19] MEDS: MAGNESIUM OXIDE 400MG TAB (MAG-OX) PO SCH (09:38)
[2022-10-19] MEDS: levETIRAcetam 250MG TABLET (KEPPRA) PO SCH ×2 (09:38→21:55)
[2022-10-19] MEDS: ACETAMINOPHEN 500 MG TAB PO SCH ×3 (09:38→21:55)
[2022-10-19] MEDS: hydroCHLOROthiazide 12.5 MG CAPSULE PO SCH (09:38)
[2022-10-19] MEDS: CYANOCOBALAMIN 500 MCG TAB PO SCH (09:38)
[2022-10-19] MEDS: FERROUS SULFATE 325MG TAB PO SCH (09:38)
[2022-10-19] MEDS: FAMOTIDINE 20 MG TAB PO SCH ×2 (09:39→21:56)
[2022-10-19] MEDS: SPIRONOLACTONE 25 MG TAB PO SCH (09:39)
[2022-10-19 14:00] VITALS: BP 130/59
[2022-10-19] MEDS: HYDROXYCHLOROQUINE 200 MG TAB PO SCH (18:07)
[2022-10-19 20:00] VITALS: BP 144/65
[2022-10-19] MEDS: CETIRIZINE (ZyrTEC) 10 MG TAB PO SCH (21:55)
[2022-10-19] MEDS: MONTELUKAST 10 MG TAB PO SCH (21:56)
[2022-10-19] MEDS: oxyBUTYnin *DITROPAN XL* 5 MG TABCR PO SCH (21:56)
[2022-10-19] MEDS: PROPRANOLOL 60MG LA CAP PO SCH (22:00)
[2022-10-19] MEDS: amLODIPine 5 MG TAB PO SCH (22:01)
[2022-10-19] MEDS: ATORVASTATIN 20 MG TAB PO SCH (22:01)
[2022-10-19] MEDS: zolPIDEM TARTRATE 5 MG TAB PO PRN (23:06)
[2022-10-19] MEDS: oxyCODONE 5MG TAB PO PRN (23:06)
[2022-10-20 06:00] VITALS: BP 144/60
[2022-10-20] MEDS: HEPARIN SOD (PORCINE) 5000UNITS/ML 1ML VIAL/SYRINGE SC SCH ×3 (06:11→20:15)
[2022-10-20] MEDS: oxyCODONE 5MG TAB PO SCH ×3 (06:11→17:48)
[2022-10-20] MEDS: LEVOTHYROXINE 112MCG TABLET (0.112MG) PO SCH (06:11)
[2022-10-20] MEDS: COMBIVENT RESPIMAT 100-20MCG INHALER 4GM INH SCH ×3 (07:10→20:35)
[2022-10-20] MEDS: LIDOCAINE 5% (LIDODERM) PATCH TD SCH ×3 (09:00→10:03)
[2022-10-20] MEDS: METAMUCIL (PSYLLIUM) PACKET PO SCH ×2 (09:00→20:19)
[2022-10-20] MEDS ORDERED: LIDOCAINE 5% (LIDODERM) PATCH TD SCH (09:00)
[2022-10-20] MEDS: REMEDY PHYTOPLEX Z-GUARD PASTE 113GM TUBE (FROM STOREROOM PRODUCT) TOP SCH ×3 (09:00→20:20)
[2022-10-20] MEDS: MIRALAX *UNIT DOSE* 17GM PACKET PO SCH (09:58)
[2022-10-20] MEDS: MAGNESIUM OXIDE 400MG TAB (MAG-OX) PO SCH (09:59)
[2022-10-20] MEDS: SERTRALINE 100 MG TAB PO SCH ×2 (09:59→20:17)
[2022-10-20] MEDS: CYANOCOBALAMIN 500 MCG TAB PO SCH (09:59)
[2022-10-20] MEDS: levETIRAcetam 250MG TABLET (KEPPRA) PO SCH ×2 (09:59→20:18)
[2022-10-20] MEDS: FAMOTIDINE 20 MG TAB PO SCH ×2 (09:59→20:18)
[2022-10-20] MEDS: LACOSAMIDE 50 MG TAB (VIMPAT) PO SCH ×2 (09:59→20:15)
[2022-10-20] MEDS: hydroCHLOROthiazide 12.5 MG CAPSULE PO SCH (09:59)
[2022-10-20] MEDS: SPIRONOLACTONE 25 MG TAB PO SCH (09:59)
[2022-10-20] MEDS: ACETAMINOPHEN 500 MG TAB PO SCH ×3 (10:00→20:17)
[2022-10-20] MEDS: methocarbamoL 750 MG TAB PO PRN ×2 (10:14→20:15)
[2022-10-20] MEDS: ALPRAZolam 0.5 MG TAB PO PRN ×2 (10:14→20:15)
[2022-10-20 14:00] VITALS: BP 147/59
[2022-10-20] MEDS: HYDROXYCHLOROQUINE 200 MG TAB PO SCH (17:47)
[2022-10-20 20:00] VITALS: BP 138/65
[2022-10-20] MEDS: DOCUSATE SODIUM 100MG CAPSULE PO PRN (20:18)
[2022-10-20] MEDS: ATORVASTATIN 20 MG TAB PO SCH (20:18)
[2022-10-20] MEDS: MONTELUKAST 10 MG TAB PO SCH (20:18)
[2022-10-20] MEDS: amLODIPine 5 MG TAB PO SCH (20:18)
[2022-10-20] MEDS: CETIRIZINE (ZyrTEC) 10 MG TAB PO SCH (20:18)
[2022-10-20] MEDS: oxyBUTYnin *DITROPAN XL* 5 MG TABCR PO SCH (20:19)
[2022-10-20] MEDS: PROPRANOLOL 60MG LA CAP PO SCH (20:19)
[2022-10-20] MEDS: zolPIDEM TARTRATE 5 MG TAB PO PRN (23:33)
[2022-10-20] MEDS: oxyCODONE 5MG TAB PO PRN (23:35)
[2022-10-21 06:00] VITALS: BP 126/61
[2022-10-21] MEDS: HEPARIN SOD (PORCINE) 5000UNITS/ML 1ML VIAL/SYRINGE SC SCH ×3 (06:19→22:17)
[2022-10-21] MEDS: oxyCODONE 5MG TAB PO SCH ×4 (06:20→23:10)
[2022-10-21] MEDS: LEVOTHYROXINE 112MCG TABLET (0.112MG) PO SCH (06:20)
[2022-10-21] MEDS: COMBIVENT RESPIMAT 100-20MCG INHALER 4GM INH SCH ×3 (07:28→20:20)
[2022-10-21] MEDS: MIRALAX *UNIT DOSE* 17GM PACKET PO SCH (08:23)
[2022-10-21] MEDS: hydroCHLOROthiazide 12.5 MG CAPSULE PO SCH (08:23)
[2022-10-21] MEDS: CYANOCOBALAMIN 500 MCG TAB PO SCH (08:24)
[2022-10-21] MEDS: FAMOTIDINE 20 MG TAB PO SCH ×2 (08:24→22:18)
[2022-10-21] MEDS: LIDOCAINE 5% (LIDODERM) PATCH TD SCH ×3 (08:24→08:26)
[2022-10-21] MEDS: MAGNESIUM OXIDE 400MG TAB (MAG-OX) PO SCH (08:24)
[2022-10-21] MEDS: ACETAMINOPHEN 500 MG TAB PO SCH ×3 (08:24→22:19)
[2022-10-21] MEDS: FERROUS SULFATE 325MG TAB PO SCH (08:24)
[2022-10-21] MEDS: LACOSAMIDE 50 MG TAB (VIMPAT) PO SCH ×2 (08:24→22:17)
[2022-10-21] MEDS: levETIRAcetam 250MG TABLET (KEPPRA) PO SCH ×2 (08:24→22:25)
[2022-10-21] MEDS: SERTRALINE 100 MG TAB PO SCH ×2 (08:25→22:25)
[2022-10-21] MEDS: SPIRONOLACTONE 25 MG TAB PO SCH (08:25)
[2022-10-21] MEDS: METAMUCIL (PSYLLIUM) PACKET PO SCH ×2 (08:25→21:00)
[2022-10-21] MEDS: REMEDY PHYTOPLEX Z-GUARD PASTE 113GM TUBE (FROM STOREROOM PRODUCT) TOP SCH ×3 (08:27→21:00)
[2022-10-21] MEDS: methocarbamoL 750 MG TAB PO PRN ×3 (08:30→22:16)
[2022-10-21] MEDS: ALPRAZolam 0.5 MG TAB PO PRN ×2 (08:31→22:16)
[2022-10-21 10:24] LABS: BASO % 0.4 % (0.0-1.0); EOS # 0.1 10^3/uL (0.0-0.5); HEMATOCRIT 33.6 % (36.0-47.0); HEMOGLOBIN 10.9 g/dl (12.0-15.5); LYMPH # 1.1 10^3/uL (1.5-5.0); MEAN CORPUSCULAR HGB CONC 32.4 g/dl (32.0-36.5); MEAN CORPUSCULAR VOLUME 92.6 fl (80.0-96.0); MONO # 0.7 10^3/uL (0.0-0.8); MONO % 15.3 % (2.0-8.0); NEUTROPHILS # 2.7 10^3/uL (1.5-8.5); NEUTROPHILS % 57.9 % (36.0-66.0); PLATELET COUNT, AUTOMATED 338 10^3/uL (150-450); RED BLOOD COUNT 3.63 10^6/uL (4.00-5.40); WHITE BLOOD COUNT 4.7 10^3/uL (4.0-10.0)
[2022-10-21 10:54] LABS: BLOOD UREA NITROGEN 16 MG/DL (9-23); CALCIUM LEVEL 8.8 MG/DL (8.3-10.6); CARBON DIOXIDE LEVEL 26 MMOL/L (20-31); CHLORIDE LEVEL 98 MMOL/L (98-107); CREATININE FOR GFR 0.91 MG/DL (0.55-1.30); GLOMERULAR FILTRATION RATE > 60.0 (>39); GLUCOSE, FASTING 88 MG/DL (74-106); POTASSIUM SERUM 4.8 MMOL/L (3.5-5.1); SODIUM LEVEL 132 MMOL/L (136-145)
[2022-10-21 14:00] VITALS: BP 117/55
[2022-10-21] MEDS: HYDROXYCHLOROQUINE 200 MG TAB PO SCH (17:05)
[2022-10-21 20:00] VITALS: BP 139/63
[2022-10-21] MEDS: PROPRANOLOL 60MG LA CAP PO SCH (21:00)
[2022-10-21 22:04] VITALS: BP 144/78
[2022-10-21] MEDS: amLODIPine 5 MG TAB PO SCH (22:18)
[2022-10-21] MEDS: CETIRIZINE (ZyrTEC) 10 MG TAB PO SCH (22:20)
[2022-10-21] MEDS: ATORVASTATIN 20 MG TAB PO SCH (22:20)
[2022-10-21] MEDS: MONTELUKAST 10 MG TAB PO SCH (22:25)
[2022-10-21] MEDS: oxyBUTYnin *DITROPAN XL* 5 MG TABCR PO SCH (22:25)
[2022-10-21] MEDS: oxyCODONE 5MG TAB PO PRN (23:08)
[2022-10-21] MEDS: zolPIDEM TARTRATE 5 MG TAB PO PRN (23:10)
[2022-10-22] MEDS: oxyCODONE 5MG TAB PO PRN ×2 (05:37→23:22)
[2022-10-22 06:00] VITALS: BP 151/67
[2022-10-22] MEDS: HEPARIN SOD (PORCINE) 5000UNITS/ML 1ML VIAL/SYRINGE SC SCH ×3 (06:21→20:40)
[2022-10-22] MEDS: oxyCODONE 5MG TAB PO SCH ×3 (06:22→17:12)
[2022-10-22] MEDS: LEVOTHYROXINE 112MCG TABLET (0.112MG) PO SCH (06:22)
[2022-10-22] MEDS: COMBIVENT RESPIMAT 100-20MCG INHALER 4GM INH SCH ×3 (07:08→21:03)
[2022-10-22] MEDS: REMEDY PHYTOPLEX Z-GUARD PASTE 113GM TUBE (FROM STOREROOM PRODUCT) TOP SCH ×3 (09:00→20:26)
[2022-10-22] MEDS: LIDOCAINE 5% (LIDODERM) PATCH TD SCH ×3 (09:00→09:23)
[2022-10-22] MEDS: METAMUCIL (PSYLLIUM) PACKET PO SCH ×2 (09:16→20:26)
[2022-10-22] MEDS: levETIRAcetam 250MG TABLET (KEPPRA) PO SCH ×2 (09:17→20:24)
[2022-10-22] MEDS: hydroCHLOROthiazide 12.5 MG CAPSULE PO SCH (09:17)
[2022-10-22] MEDS: FAMOTIDINE 20 MG TAB PO SCH ×2 (09:18→20:24)
[2022-10-22] MEDS: LACOSAMIDE 50 MG TAB (VIMPAT) PO SCH ×2 (09:18→20:24)
[2022-10-22] MEDS: CYANOCOBALAMIN 500 MCG TAB PO SCH (09:18)
[2022-10-22] MEDS: ACETAMINOPHEN 500 MG TAB PO SCH ×3 (09:18→20:26)
[2022-10-22] MEDS: SERTRALINE 100 MG TAB PO SCH ×2 (09:18→20:25)
[2022-10-22] MEDS: VITAMIN D 50,000 UNITS CAPSULE (ERGOCALCIFEROL 1.25MG) PO SCH (09:19)
[2022-10-22] MEDS: MAGNESIUM OXIDE 400MG TAB (MAG-OX) PO SCH (09:19)
[2022-10-22] MEDS: SPIRONOLACTONE 25 MG TAB PO SCH (09:19)
[2022-10-22] MEDS: ALPRAZolam 0.5 MG TAB PO PRN ×2 (09:19→20:24)
[2022-10-22] MEDS: methocarbamoL 750 MG TAB PO PRN ×2 (09:19→20:23)
[2022-10-22] MEDS: MIRALAX *UNIT DOSE* 17GM PACKET PO SCH (09:21)
[2022-10-22 14:00] VITALS: BP 128/59
[2022-10-22] MEDS: HYDROXYCHLOROQUINE 200 MG TAB PO SCH (17:12)
[2022-10-22 20:00] VITALS: BP 147/65
[2022-10-22] MEDS: oxyBUTYnin *DITROPAN XL* 5 MG TABCR PO SCH (20:24)
[2022-10-22] MEDS: MONTELUKAST 10 MG TAB PO SCH (20:24)
[2022-10-22] MEDS: CETIRIZINE (ZyrTEC) 10 MG TAB PO SCH (20:25)
[2022-10-22] MEDS: amLODIPine 5 MG TAB PO SCH (20:25)
[2022-10-22] MEDS: ATORVASTATIN 20 MG TAB PO SCH (20:25)
[2022-10-22] MEDS: PROPRANOLOL 60MG LA CAP PO SCH (20:27)
[2022-10-22] MEDS: zolPIDEM TARTRATE 5 MG TAB PO PRN (23:22)
[2022-10-23 06:00] VITALS: BP 122/59
[2022-10-23 06:12] LABS: BASO % 0.8 % (0.0-1.0); EOS # 0.2 10^3/uL (0.0-0.5); EOS % 3.8 % (0.0-3.0); HEMATOCRIT 29.9 % (36.0-47.0); HEMOGLOBIN 9.7 g/dl (12.0-15.5); LYMPH # 1.1 10^3/uL (1.5-5.0); MEAN CORPUSCULAR HEMOGLOBIN 29.9 pg (27.0-33.0); MEAN CORPUSCULAR HGB CONC 32.4 g/dl (32.0-36.5); MEAN CORPUSCULAR VOLUME 92.3 fl (80.0-96.0); MONO # 0.7 10^3/uL (0.0-0.8); MONO % 16.4 % (2.0-8.0); NEUTROPHILS % 50.7 % (36.0-66.0); PLATELET COUNT, AUTOMATED 298 10^3/uL (150-450); RED BLOOD COUNT 3.24 10^6/uL (4.00-5.40)
[2022-10-23] MEDS: LEVOTHYROXINE 112MCG TABLET (0.112MG) PO SCH (06:18)
[2022-10-23] MEDS: oxyCODONE 5MG TAB PO SCH ×3 (06:18→16:37)
[2022-10-23] MEDS: HEPARIN SOD (PORCINE) 5000UNITS/ML 1ML VIAL/SYRINGE SC SCH ×3 (06:19→21:27)
[2022-10-23 06:41] LABS: BLOOD UREA NITROGEN 19 MG/DL (9-23); CALCIUM LEVEL 8.3 MG/DL (8.3-10.6); CARBON DIOXIDE LEVEL 24 MMOL/L (20-31); CHLORIDE LEVEL 102 MMOL/L (98-107); CREATININE FOR GFR 0.92 MG/DL (0.55-1.30); GLOMERULAR FILTRATION RATE > 60.0 (>39); GLUCOSE, FASTING 95 MG/DL (74-106); POTASSIUM SERUM 4.7 MMOL/L (3.5-5.1); SODIUM LEVEL 133 MMOL/L (136-145)
[2022-10-23] MEDS: COMBIVENT RESPIMAT 100-20MCG INHALER 4GM INH SCH ×3 (07:17→20:00)
[2022-10-23] MEDS: REMEDY PHYTOPLEX Z-GUARD PASTE 113GM TUBE (FROM STOREROOM PRODUCT) TOP SCH ×3 (09:00→21:00)
[2022-10-23] MEDS: LIDOCAINE 5% (LIDODERM) PATCH TD SCH ×3 (09:00→09:21)
[2022-10-23] MEDS: levETIRAcetam 250MG TABLET (KEPPRA) PO SCH ×2 (09:19→21:29)
[2022-10-23] MEDS: FAMOTIDINE 20 MG TAB PO SCH ×2 (09:19→21:29)
[2022-10-23] MEDS: SPIRONOLACTONE 25 MG TAB PO SCH (09:19)
[2022-10-23] MEDS: FERROUS SULFATE 325MG TAB PO SCH (09:19)
[2022-10-23] MEDS: METAMUCIL (PSYLLIUM) PACKET PO SCH ×2 (09:19→21:00)
[2022-10-23] MEDS: SERTRALINE 100 MG TAB PO SCH ×2 (09:19→21:29)
[2022-10-23] MEDS: MIRALAX *UNIT DOSE* 17GM PACKET PO SCH (09:19)
[2022-10-23] MEDS: ACETAMINOPHEN 500 MG TAB PO SCH ×3 (09:20→21:28)
[2022-10-23] MEDS: hydroCHLOROthiazide 12.5 MG CAPSULE PO SCH (09:20)
[2022-10-23] MEDS: LACOSAMIDE 50 MG TAB (VIMPAT) PO SCH ×2 (09:21→21:29)
[2022-10-23] MEDS: MAGNESIUM OXIDE 400MG TAB (MAG-OX) PO SCH (09:21)
[2022-10-23] MEDS: methocarbamoL 750 MG TAB PO PRN ×3 (09:21→21:30)
[2022-10-23] MEDS: ALPRAZolam 0.5 MG TAB PO PRN ×2 (09:21→21:30)
[2022-10-23] MEDS: CYANOCOBALAMIN 500 MCG TAB PO SCH (09:22)
[2022-10-23 13:56] VITALS: BP 138/72
[2022-10-23] MEDS: HYDROXYCHLOROQUINE 200 MG TAB PO SCH (17:47)
[2022-10-23 20:00] VITALS: BP 126/60
[2022-10-23] MEDS: MONTELUKAST 10 MG TAB PO SCH (21:29)
[2022-10-23] MEDS: PROPRANOLOL 60MG LA CAP PO SCH (21:29)
[2022-10-23] MEDS: oxyBUTYnin *DITROPAN XL* 5 MG TABCR PO SCH (21:29)
[2022-10-23] MEDS: amLODIPine 5 MG TAB PO SCH (21:30)
[2022-10-23] MEDS: ATORVASTATIN 20 MG TAB PO SCH (21:30)
[2022-10-23] MEDS: CETIRIZINE (ZyrTEC) 10 MG TAB PO SCH (21:30)
[2022-10-23] MEDS: oxyCODONE 5MG TAB PO PRN (23:04)
[2022-10-23] MEDS: zolPIDEM TARTRATE 5 MG TAB PO PRN (23:04)
[2022-10-24 06:00] VITALS: BP 130/60
[2022-10-24] MEDS: LEVOTHYROXINE 112MCG TABLET (0.112MG) PO SCH (06:15)
[2022-10-24] MEDS: HEPARIN SOD (PORCINE) 5000UNITS/ML 1ML VIAL/SYRINGE SC SCH ×3 (06:15→21:10)
[2022-10-24] MEDS: oxyCODONE 5MG TAB PO SCH ×3 (06:16→16:40)
[2022-10-24] MEDS: COMBIVENT RESPIMAT 100-20MCG INHALER 4GM INH SCH ×3 (07:23→19:31)
[2022-10-24] MEDS: MIRALAX *UNIT DOSE* 17GM PACKET PO SCH (08:45)
[2022-10-24] MEDS: SPIRONOLACTONE 25 MG TAB PO SCH (08:45)
[2022-10-24] MEDS: CYANOCOBALAMIN 500 MCG TAB PO SCH (08:45)
[2022-10-24] MEDS: METAMUCIL (PSYLLIUM) PACKET PO SCH ×2 (08:45→21:00)
[2022-10-24] MEDS: ACETAMINOPHEN 500 MG TAB PO SCH ×3 (08:45→21:00)
[2022-10-24] MEDS: methocarbamoL 750 MG TAB PO PRN ×3 (08:45→23:13)
[2022-10-24] MEDS: SERTRALINE 100 MG TAB PO SCH ×2 (08:45→21:14)
[2022-10-24] MEDS: hydroCHLOROthiazide 12.5 MG CAPSULE PO SCH (08:46)
[2022-10-24] MEDS: MAGNESIUM OXIDE 400MG TAB (MAG-OX) PO SCH (08:46)
[2022-10-24] MEDS: levETIRAcetam 250MG TABLET (KEPPRA) PO SCH ×2 (08:46→21:14)
[2022-10-24] MEDS: FAMOTIDINE 20 MG TAB PO SCH ×2 (08:46→21:11)
[2022-10-24] MEDS: LACOSAMIDE 50 MG TAB (VIMPAT) PO SCH ×2 (08:46→21:12)
[2022-10-24] MEDS: ALPRAZolam 0.5 MG TAB PO PRN ×2 (08:46→21:15)
[2022-10-24] MEDS: LIDOCAINE 5% (LIDODERM) PATCH TD SCH ×3 (08:47)
[2022-10-24] MEDS: REMEDY PHYTOPLEX Z-GUARD PASTE 113GM TUBE (FROM STOREROOM PRODUCT) TOP SCH ×3 (08:47→21:00)
[2022-10-24] MEDS ORDERED: NALOXONE INJ 0.4MG/1ML VIAL IV PRN (13:55)
[2022-10-24 14:00] VITALS: BP 143/65
[2022-10-24] MEDS: HYDROXYCHLOROQUINE 200 MG TAB PO SCH (17:58)
[2022-10-24 20:23] VITALS: BP 145/63
[2022-10-24] MEDS: MONTELUKAST 10 MG TAB PO SCH (21:11)
[2022-10-24] MEDS: oxyBUTYnin *DITROPAN XL* 5 MG TABCR PO SCH (21:11)
[2022-10-24] MEDS: MORPHINE 15 MG SA TAB PO SCH (21:11)
[2022-10-24] MEDS: PROPRANOLOL 60MG LA CAP PO SCH (21:12)
[2022-10-24] MEDS: CETIRIZINE (ZyrTEC) 10 MG TAB PO SCH (21:12)
[2022-10-24] MEDS: ATORVASTATIN 20 MG TAB PO SCH (21:12)
[2022-10-24] MEDS: amLODIPine 5 MG TAB PO SCH (21:14)
[2022-10-24] MEDS: zolPIDEM TARTRATE 5 MG TAB PO PRN (23:13)
[2022-10-25] MEDS: oxyCODONE 5MG TAB PO PRN (02:11)
[2022-10-25 06:26] LABS: BASO % 0.6 % (0.0-1.0); EOS # 0.1 10^3/uL (0.0-0.5); EOS % 3.9 % (0.0-3.0); HEMATOCRIT 32.2 % (36.0-47.0); HEMOGLOBIN 10.4 g/dl (12.0-15.5); LYMPH # 0.8 10^3/uL (1.5-5.0); LYMPH % 24.8 % (24.0-44.0); MEAN CORPUSCULAR HEMOGLOBIN 30.1 pg (27.0-33.0); MEAN CORPUSCULAR HGB CONC 32.3 g/dl (32.0-36.5); MEAN CORPUSCULAR VOLUME 93.3 fl (80.0-96.0); MONO # 0.5 10^3/uL (0.0-0.8); MONO % 15.2 % (2.0-8.0); NEUTROPHILS # 1.9 10^3/uL (1.5-8.5); NEUTROPHILS % 55.2 % (36.0-66.0); RED BLOOD COUNT 3.45 10^6/uL (4.00-5.40); WHITE BLOOD COUNT 3.4 10^3/uL (4.0-10.0)
[2022-10-25] MEDS: LEVOTHYROXINE 112MCG TABLET (0.112MG) PO SCH (06:29)
[2022-10-25] MEDS: HEPARIN SOD (PORCINE) 5000UNITS/ML 1ML VIAL/SYRINGE SC SCH ×3 (06:29→21:43)
[2022-10-25] MEDS: oxyCODONE 5MG TAB PO SCH ×2 (06:30→13:21)
[2022-10-25 06:45] LABS: CALCIUM LEVEL 8.5 MG/DL (8.3-10.6); CREATININE FOR GFR 0.98 MG/DL (0.55-1.30); GLOMERULAR FILTRATION RATE 59.7 (>39); POTASSIUM SERUM 4.8 MMOL/L (3.5-5.1)
[2022-10-25] MEDS: COMBIVENT RESPIMAT 100-20MCG INHALER 4GM INH SCH ×3 (07:23→21:16)
[2022-10-25 08:00] VITALS: BP 126/60
[2022-10-25] MEDS: REMEDY PHYTOPLEX Z-GUARD PASTE 113GM TUBE (FROM STOREROOM PRODUCT) TOP SCH ×3 (08:43→21:00)
[2022-10-25] MEDS: LIDOCAINE 5% (LIDODERM) PATCH TD SCH ×3 (09:00→09:04)
[2022-10-25] MEDS: MIRALAX *UNIT DOSE* 17GM PACKET PO SCH ×2 (09:00→09:05)
[2022-10-25] MEDS: hydroCHLOROthiazide 12.5 MG CAPSULE PO SCH (09:05)
[2022-10-25] MEDS: CYANOCOBALAMIN 500 MCG TAB PO SCH (09:05)
[2022-10-25] MEDS: SERTRALINE 100 MG TAB PO SCH ×2 (09:05→21:43)
[2022-10-25] MEDS: METAMUCIL (PSYLLIUM) PACKET PO SCH ×2 (09:05→21:00)
[2022-10-25] MEDS: levETIRAcetam 250MG TABLET (KEPPRA) PO SCH ×2 (09:05→21:43)
[2022-10-25] MEDS: SPIRONOLACTONE 25 MG TAB PO SCH (09:06)
[2022-10-25] MEDS: LACOSAMIDE 50 MG TAB (VIMPAT) PO SCH ×2 (09:06→21:42)
[2022-10-25] MEDS: FERROUS SULFATE 325MG TAB PO SCH (09:06)
[2022-10-25] MEDS: FAMOTIDINE 20 MG TAB PO SCH ×2 (09:06→21:42)
[2022-10-25] MEDS: MAGNESIUM OXIDE 400MG TAB (MAG-OX) PO SCH (09:06)
[2022-10-25] MEDS: ACETAMINOPHEN 500 MG TAB PO SCH ×3 (09:07→21:44)
[2022-10-25] MEDS: MORPHINE 15 MG SA TAB PO SCH ×2 (09:07→21:42)
[2022-10-25] MEDS: ALPRAZolam 0.5 MG TAB PO PRN (09:15)
[2022-10-25] MEDS: methocarbamoL 750 MG TAB PO PRN ×2 (09:15→21:43)
[2022-10-25] MEDS ORDERED: oxyCODONE 5MG TAB PO ONE (13:00)
[2022-10-25 14:00] VITALS: BP 133/60
[2022-10-25] MEDS: HYDROXYCHLOROQUINE 200 MG TAB PO SCH (16:59)
[2022-10-25 20:00] VITALS: BP 180/72
[2022-10-25] MEDS: CETIRIZINE (ZyrTEC) 10 MG TAB PO SCH (21:42)
[2022-10-25] MEDS: MONTELUKAST 10 MG TAB PO SCH (21:43)
[2022-10-25] MEDS: ATORVASTATIN 20 MG TAB PO SCH (21:43)
[2022-10-25] MEDS: zolPIDEM TARTRATE 5 MG TAB PO PRN (21:43)
[2022-10-25] MEDS: oxyBUTYnin *DITROPAN XL* 5 MG TABCR PO SCH (21:43)
[2022-10-25 22:00] VITALS: BP 180/73
[2022-10-25] MEDS: amLODIPine 5 MG TAB PO SCH (22:00)
[2022-10-25] MEDS: PROPRANOLOL 60MG LA CAP PO SCH (22:00)
[2022-10-26 06:00] VITALS: BP 165/70
[2022-10-26] MEDS: LEVOTHYROXINE 112MCG TABLET (0.112MG) PO SCH (06:33)
[2022-10-26] MEDS: HEPARIN SOD (PORCINE) 5000UNITS/ML 1ML VIAL/SYRINGE SC SCH (06:33)
[2022-10-26] MEDS: oxyCODONE 5MG TAB PO PRN ×2 (06:34→12:35)
[2022-10-26] MEDS: COMBIVENT RESPIMAT 100-20MCG INHALER 4GM INH SCH (07:34)
[2022-10-26] MEDS: LACOSAMIDE 50 MG TAB (VIMPAT) PO SCH (08:50)
[2022-10-26] MEDS: CYANOCOBALAMIN 500 MCG TAB PO SCH (08:50)
[2022-10-26] MEDS: hydroCHLOROthiazide 12.5 MG CAPSULE PO SCH (08:50)
[2022-10-26] MEDS: MIRALAX *UNIT DOSE* 17GM PACKET PO SCH (08:51)
[2022-10-26] MEDS: METAMUCIL (PSYLLIUM) PACKET PO SCH (08:51)
[2022-10-26] MEDS: MAGNESIUM OXIDE 400MG TAB (MAG-OX) PO SCH (08:51)
[2022-10-26] MEDS: ALPRAZolam 0.5 MG TAB PO PRN (08:51)
[2022-10-26] MEDS: methocarbamoL 750 MG TAB PO PRN (08:52)
[2022-10-26] MEDS: ACETAMINOPHEN 500 MG TAB PO SCH (08:52)
[2022-10-26] MEDS: SPIRONOLACTONE 25 MG TAB PO SCH (08:52)
[2022-10-26] MEDS: SERTRALINE 100 MG TAB PO SCH (08:52)
[2022-10-26] MEDS: levETIRAcetam 250MG TABLET (KEPPRA) PO SCH (08:52)
[2022-10-26] MEDS: FAMOTIDINE 20 MG TAB PO SCH (08:52)
[2022-10-26] MEDS: REMEDY PHYTOPLEX Z-GUARD PASTE 113GM TUBE (FROM STOREROOM PRODUCT) TOP SCH (08:53)
[2022-10-26] MEDS: MORPHINE 15 MG SA TAB PO SCH (08:53)
[2022-10-26] MEDS: LIDOCAINE 5% (LIDODERM) PATCH TD SCH ×3 (08:53→08:54)
[2022-10-26] MEDS ORDERED: MORP15TASA PO (08:55)
[2022-10-26] MEDS ORDERED: AMLO1TAB24 PO (08:55)
[2022-10-26] MEDS ORDERED: DITR5TAB PO (08:55)
[2022-10-26 10:10] LABS: PLATELET COUNT, AUTOMATED 281 10^3/uL (150-450)
== END 2022-10-26 13:45 | DRG 950 ==
LOC: M PM&R 15:25
PROVIDERS: ADMIT Physical Medicine & Rehabilitation; ATTEND Physical Medicine & Rehabilitation
DX: S43.432D Superior glenoid labrum lesion of left shoulder, subsequent encounter (principal); Z89.512 Acquired absence of left leg below knee; D50.9 Iron deficiency anemia, unspecified; M35.00 Sjogren syndrome, unspecified; G40.909 Epilepsy, unspecified, not intractable, without status epilepticus; R26.89 Other abnormalities of gait and mobility; I10 Essential (primary) hypertension; F41.9 Anxiety disorder, unspecified; F32.A Depression, unspecified; G43.909 Migraine, unspecified, not intractable, without status migrainosus; J45.909 Unspecified asthma, uncomplicated; E03.9 Hypothyroidism, unspecified; Z74.09 Other reduced mobility; Z74.1 Need for assistance with personal care; Z79.890 Hormone replacement therapy; Z79.899 Other long term (current) drug therapy; Z20.822 Contact with and (suspected) exposure to COVID-19; Z88.0 Allergy status to penicillin; Z88.6 Allergy status to analgesic agent; Z88.8 Allergy status to other drugs, medicaments and biological substances; E66.01 Morbid (severe) obesity due to excess calories; M19.90 Unspecified osteoarthritis, unspecified site; G89.29 Other chronic pain; G47.00 Insomnia, unspecified; K21.9 Gastro-esophageal reflux disease without esophagitis; E78.5 Hyperlipidemia, unspecified; W18.30XD Fall on same level, unspecified, subsequent encounter; Y92.009 Unspecified place in unspecified non-institutional (private) residence as the place of occurrence of the external cause

== ENCOUNTER → 2023-01-01 | Outpatient (CLI) | payer MEDICARE, OTHER, BC ==
[~2023-01-01] MED LIST changes: +DITR5TAB PO; -HYDR200T3 PO; +HYDR200T46 PO; +SENN-111 PO; -SENN18TA PO
== END ==
LOC: M SOG 13:37
PROVIDERS: ATTEND Orthopaedic Surgery
DX: M13.852 Other specified arthritis, left hip (principal); M19.012 Primary osteoarthritis, left shoulder

== ENCOUNTER 2023-02-25 16:14 | Inpatient (IN) | payer MEDICARE, OTHER ==
[~2023-02-25] VITALS: Ht 165.1 cm; Wt 121.9 kg
[2023-02-25 17:08] LABS: APPEARANCE, URINE HAZY (CLEAR); BACTERIA, URINE AUTO 2+ (NEGATIVE); BILIRUBIN, URINE AUTO NEGATIVE (NEGATIVE); BLOOD, URINE BLOOD 2+ (NEGATIVE); COLOR, URINE YELLOW (YELLOW); GLUCOSE, URINE (UA) AUTO NEGATIVE (NEGATIVE); KETONE, URINE AUTO NEGATIVE (NEGATIVE); LEUKOCYTE ESTERASE, URINE AUTO TRACE (NEGATIVE); MUCUS, URINE SMALL (NEGATIVE); NITRITE, URINE AUTO POSITIVE (NEGATIVE); PROTEIN, URINE AUTO 2+ mg/dL (NEGATIVE); RBC, URINE AUTO 2 /HPF (0-3); SQUAMOUS EPITHELIAL CELL UR AU 0 /HPF (0-6); UROBILINOGEN, URINE AUTO 0.2 mg/dL (0.0-2.0); WBC, URINE AUTO 7 /HPF (0-3)
[2023-02-25 17:27] LABS: VENOUS BASE EXCESS -2.3 (-2.0-2.0); VENOUS HCO3 23.3 MMOL/L (23.0-27.0); VENOUS O2 SATURATION 50.9 % (60.0-80.0); VENOUS PARTIAL PRESSURE O2 28.5 mmHg (30.0-50.0); VENOUS PH 7.351 UNITS (7.330-7.430); VENOUS STANDARD HCO3 21.5 MMOL/L; VENOUS TOTAL CO2 24.6 MMOL/L (24.0-28.0)
[2023-02-25 17:31] LABS: BASO % 0.3 % (0.0-1.0); EOS % 0.4 % (0.0-3.0); HEMATOCRIT 35.9 % (36.0-47.0); LYMPH # 0.8 10^3/uL (1.5-5.0); LYMPH % 10.4 % (24.0-44.0); MEAN CORPUSCULAR HEMOGLOBIN 29.6 pg (27.0-33.0); MEAN CORPUSCULAR HGB CONC 33.4 g/dl (32.0-36.5); MEAN CORPUSCULAR VOLUME 88.6 fl (80.0-96.0); MONO # 0.7 10^3/uL (0.0-0.8); MONO % 9.5 % (2.0-8.0); NEUTROPHILS # 6.1 10^3/uL (1.5-8.5); NEUTROPHILS % 79.1 % (36.0-66.0); PLATELET COUNT, AUTOMATED 303 10^3/uL (150-450); RED BLOOD COUNT 4.05 10^6/uL (4.00-5.40); WHITE BLOOD COUNT 7.7 10^3/uL (4.0-10.0)
[2023-02-25] MEDS ORDERED: ISOVUE-370 76% 100ML VIAL As Ordered ONE (17:31)
[2023-02-25 17:45] LABS: INR 1.15; PROTHROMBIN TIME 14.4 SECONDS (12.5-14.5)
[2023-02-25 17:46] LABS: ERYTHROCYTE SEDIMENTATION RATE 71 mm/hr (0-30); PARTIAL THROMBOPLASTIN TIME 30.9 SECONDS (24.8-34.2)
[2023-02-25 17:57] LABS: AMYLASE 26 U/L (30-118)
[2023-02-25 17:58] LABS: ALBUMIN 3.8 G/DL (3.2-5.2); ALKALINE PHOSPHATASE 149 U/L (46-116); ALT/SGPT 16 U/L (7.0-40); AST/SGOT 24 U/L (<34); BILIRUBIN,DIRECT 0.5 MG/DL (<0.4); BILIRUBIN,TOTAL 1.2 MG/DL (0.3-1.2); BLOOD UREA NITROGEN 17 MG/DL (9-23); CALCIUM LEVEL 9.5 MG/DL (8.3-10.6); CARBON DIOXIDE LEVEL 25 MMOL/L (20-31); CHLORIDE LEVEL 103 MMOL/L (98-107); CK-MB VALUE MASS 3.4 NG/ML (<3.6); CPK CREATINE PHOSPHOKINASE 436 U/L (34-145); CREATININE FOR GFR 0.86 MG/DL (0.55-1.30); GLOMERULAR FILTRATION RATE > 60.0 (>39); GLUCOSE, FASTING 105 MG/DL (74-106); MB/CK RELATIVE INDEX 0.77 (< OR =4); POTASSIUM SERUM 3.5 MMOL/L (3.5-5.1); SODIUM LEVEL 140 MMOL/L (136-145); TOTAL PROTEIN 7.3 G/DL (5.7-8.2)
[2023-02-25 18:09] LABS: PROCALCITONIN 0.22 ng/ml
[2023-02-25] MEDS ORDERED: LINEZOLID 600 MG in IV 1 EA IV ONE (19:00)
[2023-02-25] MEDS ORDERED: OXYC10TA12 PO (20:29)
[2023-02-25] MEDS ORDERED: AMLO1TAB24 PO (20:29)
[2023-02-25] MEDS ORDERED: SODI1TAB12 PO (20:29)
[2023-02-25] MEDS ORDERED: ACET-683 PO (20:31)
[2023-02-25] MEDS ORDERED: COMBAER6 INH (20:31)
[2023-02-25] MEDS ORDERED: HOME MED LIST COMPLETE! XX SCH (20:35)
[2023-02-26] VITALS (7 sets, daily range): BP systolic 119–149; BP diastolic 57–65; TEMP 97.2–98; O2SAT 94–96
[2023-02-26] MEDS ORDERED: ACETAMINOPHEN TAB 650MG DOSE (2X325MG) PO PRN (00:05)
[2023-02-26] MEDS ORDERED: SENNA 8.6 MG TAB (SENOKOT) PO PRN (00:05)
[2023-02-26] MEDS ORDERED: ALBUTEROL SULFATE 2.5MG/0.5ML INH NEB SOLN NEB PRN (00:05)
[2023-02-26] MEDS: levETIRAcetam 250MG TABLET (KEPPRA) PO SCH ×3 (01:00→21:00)
[2023-02-26] MEDS: oxyCODONE 5MG TAB PO PRN ×3 (01:01→14:27)
[2023-02-26] MEDS: amLODIPine 5 MG TAB PO SCH ×2 (01:01→21:02)
[2023-02-26] MEDS: ATORVASTATIN 20 MG TAB PO SCH ×2 (01:26→21:02)
[2023-02-26] MEDS: LACOSAMIDE 50 MG TAB (VIMPAT) PO SCH ×3 (01:26→20:59)
[2023-02-26] MEDS: IPRATROPIUM 0.5MG/ALBUTEROL 2.5MG INH SOL UD 3ML (DUONEB) NEB SCH ×4 (01:31→19:02)
[2023-02-26] MEDS: CLINDAMYCIN 150MG CAPSULE PO SCH ×4 (01:33→21:00)
[2023-02-26] MEDS: LEVOTHYROXINE 112MCG TABLET (0.112MG) PO SCH (05:04)
[2023-02-26 05:57] LABS: BLOOD UREA NITROGEN 15 MG/DL (9-23); CALCIUM LEVEL 8.5 MG/DL (8.3-10.6); CARBON DIOXIDE LEVEL 25 MMOL/L (20-31); CHLORIDE LEVEL 105 MMOL/L (98-107); GLOMERULAR FILTRATION RATE > 60.0 (>39); GLUCOSE, FASTING 98 MG/DL (74-106); POTASSIUM SERUM 3.5 MMOL/L (3.5-5.1); SODIUM LEVEL 141 MMOL/L (136-145)
[2023-02-26] MEDS ORDERED: HEPARIN SOD (PORCINE) 5000UNITS/ML 1ML VIAL/SYRINGE SC SCH (06:00)
[2023-02-26] MEDS: SERTRALINE 100 MG TAB PO SCH ×2 (08:56→21:00)
[2023-02-26] MEDS: FAMOTIDINE 20 MG TAB PO SCH ×2 (08:56→21:00)
[2023-02-26] MEDS: oxyCODONE 5MG TAB PO SCH ×2 (08:58→21:01)
[2023-02-26] MEDS ORDERED: COMBIVENT RESPIMAT 100-20MCG INHALER 4GM INH PRN (09:55)
[2023-02-26 10:26] LABS: CPK CREATINE PHOSPHOKINASE 287 U/L (34-145)
[2023-02-26] MEDS: LACTOBACILLUS ACIDOPHILUS CAP (BACID) PO SCH (11:15)
[2023-02-26] MEDS: ALPRAZolam 0.5 MG TAB PO PRN (11:15)
[2023-02-26] MEDS: RIVAROXABAN 10MG TAB (XARELTO) PO SCH (17:17)
[2023-02-26] MEDS: MONTELUKAST 10 MG TAB PO SCH (20:59)
[2023-02-26] MEDS: CETIRIZINE (ZyrTEC) 10 MG TAB PO SCH (21:00)
[2023-02-26] MEDS: PROPRANOLOL 60MG LA CAP PO SCH (21:01)
[2023-02-27 00:18] VITALS: BP 100/50; TEMP 97.2; O2SAT 95
[2023-02-27] MEDS: IPRATROPIUM 0.5MG/ALBUTEROL 2.5MG INH SOL UD 3ML (DUONEB) NEB SCH ×3 (01:39→13:27)
[2023-02-27] MEDS: oxyCODONE 5MG TAB PO PRN (02:33)
[2023-02-27 04:06] VITALS: BP 101/52; TEMP 97.4; O2SAT 94
[2023-02-27] MEDS: LEVOTHYROXINE 112MCG TABLET (0.112MG) PO SCH (05:53)
[2023-02-27] MEDS: CLINDAMYCIN 150MG CAPSULE PO SCH ×3 (05:53→21:02)
[2023-02-27 06:31] LABS: BASO % 0.4 % (0.0-1.0); EOS # 0.2 10^3/uL (0.0-0.5); EOS % 4.8 % (0.0-3.0); LYMPH # 1.4 10^3/uL (1.5-5.0); LYMPH % 29.4 % (24.0-44.0); MEAN CORPUSCULAR HEMOGLOBIN 30.1 pg (27.0-33.0); MEAN CORPUSCULAR HGB CONC 32.8 g/dl (32.0-36.5); MEAN CORPUSCULAR VOLUME 91.8 fl (80.0-96.0); MONO # 0.7 10^3/uL (0.0-0.8); MONO % 15.5 % (2.0-8.0); NEUTROPHILS # 2.3 10^3/uL (1.5-8.5); NEUTROPHILS % 49.5 % (36.0-66.0); PLATELET COUNT, AUTOMATED 245 10^3/uL (150-450); RED BLOOD COUNT 3.16 10^6/uL (4.00-5.40); WHITE BLOOD COUNT 4.6 10^3/uL (4.0-10.0)
[2023-02-27 07:05] LABS: HEMOGLOBIN 9.5 g/dl (12.0-15.5)
[2023-02-27 07:08] LABS: CREATININE FOR GFR 1.14 MG/DL (0.55-1.30); POTASSIUM SERUM 3.7 MMOL/L (3.5-5.1)
[2023-02-27 07:51] LABS: HEMATOCRIT 30.2 % (36.0-47.0); HEMOGLOBIN 9.9 g/dl (12.0-15.5)
[2023-02-27 08:22] VITALS: BP 132/58; TEMP 97.5; O2SAT 97
[2023-02-27] MEDS ORDERED: ENOXAPARIN 40MG/0.4ML SYRINGE (J1650 PER 10MG) SC SCH (09:00)
[2023-02-27] MEDS: ALPRAZolam 0.5 MG TAB PO PRN ×2 (09:31→19:10)
[2023-02-27] MEDS: BENZONATATE 100MG CAPSULE PO PRN (09:31)
[2023-02-27] MEDS: LACOSAMIDE 50 MG TAB (VIMPAT) PO SCH ×2 (09:31→21:02)
[2023-02-27] MEDS: MIRALAX *UNIT DOSE* 17GM PACKET PO SCH (09:31)
[2023-02-27] MEDS: LACTOBACILLUS ACIDOPHILUS CAP (BACID) PO SCH (09:32)
[2023-02-27] MEDS: levETIRAcetam 250MG TABLET (KEPPRA) PO SCH ×2 (09:32→21:03)
[2023-02-27] MEDS: oxyCODONE 5MG TAB PO SCH ×2 (09:32→21:03)
[2023-02-27] MEDS: SERTRALINE 100 MG TAB PO SCH ×2 (09:32→21:04)
[2023-02-27] MEDS: FAMOTIDINE 20 MG TAB PO SCH ×2 (09:32→21:04)
[2023-02-27 11:47] VITALS: BP 113/53; TEMP 98.1; O2SAT 96
[2023-02-27] MEDS ORDERED: FOSFOMYCIN TROMETHAMINE 3 GM POWDER PACKET (MONUROL) PO ONE (16:00)
[2023-02-27 16:08] VITALS: BP 130/60; TEMP 98.1; O2SAT 95
[2023-02-27] MEDS: RIVAROXABAN 10MG TAB (XARELTO) PO SCH (19:07)
[2023-02-27] MEDS: IPRATROPIUM 0.5MG/ALBUTEROL 2.5MG INH SOL UD 3ML (DUONEB) NEB PRN (19:41)
[2023-02-27 19:50] VITALS: BP 138/65; TEMP 96.9; O2SAT 97
[2023-02-27] MEDS: PROPRANOLOL 60MG LA CAP PO SCH (21:02)
[2023-02-27] MEDS: zolPIDEM TARTRATE 5 MG TAB PO SCH (21:03)
[2023-02-27] MEDS: ATORVASTATIN 20 MG TAB PO SCH (21:04)
[2023-02-27] MEDS: amLODIPine 5 MG TAB PO SCH (21:04)
[2023-02-27] MEDS: CETIRIZINE (ZyrTEC) 10 MG TAB PO SCH (21:04)
[2023-02-27] MEDS: MONTELUKAST 10 MG TAB PO SCH (21:04)
[2023-02-28] VITALS (7 sets, daily range): BP systolic 127–165; BP diastolic 56–70; TEMP 96.8–98.3; O2SAT 94–97
[2023-02-28] MEDS: ALPRAZolam 0.5 MG TAB PO PRN ×2 (04:24→16:39)
[2023-02-28] MEDS: oxyCODONE 5MG TAB PO PRN ×2 (04:25→13:49)
[2023-02-28 05:21] LABS: BASO % 0.6 % (0.0-1.0); EOS # 0.3 10^3/uL (0.0-0.5); EOS % 5.7 % (0.0-3.0); HEMATOCRIT 31.1 % (36.0-47.0); LYMPH # 1.4 10^3/uL (1.5-5.0); MEAN CORPUSCULAR HEMOGLOBIN 29.3 pg (27.0-33.0); MEAN CORPUSCULAR HGB CONC 32.2 g/dl (32.0-36.5); MEAN CORPUSCULAR VOLUME 91.2 fl (80.0-96.0); MONO # 0.7 10^3/uL (0.0-0.8); MONO % 13.5 % (2.0-8.0); NEUTROPHILS # 2.5 10^3/uL (1.5-8.5); NEUTROPHILS % 51.8 % (36.0-66.0); PLATELET COUNT, AUTOMATED 277 10^3/uL (150-450); RED BLOOD COUNT 3.41 10^6/uL (4.00-5.40); WHITE BLOOD COUNT 4.9 10^3/uL (4.0-10.0)
[2023-02-28 05:31] LABS: CREATININE FOR GFR 1.05 MG/DL (0.55-1.30); POTASSIUM SERUM 3.9 MMOL/L (3.5-5.1)
[2023-02-28] MEDS: LEVOTHYROXINE 112MCG TABLET (0.112MG) PO SCH (06:16)
[2023-02-28] MEDS: MIRALAX *UNIT DOSE* 17GM PACKET PO SCH (09:00)
[2023-02-28] MEDS: levETIRAcetam 250MG TABLET (KEPPRA) PO SCH ×2 (10:12→21:17)
[2023-02-28] MEDS: FAMOTIDINE 20 MG TAB PO SCH ×2 (10:12→21:17)
[2023-02-28] MEDS: LACOSAMIDE 50 MG TAB (VIMPAT) PO SCH ×2 (10:12→21:18)
[2023-02-28] MEDS: CLINDAMYCIN 150MG CAPSULE PO SCH ×3 (10:12→21:17)
[2023-02-28] MEDS: LACTOBACILLUS ACIDOPHILUS CAP (BACID) PO SCH (10:12)
[2023-02-28] MEDS: BENZONATATE 100MG CAPSULE PO PRN (10:12)
[2023-02-28] MEDS: SERTRALINE 100 MG TAB PO SCH ×2 (10:12→21:17)
[2023-02-28] MEDS: oxyCODONE 5MG TAB PO SCH ×2 (10:13→21:18)
[2023-02-28] MEDS: RIVAROXABAN 10MG TAB (XARELTO) PO SCH (19:02)
[2023-02-28] MEDS: MONTELUKAST 10 MG TAB PO SCH (21:17)
[2023-02-28] MEDS: PROPRANOLOL 60MG LA CAP PO SCH (21:17)
[2023-02-28] MEDS: CETIRIZINE (ZyrTEC) 10 MG TAB PO SCH (21:17)
[2023-02-28] MEDS: zolPIDEM TARTRATE 5 MG TAB PO SCH (21:18)
[2023-02-28] MEDS: ATORVASTATIN 20 MG TAB PO SCH (21:18)
[2023-02-28] MEDS: amLODIPine 5 MG TAB PO SCH (21:18)
[2023-03-01] VITALS (9 sets, daily range): BP systolic 135–177; BP diastolic 60–82; TEMP 96.7–99.7; O2SAT 92–99
[2023-03-01] MEDS: oxyCODONE 5MG TAB PO PRN ×2 (01:43→13:26)
[2023-03-01 04:58] LABS: BASO % 0.5 % (0.0-1.0); EOS # 0.2 10^3/uL (0.0-0.5); EOS % 2.7 % (0.0-3.0); HEMATOCRIT 31.6 % (36.0-47.0); HEMOGLOBIN 10.3 g/dl (12.0-15.5); LYMPH # 1.3 10^3/uL (1.5-5.0); MEAN CORPUSCULAR HEMOGLOBIN 29.5 pg (27.0-33.0); MEAN CORPUSCULAR HGB CONC 32.6 g/dl (32.0-36.5); MEAN CORPUSCULAR VOLUME 90.5 fl (80.0-96.0); MONO # 0.7 10^3/uL (0.0-0.8); MONO % 11.7 % (2.0-8.0); NEUTROPHILS # 3.6 10^3/uL (1.5-8.5); NEUTROPHILS % 61.8 % (36.0-66.0); PLATELET COUNT, AUTOMATED 280 10^3/uL (150-450); RED BLOOD COUNT 3.49 10^6/uL (4.00-5.40); WHITE BLOOD COUNT 5.8 10^3/uL (4.0-10.0)
[2023-03-01 05:26] LABS: BLOOD UREA NITROGEN 17 MG/DL (9-23); CALCIUM LEVEL 8.4 MG/DL (8.3-10.6); CARBON DIOXIDE LEVEL 24 MMOL/L (20-31); CHLORIDE LEVEL 104 MMOL/L (98-107); CREATININE FOR GFR 0.91 MG/DL (0.55-1.30); GLOMERULAR FILTRATION RATE > 60.0 (>39); GLUCOSE, FASTING 102 MG/DL (74-106); POTASSIUM SERUM 4.2 MMOL/L (3.5-5.1); SODIUM LEVEL 137 MMOL/L (136-145)
[2023-03-01] MEDS: ALPRAZolam 0.5 MG TAB PO PRN ×3 (06:18→23:43)
[2023-03-01] MEDS: LEVOTHYROXINE 112MCG TABLET (0.112MG) PO SCH (06:20)
[2023-03-01] MEDS: CLINDAMYCIN 150MG CAPSULE PO SCH ×3 (08:57→20:30)
[2023-03-01] MEDS: BENZONATATE 100MG CAPSULE PO PRN ×2 (08:57→20:31)
[2023-03-01] MEDS: LACOSAMIDE 50 MG TAB (VIMPAT) PO SCH ×2 (08:57→20:31)
[2023-03-01] MEDS: LACTOBACILLUS ACIDOPHILUS CAP (BACID) PO SCH (08:57)
[2023-03-01] MEDS: SERTRALINE 100 MG TAB PO SCH ×2 (08:57→20:31)
[2023-03-01] MEDS: levETIRAcetam 250MG TABLET (KEPPRA) PO SCH ×2 (08:57→20:30)
[2023-03-01] MEDS: FAMOTIDINE 20 MG TAB PO SCH ×2 (08:57→20:31)
[2023-03-01] MEDS: oxyCODONE 5MG TAB PO SCH ×2 (08:58→20:32)
[2023-03-01] MEDS: MIRALAX *UNIT DOSE* 17GM PACKET PO SCH (08:59)
[2023-03-01] MEDS: CIPRODEX OTIC SUSP 7.5ML AD SCH ×3 (09:00→20:36)
[2023-03-01] MEDS: TORSEMIDE 10 MG TABLET PO SCH (09:58)
[2023-03-01] MEDS: CEPACOL LOZENGE PO PRN (13:26)
[2023-03-01] MEDS ORDERED: **hydrALAZINE HCL** 25 MG TAB PO PRN (16:20)
[2023-03-01] MEDS: RIVAROXABAN 10MG TAB (XARELTO) PO SCH (17:04)
[2023-03-01] MEDS: MONTELUKAST 10 MG TAB PO SCH (20:30)
[2023-03-01] MEDS: zolPIDEM TARTRATE 5 MG TAB PO SCH (20:30)
[2023-03-01] MEDS: ATORVASTATIN 20 MG TAB PO SCH (20:30)
[2023-03-01] MEDS: CETIRIZINE (ZyrTEC) 10 MG TAB PO SCH (20:31)
[2023-03-01] MEDS: PROPRANOLOL 60MG LA CAP PO SCH (20:34)
[2023-03-02] MEDS: oxyCODONE 5MG TAB PO PRN ×3 (05:38→17:45)
[2023-03-02] MEDS: LEVOTHYROXINE 112MCG TABLET (0.112MG) PO SCH (05:38)
[2023-03-02] MEDS: CEPACOL LOZENGE PO PRN ×3 (05:45→17:47)
[2023-03-02 07:21] VITALS: BP 154/67; TEMP 97.2; O2SAT 94
[2023-03-02] MEDS: levETIRAcetam 250MG TABLET (KEPPRA) PO SCH ×2 (08:30→20:56)
[2023-03-02] MEDS: LACOSAMIDE 50 MG TAB (VIMPAT) PO SCH ×2 (08:30→20:56)
[2023-03-02] MEDS: TORSEMIDE 10 MG TABLET PO SCH (08:30)
[2023-03-02] MEDS: FAMOTIDINE 20 MG TAB PO SCH ×2 (08:31→20:56)
[2023-03-02] MEDS: MIRALAX *UNIT DOSE* 17GM PACKET PO SCH (08:31)
[2023-03-02] MEDS: CLINDAMYCIN 150MG CAPSULE PO SCH ×3 (08:31→20:56)
[2023-03-02] MEDS: SERTRALINE 100 MG TAB PO SCH ×2 (08:31→20:56)
[2023-03-02] MEDS: oxyCODONE 5MG TAB PO SCH ×2 (08:31→20:58)
[2023-03-02] MEDS: LACTOBACILLUS ACIDOPHILUS CAP (BACID) PO SCH (08:31)
[2023-03-02] MEDS: CIPRODEX OTIC SUSP 7.5ML AD SCH ×2 (08:31→21:00)
[2023-03-02] MEDS: ALPRAZolam 0.5 MG TAB PO PRN ×2 (09:28→22:01)
[2023-03-02 09:30] VITALS: BP 130/58; TEMP 97.7; O2SAT 96
[2023-03-02] MEDS: RIVAROXABAN 10MG TAB (XARELTO) PO SCH (17:45)
[2023-03-02] MEDS: PROPRANOLOL 60MG LA CAP PO SCH (20:55)
[2023-03-02] MEDS: zolPIDEM TARTRATE 5 MG TAB PO SCH (20:56)
[2023-03-02] MEDS: CETIRIZINE (ZyrTEC) 10 MG TAB PO SCH (20:57)
[2023-03-02] MEDS: MONTELUKAST 10 MG TAB PO SCH (20:57)
[2023-03-02] MEDS: ATORVASTATIN 20 MG TAB PO SCH (20:57)
[2023-03-03] MEDS: oxyCODONE 5MG TAB PO PRN ×2 (03:35→15:00)
[2023-03-03] MEDS: LEVOTHYROXINE 112MCG TABLET (0.112MG) PO SCH (05:14)
[2023-03-03 05:16] VITALS: BP 144/66; TEMP 97.3; O2SAT 94
[2023-03-03] MEDS: MIRALAX *UNIT DOSE* 17GM PACKET PO SCH (09:00)
[2023-03-03] MEDS: ALPRAZolam 0.5 MG TAB PO PRN ×3 (09:27→20:31)
[2023-03-03] MEDS: CEPACOL LOZENGE PO PRN ×2 (09:27→14:59)
[2023-03-03] MEDS: SERTRALINE 100 MG TAB PO SCH ×2 (09:28→20:29)
[2023-03-03] MEDS: levETIRAcetam 250MG TABLET (KEPPRA) PO SCH ×2 (09:28→20:31)
[2023-03-03] MEDS: oxyCODONE 5MG TAB PO SCH ×2 (09:29→20:29)
[2023-03-03] MEDS: LACTOBACILLUS ACIDOPHILUS CAP (BACID) PO SCH (09:30)
[2023-03-03] MEDS: FAMOTIDINE 20 MG TAB PO SCH ×2 (09:30→20:31)
[2023-03-03] MEDS: CLINDAMYCIN 150MG CAPSULE PO SCH ×3 (09:30→20:28)
[2023-03-03] MEDS: TORSEMIDE 10 MG TABLET PO SCH (09:30)
[2023-03-03] MEDS: LACOSAMIDE 50 MG TAB (VIMPAT) PO SCH ×2 (09:30→20:31)
[2023-03-03] MEDS: CIPRODEX OTIC SUSP 7.5ML AD SCH ×2 (09:31→20:32)
[2023-03-03] MEDS: PROPRANOLOL 60MG LA CAP PO SCH (20:30)
[2023-03-03] MEDS: ATORVASTATIN 20 MG TAB PO SCH (20:30)
[2023-03-03] MEDS: RIVAROXABAN 10MG TAB (XARELTO) PO SCH (20:31)
[2023-03-03] MEDS: CETIRIZINE (ZyrTEC) 10 MG TAB PO SCH (20:31)
[2023-03-03] MEDS: zolPIDEM TARTRATE 5 MG TAB PO SCH (20:31)
[2023-03-03] MEDS: MONTELUKAST 10 MG TAB PO SCH (20:32)
[2023-03-04] MEDS: oxyCODONE 5MG TAB PO PRN ×3 (01:43→17:46)
[2023-03-04] MEDS: LEVOTHYROXINE 112MCG TABLET (0.112MG) PO SCH (05:52)
[2023-03-04 06:00] VITALS: BP 139/62; TEMP 97.2; O2SAT 93
[2023-03-04] MEDS: LACOSAMIDE 50 MG TAB (VIMPAT) PO SCH ×2 (09:09→21:22)
[2023-03-04] MEDS: MIRALAX *UNIT DOSE* 17GM PACKET PO SCH (09:09)
[2023-03-04] MEDS: TORSEMIDE 10 MG TABLET PO SCH (09:09)
[2023-03-04] MEDS: SERTRALINE 100 MG TAB PO SCH ×2 (09:09→21:28)
[2023-03-04] MEDS: levETIRAcetam 250MG TABLET (KEPPRA) PO SCH ×2 (09:10→21:28)
[2023-03-04] MEDS: ALPRAZolam 0.5 MG TAB PO PRN ×2 (09:10→14:18)
[2023-03-04] MEDS: CLINDAMYCIN 150MG CAPSULE PO SCH ×3 (09:10→21:23)
[2023-03-04] MEDS: oxyCODONE 5MG TAB PO SCH ×2 (09:11→21:27)
[2023-03-04] MEDS: LACTOBACILLUS ACIDOPHILUS CAP (BACID) PO SCH (09:11)
[2023-03-04] MEDS: FAMOTIDINE 20 MG TAB PO SCH ×2 (09:11→21:23)
[2023-03-04] MEDS: CIPRODEX OTIC SUSP 7.5ML AD SCH ×2 (09:12→21:28)
[2023-03-04] MEDS: CEPACOL LOZENGE PO PRN (14:18)
[2023-03-04] MEDS: IPRATROPIUM 0.5MG/ALBUTEROL 2.5MG INH SOL UD 3ML (DUONEB) NEB PRN (15:37)
[2023-03-04] MEDS: RIVAROXABAN 10MG TAB (XARELTO) PO SCH (17:45)
[2023-03-04] MEDS: zolPIDEM TARTRATE 5 MG TAB PO SCH (21:23)
[2023-03-04] MEDS: PROPRANOLOL 60MG LA CAP PO SCH (21:26)
[2023-03-04 21:27] VITALS: BP 117/53
[2023-03-04] MEDS: CETIRIZINE (ZyrTEC) 10 MG TAB PO SCH (21:27)
[2023-03-04] MEDS: ATORVASTATIN 20 MG TAB PO SCH (21:28)
[2023-03-04] MEDS: MONTELUKAST 10 MG TAB PO SCH (21:28)
[2023-03-05] MEDS: ALPRAZolam 0.5 MG TAB PO PRN (04:36)
[2023-03-05] MEDS: oxyCODONE 5MG TAB PO PRN (04:37)
[2023-03-05] MEDS: LEVOTHYROXINE 112MCG TABLET (0.112MG) PO SCH (05:57)
[2023-03-05 06:00] VITALS: BP 136/72; TEMP 97.2; O2SAT 99
[2023-03-05] MEDS: MIRALAX *UNIT DOSE* 17GM PACKET PO SCH (09:11)
[2023-03-05] MEDS: SERTRALINE 100 MG TAB PO SCH (09:12)
[2023-03-05] MEDS: LACOSAMIDE 50 MG TAB (VIMPAT) PO SCH (09:12)
[2023-03-05] MEDS: FAMOTIDINE 20 MG TAB PO SCH (09:12)
[2023-03-05] MEDS: LACTOBACILLUS ACIDOPHILUS CAP (BACID) PO SCH (09:12)
[2023-03-05] MEDS: TORSEMIDE 10 MG TABLET PO SCH (09:12)
[2023-03-05] MEDS: oxyCODONE 5MG TAB PO SCH (09:12)
[2023-03-05] MEDS: levETIRAcetam 250MG TABLET (KEPPRA) PO SCH (09:12)
[2023-03-05] MEDS: CIPRODEX OTIC SUSP 7.5ML AD SCH (09:13)
[2023-03-05] MEDS ORDERED: CIPR7.5D2 AD (11:46)
[2023-03-05] MEDS ORDERED: MIRA1POW3 PO (11:46)
[2023-03-05] MEDS ORDERED: TORS10TA3 PO (11:46)
[2023-03-05] MEDS ORDERED: AMLO10TA PO (11:46)
== END 2023-03-05 14:30 | DRG 312 ==
LOC: EDBD 16:14 → M ED 16:14 → M ED INP 23:18 → ENRESERV 23:54 → M PCU 02-26 01:09 → M MS5PR 03-02 09:09
PROVIDERS: ADMIT Internal Medicine; ATTEND Internal Medicine
PROC: B246ZZZ Ultrasonography of Right and Left Heart (ICD-10-PCS; principal; 2023-02-28)
DX: R55 Syncope and collapse (principal); J18.9 Pneumonia, unspecified organism; L03.115 Cellulitis of right lower limb; N39.0 Urinary tract infection, site not specified; I50.32 Chronic diastolic (congestive) heart failure; G40.909 Epilepsy, unspecified, not intractable, without status epilepticus; J45.909 Unspecified asthma, uncomplicated; I11.0 Hypertensive heart disease with heart failure; E78.5 Hyperlipidemia, unspecified; F41.9 Anxiety disorder, unspecified; M54.9 Dorsalgia, unspecified; E03.9 Hypothyroidism, unspecified; E66.01 Morbid (severe) obesity due to excess calories; G89.29 Other chronic pain; F32.A Depression, unspecified; I27.20 Pulmonary hypertension, unspecified; B96.20 Unspecified Escherichia coli [E. coli] as the cause of diseases classified elsewhere; H60.91 Unspecified otitis externa, right ear; R26.89 Other abnormalities of gait and mobility; Z89.512 Acquired absence of left leg below knee; Z79.891 Long term (current) use of opiate analgesic; Z79.890 Hormone replacement therapy; Z79.899 Other long term (current) drug therapy; Z88.0 Allergy status to penicillin; Z88.1 Allergy status to other antibiotic agents; Z88.2 Allergy status to sulfonamides; Z88.6 Allergy status to analgesic agent; Z88.8 Allergy status to other drugs, medicaments and biological substances; Z20.822 Contact with and (suspected) exposure to COVID-19

== ENCOUNTER 2023-06-21 03:23 | Observation (INO) | payer MEDICARE, OTHER ==
[2023-06-21] VITALS (12 sets, daily range): BP systolic 145–165; BP diastolic 65–75; TEMP 96.8–97.3; O2SAT 89–98
[~2023-06-21] VITALS: Ht 165.1 cm; Wt 100.0 kg
[~2023-06-21 03:23] MED LIST changes: +ACET-683 PO; +AMLO10TA PO; +CIPR7.5D2 AD; +SODI1TAB12 PO; +TORS10TA3 PO
[2023-06-21 04:30] LABS: BASO % 0.5 % (0.0-1.0); EOS # 0.1 10^3/uL (0.0-0.5); HEMATOCRIT 35.6 % (36.0-47.0); HEMOGLOBIN 11.9 g/dl (12.0-15.5); LYMPH # 1.1 10^3/uL (1.5-5.0); LYMPH % 26.2 % (24.0-44.0); MEAN CORPUSCULAR HEMOGLOBIN 28.6 pg (27.0-33.0); MEAN CORPUSCULAR HGB CONC 33.4 g/dl (32.0-36.5); MEAN CORPUSCULAR VOLUME 85.6 fl (80.0-96.0); MONO # 0.5 10^3/uL (0.0-0.8); NEUTROPHILS # 2.4 10^3/uL (1.5-8.5); NEUTROPHILS % 57.8 % (36.0-66.0); PLATELET COUNT, AUTOMATED 270 10^3/uL (150-450); RED BLOOD COUNT 4.16 10^6/uL (4.00-5.40); WHITE BLOOD COUNT 4.1 10^3/uL (4.0-10.0)
[2023-06-21 04:37] LABS: ALBUMIN 3.6 G/DL (3.2-5.2); ALKALINE PHOSPHATASE 147 U/L (46-116); ALT/SGPT 17 U/L (7.0-40); AST/SGOT 16 U/L (<34); BILIRUBIN,DIRECT 0.1 MG/DL (<0.4); BILIRUBIN,TOTAL 0.4 MG/DL (0.3-1.2); BLOOD UREA NITROGEN 13 MG/DL (9-23); CALCIUM LEVEL 8.7 MG/DL (8.3-10.6); CARBON DIOXIDE LEVEL 27 MMOL/L (20-31); CHLORIDE LEVEL 102 MMOL/L (98-107); CK-MB VALUE MASS < 1.0 NG/ML (<3.6); CREATININE FOR GFR 0.79 MG/DL (0.55-1.30); GLOMERULAR FILTRATION RATE > 60.0 (>39); GLUCOSE, FASTING 112 MG/DL (74-106); POTASSIUM SERUM 3.1 MMOL/L (3.5-5.1); SODIUM LEVEL 140 MMOL/L (136-145); TOTAL PROTEIN 6.8 G/DL (5.7-8.2)
[2023-06-21 04:39] LABS: THYROID STIMULATING HORMONE 2.756 uIU/ML (0.55-4.78)
[2023-06-21 04:42] LABS: CPK CREATINE PHOSPHOKINASE 60 U/L (34-145); MB/CK RELATIVE INDEX 1.66 (< OR =4)
[2023-06-21 05:53] LABS: ABG BASE EXCESS 1.8 (-2.0-2.0); ABG HCO3 27.5 MMOL/L (22.0-26.0); ABG O2 SATURATION 98.3 % (95.0-99.0); ABG PARTIAL PRESSURE CO2 47.6 mmHg (35.0-45.0); ABG PARTIAL PRESSURE O2 128.3 mmHg (75.0-100.0); ABG STANDARD HCO3 26.1 MMOL/L. (22.0-26.0)
[2023-06-21] MEDS: LEVOTHYROXINE 112MCG TABLET (0.112MG) PO SCH (06:00)
[2023-06-21] MEDS ORDERED: OSELTAMIVIR PHOSPHATE 75 MG CAP (TAMIFLU) PO ONE (06:30)
[2023-06-21] MEDS ORDERED: MED REC IN PROGRESS XX SCH (08:40)
[2023-06-21] MEDS: MIRALAX *UNIT DOSE* 17GM PACKET PO SCH (09:00)
[2023-06-21] MEDS: TORSEMIDE 10 MG TABLET PO SCH (09:00)
[2023-06-21] MEDS ORDERED: COMBIVENT RESPIMAT 100-20MCG INHALER 4GM INH PRN (09:40)
[2023-06-21] MEDS ORDERED: PROP60CA PO (09:50)
[2023-06-21] MEDS ORDERED: HOME MED LIST COMPLETE! XX SCH (09:55)
[2023-06-21 10:54] LABS: PROCALCITONIN 0.07 ng/ml
[2023-06-21] MEDS ORDERED: SENNA 8.6 MG TAB (SENOKOT) PO PRN (11:00)
[2023-06-21] MEDS ORDERED: POTASSIUM CHLORIDE 10% LIQ 20MEQ/15ML UDC PO ONE (12:05)
[2023-06-21] MEDS: SERTRALINE 100 MG TAB PO SCH (12:39)
[2023-06-21] MEDS: FAMOTIDINE 20 MG TAB PO SCH ×2 (12:42→21:02)
[2023-06-21] MEDS: levETIRAcetam 250MG TABLET (KEPPRA) PO SCH ×2 (12:42→21:02)
[2023-06-21] MEDS: LACOSAMIDE 50 MG TAB (VIMPAT) PO SCH ×2 (12:43→21:14)
[2023-06-21] MEDS: ACETAMINOPHEN 500 MG TAB PO PRN ×2 (12:47→21:59)
[2023-06-21] MEDS: MAG SULF 1GM/100ML (MAG RUN) 1 GM in IV 1 EA IV SCH ×2 (12:50→16:17)
[2023-06-21] MEDS: COMBIVENT RESPIMAT 100-20MCG INHALER 4GM INH SCH ×2 (13:45→23:38)
[2023-06-21] MEDS: HEPARIN SOD (PORCINE) 5000UNITS/ML 1ML VIAL/SYRINGE SC SCH ×2 (16:18→22:26)
[2023-06-21] MEDS ORDERED: MAG SULF 1GM/100ML (MAG RUN) 1 GM in IV 1 EA IV SCH (17:00)
[2023-06-21] MEDS: ATORVASTATIN 20 MG TAB PO SCH (21:02)
[2023-06-21] MEDS: MONTELUKAST 10 MG TAB PO SCH (21:02)
[2023-06-21] MEDS: zolPIDEM TARTRATE 5 MG TAB PO SCH (21:02)
[2023-06-21] MEDS: CETIRIZINE (ZyrTEC) 10 MG TAB PO SCH (21:02)
[2023-06-21] MEDS: PROPRANOLOL 60MG LA CAP PO SCH (22:05)
[2023-06-22] VITALS (10 sets, daily range): BP systolic 156–182; BP diastolic 68–78; TEMP 96–97.5; O2SAT 93–98
[2023-06-22] MEDS: LEVOTHYROXINE 112MCG TABLET (0.112MG) PO SCH (05:43)
[2023-06-22] MEDS: HEPARIN SOD (PORCINE) 5000UNITS/ML 1ML VIAL/SYRINGE SC SCH ×3 (05:43→21:29)
[2023-06-22] MEDS: cefTRIAXone SOD 2 GM in D5W MINI-BAG PLUS 50 ML IV SCH (05:43)
[2023-06-22 06:26] LABS: BASO % 0.6 % (0.0-1.0); EOS # 0.1 10^3/uL (0.0-0.5); EOS % 1.5 % (0.0-3.0); HEMATOCRIT 34.3 % (36.0-47.0); HEMOGLOBIN 11.4 g/dl (12.0-15.5); LYMPH # 0.9 10^3/uL (1.5-5.0); LYMPH % 25.8 % (24.0-44.0); MEAN CORPUSCULAR HEMOGLOBIN 28.1 pg (27.0-33.0); MEAN CORPUSCULAR HGB CONC 33.2 g/dl (32.0-36.5); MEAN CORPUSCULAR VOLUME 84.5 fl (80.0-96.0); MONO # 0.3 10^3/uL (0.0-0.8); MONO % 9.4 % (2.0-8.0); NEUTROPHILS # 2.1 10^3/uL (1.5-8.5); NEUTROPHILS % 62.4 % (36.0-66.0); PLATELET COUNT, AUTOMATED 269 10^3/uL (150-450); RED BLOOD COUNT 4.06 10^6/uL (4.00-5.40); WHITE BLOOD COUNT 3.3 10^3/uL (4.0-10.0)
[2023-06-22 06:45] LABS: BLOOD UREA NITROGEN 9 MG/DL (9-23); CALCIUM LEVEL 8.6 MG/DL (8.3-10.6); CARBON DIOXIDE LEVEL 28 MMOL/L (20-31); CHLORIDE LEVEL 104 MMOL/L (98-107); CREATININE FOR GFR 0.64 MG/DL (0.55-1.30); GLOMERULAR FILTRATION RATE > 60.0 (>39); GLUCOSE, FASTING 106 MG/DL (74-106); POTASSIUM SERUM 3.3 MMOL/L (3.5-5.1); SODIUM LEVEL 142 MMOL/L (136-145)
[2023-06-22] MEDS: COMBIVENT RESPIMAT 100-20MCG INHALER 4GM INH SCH ×3 (08:07→20:59)
[2023-06-22] MEDS: predniSONE 20 MG TAB PO SCH (08:55)
[2023-06-22] MEDS: TORSEMIDE 10 MG TABLET PO SCH (08:55)
[2023-06-22] MEDS: levETIRAcetam 250MG TABLET (KEPPRA) PO SCH ×2 (08:56→21:28)
[2023-06-22] MEDS: SERTRALINE 100 MG TAB PO SCH (08:56)
[2023-06-22] MEDS: LACOSAMIDE 50 MG TAB (VIMPAT) PO SCH ×2 (08:56→21:29)
[2023-06-22] MEDS: FAMOTIDINE 20 MG TAB PO SCH ×2 (08:56→21:29)
[2023-06-22] MEDS: MIRALAX *UNIT DOSE* 17GM PACKET PO SCH (08:56)
[2023-06-22] MEDS: oxyCODONE 5MG TAB PO PRN ×2 (14:26→21:28)
[2023-06-22] MEDS: ACETAMINOPHEN 500 MG TAB PO PRN (14:29)
[2023-06-22] MEDS ORDERED: **hydrALAZINE** 50 MG TAB PO ONE (16:30)
[2023-06-22] MEDS: PROPRANOLOL 60MG LA CAP PO SCH (21:00)
[2023-06-22] MEDS: CETIRIZINE (ZyrTEC) 10 MG TAB PO SCH (21:27)
[2023-06-22] MEDS: MONTELUKAST 10 MG TAB PO SCH (21:28)
[2023-06-22] MEDS: zolPIDEM TARTRATE 5 MG TAB PO SCH (21:28)
[2023-06-22] MEDS: ATORVASTATIN 20 MG TAB PO SCH (21:28)
[2023-06-23] VITALS: BP 155/70; TEMP 98.1; O2SAT 94
[2023-06-23] MEDS: **hydrALAZINE HCL** 25 MG TAB PO SCH ×3 (00:02→15:07)
[2023-06-23] MEDS: COMBIVENT RESPIMAT 100-20MCG INHALER 4GM INH SCH ×4 (02:00→20:39)
[2023-06-23 04:00] VITALS: BP 150/74; TEMP 97.6; O2SAT 94
[2023-06-23] MEDS: cefTRIAXone SOD 2 GM in D5W MINI-BAG PLUS 50 ML IV SCH (05:15)
[2023-06-23] MEDS: LEVOTHYROXINE 112MCG TABLET (0.112MG) PO SCH (06:18)
[2023-06-23] MEDS: HEPARIN SOD (PORCINE) 5000UNITS/ML 1ML VIAL/SYRINGE SC SCH ×3 (06:18→21:15)
[2023-06-23] MEDS: oxyCODONE 5MG TAB PO PRN ×3 (06:19→21:14)
[2023-06-23 06:22] LABS: BASO % 0.4 % (0.0-1.0); HEMATOCRIT 35.4 % (36.0-47.0); HEMOGLOBIN 11.8 g/dl (12.0-15.5); LYMPH # 1.3 10^3/uL (1.5-5.0); LYMPH % 29.2 % (24.0-44.0); MEAN CORPUSCULAR HGB CONC 33.3 g/dl (32.0-36.5); MEAN CORPUSCULAR VOLUME 84.1 fl (80.0-96.0); MONO # 0.4 10^3/uL (0.0-0.8); MONO % 9.4 % (2.0-8.0); NEUTROPHILS # 2.7 10^3/uL (1.5-8.5); NEUTROPHILS % 60.3 % (36.0-66.0); PLATELET COUNT, AUTOMATED 323 10^3/uL (150-450); RED BLOOD COUNT 4.21 10^6/uL (4.00-5.40); WHITE BLOOD COUNT 4.5 10^3/uL (4.0-10.0)
[2023-06-23 06:47] LABS: BLOOD UREA NITROGEN 12 MG/DL (9-23); CALCIUM LEVEL 9.1 MG/DL (8.3-10.6); CARBON DIOXIDE LEVEL 27 MMOL/L (20-31); CHLORIDE LEVEL 102 MMOL/L (98-107); CREATININE FOR GFR 0.78 MG/DL (0.55-1.30); GLOMERULAR FILTRATION RATE > 60.0 (>39); GLUCOSE, FASTING 105 MG/DL (74-106); POTASSIUM SERUM 3.1 MMOL/L (3.5-5.1); SODIUM LEVEL 139 MMOL/L (136-145)
[2023-06-23 07:49] LABS: MAGNESIUM LEVEL 1.6 MG/DL (1.8-2.4)
[2023-06-23] MEDS: MIRALAX *UNIT DOSE* 17GM PACKET PO SCH (09:00)
[2023-06-23] MEDS: POTASSIUM CHLORIDE 10MEQ SR TABLET PO SCH (09:27)
[2023-06-23] MEDS: LACOSAMIDE 50 MG TAB (VIMPAT) PO SCH ×2 (09:27→21:14)
[2023-06-23] MEDS: predniSONE 20 MG TAB PO SCH (09:28)
[2023-06-23] MEDS: SERTRALINE 100 MG TAB PO SCH (09:29)
[2023-06-23] MEDS: TORSEMIDE 10 MG TABLET PO SCH (09:29)
[2023-06-23] MEDS: levETIRAcetam 250MG TABLET (KEPPRA) PO SCH ×2 (09:29→21:15)
[2023-06-23] MEDS: FAMOTIDINE 20 MG TAB PO SCH ×2 (09:29→21:15)
[2023-06-23] MEDS: POTASSIUM CHLORIDE 10MEQ SR TABLET PO ONE ×2 (09:36→12:12)
[2023-06-23 10:00] VITALS: BP 136/63; TEMP 98.6; O2SAT 97
[2023-06-23] MEDS: MAG SULF 1GM/100ML (MAG RUN) 1 GM in IV 1 EA IV SCH ×3 (12:10→15:06)
[2023-06-23 14:00] VITALS: BP 151/69; TEMP 98.2; O2SAT 95
[2023-06-23] MEDS: MAGNESIUM OXIDE 400MG TAB (MAG-OX) PO SCH ×2 (16:16→21:15)
[2023-06-23 16:25] VITALS: BP 150/74; TEMP 97.7; O2SAT 93
[2023-06-23] MEDS: ACETAMINOPHEN 500 MG TAB PO PRN (18:44)
[2023-06-23] MEDS: PROPRANOLOL 60MG LA CAP PO SCH (21:13)
[2023-06-23] MEDS: CEFDINIR 300 MG CAP (OMNICEF) PO SCH (21:14)
[2023-06-23] MEDS: CETIRIZINE (ZyrTEC) 10 MG TAB PO SCH (21:15)
[2023-06-23] MEDS: ATORVASTATIN 20 MG TAB PO SCH (21:15)
[2023-06-23] MEDS: zolPIDEM TARTRATE 5 MG TAB PO SCH (21:15)
[2023-06-23] MEDS: MONTELUKAST 10 MG TAB PO SCH (21:15)
[2023-06-24] VITALS: BP 160/82
[2023-06-24] MEDS: **hydrALAZINE HCL** 25 MG TAB PO SCH ×3 (00:15→15:03)
[2023-06-24] MEDS: COMBIVENT RESPIMAT 100-20MCG INHALER 4GM INH SCH ×5 (01:30→22:50)
[2023-06-24] MEDS: oxyCODONE 5MG TAB PO PRN ×2 (03:14→09:52)
[2023-06-24 05:18] VITALS: BP 156/70; TEMP 98; O2SAT 96
[2023-06-24] MEDS: HEPARIN SOD (PORCINE) 5000UNITS/ML 1ML VIAL/SYRINGE SC SCH ×3 (05:57→21:05)
[2023-06-24] MEDS: LEVOTHYROXINE 112MCG TABLET (0.112MG) PO SCH (05:57)
[2023-06-24 06:31] LABS: BASO % 0.4 % (0.0-1.0); HEMATOCRIT 37.2 % (36.0-47.0); HEMOGLOBIN 12.5 g/dl (12.0-15.5); LYMPH # 1.5 10^3/uL (1.5-5.0); LYMPH % 27.3 % (24.0-44.0); MEAN CORPUSCULAR HEMOGLOBIN 27.8 pg (27.0-33.0); MEAN CORPUSCULAR HGB CONC 33.6 g/dl (32.0-36.5); MEAN CORPUSCULAR VOLUME 82.7 fl (80.0-96.0); MONO # 0.6 10^3/uL (0.0-0.8); MONO % 10.5 % (2.0-8.0); NEUTROPHILS # 3.3 10^3/uL (1.5-8.5); NEUTROPHILS % 60.7 % (36.0-66.0); PLATELET COUNT, AUTOMATED 370 10^3/uL (150-450); WHITE BLOOD COUNT 5.4 10^3/uL (4.0-10.0)
[2023-06-24 06:52] LABS: BLOOD UREA NITROGEN 15 MG/DL (9-23); CALCIUM LEVEL 9.3 MG/DL (8.3-10.6); CARBON DIOXIDE LEVEL 28 MMOL/L (20-31); CHLORIDE LEVEL 100 MMOL/L (98-107); CREATININE FOR GFR 0.94 MG/DL (0.55-1.30); GLOMERULAR FILTRATION RATE > 60.0 (>39); GLUCOSE, FASTING 93 MG/DL (74-106); MAGNESIUM LEVEL 2.2 MG/DL (1.8-2.4); POTASSIUM SERUM 3.6 MMOL/L (3.5-5.1); SODIUM LEVEL 139 MMOL/L (136-145)
[2023-06-24] MEDS: MIRALAX *UNIT DOSE* 17GM PACKET PO SCH (08:24)
[2023-06-24] MEDS: TORSEMIDE 10 MG TABLET PO SCH (08:24)
[2023-06-24] MEDS: predniSONE 20 MG TAB PO SCH (08:24)
[2023-06-24] MEDS: levETIRAcetam 250MG TABLET (KEPPRA) PO SCH ×2 (08:24→21:04)
[2023-06-24] MEDS: CEFDINIR 300 MG CAP (OMNICEF) PO SCH ×2 (08:24→21:04)
[2023-06-24] MEDS: POTASSIUM CHLORIDE 10MEQ SR TABLET PO SCH (08:25)
[2023-06-24] MEDS: FAMOTIDINE 20 MG TAB PO SCH ×2 (08:26→21:05)
[2023-06-24] MEDS: LACOSAMIDE 50 MG TAB (VIMPAT) PO SCH ×2 (08:26→21:04)
[2023-06-24] MEDS: SERTRALINE 100 MG TAB PO SCH (08:26)
[2023-06-24] MEDS: MAGNESIUM OXIDE 400MG TAB (MAG-OX) PO SCH ×3 (08:26→21:05)
[2023-06-24] MEDS: MONTELUKAST 10 MG TAB PO SCH (21:00)
[2023-06-24] MEDS: PROPRANOLOL 60MG LA CAP PO SCH (21:04)
[2023-06-24] MEDS: ATORVASTATIN 20 MG TAB PO SCH (21:05)
[2023-06-24] MEDS: zolPIDEM TARTRATE 5 MG TAB PO SCH (21:05)
[2023-06-24] MEDS: CETIRIZINE (ZyrTEC) 10 MG TAB PO SCH (21:05)
[2023-06-25] VITALS: BP 146/58
[2023-06-25] MEDS: **hydrALAZINE HCL** 25 MG TAB PO SCH ×3 (00:13→15:20)
[2023-06-25] MEDS: oxyCODONE 5MG TAB PO PRN ×3 (01:13→15:19)
[2023-06-25] MEDS: LEVOTHYROXINE 112MCG TABLET (0.112MG) PO SCH (05:06)
[2023-06-25] MEDS: HEPARIN SOD (PORCINE) 5000UNITS/ML 1ML VIAL/SYRINGE SC SCH ×3 (05:06→21:09)
[2023-06-25 05:32] VITALS: BP 149/63; TEMP 97.5; O2SAT 95
[2023-06-25 05:52] LABS: BASO % 0.3 % (0.0-1.0); EOS % 0.2 % (0.0-3.0); HEMATOCRIT 38.1 % (36.0-47.0); HEMOGLOBIN 12.7 g/dl (12.0-15.5); LYMPH # 1.8 10^3/uL (1.5-5.0); LYMPH % 29.2 % (24.0-44.0); MEAN CORPUSCULAR HEMOGLOBIN 27.7 pg (27.0-33.0); MEAN CORPUSCULAR HGB CONC 33.3 g/dl (32.0-36.5); MONO # 0.7 10^3/uL (0.0-0.8); MONO % 11.5 % (2.0-8.0); NEUTROPHILS # 3.5 10^3/uL (1.5-8.5); NEUTROPHILS % 57.6 % (36.0-66.0); PLATELET COUNT, AUTOMATED 404 10^3/uL (150-450); RED BLOOD COUNT 4.59 10^6/uL (4.00-5.40)
[2023-06-25 06:16] LABS: CALCIUM LEVEL 9.6 MG/DL (8.3-10.6); GLOMERULAR FILTRATION RATE 58.2 (>39); POTASSIUM SERUM 3.6 MMOL/L (3.5-5.1)
[2023-06-25] MEDS: COMBIVENT RESPIMAT 100-20MCG INHALER 4GM INH SCH ×3 (07:50→20:58)
[2023-06-25] MEDS: LACOSAMIDE 50 MG TAB (VIMPAT) PO SCH ×2 (09:09→20:56)
[2023-06-25] MEDS: SERTRALINE 100 MG TAB PO SCH (09:09)
[2023-06-25] MEDS: levETIRAcetam 250MG TABLET (KEPPRA) PO SCH ×2 (09:10→20:55)
[2023-06-25] MEDS: CEFDINIR 300 MG CAP (OMNICEF) PO SCH ×2 (09:10→20:55)
[2023-06-25] MEDS: MAGNESIUM OXIDE 400MG TAB (MAG-OX) PO SCH ×3 (09:10→20:56)
[2023-06-25] MEDS: POTASSIUM CHLORIDE 10MEQ SR TABLET PO SCH (09:10)
[2023-06-25] MEDS: predniSONE 20 MG TAB PO SCH (09:10)
[2023-06-25] MEDS: TORSEMIDE 10 MG TABLET PO SCH (09:11)
[2023-06-25] MEDS: MIRALAX *UNIT DOSE* 17GM PACKET PO SCH (09:11)
[2023-06-25] MEDS: FAMOTIDINE 20 MG TAB PO SCH ×2 (09:11→20:55)
[2023-06-25] MEDS ORDERED: IPRATROPIUM 0.5MG/ALBUTEROL 2.5MG INH SOL UD 3ML (DUONEB) NEB PRN (14:00)
[2023-06-25] MEDS: MONTELUKAST 10 MG TAB PO SCH (20:55)
[2023-06-25] MEDS: CETIRIZINE (ZyrTEC) 10 MG TAB PO SCH (20:56)
[2023-06-25] MEDS: ATORVASTATIN 20 MG TAB PO SCH (20:56)
[2023-06-25] MEDS: zolPIDEM TARTRATE 5 MG TAB PO SCH (20:56)
[2023-06-25 21:00] VITALS: BP 144/62; TEMP 97.5; O2SAT 95
[2023-06-25] MEDS: PROPRANOLOL 60MG LA CAP PO SCH (21:00)
[2023-06-26] MEDS: **hydrALAZINE HCL** 25 MG TAB PO SCH ×4 (00:27→23:28)
[2023-06-26] MEDS: oxyCODONE 5MG TAB PO PRN ×4 (00:39→21:05)
[2023-06-26] MEDS: COMBIVENT RESPIMAT 100-20MCG INHALER 4GM INH SCH ×2 (02:49→08:56)
[2023-06-26 04:10] VITALS: BP 147/66; TEMP 98.1; O2SAT 94
[2023-06-26] MEDS: HEPARIN SOD (PORCINE) 5000UNITS/ML 1ML VIAL/SYRINGE SC SCH ×3 (05:54→21:06)
[2023-06-26] MEDS: LEVOTHYROXINE 112MCG TABLET (0.112MG) PO SCH (05:54)
[2023-06-26] MEDS: MIRALAX *UNIT DOSE* 17GM PACKET PO SCH (09:00)
[2023-06-26] MEDS: SERTRALINE 100 MG TAB PO SCH (09:46)
[2023-06-26] MEDS: predniSONE 20 MG TAB PO SCH (09:46)
[2023-06-26] MEDS: MAGNESIUM OXIDE 400MG TAB (MAG-OX) PO SCH ×3 (09:47→21:02)
[2023-06-26] MEDS: levETIRAcetam 250MG TABLET (KEPPRA) PO SCH ×2 (09:47→21:03)
[2023-06-26] MEDS: TORSEMIDE 10 MG TABLET PO SCH (09:47)
[2023-06-26] MEDS: POTASSIUM CHLORIDE 10MEQ SR TABLET PO SCH (09:47)
[2023-06-26] MEDS: ACETAMINOPHEN 500 MG TAB PO PRN (09:47)
[2023-06-26] MEDS: FAMOTIDINE 20 MG TAB PO SCH ×2 (09:48→21:03)
[2023-06-26] MEDS: CEFDINIR 300 MG CAP (OMNICEF) PO SCH ×2 (09:48→21:03)
[2023-06-26] MEDS: LACOSAMIDE 50 MG TAB (VIMPAT) PO SCH ×2 (09:48→21:02)
[2023-06-26] MEDS: PROPRANOLOL 60MG LA CAP PO SCH (21:00)
[2023-06-26] MEDS: zolPIDEM TARTRATE 5 MG TAB PO SCH (21:02)
[2023-06-26] MEDS: MONTELUKAST 10 MG TAB PO SCH (21:03)
[2023-06-26] MEDS: CETIRIZINE (ZyrTEC) 10 MG TAB PO SCH (21:03)
[2023-06-26] MEDS: ATORVASTATIN 20 MG TAB PO SCH (21:04)
[2023-06-27 04:50] VITALS: BP 152/79; TEMP 97.2; O2SAT 94
[2023-06-27] MEDS: LEVOTHYROXINE 112MCG TABLET (0.112MG) PO SCH (05:19)
[2023-06-27] MEDS: HEPARIN SOD (PORCINE) 5000UNITS/ML 1ML VIAL/SYRINGE SC SCH ×2 (05:19→14:00)
[2023-06-27] MEDS: oxyCODONE 5MG TAB PO PRN ×2 (05:22→11:29)
[2023-06-27] MEDS: MIRALAX *UNIT DOSE* 17GM PACKET PO SCH (09:00)
[2023-06-27] MEDS: POTASSIUM CHLORIDE 10MEQ SR TABLET PO SCH (09:37)
[2023-06-27] MEDS: CEFDINIR 300 MG CAP (OMNICEF) PO SCH (09:37)
[2023-06-27] MEDS: MAGNESIUM OXIDE 400MG TAB (MAG-OX) PO SCH ×2 (09:38→16:25)
[2023-06-27] MEDS: LACOSAMIDE 50 MG TAB (VIMPAT) PO SCH (09:38)
[2023-06-27] MEDS: **hydrALAZINE HCL** 25 MG TAB PO SCH ×2 (09:38→16:26)
[2023-06-27] MEDS: levETIRAcetam 250MG TABLET (KEPPRA) PO SCH (09:39)
[2023-06-27] MEDS: FAMOTIDINE 20 MG TAB PO SCH (09:39)
[2023-06-27] MEDS: TORSEMIDE 10 MG TABLET PO SCH (09:39)
[2023-06-27] MEDS: SERTRALINE 100 MG TAB PO SCH (09:39)
[2023-06-27] MEDS ORDERED: CEFD300CAP PO (10:21)
[2023-06-27] MEDS ORDERED: MAGN400T2 PO (10:21)
[2023-06-27] MEDS ORDERED: ZOLP10TA2 PO (10:21)
[2023-06-27] MEDS ORDERED: HYDR25TA PO (10:21)
[2023-06-27] MEDS ORDERED: POTA-136 PO (10:21)
[2023-06-27] MEDS ORDERED: OXYC10TA12 PO (10:21)
[2023-06-27 11:29] VITALS: BP 151/74
[2023-06-27 16:26] VITALS: BP 140/109
== END 2023-06-27 18:44 | disposition home health service (06) ==
LOC: M ED 03:23 → M ED INP 03:24 → M MS4PR 16:02 → M MSPAV 06-23 16:31
PROVIDERS: ADMIT Internal Medicine; ATTEND Student in an Organized Health Care Education/Training Program
DX: G93.41 Metabolic encephalopathy (principal); J09.X2 Influenza due to identified novel influenza A virus with other respiratory manifestations; G92.8 Other toxic encephalopathy; I16.0 Hypertensive urgency; J45.901 Unspecified asthma with (acute) exacerbation; N39.0 Urinary tract infection, site not specified; B96.20 Unspecified Escherichia coli [E. coli] as the cause of diseases classified elsewhere; E83.42 Hypomagnesemia; E87.6 Hypokalemia; G40.909 Epilepsy, unspecified, not intractable, without status epilepticus; E78.5 Hyperlipidemia, unspecified; J30.2 Other seasonal allergic rhinitis; K21.9 Gastro-esophageal reflux disease without esophagitis; F41.9 Anxiety disorder, unspecified; G47.00 Insomnia, unspecified; Z88.5 Allergy status to narcotic agent; Z88.8 Allergy status to other drugs, medicaments and biological substances; Z79.899 Other long term (current) drug therapy; Z79.2 Long term (current) use of antibiotics; Z88.2 Allergy status to sulfonamides; Z88.0 Allergy status to penicillin; Z88.1 Allergy status to other antibiotic agents
CPT/HCPCS: 36415; 36600; 70450; 71045; 80047; 80048; 80076; 81001; 82550; 82553; 82803; 83605; 83735; 84145; 84443; 84484; 85025; 87040; 87088; 87186; 87486; 87581; 87633; 87635; 87798; 93005; 93041; 93971; 94640; 94760; 96361; 96365; 96366; 97110; 97161; 97165; 97530; 97535; 99285; G0378; J0696; J3475; J7512

== ENCOUNTER 2023-07-02 20:55 | Observation (INO) | payer MEDICARE, OTHER ==
[~2023-07-02] VITALS: Ht 165.1 cm; Wt 114.2 kg
[~2023-07-02 20:55] MED LIST changes: +MAGN400T2 PO; +POTA-136 PO; +PROP60CA PO
[2023-07-02 21:43] LABS: BASO % 0.2 % (0.0-1.0); EOS # 0.1 10^3/uL (0.0-0.5); EOS % 0.6 % (0.0-3.0); HEMATOCRIT 36.9 % (36.0-47.0); HEMOGLOBIN 12.1 g/dl (12.0-15.5); LYMPH # 2.2 10^3/uL (1.5-5.0); LYMPH % 23.8 % (24.0-44.0); MEAN CORPUSCULAR HEMOGLOBIN 28.3 pg (27.0-33.0); MEAN CORPUSCULAR HGB CONC 32.8 g/dl (32.0-36.5); MEAN CORPUSCULAR VOLUME 86.4 fl (80.0-96.0); MONO # 1.2 10^3/uL (0.0-0.8); MONO % 13.2 % (2.0-8.0); NEUTROPHILS # 5.7 10^3/uL (1.5-8.5); NEUTROPHILS % 61.7 % (36.0-66.0); PLATELET COUNT, AUTOMATED 406 10^3/uL (150-450); RED BLOOD COUNT 4.27 10^6/uL (4.00-5.40); WHITE BLOOD COUNT 9.2 10^3/uL (4.0-10.0)
[2023-07-02 21:51] LABS: CK-MB VALUE MASS < 1.0 NG/ML (<3.6)
[2023-07-02 21:53] LABS: ALBUMIN 3.5 G/DL (3.2-5.2); ALKALINE PHOSPHATASE 127 U/L (46-116); ALT/SGPT 21 U/L (7.0-40); AST/SGOT 25 U/L (<34); BILIRUBIN,DIRECT 0.2 MG/DL (<0.4); BILIRUBIN,TOTAL 0.5 MG/DL (0.3-1.2); BLOOD UREA NITROGEN 14 MG/DL (9-23); CALCIUM LEVEL 9.1 MG/DL (8.3-10.6); CARBON DIOXIDE LEVEL 21 MMOL/L (20-31); CHLORIDE LEVEL 106 MMOL/L (98-107); CREATININE FOR GFR 0.86 MG/DL (0.55-1.30); GLOMERULAR FILTRATION RATE > 60.0 (>39); GLUCOSE, FASTING 116 MG/DL (74-106); POTASSIUM SERUM 4.1 MMOL/L (3.5-5.1); SODIUM LEVEL 137 MMOL/L (136-145); TOTAL PROTEIN 6.6 G/DL (5.7-8.2)
[2023-07-02 21:55] LABS: INR 1.12; PARTIAL THROMBOPLASTIN TIME 28.3 SECONDS (24.8-34.2)
[2023-07-02 21:56] LABS: FREE T4 1.51 NG/DL (0.89-1.76)
[2023-07-02 21:59] LABS: CPK CREATINE PHOSPHOKINASE 45 U/L (34-145); MB/CK RELATIVE INDEX 2.22 (< OR =4)
[2023-07-03] MEDS ORDERED: MORPHINE 4 MG/ML 1ML VIAL IV ONE (02:05)
[2023-07-03] MEDS ORDERED: IPRATROPIUM 0.5MG/ALBUTEROL 2.5MG INH SOL UD 3ML (DUONEB) NEB ONE ×2 (03:25→05:05)
[2023-07-03] MEDS ORDERED: ONDANSETRON 4MG 2ML VIAL IV PRN (06:05)
[2023-07-03] MEDS ORDERED: ALBUTEROL SULFATE 2.5MG/0.5ML INH NEB SOLN NEB PRN (06:05)
[2023-07-03] MEDS: ACETAMINOPHEN TAB 650MG DOSE (2X325MG) PO PRN (07:27)
[2023-07-03 08:10] LABS: PROCALCITONIN 0.09 ng/ml
[2023-07-03 08:15] VITALS: BP 121/67; TEMP 97.1; O2SAT 100
[2023-07-03] MEDS: IPRATROPIUM 0.5MG/ALBUTEROL 2.5MG INH SOL UD 3ML (DUONEB) NEB SCH ×3 (08:30→20:31)
[2023-07-03 08:50] LABS: BLOOD UREA NITROGEN 15 MG/DL (9-23); CALCIUM LEVEL 8.5 MG/DL (8.3-10.6); CARBON DIOXIDE LEVEL 24 MMOL/L (20-31); CHLORIDE LEVEL 105 MMOL/L (98-107); CREATININE FOR GFR 0.87 MG/DL (0.55-1.30); GLOMERULAR FILTRATION RATE > 60.0 (>39); GLUCOSE, FASTING 107 MG/DL (74-106); POTASSIUM SERUM 3.7 MMOL/L (3.5-5.1); SODIUM LEVEL 138 MMOL/L (136-145)
[2023-07-03] MEDS ORDERED: CLINDAMYCIN 150MG CAPSULE PO SCH (09:00)
[2023-07-03 09:08] LABS: BASO % 0.2 % (0.0-1.0); EOS # 0.1 10^3/uL (0.0-0.5); EOS % 1.4 % (0.0-3.0); HEMATOCRIT 34.3 % (36.0-47.0); LYMPH # 1.1 10^3/uL (1.5-5.0); LYMPH % 19.3 % (24.0-44.0); MEAN CORPUSCULAR HEMOGLOBIN 28.5 pg (27.0-33.0); MEAN CORPUSCULAR HGB CONC 32.1 g/dl (32.0-36.5); MEAN CORPUSCULAR VOLUME 88.9 fl (80.0-96.0); MONO # 0.8 10^3/uL (0.0-0.8); MONO % 14.6 % (2.0-8.0); NEUTROPHILS # 3.7 10^3/uL (1.5-8.5); PLATELET COUNT, AUTOMATED 315 10^3/uL (150-450); RED BLOOD COUNT 3.86 10^6/uL (4.00-5.40); WHITE BLOOD COUNT 5.8 10^3/uL (4.0-10.0)
[2023-07-03] MEDS ORDERED: OXYC10TA12 PO (12:26)
[2023-07-03] MEDS ORDERED: POTA1TAB23 PO (12:26)
[2023-07-03] MEDS ORDERED: HYDR-3910 PO (12:26)
[2023-07-03] MEDS ORDERED: TORS10TA3 PO (12:26)
[2023-07-03] MEDS ORDERED: ALPR0.5T3 PO (12:26)
[2023-07-03] MEDS ORDERED: ZOLP5TAB PO (12:26)
[2023-07-03] MEDS ORDERED: MAGN400T35 PO (12:26)
[2023-07-03] MEDS ORDERED: AMLO1TAB25 PO (12:26)
[2023-07-03] MEDS ORDERED: HOME MED LIST COMPLETE! XX SCH (12:30)
[2023-07-03 14:24] VITALS: BP 115/53; TEMP 99.2; O2SAT 95
[2023-07-03] MEDS: HEPARIN SOD (PORCINE) 5000UNITS/ML 1ML VIAL/SYRINGE SC SCH ×2 (15:30→22:00)
[2023-07-03 20:17] VITALS: BP 140/62; TEMP 97.5; O2SAT 99
[2023-07-03] MEDS: MONTELUKAST 10 MG TAB PO SCH (20:33)
[2023-07-03] MEDS: ATORVASTATIN 20 MG TAB PO SCH (20:33)
[2023-07-03] MEDS: CETIRIZINE (ZyrTEC) 10 MG TAB PO SCH (20:34)
[2023-07-03] MEDS: FAMOTIDINE 20 MG TAB PO SCH (20:34)
[2023-07-03] MEDS: MAGNESIUM OXIDE 400MG TAB (MAG-OX) PO SCH (20:35)
[2023-07-03] MEDS: PROPRANOLOL 60MG LA CAP PO SCH (20:35)
[2023-07-03] MEDS: **hydrALAZINE HCL** 25 MG TAB PO SCH (20:35)
[2023-07-03] MEDS: levETIRAcetam 250MG TABLET (KEPPRA) PO SCH (20:35)
[2023-07-03] MEDS: LACOSAMIDE 50 MG TAB (VIMPAT) PO SCH (20:35)
[2023-07-03] MEDS: oxyCODONE 5MG TAB PO PRN (20:36)
[2023-07-03 23:56] VITALS: BP 124/68; TEMP 98.1; O2SAT 96
[2023-07-04] MEDS ORDERED: ALPRAZolam 0.5 MG TAB PO PRN (01:50)
[2023-07-04] MEDS: IPRATROPIUM 0.5MG/ALBUTEROL 2.5MG INH SOL UD 3ML (DUONEB) NEB SCH ×2 (02:15→07:27)
[2023-07-04 05:36] VITALS: BP 128/64; TEMP 98.1; O2SAT 97
[2023-07-04] MEDS: HEPARIN SOD (PORCINE) 5000UNITS/ML 1ML VIAL/SYRINGE SC SCH ×3 (05:54→21:40)
[2023-07-04 06:37] LABS: BLOOD UREA NITROGEN 15 MG/DL (9-23); CALCIUM LEVEL 8.5 MG/DL (8.3-10.6); CARBON DIOXIDE LEVEL 23 MMOL/L (20-31); CHLORIDE LEVEL 103 MMOL/L (98-107); GLOMERULAR FILTRATION RATE > 60.0 (>39); GLUCOSE, FASTING 94 MG/DL (74-106); POTASSIUM SERUM 4.1 MMOL/L (3.5-5.1); SODIUM LEVEL 134 MMOL/L (136-145)
[2023-07-04] MEDS: LEVOTHYROXINE 112MCG TABLET (0.112MG) PO SCH (06:49)
[2023-07-04 07:40] LABS: BASO % 0.2 % (0.0-1.0); EOS # 0.2 10^3/uL (0.0-0.5); EOS % 2.8 % (0.0-3.0); HEMATOCRIT 32.9 % (36.0-47.0); HEMOGLOBIN 10.7 g/dl (12.0-15.5); LYMPH # 1.3 10^3/uL (1.5-5.0); LYMPH % 21.6 % (24.0-44.0); MEAN CORPUSCULAR HEMOGLOBIN 28.7 pg (27.0-33.0); MEAN CORPUSCULAR HGB CONC 32.5 g/dl (32.0-36.5); MEAN CORPUSCULAR VOLUME 88.2 fl (80.0-96.0); MONO # 0.8 10^3/uL (0.0-0.8); MONO % 13.3 % (2.0-8.0); NEUTROPHILS # 3.6 10^3/uL (1.5-8.5); NEUTROPHILS % 61.2 % (36.0-66.0); PLATELET COUNT, AUTOMATED 348 10^3/uL (150-450); RED BLOOD COUNT 3.73 10^6/uL (4.00-5.40); WHITE BLOOD COUNT 5.8 10^3/uL (4.0-10.0)
[2023-07-04] MEDS: levETIRAcetam 250MG TABLET (KEPPRA) PO SCH ×2 (09:36→21:39)
[2023-07-04] MEDS: MAGNESIUM OXIDE 400MG TAB (MAG-OX) PO SCH ×2 (09:36→21:39)
[2023-07-04] MEDS: SERTRALINE 100 MG TAB PO SCH (09:36)
[2023-07-04] MEDS: **hydrALAZINE HCL** 25 MG TAB PO SCH ×2 (09:36→21:38)
[2023-07-04] MEDS: FAMOTIDINE 20 MG TAB PO SCH ×2 (09:36→21:39)
[2023-07-04] MEDS: LACOSAMIDE 50 MG TAB (VIMPAT) PO SCH ×2 (09:36→21:40)
[2023-07-04] MEDS: TORSEMIDE 10 MG TABLET PO SCH (09:37)
[2023-07-04] MEDS: oxyCODONE 5MG TAB PO PRN ×2 (09:38→21:40)
[2023-07-04] MEDS: ADVAIR HFA 115/21MCG INHALER INH SCH ×2 (11:48→19:41)
[2023-07-04] MEDS: BENZONATATE 100MG CAPSULE PO SCH ×2 (12:35→21:39)
[2023-07-04 14:00] VITALS: BP 129/58; TEMP 98.1; O2SAT 96
[2023-07-04] MEDS: PROPRANOLOL 60MG LA CAP PO SCH (21:39)
[2023-07-04] MEDS: MONTELUKAST 10 MG TAB PO SCH (21:39)
[2023-07-04] MEDS: ATORVASTATIN 20 MG TAB PO SCH (21:39)
[2023-07-04] MEDS: CETIRIZINE (ZyrTEC) 10 MG TAB PO SCH (21:39)
[2023-07-04] MEDS: ALPRAZolam 0.25 MG TAB PO PRN (21:40)
[2023-07-05] MEDS: LEVOTHYROXINE 112MCG TABLET (0.112MG) PO SCH (05:17)
[2023-07-05] MEDS: HEPARIN SOD (PORCINE) 5000UNITS/ML 1ML VIAL/SYRINGE SC SCH ×3 (05:18→21:32)
[2023-07-05 05:33] VITALS: BP 130/59; TEMP 97.5; O2SAT 97
[2023-07-05] MEDS: ADVAIR HFA 115/21MCG INHALER INH SCH ×2 (07:31→19:24)
[2023-07-05] MEDS: LACOSAMIDE 50 MG TAB (VIMPAT) PO SCH ×2 (09:08→21:36)
[2023-07-05] MEDS: MAGNESIUM OXIDE 400MG TAB (MAG-OX) PO SCH ×2 (09:08→21:36)
[2023-07-05] MEDS: BENZONATATE 100MG CAPSULE PO SCH ×2 (09:08→21:36)
[2023-07-05] MEDS: FAMOTIDINE 20 MG TAB PO SCH ×2 (09:08→21:38)
[2023-07-05] MEDS: **hydrALAZINE HCL** 25 MG TAB PO SCH ×2 (09:08→21:37)
[2023-07-05] MEDS: levETIRAcetam 250MG TABLET (KEPPRA) PO SCH ×2 (09:08→21:38)
[2023-07-05] MEDS: oxyCODONE 5MG TAB PO PRN ×2 (09:08→21:35)
[2023-07-05] MEDS: TORSEMIDE 10 MG TABLET PO SCH (09:09)
[2023-07-05] MEDS: SERTRALINE 100 MG TAB PO SCH (09:09)
[2023-07-05] MEDS: DOCUSATE SODIUM 100MG CAPSULE PO SCH ×2 (09:58→21:36)
[2023-07-05] MEDS: ACETAMINOPHEN TAB 650MG DOSE (2X325MG) PO PRN (14:32)
[2023-07-05] MEDS ORDERED: BENZ-18 PO (15:38)
[2023-07-05] MEDS ORDERED: ADVA115A INH (15:38)
[2023-07-05] MEDS ORDERED: ALPR0.5T3 PO (15:38)
[2023-07-05] MEDS ORDERED: OXYC10TA12 PO (15:38)
[2023-07-05] MEDS ORDERED: COLA100C5 PO (15:38)
[2023-07-05] MEDS: ALPRAZolam 0.25 MG TAB PO PRN (21:35)
[2023-07-05] MEDS: MONTELUKAST 10 MG TAB PO SCH (21:35)
[2023-07-05] MEDS: CETIRIZINE (ZyrTEC) 10 MG TAB PO SCH (21:37)
[2023-07-05] MEDS: PROPRANOLOL 60MG LA CAP PO SCH (21:37)
[2023-07-05] MEDS: ATORVASTATIN 20 MG TAB PO SCH (21:38)
[2023-07-06 04:56] VITALS: BP 151/64; TEMP 97.3; O2SAT 96
[2023-07-06] MEDS: LEVOTHYROXINE 112MCG TABLET (0.112MG) PO SCH (05:16)
[2023-07-06] MEDS: HEPARIN SOD (PORCINE) 5000UNITS/ML 1ML VIAL/SYRINGE SC SCH ×3 (05:17→21:58)
[2023-07-06] MEDS: ADVAIR HFA 115/21MCG INHALER INH SCH ×2 (07:35→19:59)
[2023-07-06] MEDS: FAMOTIDINE 20 MG TAB PO SCH ×2 (09:19→21:56)
[2023-07-06] MEDS: DOCUSATE SODIUM 100MG CAPSULE PO SCH ×2 (09:19→21:56)
[2023-07-06] MEDS: BENZONATATE 100MG CAPSULE PO SCH ×2 (09:19→21:56)
[2023-07-06] MEDS: LACOSAMIDE 50 MG TAB (VIMPAT) PO SCH ×2 (09:19→21:56)
[2023-07-06] MEDS: SERTRALINE 100 MG TAB PO SCH (09:20)
[2023-07-06] MEDS: **hydrALAZINE HCL** 25 MG TAB PO SCH ×2 (09:20→21:56)
[2023-07-06] MEDS: TORSEMIDE 10 MG TABLET PO SCH (09:20)
[2023-07-06] MEDS: levETIRAcetam 250MG TABLET (KEPPRA) PO SCH ×2 (09:20→21:56)
[2023-07-06] MEDS: MAGNESIUM OXIDE 400MG TAB (MAG-OX) PO SCH ×2 (09:20→21:56)
[2023-07-06] MEDS: oxyCODONE 5MG TAB PO PRN ×2 (09:21→21:57)
[2023-07-06] MEDS: PROPRANOLOL 60MG LA CAP PO SCH (21:55)
[2023-07-06] MEDS: MONTELUKAST 10 MG TAB PO SCH (21:56)
[2023-07-06] MEDS: ATORVASTATIN 20 MG TAB PO SCH (21:56)
[2023-07-06] MEDS: CETIRIZINE (ZyrTEC) 10 MG TAB PO SCH (21:56)
[2023-07-06] MEDS: ALPRAZolam 0.25 MG TAB PO PRN (21:57)
[2023-07-07] MEDS: LEVOTHYROXINE 112MCG TABLET (0.112MG) PO SCH (05:46)
[2023-07-07] MEDS: HEPARIN SOD (PORCINE) 5000UNITS/ML 1ML VIAL/SYRINGE SC SCH ×3 (05:47→21:15)
[2023-07-07 06:00] VITALS: BP 136/58; TEMP 97.7; O2SAT 96
[2023-07-07] MEDS: ADVAIR HFA 115/21MCG INHALER INH SCH ×2 (07:32→21:09)
[2023-07-07] MEDS: FAMOTIDINE 20 MG TAB PO SCH ×2 (08:29→21:15)
[2023-07-07] MEDS: BENZONATATE 100MG CAPSULE PO SCH ×2 (08:29→21:15)
[2023-07-07] MEDS: TORSEMIDE 10 MG TABLET PO SCH (08:29)
[2023-07-07] MEDS: levETIRAcetam 250MG TABLET (KEPPRA) PO SCH ×2 (08:29→21:13)
[2023-07-07] MEDS: DOCUSATE SODIUM 100MG CAPSULE PO SCH ×2 (08:29→21:15)
[2023-07-07] MEDS: LACOSAMIDE 50 MG TAB (VIMPAT) PO SCH ×2 (08:29→21:15)
[2023-07-07] MEDS: SERTRALINE 100 MG TAB PO SCH (08:29)
[2023-07-07] MEDS: MAGNESIUM OXIDE 400MG TAB (MAG-OX) PO SCH ×2 (08:30→21:14)
[2023-07-07] MEDS: **hydrALAZINE HCL** 25 MG TAB PO SCH ×2 (08:30→21:15)
[2023-07-07] MEDS: oxyCODONE 5MG TAB PO PRN ×2 (08:34→21:16)
[2023-07-07] MEDS: ACETAMINOPHEN TAB 650MG DOSE (2X325MG) PO PRN (18:31)
[2023-07-07] MEDS: PROPRANOLOL 60MG LA CAP PO SCH (21:00)
[2023-07-07] MEDS: MONTELUKAST 10 MG TAB PO SCH (21:15)
[2023-07-07] MEDS: ATORVASTATIN 20 MG TAB PO SCH (21:15)
[2023-07-07] MEDS: CETIRIZINE (ZyrTEC) 10 MG TAB PO SCH (21:15)
[2023-07-07] MEDS: ALPRAZolam 0.25 MG TAB PO PRN (21:16)
[2023-07-08] MEDS: LEVOTHYROXINE 112MCG TABLET (0.112MG) PO SCH (06:05)
[2023-07-08] MEDS: HEPARIN SOD (PORCINE) 5000UNITS/ML 1ML VIAL/SYRINGE SC SCH ×3 (06:05→22:18)
[2023-07-08 06:14] VITALS: BP 132/59; TEMP 97.5; O2SAT 99
[2023-07-08] MEDS: ADVAIR HFA 115/21MCG INHALER INH SCH ×2 (07:47→19:45)
[2023-07-08] MEDS: levETIRAcetam 250MG TABLET (KEPPRA) PO SCH ×2 (08:36→20:29)
[2023-07-08] MEDS: DOCUSATE SODIUM 100MG CAPSULE PO SCH ×2 (08:36→20:29)
[2023-07-08] MEDS: MAGNESIUM OXIDE 400MG TAB (MAG-OX) PO SCH ×2 (08:36→20:31)
[2023-07-08] MEDS: **hydrALAZINE HCL** 25 MG TAB PO SCH ×2 (08:37→20:30)
[2023-07-08] MEDS: SERTRALINE 100 MG TAB PO SCH (08:37)
[2023-07-08] MEDS: FAMOTIDINE 20 MG TAB PO SCH ×2 (08:37→20:29)
[2023-07-08] MEDS: BENZONATATE 100MG CAPSULE PO SCH ×2 (08:37→20:29)
[2023-07-08] MEDS: TORSEMIDE 10 MG TABLET PO SCH (08:38)
[2023-07-08] MEDS: LACOSAMIDE 50 MG TAB (VIMPAT) PO SCH ×2 (08:38→20:29)
[2023-07-08] MEDS: oxyCODONE 5MG TAB PO PRN ×2 (08:38→20:32)
[2023-07-08] MEDS: ACETAMINOPHEN TAB 650MG DOSE (2X325MG) PO PRN (13:52)
[2023-07-08] MEDS: MONTELUKAST 10 MG TAB PO SCH (20:30)
[2023-07-08] MEDS: CETIRIZINE (ZyrTEC) 10 MG TAB PO SCH (20:30)
[2023-07-08] MEDS: PROPRANOLOL 60MG LA CAP PO SCH (20:30)
[2023-07-08] MEDS: ATORVASTATIN 20 MG TAB PO SCH (20:31)
[2023-07-09] MEDS: ACETAMINOPHEN TAB 650MG DOSE (2X325MG) PO PRN ×2 (02:11→18:10)
[2023-07-09] MEDS: ALPRAZolam 0.25 MG TAB PO PRN ×2 (02:12→20:13)
[2023-07-09 04:36] VITALS: BP 138/57; TEMP 97.5; O2SAT 98
[2023-07-09] MEDS: LEVOTHYROXINE 112MCG TABLET (0.112MG) PO SCH (05:33)
[2023-07-09] MEDS: HEPARIN SOD (PORCINE) 5000UNITS/ML 1ML VIAL/SYRINGE SC SCH ×3 (05:33→22:32)
[2023-07-09] MEDS: ADVAIR HFA 115/21MCG INHALER INH SCH ×2 (07:36→19:34)
[2023-07-09] MEDS: LACOSAMIDE 50 MG TAB (VIMPAT) PO SCH ×2 (08:29→20:13)
[2023-07-09] MEDS: **hydrALAZINE HCL** 25 MG TAB PO SCH ×2 (08:30→20:14)
[2023-07-09] MEDS: BENZONATATE 100MG CAPSULE PO SCH ×2 (08:30→20:14)
[2023-07-09] MEDS: levETIRAcetam 250MG TABLET (KEPPRA) PO SCH ×2 (08:30→20:14)
[2023-07-09] MEDS: DOCUSATE SODIUM 100MG CAPSULE PO SCH ×2 (08:30→20:15)
[2023-07-09] MEDS: TORSEMIDE 10 MG TABLET PO SCH (08:31)
[2023-07-09] MEDS: MAGNESIUM OXIDE 400MG TAB (MAG-OX) PO SCH ×2 (08:31→20:14)
[2023-07-09] MEDS: SERTRALINE 100 MG TAB PO SCH (08:31)
[2023-07-09] MEDS: FAMOTIDINE 20 MG TAB PO SCH ×2 (08:31→20:14)
[2023-07-09] MEDS: oxyCODONE 5MG TAB PO PRN ×2 (08:32→20:16)
[2023-07-09] MEDS: ATORVASTATIN 20 MG TAB PO SCH (20:14)
[2023-07-09] MEDS: PROPRANOLOL 60MG LA CAP PO SCH (20:14)
[2023-07-09] MEDS: CETIRIZINE (ZyrTEC) 10 MG TAB PO SCH (20:15)
[2023-07-09] MEDS: MONTELUKAST 10 MG TAB PO SCH (20:15)
[2023-07-10] MEDS: LEVOTHYROXINE 112MCG TABLET (0.112MG) PO SCH (05:44)
[2023-07-10] MEDS: HEPARIN SOD (PORCINE) 5000UNITS/ML 1ML VIAL/SYRINGE SC SCH ×3 (05:44→23:16)
[2023-07-10] MEDS: ACETAMINOPHEN TAB 650MG DOSE (2X325MG) PO PRN ×2 (05:45→14:09)
[2023-07-10 06:00] VITALS: BP 158/70; TEMP 97.3; O2SAT 96
[2023-07-10] MEDS: SERTRALINE 100 MG TAB PO SCH (08:50)
[2023-07-10] MEDS: BENZONATATE 100MG CAPSULE PO SCH ×2 (08:50→20:32)
[2023-07-10] MEDS: DOCUSATE SODIUM 100MG CAPSULE PO SCH ×2 (08:50→20:32)
[2023-07-10] MEDS: LACOSAMIDE 50 MG TAB (VIMPAT) PO SCH ×2 (08:50→20:30)
[2023-07-10] MEDS: levETIRAcetam 250MG TABLET (KEPPRA) PO SCH ×2 (08:50→20:29)
[2023-07-10] MEDS: FAMOTIDINE 20 MG TAB PO SCH ×2 (08:51→20:32)
[2023-07-10] MEDS: **hydrALAZINE HCL** 25 MG TAB PO SCH ×2 (08:51→20:32)
[2023-07-10] MEDS: MAGNESIUM OXIDE 400MG TAB (MAG-OX) PO SCH ×2 (08:51→20:32)
[2023-07-10] MEDS: TORSEMIDE 10 MG TABLET PO SCH (08:51)
[2023-07-10] MEDS: oxyCODONE 5MG TAB PO PRN ×2 (08:52→20:31)
[2023-07-10] MEDS: ADVAIR HFA 115/21MCG INHALER INH SCH ×2 (09:34→19:40)
[2023-07-10] MEDS: ALPRAZolam 0.25 MG TAB PO PRN (20:30)
[2023-07-10] MEDS: MONTELUKAST 10 MG TAB PO SCH (20:31)
[2023-07-10] MEDS: ATORVASTATIN 20 MG TAB PO SCH (20:31)
[2023-07-10] MEDS: PROPRANOLOL 60MG LA CAP PO SCH (20:32)
[2023-07-10] MEDS: CETIRIZINE (ZyrTEC) 10 MG TAB PO SCH (20:32)
[2023-07-10 21:00] VITALS: BP 139/60; TEMP 97.7; O2SAT 96
[2023-07-11] MEDS: ACETAMINOPHEN TAB 650MG DOSE (2X325MG) PO PRN ×2 (00:59→13:47)
[2023-07-11] MEDS: HEPARIN SOD (PORCINE) 5000UNITS/ML 1ML VIAL/SYRINGE SC SCH ×3 (05:34→22:47)
[2023-07-11] MEDS: LEVOTHYROXINE 112MCG TABLET (0.112MG) PO SCH (05:35)
[2023-07-11 06:00] VITALS: BP 138/60; TEMP 97.3; O2SAT 94
[2023-07-11] MEDS: SERTRALINE 100 MG TAB PO SCH (08:29)
[2023-07-11] MEDS: LACOSAMIDE 50 MG TAB (VIMPAT) PO SCH ×2 (08:29→20:08)
[2023-07-11] MEDS: DOCUSATE SODIUM 100MG CAPSULE PO SCH ×2 (08:29→20:10)
[2023-07-11] MEDS: MAGNESIUM OXIDE 400MG TAB (MAG-OX) PO SCH ×2 (08:29→20:09)
[2023-07-11] MEDS: FAMOTIDINE 20 MG TAB PO SCH ×2 (08:29→20:11)
[2023-07-11] MEDS: BENZONATATE 100MG CAPSULE PO SCH ×2 (08:29→20:08)
[2023-07-11] MEDS: levETIRAcetam 250MG TABLET (KEPPRA) PO SCH ×2 (08:29→20:10)
[2023-07-11] MEDS: TORSEMIDE 10 MG TABLET PO SCH (08:32)
[2023-07-11] MEDS: **hydrALAZINE HCL** 25 MG TAB PO SCH ×2 (08:33→20:12)
[2023-07-11] MEDS: oxyCODONE 5MG TAB PO PRN ×2 (08:37→20:09)
[2023-07-11] MEDS: ADVAIR HFA 115/21MCG INHALER INH SCH ×2 (09:50→19:23)
[2023-07-11] MEDS: ATORVASTATIN 20 MG TAB PO SCH (20:08)
[2023-07-11] MEDS: MONTELUKAST 10 MG TAB PO SCH (20:09)
[2023-07-11] MEDS: ALPRAZolam 0.25 MG TAB PO PRN (20:10)
[2023-07-11] MEDS: CETIRIZINE (ZyrTEC) 10 MG TAB PO SCH (20:11)
[2023-07-11] MEDS: PROPRANOLOL 60MG LA CAP PO SCH (20:13)
[2023-07-12] MEDS: ACETAMINOPHEN TAB 650MG DOSE (2X325MG) PO PRN ×2 (01:42→13:48)
[2023-07-12] MEDS: HEPARIN SOD (PORCINE) 5000UNITS/ML 1ML VIAL/SYRINGE SC SCH ×3 (05:59→20:17)
[2023-07-12] MEDS: LEVOTHYROXINE 112MCG TABLET (0.112MG) PO SCH (05:59)
[2023-07-12 06:00] VITALS: BP 155/77; TEMP 97.5; O2SAT 97
[2023-07-12] MEDS: ADVAIR HFA 115/21MCG INHALER INH SCH ×2 (07:47→19:56)
[2023-07-12] MEDS: FAMOTIDINE 20 MG TAB PO SCH ×2 (08:40→20:17)
[2023-07-12] MEDS: levETIRAcetam 250MG TABLET (KEPPRA) PO SCH ×2 (08:40→20:17)
[2023-07-12] MEDS: DOCUSATE SODIUM 100MG CAPSULE PO SCH ×2 (08:40→20:18)
[2023-07-12] MEDS: SERTRALINE 100 MG TAB PO SCH (08:40)
[2023-07-12] MEDS: TORSEMIDE 10 MG TABLET PO SCH (08:40)
[2023-07-12] MEDS: MAGNESIUM OXIDE 400MG TAB (MAG-OX) PO SCH ×2 (08:40→20:19)
[2023-07-12] MEDS: BENZONATATE 100MG CAPSULE PO SCH ×2 (08:40→20:16)
[2023-07-12] MEDS: LACOSAMIDE 50 MG TAB (VIMPAT) PO SCH ×2 (08:41→20:16)
[2023-07-12] MEDS: **hydrALAZINE HCL** 25 MG TAB PO SCH ×2 (08:41→20:17)
[2023-07-12] MEDS: oxyCODONE 5MG TAB PO PRN ×2 (08:42→20:15)
[2023-07-12 12:42] LABS: BASO % 0.7 % (0.0-1.0); EOS # 0.2 10^3/uL (0.0-0.5); EOS % 3.6 % (0.0-3.0); HEMATOCRIT 36.8 % (36.0-47.0); HEMOGLOBIN 12.1 g/dl (12.0-15.5); LYMPH # 0.8 10^3/uL (1.5-5.0); LYMPH % 17.9 % (24.0-44.0); MEAN CORPUSCULAR HEMOGLOBIN 27.9 pg (27.0-33.0); MEAN CORPUSCULAR HGB CONC 32.9 g/dl (32.0-36.5); MONO # 0.5 10^3/uL (0.0-0.8); MONO % 10.9 % (2.0-8.0); NEUTROPHILS # 2.9 10^3/uL (1.5-8.5); NEUTROPHILS % 66.4 % (36.0-66.0); PLATELET COUNT, AUTOMATED 325 10^3/uL (150-450); RED BLOOD COUNT 4.33 10^6/uL (4.00-5.40); WHITE BLOOD COUNT 4.4 10^3/uL (4.0-10.0)
[2023-07-12 12:56] LABS: BLOOD UREA NITROGEN 15 MG/DL (9-23); CALCIUM LEVEL 9.1 MG/DL (8.3-10.6); CARBON DIOXIDE LEVEL 26 MMOL/L (20-31); CHLORIDE LEVEL 103 MMOL/L (98-107); CREATININE FOR GFR 0.88 MG/DL (0.55-1.30); GLOMERULAR FILTRATION RATE > 60.0 (>39); GLUCOSE, FASTING 96 MG/DL (74-106); MAGNESIUM LEVEL 1.8 MG/DL (1.8-2.4); POTASSIUM SERUM 4.1 MMOL/L (3.5-5.1); SODIUM LEVEL 137 MMOL/L (136-145)
[2023-07-12] MEDS ORDERED: OXYC10TA12 PO (13:59)
[2023-07-12] MEDS ORDERED: ALPR0.5T3 PO (13:59)
[2023-07-12] MEDS ORDERED: FOSFOMYCIN TROMETHAMINE 3 GM POWDER PACKET (MONUROL) PO ONE (18:00)
[2023-07-12] MEDS: ALPRAZolam 0.25 MG TAB PO PRN (20:18)
[2023-07-12] MEDS: CETIRIZINE (ZyrTEC) 10 MG TAB PO SCH (20:19)
[2023-07-12] MEDS: MONTELUKAST 10 MG TAB PO SCH (20:19)
[2023-07-12 20:20] VITALS: BP 101/68
[2023-07-12] MEDS: PROPRANOLOL 60MG LA CAP PO SCH (20:20)
[2023-07-12] MEDS: ATORVASTATIN 20 MG TAB PO SCH (20:20)
[2023-07-13 04:27] VITALS: BP 114/61; TEMP 97.5; O2SAT 94
[2023-07-13] MEDS: LEVOTHYROXINE 112MCG TABLET (0.112MG) PO SCH (06:30)
[2023-07-13] MEDS: HEPARIN SOD (PORCINE) 5000UNITS/ML 1ML VIAL/SYRINGE SC SCH (06:30)
== END 2023-07-13 07:24 | disposition home or self-care (01) ==
LOC: M ED 20:55 → EDBD 20:55 → M ED INP 20:56 → ENRESERV 07-03 06:19 → M MS4PR 07-03 08:00 → M MSPAV 07-03 23:58
PROVIDERS: ADMIT Internal Medicine; ATTEND Internal Medicine
DX: R05.3 Chronic cough (principal); J45.909 Unspecified asthma, uncomplicated; M62.81 Muscle weakness (generalized); I10 Essential (primary) hypertension; E78.5 Hyperlipidemia, unspecified; E03.9 Hypothyroidism, unspecified; I50.30 Unspecified diastolic (congestive) heart failure; G40.909 Epilepsy, unspecified, not intractable, without status epilepticus; F41.9 Anxiety disorder, unspecified; F32.A Depression, unspecified; G47.00 Insomnia, unspecified; M25.552 Pain in left hip; F11.20 Opioid dependence, uncomplicated; J30.2 Other seasonal allergic rhinitis; K21.9 Gastro-esophageal reflux disease without esophagitis; Z79.899 Other long term (current) drug therapy; Z88.1 Allergy status to other antibiotic agents; Z88.0 Allergy status to penicillin; Z88.2 Allergy status to sulfonamides; Z88.8 Allergy status to other drugs, medicaments and biological substances
CPT/HCPCS: 36415; 71046; 71250; 80048; 80076; 81001; 82550; 82553; 83735; 83880; 84145; 84439; 84443; 84484; 85025; 85610; 85730; 87086; 87486; 87581; 87633; 87635; 87798; 93005; 93041; 94640; 94760; 96372; 96374; 97110; 97161; 97165; 97530; 97535; 99285; G0378

== ENCOUNTER → 2023-08-21 | Outpatient (REF) | payer MEDICARE, OTHER ==
[~2023-08-21] MED LIST changes: +ADVA115A INH; +HYDR-3910 PO; +MAGN400T35 PO; +POTA1TAB23 PO; +ZOLP5TAB PO
== END ==
LOC: M LAB REF 17:42
PROVIDERS: ATTEND Internal Medicine
DX: G40.89 Other seizures (principal); I13.0 Hypertensive heart and chronic kidney disease with heart failure and stage 1 through stage 4 chronic kidney disease, or unspecified chronic kidney disease

== ENCOUNTER → 2023-08-27 | Outpatient (CLI) | payer MEDICARE, OTHER | LOC: M SOG 08:00 | PROVIDERS: ATTEND Orthopaedic Surgery | DX: M75.112 Incomplete rotator cuff tear or rupture of left shoulder, not specified as traumatic (principal); M13.852 Other specified arthritis, left hip; Z96.652 Presence of left artificial knee joint; Z89.512 Acquired absence of left leg below knee ==

== ENCOUNTER → 2023-08-31 | Outpatient (REF) | payer MEDICARE, OTHER ==
[~2023-08-31] MED LIST changes: -HYDR-3910 PO; -HYDR25TA PO; +HYDR25TA87 PO; +HYDR25TA88 PO; -MIRA1POW3 PO; +MIRA33506 PO
== END ==
LOC: M LAB REF 16:11
PROVIDERS: ATTEND Internal Medicine
DX: N39.0 Urinary tract infection, site not specified (principal)

== ENCOUNTER 2023-09-29 11:32 | Emergency (ER) | payer MEDICARE, OTHER ==
[~2023-09-29] VITALS: Ht 165.1 cm; Wt 113.6 kg
[~2023-09-29 11:32] MED LIST changes: -MELA1TAB9 PO; +MELA5TAB58 PO
[2023-09-29 11:46] VITALS: BP 168/72; TEMP 98.1
[2023-09-29 12:33] VITALS: O2SAT 99
[2023-09-29] MEDS: PERCOCET 5MG/325MG TAB PO ONE (12:33)
[2023-09-29 12:54] LABS: BASO % 0.4 % (0.0-1.0); EOS # 0.1 10^3/uL (0.0-0.5); EOS % 1.2 % (0.0-3.0); HEMATOCRIT 36.3 % (36.0-47.0); HEMOGLOBIN 12.4 g/dl (12.0-15.5); LYMPH # 0.8 10^3/uL (1.5-5.0); LYMPH % 15.9 % (24.0-44.0); MEAN CORPUSCULAR HGB CONC 34.2 g/dl (32.0-36.5); MONO # 0.4 10^3/uL (0.0-0.8); MONO % 8.8 % (2.0-8.0); NEUTROPHILS # 3.7 10^3/uL (1.5-8.5); NEUTROPHILS % 73.5 % (36.0-66.0); PLATELET COUNT, AUTOMATED 296 10^3/uL (150-450); RED BLOOD COUNT 4.27 10^6/uL (4.00-5.40)
[2023-09-29 13:19] LABS: ALBUMIN 3.7 G/DL (3.2-5.2); ALKALINE PHOSPHATASE 126 U/L (46-116); ALT/SGPT 14 U/L (7.0-40); AST/SGOT 11 U/L (<34); BILIRUBIN,TOTAL 0.6 MG/DL (0.3-1.2); BLOOD UREA NITROGEN 10 MG/DL (9-23); CALCIUM LEVEL 9.3 MG/DL (8.3-10.6); CARBON DIOXIDE LEVEL 26 MMOL/L (20-31); CHLORIDE LEVEL 106 MMOL/L (98-107); CREATININE FOR GFR 0.65 MG/DL (0.55-1.30); GLOMERULAR FILTRATION RATE > 60.0 (>39); GLUCOSE, FASTING 117 MG/DL (74-106); MAGNESIUM LEVEL 1.6 MG/DL (1.8-2.4); POTASSIUM SERUM 3.4 MMOL/L (3.5-5.1); SODIUM LEVEL 141 MMOL/L (136-145); TOTAL PROTEIN 6.7 G/DL (5.7-8.2)
[2023-09-29] MEDS ORDERED: OXYC1TAB23 PO (13:57)
[2023-09-29] MEDS: MAGNESIUM OXIDE 400MG TAB (MAG-OX) PO ONE (13:58)
[2023-09-29] MEDS: POTASSIUM CHLORIDE 10MEQ SR TABLET PO ONE (14:00)
== END 2023-09-29 14:33 | disposition home or self-care (01) ==
LOC: EDBD 11:32 → M ED 11:32
DX: M16.12 Unilateral primary osteoarthritis, left hip (principal); W19.XXXA Unspecified fall, initial encounter; I49.1 Atrial premature depolarization; G43.909 Migraine, unspecified, not intractable, without status migrainosus; G40.909 Epilepsy, unspecified, not intractable, without status epilepticus; Z86.73 Personal history of transient ischemic attack (TIA), and cerebral infarction without residual deficits; Z79.52 Long term (current) use of systemic steroids; Z79.01 Long term (current) use of anticoagulants; Z79.02 Long term (current) use of antithrombotics/antiplatelets; Z79.83 Long term (current) use of bisphosphonates; Z79.899 Other long term (current) drug therapy; Y92.009 Unspecified place in unspecified non-institutional (private) residence as the place of occurrence of the external cause; Y93.9 Activity, unspecified; Y99.9 Unspecified external cause status; Z88.0 Allergy status to penicillin; Z88.1 Allergy status to other antibiotic agents; Z88.2 Allergy status to sulfonamides; Z88.5 Allergy status to narcotic agent; Z88.6 Allergy status to analgesic agent; Z88.8 Allergy status to other drugs, medicaments and biological substances; Z96.653 Presence of artificial knee joint, bilateral

== ENCOUNTER → 2023-10-03 | Outpatient (REF) | payer MEDICARE, OTHER ==
[~2023-10-03] MED LIST changes: +OXYC1TAB23 PO
[2023-10-03 18:17] LABS: AMORPHOUS SEDIMENT SMALL (NEGATIVE); APPEARANCE, URINE CLOUDY (CLEAR); BACTERIA, URINE AUTO 2+ (NEGATIVE); BILIRUBIN, URINE AUTO NEGATIVE (NEGATIVE); BLOOD, URINE BLOOD NEGATIVE (NEGATIVE); COLOR, URINE YELLOW (YELLOW); GLUCOSE, URINE (UA) AUTO NEGATIVE (NEGATIVE); KETONE, URINE AUTO NEGATIVE (NEGATIVE); LEUKOCYTE ESTERASE, URINE AUTO 2+ (NEGATIVE); MUCUS, URINE SMALL (NEGATIVE); NITRITE, URINE AUTO NEGATIVE (NEGATIVE); PROTEIN, URINE AUTO NEGATIVE (NEGATIVE); RBC, URINE AUTO 0 /HPF (0-3); SPECIFIC GRAVITY URINE AUTO 1.006 (1.002-1.035); SQUAMOUS EPITHELIAL CELL UR AU 3 /HPF (0-6); UROBILINOGEN, URINE AUTO 0.2 mg/dL (0.0-2.0); WBC, URINE AUTO 21 /HPF (0-3)
== END ==
LOC: M SMT 17:09
PROVIDERS: ATTEND Nurse Practitioner Family
DX: N39.0 Urinary tract infection, site not specified (principal)

== ENCOUNTER → 2023-10-29 | Outpatient (CLI) | payer MEDICARE, OTHER | LOC: M RAD 10:18 | PROVIDERS: ATTEND Nurse Practitioner Family | DX: N39.0 Urinary tract infection, site not specified (principal); N28.1 Cyst of kidney, acquired; Z90.5 Acquired absence of kidney ==

== ENCOUNTER → 2023-11-06 | Outpatient (REF) | payer MEDICARE, OTHER ==
[2023-11-06 20:58] LABS: APPEARANCE, URINE HAZY (CLEAR); BACTERIA, URINE AUTO 1+ (NEGATIVE); BILIRUBIN, URINE AUTO NEGATIVE (NEGATIVE); BLOOD, URINE BLOOD NEGATIVE (NEGATIVE); COLOR, URINE YELLOW (YELLOW); GLUCOSE, URINE (UA) AUTO NEGATIVE (NEGATIVE); KETONE, URINE AUTO NEGATIVE (NEGATIVE); LEUKOCYTE ESTERASE, URINE AUTO 1+ (NEGATIVE); NITRITE, URINE AUTO NEGATIVE (NEGATIVE); PROTEIN, URINE AUTO 1+ mg/dL (NEGATIVE); RBC, URINE AUTO 0 /HPF (0-3); SPECIFIC GRAVITY URINE AUTO 1.006 (1.002-1.035); SQUAMOUS EPITHELIAL CELL UR AU 0 /HPF (0-6); UROBILINOGEN, URINE AUTO 0.2 mg/dL (0.0-2.0); WBC, URINE AUTO 27 /HPF (0-3)
== END ==
LOC: M LAB REF 20:22
PROVIDERS: ATTEND Nurse Practitioner Family
DX: R30.0 Dysuria (principal)

== ENCOUNTER 2023-11-18 05:06 | Observation (INO) | payer MEDICARE, OTHER ==
[~2023-11-18] VITALS: Ht 165.1 cm; Wt 114.1 kg
[2023-11-18 07:35] LABS: BASO % 0.3 % (0.0-1.0); EOS # 0.2 10^3/uL (0.0-0.5); EOS % 3.5 % (0.0-3.0); HEMATOCRIT 35.9 % (36.0-47.0); HEMOGLOBIN 11.9 g/dl (12.0-15.5); LYMPH # 1.1 10^3/uL (1.5-5.0); LYMPH % 17.9 % (24.0-44.0); MEAN CORPUSCULAR HGB CONC 33.1 g/dl (32.0-36.5); MEAN CORPUSCULAR VOLUME 87.3 fl (80.0-96.0); MONO # 0.6 10^3/uL (0.0-0.8); MONO % 9.8 % (2.0-8.0); NEUTROPHILS # 4.3 10^3/uL (1.5-8.5); NEUTROPHILS % 68.2 % (36.0-66.0); PLATELET COUNT, AUTOMATED 270 10^3/uL (150-450); RED BLOOD COUNT 4.11 10^6/uL (4.00-5.40); WHITE BLOOD COUNT 6.3 10^3/uL (4.0-10.0)
[2023-11-18 07:54] LABS: CK-MB VALUE MASS < 1.0 NG/ML (<3.6)
[2023-11-18 07:56] LABS: ALBUMIN 3.5 G/DL (3.2-5.2); ALKALINE PHOSPHATASE 159 U/L (46-116); ALT/SGPT 16 U/L (7.0-40); AST/SGOT 23 U/L (<34); BILIRUBIN,DIRECT 0.1 MG/DL (<0.4); BILIRUBIN,TOTAL 0.4 MG/DL (0.3-1.2); TOTAL PROTEIN 6.9 G/DL (5.7-8.2)
[2023-11-18 07:58] LABS: CPK CREATINE PHOSPHOKINASE 64 U/L (34-145); MB/CK RELATIVE INDEX 1.56 (< OR =4); THYROID STIMULATING HORMONE 2.043 uIU/ML (0.55-4.78)
[2023-11-18 08:10] LABS: CREATININE FOR GFR 1.27 MG/DL (0.55-1.30); GLOMERULAR FILTRATION RATE 44.2 (>39); POTASSIUM SERUM 3.5 MMOL/L (3.5-5.1)
[2023-11-18] MEDS: NS 500 ML IV ONE (08:12)
[2023-11-18] MEDS ORDERED: TIZA2TA PO (08:24)
[2023-11-18] MEDS ORDERED: LEVE750XR PO (08:24)
[2023-11-18] MEDS ORDERED: OXYC10TA12 PO (08:24)
[2023-11-18] MEDS ORDERED: FLUT12HF2 INH (08:24)
[2023-11-18] MEDS ORDERED: MYRB50TA PO (08:24)
[2023-11-18] MEDS ORDERED: DOCU100C16 PO (08:24)
[2023-11-18] MEDS ORDERED: LEVO112T2 PO (08:24)
[2023-11-18] MEDS ORDERED: LACO150T PO (08:24)
[2023-11-18] MEDS ORDERED: ALBU8.5H INH (08:24)
[2023-11-18] MEDS ORDERED: POTA-136 PO (08:24)
[2023-11-18] MEDS ORDERED: METH-855 PO (08:24)
[2023-11-18] MEDS ORDERED: EMGA120I INJ (08:24)
[2023-11-18] MEDS ORDERED: ALPR0.5T3 PO (08:24)
[2023-11-18] MEDS ORDERED: HOME MED LIST COMPLETE! XX SCH (08:30)
[2023-11-18] MEDS: levETIRAcetam 250MG TABLET (KEPPRA) PO ONE (09:49)
[2023-11-18] MEDS: cefTRIAXone SOD 1 GM in D5W MINI-BAG PLUS 50 ML IV ONE (13:01)
[2023-11-18 17:21] VITALS: BP 161/79; TEMP 97.9; O2SAT 97
[2023-11-18] MEDS: oxyCODONE 5MG TAB PO PRN (18:45)
[2023-11-18 20:45] VITALS: BP 135/58; TEMP 97.7; O2SAT 94
[2023-11-18] MEDS: ALPRAZolam 0.5 MG TAB PO PRN (20:49)
[2023-11-18] MEDS: levETIRAcetam **XR** 750MG TABLET (KEPPRA XR) PO SCH (20:50)
[2023-11-18] MEDS: LACOSAMIDE 50 MG TAB (VIMPAT) PO SCH (20:50)
[2023-11-18] MEDS: PROPRANOLOL 60MG LA CAP PO SCH (20:50)
[2023-11-18] MEDS: SERTRALINE 100 MG TAB PO SCH (20:51)
[2023-11-18] MEDS: MONTELUKAST 10 MG TAB PO SCH (20:51)
[2023-11-18] MEDS: ATORVASTATIN 20 MG TAB PO SCH (20:51)
[2023-11-18] MEDS: DOCUSATE SODIUM 100MG CAPSULE PO SCH (20:51)
[2023-11-18] MEDS: HYDROMORPHONE HCL 0.5 MG/ 0.5 ML SYRINGE IV ONE (21:13)
[2023-11-18] MEDS: ADVAIR HFA 115/21MCG INHALER INH SCH (23:37)
[2023-11-19 04:24] VITALS: BP 154/64; TEMP 97.3; O2SAT 92
[2023-11-19] MEDS: LEVOTHYROXINE 112MCG TABLET (0.112MG) PO SCH (05:32)
[2023-11-19] MEDS ORDERED: traMADol 50 MG TAB PO ONE (05:40)
[2023-11-19] MEDS ORDERED: KETOROLAC 30 MG/ML 1ML VIAL IV ONE (05:45)
[2023-11-19] MEDS: traMADol 50 MG TAB PO ONE (06:14)
[2023-11-19] MEDS: ENOXAPARIN 40MG/0.4ML SYRINGE (J1650 PER 10MG) SC SCH ×2 (08:05→21:04)
[2023-11-19] MEDS: METHENAMINE HIPPURATE 1GM TABLET PO SCH (08:05)
[2023-11-19] MEDS: MAGNESIUM OXIDE 400MG TAB (MAG-OX) PO SCH (08:06)
[2023-11-19 08:11] LABS: BASO % 0.3 % (0.0-1.0); EOS # 0.1 10^3/uL (0.0-0.5); HEMATOCRIT 33.6 % (36.0-47.0); HEMOGLOBIN 11.3 g/dl (12.0-15.5); LYMPH # 1.1 10^3/uL (1.5-5.0); LYMPH % 29.8 % (24.0-44.0); MEAN CORPUSCULAR HEMOGLOBIN 29.3 pg (27.0-33.0); MEAN CORPUSCULAR HGB CONC 33.6 g/dl (32.0-36.5); MONO # 0.5 10^3/uL (0.0-0.8); MONO % 13.9 % (2.0-8.0); NEUTROPHILS # 1.8 10^3/uL (1.5-8.5); PLATELET COUNT, AUTOMATED 267 10^3/uL (150-450); RED BLOOD COUNT 3.86 10^6/uL (4.00-5.40); WHITE BLOOD COUNT 3.5 10^3/uL (4.0-10.0)
[2023-11-19 08:34] LABS: CALCIUM LEVEL 9.3 MG/DL (8.3-10.6); CREATININE FOR GFR 0.99 MG/DL (0.55-1.30); GLOMERULAR FILTRATION RATE 58.9 (>39); POTASSIUM SERUM 3.5 MMOL/L (3.5-5.1)
[2023-11-19 14:00] VITALS: BP 153/57; TEMP 98.1; O2SAT 96
[2023-11-19] MEDS: oxyCODONE 5MG TAB PO PRN (14:20)
[2023-11-19 20:30] VITALS: BP 141/60; TEMP 98.1; O2SAT 97
[2023-11-19] MEDS: SENNA 8.6 MG TAB (SENOKOT) PO SCH (21:07)
[2023-11-20] MEDS: ACETAMINOPHEN TAB 650MG DOSE (2X325MG) PO PRN (01:38)
[2023-11-20 05:50] VITALS: BP 123/59; TEMP 97.9; O2SAT 96
[2023-11-20 07:08] LABS: BASO % 0.7 % (0.0-1.0); EOS # 0.2 10^3/uL (0.0-0.5); EOS % 3.9 % (0.0-3.0); HEMATOCRIT 33.1 % (36.0-47.0); HEMOGLOBIN 11.1 g/dl (12.0-15.5); LYMPH # 1.3 10^3/uL (1.5-5.0); LYMPH % 31.8 % (24.0-44.0); MEAN CORPUSCULAR HEMOGLOBIN 29.4 pg (27.0-33.0); MEAN CORPUSCULAR HGB CONC 33.5 g/dl (32.0-36.5); MEAN CORPUSCULAR VOLUME 87.8 fl (80.0-96.0); MONO # 0.5 10^3/uL (0.0-0.8); MONO % 13.1 % (2.0-8.0); NEUTROPHILS # 2.1 10^3/uL (1.5-8.5); PLATELET COUNT, AUTOMATED 284 10^3/uL (150-450); RED BLOOD COUNT 3.77 10^6/uL (4.00-5.40); WHITE BLOOD COUNT 4.1 10^3/uL (4.0-10.0)
[2023-11-20 07:36] LABS: BLOOD UREA NITROGEN 23 MG/DL (9-23); CALCIUM LEVEL 9.2 MG/DL (8.3-10.6); CARBON DIOXIDE LEVEL 25 MMOL/L (20-31); CHLORIDE LEVEL 107 MMOL/L (98-107); CREATININE FOR GFR 0.93 MG/DL (0.55-1.30); GLOMERULAR FILTRATION RATE > 60.0 (>39); GLUCOSE, FASTING 94 MG/DL (74-106); POTASSIUM SERUM 3.5 MMOL/L (3.5-5.1); SODIUM LEVEL 140 MMOL/L (136-145)
[2023-11-20 14:00] VITALS: BP 139/62; TEMP 98.1; O2SAT 95
[2023-11-20] MEDS: ALPRAZolam 0.5 MG TAB PO PRN (14:08)
[2023-11-20] MEDS: ALBUTEROL SULFATE 2.5MG/0.5ML INH NEB SOLN NEB PRN (15:45)
[2023-11-20] MEDS: oxyCODONE 5MG TAB PO SCH (15:59)
[2023-11-20 20:41] VITALS: BP 155/61; TEMP 98.1; O2SAT 96
[2023-11-20] MEDS: levETIRAcetam **XR** 500 MG TABLET PO SCH (20:52)
[2023-11-21 05:27] VITALS: BP 138/54; TEMP 97.5; O2SAT 95
[2023-11-21 06:39] LABS: BASO % 0.7 % (0.0-1.0); EOS # 0.2 10^3/uL (0.0-0.5); EOS % 4.8 % (0.0-3.0); HEMATOCRIT 32.5 % (36.0-47.0); HEMOGLOBIN 10.9 g/dl (12.0-15.5); LYMPH # 1.4 10^3/uL (1.5-5.0); LYMPH % 31.1 % (24.0-44.0); MEAN CORPUSCULAR HEMOGLOBIN 28.9 pg (27.0-33.0); MEAN CORPUSCULAR HGB CONC 33.5 g/dl (32.0-36.5); MEAN CORPUSCULAR VOLUME 86.2 fl (80.0-96.0); MONO # 0.5 10^3/uL (0.0-0.8); MONO % 11.8 % (2.0-8.0); NEUTROPHILS # 2.2 10^3/uL (1.5-8.5); NEUTROPHILS % 51.1 % (36.0-66.0); PLATELET COUNT, AUTOMATED 273 10^3/uL (150-450); RED BLOOD COUNT 3.77 10^6/uL (4.00-5.40); WHITE BLOOD COUNT 4.3 10^3/uL (4.0-10.0)
[2023-11-21 07:03] LABS: BLOOD UREA NITROGEN 15 MG/DL (9-23); CALCIUM LEVEL 9.4 MG/DL (8.3-10.6); CARBON DIOXIDE LEVEL 25 MMOL/L (20-31); CHLORIDE LEVEL 105 MMOL/L (98-107); CREATININE FOR GFR 0.79 MG/DL (0.55-1.30); GLOMERULAR FILTRATION RATE > 60.0 (>39); GLUCOSE, FASTING 68 MG/DL (74-106); POTASSIUM SERUM 3.3 MMOL/L (3.5-5.1); SODIUM LEVEL 139 MMOL/L (136-145)
[2023-11-21] MEDS: POTASSIUM CHLORIDE 10MEQ SR TABLET PO ONE (08:49)
[2023-11-21 08:50] VITALS: BP 142/78
[2023-11-21 10:00] VITALS: O2SAT 95
[2023-11-21] MEDS ORDERED: LEVE500XR PO (10:27)
== END 2023-11-21 11:29 | disposition home health service (06) ==
LOC: M ED 05:06 → M ED INP 05:07 → M MSPAV 17:02
PROVIDERS: ADMIT Internal Medicine Nephrology; ATTEND Internal Medicine Nephrology
DX: G40.509 Epileptic seizures related to external causes, not intractable, without status epilepticus (principal); G93.41 Metabolic encephalopathy; W19.XXXA Unspecified fall, initial encounter; J30.2 Other seasonal allergic rhinitis; F13.20 Sedative, hypnotic or anxiolytic dependence, uncomplicated; H40.9 Unspecified glaucoma; I11.0 Hypertensive heart disease with heart failure; E78.5 Hyperlipidemia, unspecified; E03.9 Hypothyroidism, unspecified; G43.909 Migraine, unspecified, not intractable, without status migrainosus; M79.7 Fibromyalgia; F11.20 Opioid dependence, uncomplicated; E66.01 Morbid (severe) obesity due to excess calories; M35.00 Sjogren syndrome, unspecified; Z90.5 Acquired absence of kidney; Z89.512 Acquired absence of left leg below knee; I50.32 Chronic diastolic (congestive) heart failure; J45.909 Unspecified asthma, uncomplicated; R32 Unspecified urinary incontinence; K21.9 Gastro-esophageal reflux disease without esophagitis; Z79.899 Other long term (current) drug therapy; Z79.51 Long term (current) use of inhaled steroids; Z88.8 Allergy status to other drugs, medicaments and biological substances; Z88.1 Allergy status to other antibiotic agents; Z91.040 Latex allergy status
CPT/HCPCS: 36415; 70450; 71045; 71250; 72125; 73030; 80047; 80048; 80076; 80180; 80235; 81001; 82330; 82550; 82553; 83605; 83880; 84443; 84484; 85025; 87086; 93005; 93041; 94640; 96365; 96372; 96375; 97161; 97165; 97530; 97535; 99285; G0378; J0696; J1170; J1650

== ENCOUNTER 2023-12-11 09:56 | Observation (INO) | payer MEDICARE, OTHER ==
[~2023-12-11] VITALS: Ht 165.1 cm; Wt 118.6 kg
[~2023-12-11 09:56] MED LIST changes: +DOCU100C16 PO; +EMGA120I INJ; +FLUT12HF2 INH; +LACO150T PO; +LEVE500XR PO; +LEVE750XR PO; +LEVO112T2 PO; +METH-855 PO; +MYRB50TA PO; +TIZA2TA PO
[2023-12-11 12:46] LABS: BASO % 0.6 % (0.0-1.0); EOS # 0.2 10^3/uL (0.0-0.5); EOS % 4.4 % (0.0-3.0); HEMATOCRIT 35.3 % (36.0-47.0); HEMOGLOBIN 11.6 g/dl (12.0-15.5); LYMPH # 1.4 10^3/uL (1.5-5.0); LYMPH % 28.1 % (24.0-44.0); MEAN CORPUSCULAR HEMOGLOBIN 29.6 pg (27.0-33.0); MEAN CORPUSCULAR HGB CONC 32.9 g/dl (32.0-36.5); MEAN CORPUSCULAR VOLUME 90.1 fl (80.0-96.0); MONO # 0.5 10^3/uL (0.0-0.8); MONO % 9.6 % (2.0-8.0); NEUTROPHILS # 2.7 10^3/uL (1.5-8.5); NEUTROPHILS % 56.9 % (36.0-66.0); PLATELET COUNT, AUTOMATED 266 10^3/uL (150-450); RED BLOOD COUNT 3.92 10^6/uL (4.00-5.40); WHITE BLOOD COUNT 4.8 10^3/uL (4.0-10.0)
[2023-12-11 12:51] LABS: ALBUMIN 3.8 G/DL (3.2-5.2); ALKALINE PHOSPHATASE 155 U/L (46-116); ALT/SGPT 19 U/L (7.0-40); AST/SGOT 22 U/L (<34); BILIRUBIN,DIRECT < 0.1 MG/DL (<0.4); BILIRUBIN,TOTAL 0.2 MG/DL (0.3-1.2); BLOOD UREA NITROGEN 26 MG/DL (9-23); CARBON DIOXIDE LEVEL 23 MMOL/L (20-31); CHLORIDE LEVEL 104 MMOL/L (98-107); CK-MB VALUE MASS < 1.0 NG/ML (<3.6); CREATININE FOR GFR 1.56 MG/DL (0.55-1.30); GLOMERULAR FILTRATION RATE 34.8 (>39); GLUCOSE, FASTING 80 MG/DL (74-106); POTASSIUM SERUM 3.7 MMOL/L (3.5-5.1); SODIUM LEVEL 137 MMOL/L (136-145); TOTAL PROTEIN 6.6 G/DL (5.7-8.2)
[2023-12-11 12:52] LABS: CPK CREATINE PHOSPHOKINASE 46 U/L (34-145); MB/CK RELATIVE INDEX 2.17 (< OR =4)
[2023-12-11] MEDS: MORPHINE 2 MG/ML 1ML VIAL IV ONE (12:53)
[2023-12-11] MEDS: ONDANSETRON 4MG 2ML VIAL IV ONE (12:53)
[2023-12-11] MEDS: NS 1,000 ML IV SCH (12:53)
[2023-12-11] MEDS: NS 500 ML IV ONE ×2 (15:26→16:27)
[2023-12-11] MEDS: LIDOCAINE 2% 5ML JELLY UROJET TOP ONE (16:21)
[2023-12-11] MEDS ORDERED: EPIN0.3I11 IM (17:04)
[2023-12-11] MEDS ORDERED: LEVE500T88 PO (17:04)
[2023-12-11] MEDS ORDERED: HOME MED LIST COMPLETE! XX SCH (17:10)
[2023-12-11] MEDS: NS 1,000 ML IV ONE (17:27)
[2023-12-11 18:05] VITALS: BP 134/87; TEMP 98.6; O2SAT 100
[2023-12-11] MEDS ORDERED: ALBUTEROL 90 MCG/ACT 8GM HFA INHALER INH PRN (18:10)
[2023-12-11] MEDS ORDERED: DOCUSATE SODIUM 100MG CAPSULE PO PRN (18:10)
[2023-12-11] MEDS ORDERED: PILL CUTTER 1 EACH XX PRN (18:25)
[2023-12-11] MEDS: amLODIPine 5 MG TAB PO ONE (18:40)
[2023-12-11 19:01] LABS: CALCIUM LEVEL 8.9 MG/DL (8.3-10.6); CREATININE FOR GFR 1.18 MG/DL (0.55-1.30); GLOMERULAR FILTRATION RATE 48.1 (>39); POTASSIUM SERUM 4.1 MMOL/L (3.5-5.1)
[2023-12-11] MEDS: COMBIVENT RESPIMAT 100-20MCG INHALER 4GM INH SCH (19:40)
[2023-12-11] MEDS: ADVAIR HFA 115/21MCG INHALER INH SCH (19:40)
[2023-12-11] MEDS: POTASSIUM CHLORIDE 10MEQ SR TABLET PO SCH (20:10)
[2023-12-11] MEDS: LACOSAMIDE 50 MG TAB (VIMPAT) PO SCH (20:10)
[2023-12-11] MEDS: ATORVASTATIN 20 MG TAB PO SCH (20:10)
[2023-12-11] MEDS: SERTRALINE 100 MG TAB PO SCH (20:10)
[2023-12-11] MEDS: MONTELUKAST 10 MG TAB PO SCH (20:11)
[2023-12-11] MEDS: CETIRIZINE (ZyrTEC) 10 MG TAB PO SCH (20:11)
[2023-12-11] MEDS: MAGNESIUM OXIDE 400MG TAB (MAG-OX) PO SCH (20:11)
[2023-12-11] MEDS: CEPHALEXIN 500 MG CAP PO SCH (20:11)
[2023-12-11] MEDS: FAMOTIDINE 20 MG TAB PO SCH (20:11)
[2023-12-11] MEDS: PROPRANOLOL 60MG LA CAP PO SCH (20:14)
[2023-12-11] MEDS: oxyCODONE 5MG TAB PO SCH (20:16)
[2023-12-11] MEDS: levETIRAcetam **XR** 500 MG TABLET PO SCH (20:16)
[2023-12-11] MEDS: HEPARIN SOD (PORCINE) 5000UNITS/ML 1ML VIAL/SYRINGE SQ SCH (20:17)
[2023-12-11 20:30] VITALS: BP 119/52; TEMP 97.9; O2SAT 97
[2023-12-11] MEDS: levETIRAcetam INJection 750 MG in D5W 100 ML IV ONE (20:31)
[2023-12-11] MEDS: ALPRAZolam 0.5 MG TAB PO PRN (20:31)
[2023-12-11] MEDS ORDERED: LACOSAMIDE 50 MG TAB (VIMPAT) PO SCH (21:00)
[2023-12-11] MEDS ORDERED: DICYCLOMINE 10 MG CAP PO PRN (21:05)
[2023-12-11] MEDS: zolPIDEM TARTRATE 5 MG TAB PO PRN (23:29)
[2023-12-12 04:40] VITALS: BP 119/51; TEMP 98.2; O2SAT 91
[2023-12-12] MEDS: tiZANidine 4 MG TAB PO PRN (05:41)
[2023-12-12] MEDS: LEVOTHYROXINE 112MCG TABLET (0.112MG) PO SCH (05:41)
[2023-12-12 06:16] LABS: BASO % 0.7 % (0.0-1.0); EOS # 0.2 10^3/uL (0.0-0.5); EOS % 4.3 % (0.0-3.0); HEMATOCRIT 32.4 % (36.0-47.0); HEMOGLOBIN 10.7 g/dl (12.0-15.5); LYMPH # 0.9 10^3/uL (1.5-5.0); LYMPH % 21.1 % (24.0-44.0); MEAN CORPUSCULAR HEMOGLOBIN 29.2 pg (27.0-33.0); MEAN CORPUSCULAR VOLUME 88.5 fl (80.0-96.0); MONO # 0.4 10^3/uL (0.0-0.8); MONO % 9.2 % (2.0-8.0); NEUTROPHILS # 2.9 10^3/uL (1.5-8.5); NEUTROPHILS % 64.5 % (36.0-66.0); PLATELET COUNT, AUTOMATED 259 10^3/uL (150-450); RED BLOOD COUNT 3.66 10^6/uL (4.00-5.40); WHITE BLOOD COUNT 4.5 10^3/uL (4.0-10.0)
[2023-12-12 06:42] LABS: CALCIUM LEVEL 8.6 MG/DL (8.3-10.6); CREATININE FOR GFR 1.02 MG/DL (0.55-1.30); GLOMERULAR FILTRATION RATE 56.9 (>39)
[2023-12-12] MEDS: METHENAMINE HIPPURATE 1GM TABLET PO SCH (08:46)
[2023-12-12] MEDS ORDERED: MYRBETRIQ 50 MG PO SCH (09:00)
[2023-12-12] MEDS: ALPRAZolam 0.5 MG TAB PO ONE (11:54)
[2023-12-12 14:00] VITALS: BP_SYST 127; BP_SYST 130; BP_DIAS 52; BP_DIAS 57; TEMP 97.5; TEMP 97.9; O2SAT 97; O2SAT 99
[2023-12-12 20:00] VITALS: BP 116/52; TEMP 97.9; TEMP 98; O2SAT 96
[2023-12-13 06:00] VITALS: BP 116/54; TEMP 97.5; O2SAT 95
[2023-12-13] MEDS: ACETAMINOPHEN 500 MG TAB PO PRN (06:05)
[2023-12-13 06:43] LABS: BASO % 0.6 % (0.0-1.0); EOS # 0.2 10^3/uL (0.0-0.5); EOS % 5.9 % (0.0-3.0); HEMATOCRIT 33.4 % (36.0-47.0); HEMOGLOBIN 10.9 g/dl (12.0-15.5); LYMPH # 1.2 10^3/uL (1.5-5.0); LYMPH % 36.2 % (24.0-44.0); MEAN CORPUSCULAR HEMOGLOBIN 29.3 pg (27.0-33.0); MEAN CORPUSCULAR HGB CONC 32.6 g/dl (32.0-36.5); MEAN CORPUSCULAR VOLUME 89.8 fl (80.0-96.0); MONO # 0.2 10^3/uL (0.0-0.8); MONO % 7.4 % (2.0-8.0); NEUTROPHILS # 1.6 10^3/uL (1.5-8.5); NEUTROPHILS % 49.6 % (36.0-66.0); PLATELET COUNT, AUTOMATED 248 10^3/uL (150-450); RED BLOOD COUNT 3.72 10^6/uL (4.00-5.40); WHITE BLOOD COUNT 3.2 10^3/uL (4.0-10.0)
[2023-12-13 07:01] LABS: BLOOD UREA NITROGEN 17 MG/DL (9-23); CALCIUM LEVEL 9.6 MG/DL (8.3-10.6); CARBON DIOXIDE LEVEL 23 MMOL/L (20-31); CHLORIDE LEVEL 110 MMOL/L (98-107); CREATININE FOR GFR 0.94 MG/DL (0.55-1.30); GLOMERULAR FILTRATION RATE > 60.0 (>39); GLUCOSE, FASTING 147 MG/DL (74-106); SODIUM LEVEL 140 MMOL/L (136-145)
[2023-12-13] MEDS: oxyCODONE 5MG TAB PO ONE (11:18)
[2023-12-13] MEDS ORDERED: SUMAtriptan SUCCINATE 6MG/0.5ML VIAL SC ONE (12:00)
[2023-12-13 12:34] VITALS: BP 113/55; TEMP 98.1; O2SAT 96
[2023-12-13] MEDS ORDERED: CEPH500C PO (13:46)
[2023-12-13 20:00] VITALS: BP 142/61; TEMP 98.1; O2SAT 99
[2023-12-14 05:50] VITALS: BP 148/58; TEMP 97.5; O2SAT 96
[2023-12-14 06:49] LABS: BASO % 0.3 % (0.0-1.0); EOS # 0.2 10^3/uL (0.0-0.5); EOS % 5.6 % (0.0-3.0); HEMATOCRIT 34.9 % (36.0-47.0); HEMOGLOBIN 11.2 g/dl (12.0-15.5); LYMPH # 1.2 10^3/uL (1.5-5.0); LYMPH % 30.7 % (24.0-44.0); MEAN CORPUSCULAR HEMOGLOBIN 28.9 pg (27.0-33.0); MEAN CORPUSCULAR HGB CONC 32.1 g/dl (32.0-36.5); MEAN CORPUSCULAR VOLUME 90.2 fl (80.0-96.0); MONO # 0.4 10^3/uL (0.0-0.8); MONO % 10.1 % (2.0-8.0); NEUTROPHILS % 52.8 % (36.0-66.0); PLATELET COUNT, AUTOMATED 255 10^3/uL (150-450); RED BLOOD COUNT 3.87 10^6/uL (4.00-5.40); WHITE BLOOD COUNT 3.8 10^3/uL (4.0-10.0)
[2023-12-14 07:16] LABS: BLOOD UREA NITROGEN 16 MG/DL (9-23); CALCIUM LEVEL 9.9 MG/DL (8.3-10.6); CARBON DIOXIDE LEVEL 25 MMOL/L (20-31); CHLORIDE LEVEL 109 MMOL/L (98-107); CREATININE FOR GFR 0.83 MG/DL (0.55-1.30); GLOMERULAR FILTRATION RATE > 60.0 (>39); GLUCOSE, FASTING 101 MG/DL (74-106); POTASSIUM SERUM 4.4 MMOL/L (3.5-5.1); SODIUM LEVEL 141 MMOL/L (136-145)
[2023-12-14 08:25] VITALS: BP 146/64
== END 2023-12-14 11:06 | disposition home health service (06) ==
LOC: M ED 09:56 → EDBD 09:56 → M ED INP 09:57 → M MSPAV 17:59
PROVIDERS: ADMIT General Practice; ATTEND General Practice
DX: N17.9 Acute kidney failure, unspecified (principal); W19.XXXA Unspecified fall, initial encounter; Y92.89 Other specified places as the place of occurrence of the external cause; Y93.9 Activity, unspecified; Y99.9 Unspecified external cause status; N39.0 Urinary tract infection, site not specified; B96.20 Unspecified Escherichia coli [E. coli] as the cause of diseases classified elsewhere; E66.01 Morbid (severe) obesity due to excess calories; F11.20 Opioid dependence, uncomplicated; F13.20 Sedative, hypnotic or anxiolytic dependence, uncomplicated; G47.10 Hypersomnia, unspecified; I50.32 Chronic diastolic (congestive) heart failure; I10 Essential (primary) hypertension; E78.5 Hyperlipidemia, unspecified; M79.7 Fibromyalgia; Z79.899 Other long term (current) drug therapy; Z79.2 Long term (current) use of antibiotics; Z85.528 Personal history of other malignant neoplasm of kidney; Z90.5 Acquired absence of kidney; Z89.512 Acquired absence of left leg below knee; R53.81 Other malaise; Z99.3 Dependence on wheelchair; G40.909 Epilepsy, unspecified, not intractable, without status epilepticus; G43.909 Migraine, unspecified, not intractable, without status migrainosus; E03.9 Hypothyroidism, unspecified; J45.909 Unspecified asthma, uncomplicated; G62.9 Polyneuropathy, unspecified; Z88.8 Allergy status to other drugs, medicaments and biological substances; Z88.0 Allergy status to penicillin; Z88.1 Allergy status to other antibiotic agents; Z91.040 Latex allergy status
CPT/HCPCS: 36415; 51701; 70450; 71045; 73030; 73502; 73552; 73700; 76775; 80048; 80076; 80180; 81001; 82550; 82553; 85025; 87040; 87088; 87186; 93005; 93041; 94640; 94760; 96365; 96372; 96375; 96376; 97161; 97165; 97530; 97535; 99285; G0378; J1953; J2405

== ENCOUNTER 2023-12-19 21:50 | Emergency (ER) | payer MEDICARE, OTHER, BC ==
[~2023-12-19] VITALS: Ht 165.1 cm; Wt 113.6 kg
[~2023-12-19 21:50] MED LIST changes: +EPIN0.3I11 IM; +LEVE500T88 PO
[2023-12-20] MEDS: ACETAMINOPHEN TAB 650MG DOSE (2X325MG) PO ONE (03:32)
[2023-12-20 03:33] LABS: ALBUMIN 3.7 G/DL (3.2-5.2); ALKALINE PHOSPHATASE 144 U/L (46-116); ALT/SGPT 26 U/L (7.0-40); AST/SGOT 38 U/L (<34); BILIRUBIN,DIRECT 0.1 MG/DL (<0.4); BILIRUBIN,TOTAL 0.5 MG/DL (0.3-1.2); BLOOD UREA NITROGEN 40 MG/DL (9-23); CALCIUM LEVEL 8.2 MG/DL (8.3-10.6); CARBON DIOXIDE LEVEL 21 MMOL/L (20-31); CHLORIDE LEVEL 106 MMOL/L (98-107); CK-MB VALUE MASS < 1.0 NG/ML (<3.6); CPK CREATINE PHOSPHOKINASE 48 U/L (34-145); CREATININE FOR GFR 1.19 MG/DL (0.55-1.30); GLOMERULAR FILTRATION RATE 47.6 (>39); GLUCOSE, FASTING 103 MG/DL (74-106); MB/CK RELATIVE INDEX 2.08 (< OR =4); POTASSIUM SERUM 4.4 MMOL/L (3.5-5.1); SODIUM LEVEL 139 MMOL/L (136-145); TOTAL PROTEIN 6.9 G/DL (5.7-8.2)
[2023-12-20 04:20] LABS: BASO % 0.4 % (0.0-1.0); EOS # 0.1 10^3/uL (0.0-0.5); EOS % 2.4 % (0.0-3.0); HEMATOCRIT 32.3 % (36.0-47.0); HEMOGLOBIN 10.9 g/dl (12.0-15.5); LYMPH # 1.4 10^3/uL (1.5-5.0); LYMPH % 28.2 % (24.0-44.0); MEAN CORPUSCULAR HEMOGLOBIN 29.3 pg (27.0-33.0); MEAN CORPUSCULAR HGB CONC 33.7 g/dl (32.0-36.5); MEAN CORPUSCULAR VOLUME 86.8 fl (80.0-96.0); MONO # 0.7 10^3/uL (0.0-0.8); MONO % 13.9 % (2.0-8.0); NEUTROPHILS # 2.7 10^3/uL (1.5-8.5); NEUTROPHILS % 54.9 % (36.0-66.0); PLATELET COUNT, AUTOMATED 244 10^3/uL (150-450); RED BLOOD COUNT 3.72 10^6/uL (4.00-5.40)
[2023-12-20 06:31] VITALS: TEMP 98.3
[2023-12-20 07:25] LABS: AMPHETAMINES LEVEL URINE NEGATIVE (NEGATIVE); BARBITURATES URINE NEGATIVE (NEGATIVE)
[2023-12-20 07:26] LABS: CANNABINOIDS URINE NEGATIVE (NEGATIVE); COCAINE METABOLITE URINE NEGATIVE (NEGATIVE); METHADONE URINE NEGATIVE (NEGATIVE); OPIATES URINE NEGATIVE (NEGATIVE); PHENCYCLIDINE URINE NEGATIVE (NEGATIVE)
[2023-12-20 07:27] LABS: BENZODIAZEPINES URINE POSITIVE (NEGATIVE)
[2023-12-20 10:01] VITALS: BP 145/65; O2SAT 99
== END 2023-12-20 10:49 | disposition home or self-care (01) ==
LOC: M ED 21:50
DX: T50.995A Adverse effect of other drugs, medicaments and biological substances, initial encounter (principal); I44.0 Atrioventricular block, first degree; I10 Essential (primary) hypertension; E78.5 Hyperlipidemia, unspecified; K21.9 Gastro-esophageal reflux disease without esophagitis; G43.909 Migraine, unspecified, not intractable, without status migrainosus; G40.909 Epilepsy, unspecified, not intractable, without status epilepticus; M79.7 Fibromyalgia; Z86.79 Personal history of other diseases of the circulatory system; Z88.0 Allergy status to penicillin; Z88.1 Allergy status to other antibiotic agents; Z88.2 Allergy status to sulfonamides; Z88.6 Allergy status to analgesic agent; Z88.8 Allergy status to other drugs, medicaments and biological substances; Z96.651 Presence of right artificial knee joint; Z79.52 Long term (current) use of systemic steroids; Z79.02 Long term (current) use of antithrombotics/antiplatelets; Z79.810 Long term (current) use of selective estrogen receptor modulators (SERMs); Z79.899 Other long term (current) drug therapy

== ENCOUNTER → 2024-01-23 | Outpatient (REF) | payer MEDICARE, OTHER, BC ==
[2024-01-23 19:27] LABS: IRON (FE) 51 UG/DL (50-170); PERCENT SATURATION 17.1 % (13.2-45.0); TOTAL IRON BINDING CAPACITY 299 UG/DL (250-425)
[2024-01-23 19:30] LABS: FERRITIN 65.9 NG/ML (7.3-270.7); VITAMIN B12 LEVEL > 2000 PG/ML (211-911)
[2024-01-27 23:13] LABS: LEVETIRACETAM (KEPPRA) 51.6 mcg/mL (6.0-46.0)
== END ==
LOC: M LAB REF 16:28
PROVIDERS: ATTEND Internal Medicine
DX: D64.9 Anemia, unspecified (principal); G40.89 Other seizures

== ENCOUNTER 2024-02-08 23:36 | Emergency (ER) | payer MEDICARE, OTHER, BC ==
[2024-02-09] MEDS ORDERED: OXYC-517 PO (03:05)
[2024-02-09] MEDS: DERMABOND TOPICAL SKIN ADHESIVE TOP ONE (03:27)
[2024-02-09] MEDS: PERCOCET 5MG/325MG TAB PO ONE (03:27)
[2024-02-09 08:40] VITALS: BP 181/81; TEMP 97.8; O2SAT 99
== END 2024-02-09 08:41 | disposition home or self-care (01) ==
LOC: M ED 23:36
DX: M25.552 Pain in left hip (principal); M25.512 Pain in left shoulder; S02.2XXA Fracture of nasal bones, initial encounter for closed fracture; Y92.410 Unspecified street and highway as the place of occurrence of the external cause; Y93.9 Activity, unspecified; Y99.9 Unspecified external cause status; I50.22 Chronic systolic (congestive) heart failure; I11.0 Hypertensive heart disease with heart failure; J45.909 Unspecified asthma, uncomplicated; K21.9 Gastro-esophageal reflux disease without esophagitis; Z88.0 Allergy status to penicillin; Z88.1 Allergy status to other antibiotic agents; Z88.2 Allergy status to sulfonamides; Z88.8 Allergy status to other drugs, medicaments and biological substances; Z91.040 Latex allergy status; Z79.1 Long term (current) use of non-steroidal anti-inflammatories (NSAID); Z79.51 Long term (current) use of inhaled steroids; Z79.2 Long term (current) use of antibiotics; Z79.899 Other long term (current) drug therapy

== ENCOUNTER 2024-02-14 03:36 | Observation (INO) | payer MEDICARE, OTHER, BC ==
[~2024-02-14] VITALS: Ht 165.1 cm; Wt 119.6 kg
[2024-02-14] MEDS ORDERED: NALOXONE INJ 0.4MG/1ML VIAL As Ordered ONE (05:23)
[2024-02-14] MEDS: NALOXONE INJ 0.4MG/1ML VIAL IV STA (05:29)
[2024-02-14] MEDS: NS 1,000 ML IV ONE (05:30)
[2024-02-14] MEDS: LEVOTHYROXINE 112MCG TABLET (0.112MG) PO SCH (06:00)
[2024-02-14 06:11] LABS: VENOUS BASE EXCESS -4.8 (-2.0-2.0); VENOUS HCO3 21.1 MMOL/L (23.0-27.0); VENOUS O2 SATURATION 92.1 % (60.0-80.0); VENOUS PARTIAL PRESSURE CO2 42.1 mmHg (38.0-50.0); VENOUS PARTIAL PRESSURE O2 68.1 mmHg (30.0-50.0); VENOUS PH 7.318 UNITS (7.330-7.430); VENOUS STANDARD HCO3 20.4 MMOL/L; VENOUS TOTAL CO2 22.4 MMOL/L (24.0-28.0)
[2024-02-14 06:15] LABS: BASO % 0.3 % (0.0-1.0); EOS # 0.2 10^3/uL (0.0-0.5); HEMATOCRIT 31.8 % (36.0-47.0); HEMOGLOBIN 10.5 g/dl (12.0-15.5); LYMPH # 1.2 10^3/uL (1.5-5.0); MEAN CORPUSCULAR HEMOGLOBIN 30.2 pg (27.0-33.0); MEAN CORPUSCULAR VOLUME 91.4 fl (80.0-96.0); MONO # 0.6 10^3/uL (0.0-0.8); MONO % 10.5 % (2.0-8.0); NEUTROPHILS # 3.8 10^3/uL (1.5-8.5); NEUTROPHILS % 64.9 % (36.0-66.0); PLATELET COUNT, AUTOMATED 228 10^3/uL (150-450); RED BLOOD COUNT 3.48 10^6/uL (4.00-5.40); WHITE BLOOD COUNT 5.9 10^3/uL (4.0-10.0)
[2024-02-14 06:42] LABS: CK-MB VALUE MASS < 1.0 NG/ML (<3.6)
[2024-02-14 06:45] LABS: THYROID STIMULATING HORMONE 1.554 uIU/ML (0.55-4.78)
[2024-02-14 06:49] LABS: ETHYL ALCOHOL (ETHANOL) < 0.003 % (0.000-0.010)
[2024-02-14 06:51] LABS: ALBUMIN 3.4 G/DL (3.2-5.2); ALKALINE PHOSPHATASE 123 U/L (46-116); ALT/SGPT 14 U/L (7.0-40); AST/SGOT 9 U/L (<34); BILIRUBIN,DIRECT 0.1 MG/DL (<0.4); BILIRUBIN,TOTAL 0.3 MG/DL (0.3-1.2); BLOOD UREA NITROGEN 27 MG/DL (9-23); CALCIUM LEVEL 8.3 MG/DL (8.3-10.6); CARBON DIOXIDE LEVEL 23 MMOL/L (20-31); CHLORIDE LEVEL 109 MMOL/L (98-107); CPK CREATINE PHOSPHOKINASE 53 U/L (34-145); CREATININE FOR GFR 1.27 MG/DL (0.55-1.30); GLUCOSE, FASTING 103 MG/DL (74-106); MB/CK RELATIVE INDEX 1.88 (< OR =4); POTASSIUM SERUM 3.7 MMOL/L (3.5-5.1); SODIUM LEVEL 141 MMOL/L (136-145); TOTAL PROTEIN 6.1 G/DL (5.7-8.2)
[2024-02-14 07:14] LABS: SALICYLATE LEVEL < 3.0 MG/DL (<30)
[2024-02-14 07:25] LABS: OSMOLALITY SERUM 302 MOSM/KG (280-301)
[2024-02-14 07:56] LABS: CK-MB VALUE MASS < 1.0 NG/ML (<3.6)
[2024-02-14 07:59] LABS: CPK CREATINE PHOSPHOKINASE 76 U/L (34-145); MB/CK RELATIVE INDEX 1.31 (< OR =4)
[2024-02-14] MEDS: ADVAIR HFA 115/21MCG INHALER INH SCH (08:00)
[2024-02-14] MEDS ORDERED: levETIRAcetam 250MG TABLET (KEPPRA) PO SCH (09:00)
[2024-02-14 10:06] LABS: PROCALCITONIN 0.09 ng/ml
[2024-02-14] MEDS ORDERED: ALPR0.5T3 PO (10:48)
[2024-02-14] MEDS ORDERED: HOME MED LIST COMPLETE! XX SCH (10:50)
[2024-02-14] MEDS ORDERED: ALBUTEROL 90 MCG/ACT 8GM HFA INHALER INH PRN (11:15)
[2024-02-14] MEDS ORDERED: COMBIVENT RESPIMAT 100-20MCG INHALER 4GM INH PRN (11:15)
[2024-02-14] MEDS ORDERED: NON-FORMULARY 1 EA EA PO SCH (11:15)
[2024-02-14] MEDS ORDERED: **SFRHE** EPINEPHrine (EPIPEN) 0.3MG/0.3ML SYRINGE INJ PRN (11:15)
[2024-02-14] MEDS: CLINDAMYCIN 600 MG in IV 1 EA IV SCH (14:32)
[2024-02-14] MEDS: levETIRAcetam **XR** 750MG TABLET (KEPPRA XR) PO SCH (14:33)
[2024-02-14] MEDS: FAMOTIDINE 20 MG TAB PO SCH (14:33)
[2024-02-14] MEDS: METHENAMINE HIPPURATE 1GM TABLET PO SCH (14:34)
[2024-02-14] MEDS: SERTRALINE 100 MG TAB PO SCH (14:34)
[2024-02-14] MEDS: LACOSAMIDE 50 MG TAB (VIMPAT) PO SCH (14:35)
[2024-02-14] MEDS: oxyCODONE 5MG TAB PO PRN (14:37)
[2024-02-14 16:00] VITALS: BP 125/55; TEMP 97; O2SAT 98
[2024-02-14] MEDS: ACETAMINOPHEN 500 MG TAB PO PRN (17:43)
[2024-02-14 19:17] VITALS: BP 109/51; TEMP 97; O2SAT 99
[2024-02-14] MEDS: TORSEMIDE 10 MG TABLET PO SCH (20:21)
[2024-02-14] MEDS: MAGNESIUM OXIDE 400MG TAB (MAG-OX) PO SCH (20:21)
[2024-02-14] MEDS: ALPRAZolam 0.5 MG TAB PO SCH (20:21)
[2024-02-14] MEDS: CETIRIZINE (ZyrTEC) 10 MG TAB PO SCH (20:21)
[2024-02-14] MEDS: POTASSIUM CHLORIDE 10MEQ SR TABLET PO SCH (20:21)
[2024-02-14] MEDS: MONTELUKAST 10 MG TAB PO SCH (20:21)
[2024-02-14] MEDS: ENOXAPARIN 40MG/0.4ML SYRINGE (J1650 PER 10MG) SC SCH (20:22)
[2024-02-14] MEDS: ATORVASTATIN 20 MG TAB PO SCH (20:22)
[2024-02-14 20:30] VITALS: BP 117/55
[2024-02-14] MEDS: PROPRANOLOL 60MG LA CAP PO SCH (20:32)
[2024-02-15] VITALS (7 sets, daily range): BP systolic 104–139; BP diastolic 50–87; TEMP 96.8–97.6; O2SAT 95–98
[2024-02-15 05:42] LABS: HEMATOCRIT 30.8 % (36.0-47.0); MEAN CORPUSCULAR HEMOGLOBIN 29.8 pg (27.0-33.0); MEAN CORPUSCULAR HGB CONC 32.5 g/dl (32.0-36.5); MEAN CORPUSCULAR VOLUME 91.7 fl (80.0-96.0); PLATELET COUNT, AUTOMATED 210 10^3/uL (150-450); RED BLOOD COUNT 3.36 10^6/uL (4.00-5.40); WHITE BLOOD COUNT 3.4 10^3/uL (4.0-10.0)
[2024-02-15 06:16] LABS: ALBUMIN 3.2 G/DL (3.2-5.2); BILIRUBIN,TOTAL 0.3 MG/DL (0.3-1.2); CALCIUM LEVEL 8.2 MG/DL (8.3-10.6); CREATININE FOR GFR 1.11 MG/DL (0.55-1.30); GLOMERULAR FILTRATION RATE 51.4 (>39); MAGNESIUM LEVEL 1.6 MG/DL (1.8-2.4); POTASSIUM SERUM 3.5 MMOL/L (3.5-5.1); TOTAL PROTEIN 5.8 G/DL (5.7-8.2)
[2024-02-15 06:22] LABS: PROCALCITONIN 0.07 ng/ml
[2024-02-15] MEDS: MAG SULF 1GM/100ML (MAG RUN) 1 GM in IV 1 EA IV SCH (08:35)
[2024-02-15] MEDS: POTASSIUM CHLORIDE 10MEQ SR TABLET PO SCH (08:37)
[2024-02-15] MEDS: ALPRAZolam 0.5 MG TAB PO PRN (08:50)
[2024-02-15] MEDS: TORSEMIDE 10 MG TABLET PO SCH (13:57)
[2024-02-16 04:08] VITALS: BP 108/55; TEMP 97; O2SAT 96
[2024-02-16 07:30] VITALS: BP 127/58; TEMP 97; O2SAT 98
[2024-02-16 15:29] VITALS: BP 106/47; TEMP 97.2; O2SAT 92
[2024-02-16 19:39] VITALS: BP 116/55; TEMP 97.1; O2SAT 96
[2024-02-16 23:47] VITALS: BP 106/51; TEMP 97.1; O2SAT 94
[2024-02-17 03:31] VITALS: BP 126/58; TEMP 96.9; O2SAT 94
[2024-02-17 07:24] LABS: BASO % 0.4 % (0.0-1.0); EOS # 0.1 10^3/uL (0.0-0.5); EOS % 4.4 % (0.0-3.0); HEMATOCRIT 30.3 % (36.0-47.0); HEMOGLOBIN 9.9 g/dl (12.0-15.5); LYMPH % 37.3 % (24.0-44.0); MEAN CORPUSCULAR HEMOGLOBIN 29.8 pg (27.0-33.0); MEAN CORPUSCULAR HGB CONC 32.7 g/dl (32.0-36.5); MEAN CORPUSCULAR VOLUME 91.3 fl (80.0-96.0); MONO # 0.3 10^3/uL (0.0-0.8); MONO % 12.2 % (2.0-8.0); NEUTROPHILS # 1.2 10^3/uL (1.5-8.5); NEUTROPHILS % 45.7 % (36.0-66.0); PLATELET COUNT, AUTOMATED 216 10^3/uL (150-450); RED BLOOD COUNT 3.32 10^6/uL (4.00-5.40); WHITE BLOOD COUNT 2.7 10^3/uL (4.0-10.0)
[2024-02-17 07:47] LABS: BLOOD UREA NITROGEN 21 MG/DL (9-23); CALCIUM LEVEL 8.7 MG/DL (8.3-10.6); CARBON DIOXIDE LEVEL 26 MMOL/L (20-31); CHLORIDE LEVEL 109 MMOL/L (98-107); CREATININE FOR GFR 0.94 MG/DL (0.55-1.30); GLOMERULAR FILTRATION RATE > 60.0 (>39); GLUCOSE, FASTING 90 MG/DL (74-106); MAGNESIUM LEVEL 1.9 MG/DL (1.8-2.4); POTASSIUM SERUM 3.8 MMOL/L (3.5-5.1); SODIUM LEVEL 140 MMOL/L (136-145)
[2024-02-17 08:00] VITALS: BP 138/65; TEMP 97.4; O2SAT 98
[2024-02-17 11:39] VITALS: BP 137/62; TEMP 97.4; O2SAT 99
[2024-02-17 19:23] VITALS: BP 123/49; TEMP 97; O2SAT 97
[2024-02-17 23:12] VITALS: BP 103/45; TEMP 97.2; O2SAT 98
[2024-02-18 03:48] VITALS: BP 130/61; TEMP 97; O2SAT 97
[2024-02-18 07:29] VITALS: BP 162/69; TEMP 97; O2SAT 97
[2024-02-18] MEDS: DOCUSATE SODIUM 100MG CAPSULE PO PRN (08:41)
[2024-02-18 16:00] VITALS: BP 137/62; TEMP 97.5; O2SAT 98
[2024-02-18] MEDS: CLINDAMYCIN 150MG CAPSULE PO SCH (16:43)
[2024-02-18 19:16] VITALS: BP 134/58; TEMP 97.3; O2SAT 97
[2024-02-18 21:24] VITALS: BP 134/58
[2024-02-18 23:00] VITALS: BP 142/63; TEMP 97.4; O2SAT 98
[2024-02-19 03:23] VITALS: BP 148/69; TEMP 97.2; O2SAT 98
[2024-02-19 07:41] VITALS: BP 158/67; TEMP 97.3; O2SAT 98
[2024-02-19 11:34] VITALS: BP 157/68; TEMP 97.8; O2SAT 97
[2024-02-19] MEDS ORDERED: CLIN150C17 PO (11:49)
[2024-02-19] MEDS ORDERED: lisinopriL 5 MG TAB PO ONE (16:00)
== END 2024-02-19 16:15 | disposition home health service (06) ==
LOC: EDBD 03:36 → M ED 03:36 → M ED INP 09:20 → INTOOBSV 09:20 → M PCU 15:25
PROVIDERS: ADMIT Preventive Medicine Undersea and Hyperbaric Medicine; ATTEND Preventive Medicine Undersea and Hyperbaric Medicine
DX: R53.81 Other malaise (principal); W05.0XXA Fall from non-moving wheelchair, initial encounter; Z89.512 Acquired absence of left leg below knee; R26.89 Other abnormalities of gait and mobility; G93.41 Metabolic encephalopathy; L03.115 Cellulitis of right lower limb; G40.909 Epilepsy, unspecified, not intractable, without status epilepticus; J45.909 Unspecified asthma, uncomplicated; E78.5 Hyperlipidemia, unspecified; I11.9 Hypertensive heart disease without heart failure; G62.9 Polyneuropathy, unspecified; G43.909 Migraine, unspecified, not intractable, without status migrainosus; M79.7 Fibromyalgia; Z88.1 Allergy status to other antibiotic agents; Z88.0 Allergy status to penicillin; I89.0 Lymphedema, not elsewhere classified; E66.01 Morbid (severe) obesity due to excess calories; Z85.528 Personal history of other malignant neoplasm of kidney; F11.20 Opioid dependence, uncomplicated; F13.20 Sedative, hypnotic or anxiolytic dependence, uncomplicated; M32.9 Systemic lupus erythematosus, unspecified; E03.9 Hypothyroidism, unspecified; F41.9 Anxiety disorder, unspecified; F32.A Depression, unspecified; G47.00 Insomnia, unspecified; M25.552 Pain in left hip; M54.50 Low back pain, unspecified; G89.4 Chronic pain syndrome; Z79.899 Other long term (current) drug therapy; Z88.8 Allergy status to other drugs, medicaments and biological substances; Z79.2 Long term (current) use of antibiotics
CPT/HCPCS: 36415; 70450; 70486; 72125; 80048; 80053; 80076; 80143; 81001; 82077; 82140; 82550; 82553; 82803; 83605; 83735; 83930; 84145; 84443; 84484; 85025; 85027; 86140; 93005; 93041; 94640; 94664; 94760; 96361; 96365; 96366; 96372; 96375; 97161; 97165; 97530; 99285; G0378; J0737; J1650; J2310; J3475

== ENCOUNTER 2024-02-26 21:34 | Emergency (ER) | payer MEDICARE, BC, OTHER ==
[~2024-02-26] VITALS: Ht 165.1 cm; Wt 113.2 kg
[2024-02-26 21:56] VITALS: TEMP 97.1
[2024-02-26 22:53] LABS: BASO % 0.7 % (0.0-1.0); EOS # 0.2 10^3/uL (0.0-0.5); EOS % 4.8 % (0.0-3.0); HEMATOCRIT 31.8 % (36.0-47.0); HEMOGLOBIN 10.6 g/dl (12.0-15.5); LYMPH # 1.4 10^3/uL (1.5-5.0); LYMPH % 33.5 % (24.0-44.0); MEAN CORPUSCULAR HEMOGLOBIN 30.1 pg (27.0-33.0); MEAN CORPUSCULAR HGB CONC 33.3 g/dl (32.0-36.5); MEAN CORPUSCULAR VOLUME 90.3 fl (80.0-96.0); MONO # 0.6 10^3/uL (0.0-0.8); MONO % 14.4 % (2.0-8.0); NEUTROPHILS # 1.9 10^3/uL (1.5-8.5); NEUTROPHILS % 46.1 % (36.0-66.0); PLATELET COUNT, AUTOMATED 306 10^3/uL (150-450); RED BLOOD COUNT 3.52 10^6/uL (4.00-5.40); WHITE BLOOD COUNT 4.2 10^3/uL (4.0-10.0)
[2024-02-26 23:20] LABS: CK-MB VALUE MASS < 1.0 NG/ML (<3.6)
[2024-02-26 23:35] LABS: CPK CREATINE PHOSPHOKINASE 46 U/L (34-145); MB/CK RELATIVE INDEX 2.17 (< OR =4)
[2024-02-27 00:49] LABS: ETHYL ALCOHOL (ETHANOL) 0.013 % (0.000-0.010)
[2024-02-27 00:51] LABS: ALBUMIN 3.6 G/DL (3.2-5.2); ALKALINE PHOSPHATASE 152 U/L (46-116); ALT/SGPT 39 U/L (7.0-40); AST/SGOT 24 U/L (<34); BILIRUBIN,DIRECT < 0.1 MG/DL (<0.4); BILIRUBIN,TOTAL 0.2 MG/DL (0.3-1.2); BLOOD UREA NITROGEN 32 MG/DL (9-23); CALCIUM LEVEL 8.6 MG/DL (8.3-10.6); CARBON DIOXIDE LEVEL 26 MMOL/L (20-31); CHLORIDE LEVEL 105 MMOL/L (98-107); CK-MB VALUE MASS < 1.0 NG/ML (<3.6); GLUCOSE, FASTING 100 MG/DL (74-106); POTASSIUM SERUM 3.9 MMOL/L (3.5-5.1); SALICYLATE LEVEL < 3.0 MG/DL (<30); SODIUM LEVEL 135 MMOL/L (136-145); TOTAL PROTEIN 6.4 G/DL (5.7-8.2)
[2024-02-27 00:53] LABS: THYROID STIMULATING HORMONE 2.511 uIU/ML (0.55-4.78)
[2024-02-27 01:09] LABS: CPK CREATINE PHOSPHOKINASE 40 U/L (34-145)
[2024-02-27 02:54] LABS: AMPHETAMINES LEVEL URINE NEGATIVE (NEGATIVE); BARBITURATES URINE NEGATIVE (NEGATIVE); CANNABINOIDS URINE NEGATIVE (NEGATIVE); COCAINE METABOLITE URINE NEGATIVE (NEGATIVE); METHADONE URINE NEGATIVE (NEGATIVE); OPIATES URINE NEGATIVE (NEGATIVE); PHENCYCLIDINE URINE NEGATIVE (NEGATIVE)
[2024-02-27 02:56] LABS: BENZODIAZEPINES URINE POSITIVE (NEGATIVE)
[2024-02-27 03:49] VITALS: O2SAT 88
[2024-02-27 06:01] VITALS: BP 109/55
== END 2024-02-27 06:25 | disposition home or self-care (01) ==
LOC: M ED 21:34
DX: F11.221 Opioid dependence with intoxication delirium (principal); W06.XXXA Fall from bed, initial encounter; M25.512 Pain in left shoulder; R00.1 Bradycardia, unspecified; I44.0 Atrioventricular block, first degree; E78.5 Hyperlipidemia, unspecified; E03.9 Hypothyroidism, unspecified; I10 Essential (primary) hypertension; G40.909 Epilepsy, unspecified, not intractable, without status epilepticus; M79.7 Fibromyalgia; Z88.0 Allergy status to penicillin; Z88.1 Allergy status to other antibiotic agents; Z88.2 Allergy status to sulfonamides; Z88.5 Allergy status to narcotic agent; Z88.6 Allergy status to analgesic agent; Z88.8 Allergy status to other drugs, medicaments and biological substances; Z79.52 Long term (current) use of systemic steroids; Z79.899 Other long term (current) drug therapy; Y92.003 Bedroom of unspecified non-institutional (private) residence as the place of occurrence of the external cause; Y93.89 Activity, other specified; Y99.9 Unspecified external cause status
CPT/HCPCS: 36415; 52000; 80048; 80076; 80143; 80307; 81001; 82077; 82550; 82553; 83605; 84443; 84484; 85025; 87086; 93005; 93041; 94760; 99285; G0463

== ENCOUNTER → 2024-02-26 | Outpatient (REF) | payer MEDICARE, BC, OTHER ==
[~2024-02-26] MED LIST changes: +CLIN150C17 PO
== END ==
LOC: M LABSMT 16:50
PROVIDERS: ATTEND Urology
DX: N39.0 Urinary tract infection, site not specified (principal)

== ENCOUNTER → 2024-02-26 | Outpatient (REF) | payer MEDICARE, BC, OTHER ==
[2024-02-26 17:22] LABS: APPEARANCE, URINE CLEAR (CLEAR); BACTERIA, URINE AUTO NEGATIVE (NEGATIVE); BILIRUBIN, URINE AUTO NEGATIVE (NEGATIVE); BLOOD, URINE BLOOD 1+ (NEGATIVE); COLOR, URINE STRAW (YELLOW); GLUCOSE, URINE (UA) AUTO NEGATIVE (NEGATIVE); KETONE, URINE AUTO NEGATIVE (NEGATIVE); LEUKOCYTE ESTERASE, URINE AUTO NEGATIVE (NEGATIVE); NITRITE, URINE AUTO NEGATIVE (NEGATIVE); PROTEIN, URINE AUTO NEGATIVE (NEGATIVE); RBC, URINE AUTO 0 /HPF (0-3); SPECIFIC GRAVITY URINE AUTO 1.005 (1.002-1.035); SQUAMOUS EPITHELIAL CELL UR AU 2 /HPF (0-6); UROBILINOGEN, URINE AUTO 0.2 mg/dL (0.0-2.0); WBC, URINE AUTO 0 /HPF (0-3)
== END ==
LOC: M SMT 16:51
PROVIDERS: ATTEND Urology
DX: N39.0 Urinary tract infection, site not specified (principal)

== ENCOUNTER → 2024-03-14 | Outpatient (CLI) | payer MEDICARE, BC, OTHER | LOC: M SOG 08:12 | PROVIDERS: ATTEND Orthopaedic Surgery | DX: M25.512 Pain in left shoulder (principal) ==

== ENCOUNTER 2024-05-04 16:35 | Inpatient (IN) | payer MEDICARE, BC, OTHER ==
[~2024-05-04] VITALS: Ht 165.1 cm; Wt 116.6 kg
[~2024-05-04 16:35] MED LIST changes: -SENN-111 PO; +SENN-165 PO
[2024-05-04] MEDS: ONDANSETRON 4MG 2ML VIAL IV ONE (20:21)
[2024-05-04] MEDS: MORPHINE 4 MG/ML 1ML VIAL IV ONE (20:22)
[2024-05-04] MEDS ORDERED: NS 1,000 ML IV SCH (20:35)
[2024-05-04] MEDS ORDERED: NS 1,000 ML IV ONE (20:35)
[2024-05-04 20:45] LABS: BASO % 0.4 % (0.0-1.0); EOS % 0.4 % (0.0-3.0); HEMATOCRIT 34.9 % (36.0-47.0); HEMOGLOBIN 11.8 g/dl (12.0-15.5); LYMPH # 1.1 10^3/uL (1.5-5.0); LYMPH % 15.8 % (24.0-44.0); MEAN CORPUSCULAR HEMOGLOBIN 29.6 pg (27.0-33.0); MEAN CORPUSCULAR HGB CONC 33.8 g/dl (32.0-36.5); MEAN CORPUSCULAR VOLUME 87.7 fl (80.0-96.0); MONO # 0.4 10^3/uL (0.0-0.8); MONO % 6.3 % (2.0-8.0); NEUTROPHILS # 5.4 10^3/uL (1.5-8.5); PLATELET COUNT, AUTOMATED 245 10^3/uL (150-450); RED BLOOD COUNT 3.98 10^6/uL (4.00-5.40)
[2024-05-04 21:02] LABS: BLOOD UREA NITROGEN 9 MG/DL (9-23); CALCIUM LEVEL 9.6 MG/DL (8.3-10.6); CARBON DIOXIDE LEVEL 24 MMOL/L (20-31); CHLORIDE LEVEL 110 MMOL/L (98-107); CREATININE FOR GFR 0.72 MG/DL (0.55-1.30); GLOMERULAR FILTRATION RATE > 60.0 (>39); GLUCOSE, FASTING 97 MG/DL (74-106); MAGNESIUM LEVEL 1.5 MG/DL (1.8-2.4); POTASSIUM SERUM 3.8 MMOL/L (3.5-5.1); SODIUM LEVEL 143 MMOL/L (136-145)
[2024-05-04] MEDS: MAG SULF 1GM/100ML (MAG RUN) 1 GM in IV 1 EA IV ONE (21:48)
[2024-05-04] MEDS ORDERED: PILL CUTTER 1 EACH XX ONE (22:50)
[2024-05-04] MEDS: HYDROmorphone 2 MG TAB PO ONE (22:59)
[2024-05-04] MEDS ORDERED: DILA2TAB6 PO (23:16)
[2024-05-05] MEDS: NORCO, ANEXSIA 5/325MG TABLET (HYDROcodone/ACETAMINOPHEN) PO PRN (03:15)
[2024-05-05] MEDS ORDERED: LACOSAMIDE 50 MG TAB (VIMPAT) PO ONE ×2 (03:15)
[2024-05-05] MEDS: LIDOCAINE 5% (LIDODERM) PATCH TD SCH (03:15)
[2024-05-05] MEDS: ATORVASTATIN 20 MG TAB PO ONE (03:52)
[2024-05-05] MEDS: LACOSAMIDE 50 MG TAB (VIMPAT) PO ONE (03:52)
[2024-05-05] MEDS: oxyCODONE 5MG TAB PO ONE (03:53)
[2024-05-05] MEDS: ALPRAZolam 0.5 MG TAB PO ONE (03:53)
[2024-05-05] MEDS: MONTELUKAST 10 MG TAB PO STA (03:54)
[2024-05-05] MEDS: levETIRAcetam **XR** 750MG TABLET (KEPPRA XR) PO ONE (04:04)
[2024-05-05] MEDS ORDERED: IPRATROPIUM HFA INHALER 12.9 GRAMS (ATROVENT HFA) INH PRN (05:45)
[2024-05-05] MEDS ORDERED: LEVOTHYROXINE 100MCG (0.1MG) 5ML SDV PF (SOLUTION FORM) IV SCH (05:45)
[2024-05-05] MEDS: LEVOTHYROXINE 112MCG TABLET (0.112MG) PO SCH (06:00)
[2024-05-05] MEDS ORDERED: FLUC150T9 PO (06:48)
[2024-05-05] MEDS ORDERED: SOLI10TA PO (06:48)
[2024-05-05] MEDS ORDERED: HOME MED LIST COMPLETE! XX SCH (06:50)
[2024-05-05] MEDS ORDERED: COMBIVENT RESPIMAT 100-20MCG INHALER 4GM INH PRN (07:10)
[2024-05-05] MEDS ORDERED: DOCUSATE SODIUM 100MG CAPSULE PO PRN (07:40)
[2024-05-05] MEDS ORDERED: PILL CUTTER 1 EACH XX PRN (07:55)
[2024-05-05] MEDS: ADVAIR HFA 115/21MCG INHALER INH SCH (08:15)
[2024-05-05] MEDS ORDERED: ACETAMINOPHEN 325 MG TAB PO PRN (08:50)
[2024-05-05] MEDS: SERTRALINE 100 MG TAB PO SCH (08:52)
[2024-05-05] MEDS: FAMOTIDINE 20 MG TAB PO SCH (08:53)
[2024-05-05] MEDS: SPIRONOLACTONE 12.5MG PER 1/2 TABLET PO SCH (08:53)
[2024-05-05] MEDS: oxyCODONE 5MG TAB PO SCH (08:54)
[2024-05-05] MEDS: ALPRAZolam 0.5 MG TAB PO PRN (08:54)
[2024-05-05] MEDS ORDERED: FLUTICASONE HFA 110MCG 12GM INHALER (FLOVENT) INH SCH (09:00)
[2024-05-05] MEDS ORDERED: ENOXAPARIN 40MG/0.4ML SYRINGE (J1650 PER 10MG) SC SCH (09:00)
[2024-05-05] MEDS: MAGNESIUM OXIDE 400MG TAB (MAG-OX) PO SCH (09:00)
[2024-05-05 10:24] LABS: INR 1.17; PROTHROMBIN TIME 14.5 SECONDS (12.5-14.5)
[2024-05-05 11:45] VITALS: BP 138/67; TEMP 97.9; O2SAT 93
[2024-05-05] MEDS: ENOXAPARIN 40MG/0.4ML SYRINGE (J1650 PER 10MG) SC SCH (11:56)
[2024-05-05] MEDS: cefTRIAXone SOD 1 GM in DEXTROSE 5% (D5W) ADV/MINI-BAG 50 ML IV SCH (11:56)
[2024-05-05] MEDS: SOLIFENACIN 5 MG TAB PO SCH (13:38)
[2024-05-05] MEDS: LACOSAMIDE 50 MG TAB (VIMPAT) PO SCH (17:08)
[2024-05-05] MEDS: levETIRAcetam **XR** 750MG TABLET (KEPPRA XR) PO SCH (17:13)
[2024-05-05] MEDS ORDERED: levETIRAcetam 250MG TABLET (KEPPRA) PO SCH (18:00)
[2024-05-05 20:10] VITALS: BP 140/68; TEMP 97; O2SAT 95
[2024-05-05] MEDS: ALPRAZolam 0.5 MG TAB PO SCH (20:21)
[2024-05-05] MEDS: MONTELUKAST 10 MG TAB PO SCH (20:21)
[2024-05-05] MEDS: ATORVASTATIN 20 MG TAB PO SCH (20:22)
[2024-05-05] MEDS: PROPRANOLOL 60MG LA CAP PO SCH (20:22)
[2024-05-05] MEDS: CETIRIZINE (ZyrTEC) 10 MG TAB PO SCH (20:23)
[2024-05-05] MEDS ORDERED: TORSEMIDE 10 MG TABLET PO SCH (21:00)
[2024-05-06 04:25] VITALS: BP 154/71; TEMP 97.5; O2SAT 92
[2024-05-06 06:24] LABS: HEMATOCRIT 33.5 % (36.0-47.0); HEMOGLOBIN 10.8 g/dl (12.0-15.5); MEAN CORPUSCULAR HEMOGLOBIN 29.6 pg (27.0-33.0); MEAN CORPUSCULAR HGB CONC 32.2 g/dl (32.0-36.5); MEAN CORPUSCULAR VOLUME 91.8 fl (80.0-96.0); PLATELET COUNT, AUTOMATED 229 10^3/uL (150-450); RED BLOOD COUNT 3.65 10^6/uL (4.00-5.40); WHITE BLOOD COUNT 5.5 10^3/uL (4.0-10.0)
[2024-05-06 06:54] LABS: ALKALINE PHOSPHATASE 114 U/L (46-116); ALT/SGPT 12 U/L (7.0-40); AST/SGOT 11 U/L (<34); BILIRUBIN,TOTAL 0.2 MG/DL (0.3-1.2); BLOOD UREA NITROGEN 18 MG/DL (9-23); CALCIUM LEVEL 9.1 MG/DL (8.3-10.6); CARBON DIOXIDE LEVEL 24 MMOL/L (20-31); CHLORIDE LEVEL 111 MMOL/L (98-107); CREATININE FOR GFR 0.92 MG/DL (0.55-1.30); GLOMERULAR FILTRATION RATE > 60.0 (>39); GLUCOSE, FASTING 98 MG/DL (74-106); POTASSIUM SERUM 4.3 MMOL/L (3.5-5.1); SODIUM LEVEL 141 MMOL/L (136-145); TOTAL PROTEIN 5.9 G/DL (5.7-8.2)
[2024-05-06 12:00] VITALS: BP 148/68; TEMP 97.1; O2SAT 98
[2024-05-06 15:29] LABS: PROCALCITONIN 0.07 ng/ml
[2024-05-06] MEDS: tiZANidine 4 MG TAB PO PRN (18:28)
[2024-05-06 19:33] VITALS: BP 119/59; TEMP 97.3; O2SAT 96
[2024-05-06] MEDS: ACETAMINOPHEN 500 MG TAB PO SCH (20:43)
[2024-05-07 04:15] VITALS: BP 129/59; TEMP 97.5; O2SAT 95
[2024-05-07 06:36] LABS: BASO % 0.6 % (0.0-1.0); EOS # 0.2 10^3/uL (0.0-0.5); EOS % 2.4 % (0.0-3.0); HEMATOCRIT 32.6 % (36.0-47.0); HEMOGLOBIN 10.7 g/dl (12.0-15.5); LYMPH # 1.5 10^3/uL (1.5-5.0); LYMPH % 20.1 % (24.0-44.0); MEAN CORPUSCULAR HEMOGLOBIN 29.7 pg (27.0-33.0); MEAN CORPUSCULAR HGB CONC 32.8 g/dl (32.0-36.5); MEAN CORPUSCULAR VOLUME 90.6 fl (80.0-96.0); MONO # 0.6 10^3/uL (0.0-0.8); MONO % 8.3 % (2.0-8.0); NEUTROPHILS # 4.9 10^3/uL (1.5-8.5); NEUTROPHILS % 68.3 % (36.0-66.0); PLATELET COUNT, AUTOMATED 249 10^3/uL (150-450); WHITE BLOOD COUNT 7.2 10^3/uL (4.0-10.0)
[2024-05-07 06:58] LABS: CALCIUM LEVEL 9.4 MG/DL (8.3-10.6); CREATININE FOR GFR 1.02 MG/DL (0.55-1.30); GLOMERULAR FILTRATION RATE 56.7 (>39); POTASSIUM SERUM 4.2 MMOL/L (3.5-5.1)
[2024-05-07 12:00] VITALS: BP 126/56; TEMP 97.3; O2SAT 97
[2024-05-07 19:49] VITALS: BP 134/62; TEMP 97.2; O2SAT 98
[2024-05-08 04:18] VITALS: BP 134/63; TEMP 96.8; O2SAT 98
[2024-05-08] MEDS: CEFDINIR 300 MG CAP (OMNICEF) PO SCH (09:16)
[2024-05-08 11:32] LABS: BASO % 0.8 % (0.0-1.0); EOS # 0.2 10^3/uL (0.0-0.5); EOS % 4.1 % (0.0-3.0); HEMATOCRIT 34.5 % (36.0-47.0); HEMOGLOBIN 11.3 g/dl (12.0-15.5); LYMPH # 1.2 10^3/uL (1.5-5.0); LYMPH % 24.7 % (24.0-44.0); MEAN CORPUSCULAR HEMOGLOBIN 29.1 pg (27.0-33.0); MEAN CORPUSCULAR HGB CONC 32.8 g/dl (32.0-36.5); MEAN CORPUSCULAR VOLUME 88.9 fl (80.0-96.0); MONO # 0.6 10^3/uL (0.0-0.8); MONO % 12.6 % (2.0-8.0); NEUTROPHILS # 2.8 10^3/uL (1.5-8.5); NEUTROPHILS % 57.4 % (36.0-66.0); PLATELET COUNT, AUTOMATED 268 10^3/uL (150-450); RED BLOOD COUNT 3.88 10^6/uL (4.00-5.40); WHITE BLOOD COUNT 4.9 10^3/uL (4.0-10.0)
[2024-05-08 12:00] VITALS: BP 132/53; TEMP 97.7; O2SAT 94
[2024-05-08] MEDS ORDERED: ONDANSETRON 4MG 2ML VIAL IV PRN (14:35)
[2024-05-08] MEDS: SENOKOT S TAB PO SCH (15:04)
[2024-05-08 20:31] VITALS: BP 119/59; TEMP 97; O2SAT 93
[2024-05-08] MEDS: MINI IV SCH (22:01)
[2024-05-08] MEDS: DEXTROSE 5% IV SCH (22:01)
[2024-05-08] MEDS: CEFTAZIDIME IV SCH (22:01)
[2024-05-08] MEDS: AVIBACTAM IV SCH (22:01)
[2024-05-09 04:26] VITALS: BP 120/56; TEMP 97; O2SAT 95
[2024-05-09 10:00] VITALS: BP 121/76
[2024-05-09 14:16] VITALS: BP 149/65; TEMP 97.9
[2024-05-09 21:00] VITALS: BP 144/59; TEMP 97.9; O2SAT 98
[2024-05-10 05:47] VITALS: BP 162/69; TEMP 97.8; O2SAT 98
[2024-05-10 12:00] VITALS: BP 155/68; TEMP 97.2; O2SAT 93
[2024-05-10] MEDS: BISACODYL 10MG SUPP PR ONE (14:24)
[2024-05-10] MEDS: oxyCODONE 5MG TAB PO PRN (16:45)
[2024-05-10 20:45] VITALS: BP 136/69; TEMP 98.2; O2SAT 96
[2024-05-11 04:01] VITALS: BP 140/68; TEMP 97.5; O2SAT 96
[2024-05-11] MEDS: oxyCODONE 5MG TAB PO PRN (04:04)
[2024-05-11] MEDS: MIRALAX *UNIT DOSE* 17GM PACKET PO SCH (09:00)
[2024-05-11 12:00] VITALS: BP 135/63; TEMP 98.1; O2SAT 96
[2024-05-11] MEDS: ACETAMINOPHEN 500 MG TAB PO SCH (20:08)
[2024-05-11 23:11] VITALS: BP 152/63
[2024-05-12 04:00] VITALS: BP 158/72; TEMP 98.7; O2SAT 93
[2024-05-13 04:49] VITALS: BP 121/55; TEMP 97; O2SAT 96
[2024-05-13 09:48] VITALS: BP 171/63
[2024-05-13] MEDS ORDERED: MIRA33506 PO (10:14)
[2024-05-13] MEDS ORDERED: OXYC-517 PO (10:14)
[2024-05-13] MEDS ORDERED: SENN-52 PO (10:14)
[2024-05-13] MEDS ORDERED: MAGN400T2 PO (10:14)
[2024-05-13 10:20] VITALS: BP 161/63
== END 2024-05-13 12:00 | DRG 690 ==
LOC: M ED 16:35 → EDBD 16:35 → M ED INP 16:36 → EEVIPCON 16:36 → M MS5PR 05-05 11:59 → OBSVTOIN 05-09 10:07
PROVIDERS: ADMIT Internal Medicine; ATTEND Internal Medicine
DX: N39.0 Urinary tract infection, site not specified (principal); I50.32 Chronic diastolic (congestive) heart failure; F11.20 Opioid dependence, uncomplicated; Z68.41 Body mass index [BMI] 40.0-44.9, adult; E03.9 Hypothyroidism, unspecified; I11.0 Hypertensive heart disease with heart failure; G40.909 Epilepsy, unspecified, not intractable, without status epilepticus; E78.5 Hyperlipidemia, unspecified; E83.42 Hypomagnesemia; B96.20 Unspecified Escherichia coli [E. coli] as the cause of diseases classified elsewhere; K21.9 Gastro-esophageal reflux disease without esophagitis; F41.9 Anxiety disorder, unspecified; F32.A Depression, unspecified; G89.29 Other chronic pain; Z89.512 Acquired absence of left leg below knee; K59.00 Constipation, unspecified; J45.909 Unspecified asthma, uncomplicated; E66.01 Morbid (severe) obesity due to excess calories; G47.00 Insomnia, unspecified; M79.7 Fibromyalgia; M19.90 Unspecified osteoarthritis, unspecified site; G62.9 Polyneuropathy, unspecified; Z79.899 Other long term (current) drug therapy; Z88.0 Allergy status to penicillin; Z88.2 Allergy status to sulfonamides; Z88.8 Allergy status to other drugs, medicaments and biological substances; Z91.040 Latex allergy status; Z98.41 Cataract extraction status, right eye; Z98.42 Cataract extraction status, left eye; Z96.653 Presence of artificial knee joint, bilateral; H40.9 Unspecified glaucoma; N28.1 Cyst of kidney, acquired; I87.8 Other specified disorders of veins

== ENCOUNTER 2024-09-11 06:57 | Emergency (ER) | payer MEDICARE, BC, OTHER ==
[~2024-09-11] VITALS: Ht 162.6 cm; Wt 111.4 kg
[~2024-09-11 06:57] MED LIST changes: -ADV500INH INH; +ADVA1AER10 INH; +DILA2TAB6 PO; +FLUC150T9 PO; +NYST1POW3 TOP; -NYST1POW9 TOP; +SENN-52 PO; +SOLI10TA PO
[2024-09-11 08:31] LABS: HEMATOCRIT 33.5 % (36.0-47.0); MEAN CORPUSCULAR HEMOGLOBIN 29.6 pg (27.0-33.0); MEAN CORPUSCULAR HGB CONC 32.8 g/dl (32.0-36.5); MEAN CORPUSCULAR VOLUME 90.1 fl (80.0-96.0); PLATELET COUNT, AUTOMATED 299 10^3/uL (150-450); RED BLOOD COUNT 3.72 10^6/uL (4.00-5.40)
[2024-09-11 09:27] LABS: CALCIUM LEVEL 9.1 MG/DL (8.3-10.6); CREATININE FOR GFR 1.01 MG/DL (0.55-1.30); GLOMERULAR FILTRATION RATE 57.4 (>39); POTASSIUM SERUM 4.5 MMOL/L (3.5-5.1)
[2024-09-11] MEDS ORDERED: TORS10TA3 PO (10:23)
[2024-09-11] MEDS ORDERED: NARC1SPR (10:23)
[2024-09-11] MEDS ORDERED: EQL50TAB2 PO (10:23)
[2024-09-11] MEDS ORDERED: MAGN400T35 PO (10:23)
[2024-09-11] MEDS ORDERED: HOME MED LIST COMPLETE! XX SCH (10:30)
[2024-09-11] MEDS: oxyCODONE 5MG TAB PO ONE (11:02)
[2024-09-11 11:57] VITALS: BP 134/55; TEMP 97.9; O2SAT 97
== END 2024-09-11 12:07 | disposition home or self-care (01) ==
LOC: M ED 06:57
DX: M25.512 Pain in left shoulder (principal); W06.XXXA Fall from bed, initial encounter; M19.012 Primary osteoarthritis, left shoulder; G43.909 Migraine, unspecified, not intractable, without status migrainosus; I10 Essential (primary) hypertension; G40.909 Epilepsy, unspecified, not intractable, without status epilepticus; K21.9 Gastro-esophageal reflux disease without esophagitis; Z79.52 Long term (current) use of systemic steroids; Z79.899 Other long term (current) drug therapy; Z79.02 Long term (current) use of antithrombotics/antiplatelets; Z88.0 Allergy status to penicillin; Z88.1 Allergy status to other antibiotic agents; Z88.2 Allergy status to sulfonamides; Z88.6 Allergy status to analgesic agent; Z88.8 Allergy status to other drugs, medicaments and biological substances; Y92.009 Unspecified place in unspecified non-institutional (private) residence as the place of occurrence of the external cause; Y93.89 Activity, other specified; Y99.9 Unspecified external cause status

== ENCOUNTER → 2024-10-04 | Outpatient (REF) | payer MEDICARE, OTHER ==
[~2024-10-04] MED LIST changes: +EQL50TAB2 PO
[2024-10-04 21:55] LABS: APPEARANCE, URINE CLOUDY (CLEAR); BACTERIA, URINE AUTO 3+ (NEGATIVE); BILIRUBIN, URINE AUTO NEGATIVE (NEGATIVE); BLOOD, URINE BLOOD NEGATIVE (NEGATIVE); COLOR, URINE YELLOW (YELLOW); GLUCOSE, URINE (UA) AUTO NEGATIVE (NEGATIVE); KETONE, URINE AUTO NEGATIVE (NEGATIVE); LEUKOCYTE ESTERASE, URINE AUTO 3+ (NEGATIVE); NITRITE, URINE AUTO POSITIVE (NEGATIVE); PROTEIN, URINE AUTO NEGATIVE (NEGATIVE); RBC, URINE AUTO 0 /HPF (0-3); SQUAMOUS EPITHELIAL CELL UR AU 0 /HPF (0-6); UROBILINOGEN, URINE AUTO 0.2 mg/dL (0.0-2.0); WBC, URINE AUTO TNTC /HPF (0-3)
== END ==
LOC: M LAB REF 21:28
PROVIDERS: ATTEND Internal Medicine
DX: N18.31 Chronic kidney disease, stage 3a (principal); R32 Unspecified urinary incontinence; R19.7 Diarrhea, unspecified

== ENCOUNTER → 2024-10-22 | Outpatient (REF) | payer MEDICARE, OTHER, BC ==
[2024-10-22 15:17] LABS: APPEARANCE, URINE CLOUDY (CLEAR); BACTERIA, URINE AUTO 1+ (NEGATIVE); BILIRUBIN, URINE AUTO NEGATIVE (NEGATIVE); BLOOD, URINE BLOOD NEGATIVE (NEGATIVE); COLOR, URINE YELLOW (YELLOW); GLUCOSE, URINE (UA) AUTO NEGATIVE (NEGATIVE); KETONE, URINE AUTO NEGATIVE (NEGATIVE); LEUKOCYTE ESTERASE, URINE AUTO 3+ (NEGATIVE); NITRITE, URINE AUTO POSITIVE (NEGATIVE); PROTEIN, URINE AUTO 1+ mg/dL (NEGATIVE); RBC, URINE AUTO 1 /HPF (0-3); SPECIFIC GRAVITY URINE AUTO 1.014 (1.002-1.035); SQUAMOUS EPITHELIAL CELL UR AU 0 /HPF (0-6); UROBILINOGEN, URINE AUTO 0.2 mg/dL (0.0-2.0); WBC, URINE AUTO 101 /HPF (0-3)
== END ==
LOC: M SMT 14:56
PROVIDERS: ATTEND Nurse Practitioner Family
DX: N39.0 Urinary tract infection, site not specified (principal)

== ENCOUNTER 2024-10-29 14:01 | Emergency (ER) | payer MEDICARE, OTHER, BC ==
[~2024-10-29] VITALS: Ht 162.6 cm; Wt 111.4 kg
[2024-10-29] MEDS: ONDANSETRON 4MG 2ML VIAL IV ONE (18:24)
[2024-10-29] MEDS: MORPHINE 4 MG/ML 1ML VIAL IV ONE (18:24)
[2024-10-29 20:54] VITALS: BP 142/65; TEMP 97.6; O2SAT 97
== END 2024-10-29 21:15 | disposition home or self-care (01) ==
LOC: M ED 14:01 → EDBD 14:01 → M ED 21:15
DX: M51.360 Other intervertebral disc degeneration, lumbar region with discogenic back pain only (principal); N28.1 Cyst of kidney, acquired; Z88.0 Allergy status to penicillin; Z88.1 Allergy status to other antibiotic agents; Z88.2 Allergy status to sulfonamides; Z88.6 Allergy status to analgesic agent; Z88.8 Allergy status to other drugs, medicaments and biological substances; Z79.52 Long term (current) use of systemic steroids; Z79.02 Long term (current) use of antithrombotics/antiplatelets; Z79.01 Long term (current) use of anticoagulants
CPT/HCPCS: 72131; 96374; 99284; J2405

== ENCOUNTER 2025-01-21 01:02 | Emergency (ER) | payer MEDICARE, BC, OTHER ==
[~2025-01-21] VITALS: Ht 162.6 cm; Wt 109.1 kg
[~2025-01-21 01:02] MED LIST changes: +AMLO-751 PO; -AMLO10TA PO; +B-122500 PO; +DULO20CA27 PO; -EQL50TAB2 PO; +LEVE1TAB43 PO; -LEVE500T88 PO; +MORP-137 PO; +MORP-138 PO; -MORP15TASA PO; -MSIR30TA PO; +VITA1TAB82 PO
[2025-01-21 02:01] LABS: BASO # 0.0 10^3/uL (0.0-0.2); BASO % 0.5 % (0.0-1.0); EOS # 0.2 10^3/uL (0.0-0.5); EOS % 4.3 % (0.0-3.0); LYMPH # 1.5 10^3/uL (1.5-5.0); LYMPH % 34.4 % (24.0-44.0); MONO # 0.6 10^3/uL (0.0-0.8); MONO % 13.7 % (2.0-8.0); NEUTROPHILS # 2.1 10^3/uL (1.5-8.5); NEUTROPHILS % 46.9 % (36.0-66.0); PLATELET COUNT, AUTOMATED 274 10^3/uL (150-450)
[2025-01-21 02:21] LABS: ALT/SGPT 16.0 U/L (7.0-40); AST/SGOT 28.0 U/L (<34); CALCIUM LEVEL 8.8 MG/DL (8.3-10.6); CARBON DIOXIDE LEVEL 25.0 MMOL/L (20-31); CHLORIDE LEVEL 103.0 MMOL/L (98-107); CREATININE FOR GFR 1.66 MG/DL (0.55-1.30); GLOMERULAR FILTRATION RATE 32.6 (>39); POTASSIUM SERUM 4.4 MMOL/L (3.5-5.1); SODIUM LEVEL 141.0 MMOL/L (136-145)
[2025-01-21] MEDS: NS (Normal Saline) 0.9% 1,000 ML IV ONE (05:21)
[2025-01-21 05:31] VITALS: BP 137/63; TEMP 98.3
[2025-01-21 05:45] VITALS: O2SAT 95
[2025-01-21] MEDS ORDERED: LEVE750T5 PO (14:23)
== END 2025-01-21 06:00 | disposition home or self-care (01) ==
LOC: M ED 01:02
DX: R41.82 Altered mental status, unspecified (principal); M25.512 Pain in left shoulder; R39.2 Extrarenal uremia; M54.50 Low back pain, unspecified; E03.9 Hypothyroidism, unspecified; J44.9 Chronic obstructive pulmonary disease, unspecified; F41.9 Anxiety disorder, unspecified; K21.9 Gastro-esophageal reflux disease without esophagitis; G40.909 Epilepsy, unspecified, not intractable, without status epilepticus; I10 Essential (primary) hypertension; F17.200 Nicotine dependence, unspecified, uncomplicated; Z79.52 Long term (current) use of systemic steroids; Z79.1 Long term (current) use of non-steroidal anti-inflammatories (NSAID); Z79.02 Long term (current) use of antithrombotics/antiplatelets; Z79.899 Other long term (current) drug therapy; Z88.0 Allergy status to penicillin; Z88.1 Allergy status to other antibiotic agents; Z88.2 Allergy status to sulfonamides; Z88.6 Allergy status to analgesic agent; Z88.8 Allergy status to other drugs, medicaments and biological substances; Z91.048 Other nonmedicinal substance allergy status; Z86.79 Personal history of other diseases of the circulatory system

== ENCOUNTER 2025-01-21 06:32 | Inpatient (IN) | payer MEDICARE, BC, OTHER ==
[~2025-01-21] VITALS: Ht 162.6 cm; Wt 112.9 kg
[2025-01-21] VITALS (7 sets, daily range): BP systolic 117–149; BP diastolic 58–84; TEMP 97.3–98.1; O2SAT 91–97
[2025-01-21] MEDS ORDERED: LIDOCAINE 2% 100 MG/5 ML SDV (FOR ANES.) As Ordered ONE (06:43)
[2025-01-21] MEDS ORDERED: dexAMETHasone 4 MG/ML 1 ML VIAL As Ordered ONE (06:45)
[2025-01-21] MEDS ORDERED: ROCURONIUM BROMIDE 50MG/5ML VIAL As Ordered ONE (06:45)
[2025-01-21] MEDS: LR 1,000 ML IV SCH (07:30)
[2025-01-21] MEDS ORDERED: MIDAZOLAM INJ 2 MG/2 ML VIAL IV PRN (07:50)
[2025-01-21] MEDS: TRANEXAMIC ACID 100 MG/ML 10ML VIAL As Ordered ONE (08:38)
[2025-01-21] MEDS: LIDOCAINE W/EPINEPHrine 1% 20 ML VIAL As Ordered ONE (08:55)
[2025-01-21] MEDS: VANCOMYCIN 1000MG/20ML VIAL As Ordered ONE (09:17)
[2025-01-21] MEDS ORDERED: METOPROLOL 5 MG/5 ML VIAL As Ordered ONE (09:33)
[2025-01-21] MEDS ORDERED: SUGAMMADEX SODIUM 500 MG/5 ML VIAL As Ordered ONE (10:51)
[2025-01-21] MEDS ORDERED: ONDANSETRON 4MG 2ML VIAL As Ordered ONE (10:52)
[2025-01-21] MEDS ORDERED: ONDANSETRON 4MG 2ML VIAL IV PRN ×2 (11:10→14:00)
[2025-01-21] MEDS ORDERED: HYDROMORPHONE HCL 0.5 MG/0.5 ML SYRINGE IV PRN (11:10)
[2025-01-21] MEDS ORDERED: COMBIVENT RESPIMAT 100-20 MCG INHALER 4 GM INH PRN (12:10)
[2025-01-21 12:56] LABS: BASO # 0.0 10^3/uL (0.0-0.2); BASO % 0.2 % (0.0-1.0); EOS # 0.0 10^3/uL (0.0-0.5); EOS % 0.3 % (0.0-3.0); LYMPH # 0.6 10^3/uL (1.5-5.0); LYMPH % 9.9 % (24.0-44.0); MONO # 0.1 10^3/uL (0.0-0.8); MONO % 2.4 % (2.0-8.0); NEUTROPHILS # 5.1 10^3/uL (1.5-8.5); NEUTROPHILS % 87.0 % (36.0-66.0); PLATELET COUNT, AUTOMATED 285 10^3/uL (150-450)
[2025-01-21 13:31] LABS: ALT/SGPT 18.0 U/L (7.0-40); AST/SGOT 22.0 U/L (<34); CALCIUM LEVEL 9.3 MG/DL (8.3-10.6); CARBON DIOXIDE LEVEL 26.0 MMOL/L (20-31); CHLORIDE LEVEL 105.0 MMOL/L (98-107); CREATININE FOR GFR 1.37 MG/DL (0.55-1.30); GLOMERULAR FILTRATION RATE 41.0 (>39); POTASSIUM SERUM 4.1 MMOL/L (3.5-5.1); SODIUM LEVEL 142.0 MMOL/L (136-145)
[2025-01-21] MEDS ORDERED: LR 1,000 ML IV SCH (14:00)
[2025-01-21] MEDS ORDERED: LEVE750T5 PO (14:23)
[2025-01-21] MEDS ORDERED: HOME MED LIST COMPLETE! XX SCH (14:25)
[2025-01-21] MEDS: PERCOCET 5MG/325MG TAB PO PRN (15:12)
[2025-01-21] MEDS: RIVAROXABAN 10MG TAB PO SCH (18:10)
[2025-01-21] MEDS: ceFAZolin SODIUM 2 GM in DEXTROSE 5% (D5W) ADV/MINI-BAG 50 ML IV SCH (18:11)
[2025-01-21] MEDS: MONTELUKAST 10 MG TAB PO SCH (20:42)
[2025-01-21] MEDS: ALPRAZolam 0.5 MG TAB PO SCH (20:42)
[2025-01-21] MEDS: LACOSAMIDE 50 MG TAB PO SCH (20:42)
[2025-01-21] MEDS: CETIRIZINE 10 MG TAB PO SCH (20:42)
[2025-01-21] MEDS ORDERED: PROPRANOLOL 60MG LA CAP PO SCH (21:00)
[2025-01-21] MEDS ORDERED: ATORVASTATIN 20 MG TAB PO SCH (21:00)
[2025-01-21] MEDS ORDERED: LACOSAMIDE 50 MG TAB PO SCH (21:00)
[2025-01-22 00:09] VITALS: BP 123/60; TEMP 97.7; O2SAT 92
[2025-01-22] MEDS: ACETAMINOPHEN 325 MG TAB PO PRN (01:27)
[2025-01-22 05:00] VITALS: BP 131/58; TEMP 98.1; O2SAT 90
[2025-01-22] MEDS: ALPRAZolam 0.5 MG TAB PO PRN (05:56)
[2025-01-22] MEDS: LEVOTHYROXINE 112 MCG TABLET (0.112 MG) PO SCH (06:34)
[2025-01-22] MEDS ORDERED: PILL CUTTER 1 EACH XX PRN (07:30)
[2025-01-22 07:45] LABS: PLATELET COUNT, AUTOMATED 241 10^3/uL (150-450)
[2025-01-22 08:00] VITALS: BP 105/45; TEMP 98.1; O2SAT 93
[2025-01-22] MEDS: ALPRAZolam 0.5 MG TAB PO ONE (08:07)
[2025-01-22] MEDS: FAMOTIDINE 20 MG TAB PO SCH (08:20)
[2025-01-22] MEDS: amLODIPine 10 MG TAB PO SCH (08:22)
[2025-01-22] MEDS ORDERED: SPIRONOLACTONE 25 MG TAB PO SCH (09:00)
[2025-01-22 12:00] VITALS: BP 117/43; TEMP 98.1; O2SAT 94
[2025-01-22 16:00] VITALS: BP 138/78; TEMP 98.2; O2SAT 93
[2025-01-22 19:40] VITALS: BP 125/63; TEMP 98.2; O2SAT 94
[2025-01-23 04:35] VITALS: BP 129/64; TEMP 98.2; O2SAT 90
[2025-01-23 06:52] LABS: PLATELET COUNT, AUTOMATED 230 10^3/uL (150-450)
[2025-01-23] MEDS: MORPHINE 2 MG/ML 1 ML VIAL IV ONE (07:45)
[2025-01-23] MEDS: ALPRAZolam 0.5 MG TAB PO ONE (07:47)
[2025-01-23 08:50] LABS: CALCIUM LEVEL 8.6 MG/DL (8.3-10.6); CARBON DIOXIDE LEVEL 24.0 MMOL/L (20-31); CHLORIDE LEVEL 106.0 MMOL/L (98-107); CREATININE FOR GFR 1.01 MG/DL (0.55-1.30); GLOMERULAR FILTRATION RATE 59.2 (>39); POTASSIUM SERUM 3.8 MMOL/L (3.5-5.1); SODIUM LEVEL 143.0 MMOL/L (136-145)
[2025-01-23] MEDS: dexAMETHasone 10 MG/1 ML VIAL PRES.FREE PN ONE (09:43)
[2025-01-23] MEDS: LR 1,000 ML IV SCH (09:44)
[2025-01-23 12:47] VITALS: BP 131/63; TEMP 98.2; O2SAT 93
[2025-01-23 21:10] VITALS: BP 155/77; TEMP 98.2; O2SAT 94
[2025-01-24 04:02] VITALS: BP 133/58; TEMP 98.2; O2SAT 97
[2025-01-24 07:38] LABS: PLATELET COUNT, AUTOMATED 232 10^3/uL (150-450)
[2025-01-24] MEDS: ALPRAZolam 0.5 MG TAB PO ONE (09:11)
[2025-01-24] MEDS: PERCOCET 5MG/325MG TAB PO ONE (09:16)
[2025-01-24 12:00] VITALS: BP 101/47; TEMP 97.2; O2SAT 94
[2025-01-24 19:44] VITALS: BP 125/57; TEMP 97.7; O2SAT 95
[2025-01-24] MEDS: PERCOCET 5MG/325MG TAB PO PRN (21:57)
[2025-01-25] MEDS: DOCUSATE SODIUM 100 MG CAPSULE PO PRN (00:21)
[2025-01-25 04:09] VITALS: BP 126/57; TEMP 97.5; O2SAT 90
[2025-01-26 03:51] VITALS: BP 132/65; TEMP 97.9; O2SAT 92
[2025-01-26] MEDS: LIDOCAINE 1% SDV 5 ML VIAL PN ONE (11:06)
[2025-01-26] MEDS: ROPIvacaine 0.5% 30ML VIAL PN ONE (11:06)
[2025-01-26] MEDS ORDERED: PERC5TAB12 PO (15:06)
[2025-01-26 19:30] VITALS: BP 167/64; TEMP 97.9; O2SAT 96
[2025-01-27 04:05] VITALS: BP 140/67; TEMP 97.5; O2SAT 96
[2025-01-27 08:31] VITALS: BP 141/67
== END 2025-01-27 13:40 | DRG 483 ==
LOC: M SDC 06:32 → M MS5PR 12:06
PROVIDERS: ADMIT General Practice; ATTEND General Practice
PROC: 0RRK0JZ Replacement of Left Shoulder Joint with Synthetic Substitute, Open Approach (ICD-10-PCS; principal; 2025-01-21 07:30)
DX: M19.012 Primary osteoarthritis, left shoulder (principal); I50.32 Chronic diastolic (congestive) heart failure; N17.9 Acute kidney failure, unspecified; F11.20 Opioid dependence, uncomplicated; F13.20 Sedative, hypnotic or anxiolytic dependence, uncomplicated; Z68.41 Body mass index [BMI] 40.0-44.9, adult; E66.01 Morbid (severe) obesity due to excess calories; K21.9 Gastro-esophageal reflux disease without esophagitis; Z89.512 Acquired absence of left leg below knee; E03.9 Hypothyroidism, unspecified; G40.909 Epilepsy, unspecified, not intractable, without status epilepticus; R54 Age-related physical debility; J45.909 Unspecified asthma, uncomplicated; I11.0 Hypertensive heart disease with heart failure; F41.9 Anxiety disorder, unspecified; Z85.828 Personal history of other malignant neoplasm of skin; F32.A Depression, unspecified; M79.7 Fibromyalgia; H40.9 Unspecified glaucoma; G47.00 Insomnia, unspecified; Z98.41 Cataract extraction status, right eye; Z98.42 Cataract extraction status, left eye; Z96.653 Presence of artificial knee joint, bilateral; Z79.899 Other long term (current) drug therapy; Z79.890 Hormone replacement therapy; Z88.0 Allergy status to penicillin; Z88.6 Allergy status to analgesic agent; Z88.2 Allergy status to sulfonamides; Z91.018 Allergy to other foods; Z91.040 Latex allergy status; G62.9 Polyneuropathy, unspecified; Z90.5 Acquired absence of kidney

== ENCOUNTER → 2025-02-09 | Outpatient (CLI) | payer MEDICARE, BC, OTHER ==
[~2025-02-09] MED LIST changes: +LEVE750T5 PO; +PERC5TAB12 PO
== END ==
LOC: M SOG 07:03
PROVIDERS: ATTEND Physician Assistant
DX: M12.812 Other specific arthropathies, not elsewhere classified, left shoulder (principal)